=== PATIENT | male | born 1960 ===

== ENCOUNTER 2018-02-24 02:50 | Inpatient (IN) | payer MEDICAID, OTHER ==
[2018-02-24 02:56] VITALS: BMI 22.4
[2018-02-24] MEDS ORDERED: Labetalol 25mg/5ml Syringe IVP STA (02:59)
--- NOTE | 2018-02-24 03:00 | C.PDOC ---
History Of Present Illness 57 y/o male with PMHx of diabetes brought in by ambulance due to altered mental status. Patient reportedly had not been seen by family members for several days. According to relatives, they came to visit him today and heard thrashing about on the floor prior to entering apartment. When they walked in they found patient unconscious with seizure-like activity and called EMS. EMS then intubated patient in route and gave rocuronium, ativan, and ketamine in the field. On arrival to the ED, patient is being called a Code Stroke. He was not exhibiting any motor activity due to his state of paralysis. Time Seen by Provider: 02/24/18 02:59 Chief Complaint (Nursing): Altered Mental Status History Per: Patient History/Exam Limitations: Clinical Condition Onset Of Symptoms: Cannot Confirm Onset Current Symptoms Are (Timing): Still Present Exacerbating Factor(s): Unknown Additional History Per: Family Past Medical History Reviewed: Historical Data, Nursing Documentation, Vital Signs Vital Signs: Last Vital Signs Temp 97.5 F L 02/24/18 03:21 Pulse 88 02/24/18 05:03 Resp 20 02/24/18 05:03 BP 162/103 H 02/24/18 05:03 Pulse Ox 100 02/24/18 05:03 - Medical History PMH: Diabetes, HTN Family History: States: Unknown Family Hx - Social History Hx Tobacco Use: No Hx Alcohol Use: No Hx Substance Use: No - Immunization History Hx Tetanus Toxoid Vaccination: No Hx Influenza Vaccination: Yes Hx Pneumococcal Vaccination: No Review Of Systems Review Of Systems: ROS cannot be obtained secondary to pt's inabilty to answer questions. Physical Exam - Physical Exam Skin: Warm, Dry Head: Atraumatic, Normacephalic Eye(s): bilateral: Other (Pupils are mid size and midline) Neck: Trachea Midline, Supple, Other (ET tube in place) Chest: Symmetrical Cardiovascular: Rhythm Regular Respiratory: Other (Breath sounds equal bilaterally; No spontaneous respirations ) Gastrointestinal/Abdominal: Soft, No Distention Extremity: Bilateral: Atraumatic, Other (Not able to elicit babinskis) Pulses: Left Dorsalis Pedis: Normal, Right Dorsalis Pedis: Normal Neurological/Psych: Other (No motor activity exhibited; patient appears awake, not responding to verbal stimuli) ED Course And Treatment - Laboratory Results Result Diagrams: 02/24/18 03:10 02/24/18 03:10 ECG: Interpreted By Me, Viewed By Me ECG Rhythm: Sinus Rhythm (at 97 bpm, (+) voltage criteria for LVH, peaked T waves across the precordial leads v3-v6) ECG Interpretation: Normal Interpretation Of ECG: nsr,LVH,peaked t waves Rate From EC - Radiology CXR: Interpreted by Me CXR Interpretation: Yes: No Acute Disease - CT Scan/US CT Head Other Rad Studies (CT/US): Read By Radiologist, Radiology Report Reviewed CT/US Interpretation: FINDINGS: Brain: There are bilateral posterior periventricular hyperdensity seen on image 18 series 2 bilateral. frontal hyperdense areas suspicious for multifocal hemorrhage possible right temporal subarachnoid. hemorrhage. Brainstem: There are bilateral scattered hyperdense areas in the right yogesh seen on image 21 series. 4 right temporal lobe seen on image 25 series 4 left deep white matter seen on image 14 series 4. Ventricles : Unremarkable. No ventriculomegaly. Bones/joints: Unremarkable. No acute fracture. Soft tissues: Unremarkable. Sinuses: Unremarkable. No acute sinusitis. Mastoid air cells: Unremarkable. No mastoid effusion. Orbits: The globes and lens are intact. IMPRESSION: 1. Multifocal hyperdense areas scattered throughout the brain as described suspicious for. hemorrhagic metastasis/hyperdense metastatic lymphoma. These findings could represent multifocal. hemorrhage versus combination of hemorrhage and hemorrhagic / calcified lesions secondary to. infection or metastasis. Correlation with patient's neurologic history is recommended. CRITICAL RESULT: The study was personally discussed on the telephone with [Eugenia Beltrán]. on 02/24/2018 3:32 AM EDT. The results were understood and acknowledged. Thank you for allowing us to participate in the care of your patient. Dictated and Authenticated by: Baudilio Acuna MD. 02/24/2018 3:37 AM Eastern Time ([place] & [place]) Progress Note: Spoke with Dr Sandhu of neurosurgery and Dr Yi manager wealth management for admission.Dr Sandhu suggests having neurology see pt,there is nothing to offer neurosurgically at this time Medical Decision Making Medical Decision Making: Blood pressure on arrival is 207/120. Given 20 mg IV Labetalol. Accucheck in the ED is 341. Patient sent immediately to CT scan to r/o intracranial abnormality. Impression: Altered mental status, Acute CVA vs hypertensive encephalopathy vs intracranial hemorrhage vs drug overdose vs new onset seizures Time: 2:55 Initial Plan: * Routine blood work * Drug screen * CT Head w/o contrast Spoke with niece, who states she was sleeping in the next room over with her child when she heard a loud thump and then found the patient seizing. As per niece, patient has no history of drug use or alcohol use. Spoke with Dr. Del Castillo, who recommends neurosurgery consult due to possibility of aneurismal bleed. 4:[address] Sandhu, neurosurgery on-call. CT findings discussed. 4:[address] Romero, manager wealth management on-call. 4:52 Received call back from Dr. Sandhu, who viewed the scan and states no neurosurgical intervention is indicated. Disposition Discussed With : chad Doctor Will See Patient In The: Hospital - Disposition Disposition: HOSPITALIZED Disposition Time: 05:16 Condition: CRITICAL Forms: [facility] (Singaporean) - Clinical Impression Clinical Impression: Intracranial bleed - Scribe Statement The provider has reviewed the documentation as recorded by the Scribe (Vibha Ellington) Provider Attestation: All medical record entries made by the Scribe were at my direction and personally dictated by me. I have reviewed the chart and agree that the record accurately reflects my personal performance of the history, physical exam, medical decision making, and the department course for this patient. I have also personally directed, reviewed, and agree with the discharge instructions and disposition.
[2018-02-24 03:13] LABS: BASO # 0.2 K/uL (0.0-0.2); MONO # 2.7 K/uL (0.0-0.8); PLATELET COUNT 410 K/uL (130-400); RED CELL DISTRIBUTION WIDTH 16.1 % (11.5-14.5)
[2018-02-24 03:30] LABS: ABG ALLEN TEST POS; ARTERIAL BLOOD GAS HCO3 8.3 mmol/L (21-28); ARTERIAL BLOOD GAS O2 SAT 99.7 % (95-98); ARTERIAL BLOOD GAS PCO2 50 mm/Hg (35-45); ARTERIAL BLOOD GAS PH 6.94 (7.35-7.45); ARTERIAL BLOOD GAS PO2 493 mm/Hg (80-100); ARTERIAL BLOOD GAS TCO2 12.2 mmol/L (22-28)
[2018-02-24 03:42] LABS: BASO % 0.4 % (0.0-2.0); EOS # 0.7 K/uL (0.0-0.7); HEMOGLOBIN 12.8 g/dL (12.0-18.0); LYMPH # 6.9 K/uL (1.0-4.3); LYMPH % 19.8 % (20.0-40.0); MEAN CELL VOLUME 78.5 fL (80.0-94.0); MEAN CORPUSCULAR HEMOGLOBIN 23.9 pg (27.0-31.0); MEAN CORPUSCULAR HGB CONC 30.5 g/dL (33.0-37.0); MEAN PLATELET VOLUME 8.7 fL (7.2-11.7); MONO % 7.7 % (0.0-10.0); NEUT # 24.4 K/uL (1.8-7.0); NEUT % 70.1 % (50.0-75.0); RBC 5.37 Mil/uL (4.40-5.90); WHITE BLOOD COUNT 34.8 K/uL (4.8-10.8)
[2018-02-24] MEDS ORDERED: Propofol 10 mg/ml Inj (100 ml) IV SCH (03:45)
[2018-02-24 03:49] LABS: SQUAMOUS EPITHIAL 1 /hpf (0-5); URINE BACTERIA OCC (<OCC); URINE BILIRUBIN NEGATIVE (NEGATIVE); URINE CLARITY Hazy (Clear); URINE COLOR Yellow (YELLOW); URINE GLUCOSE (UA) 3+ mg/dL (Normal); URINE LEUKOCYTE ESTERASE NEG Leu/uL (Negative); URINE PROTEIN 2+ mg/dL (NEGATIVE); URINE UROBILINOGEN NORMAL mg/dL (0.2-1.0)
[2018-02-24 03:56] LABS: BARBITURATES, UR NEGATIVE (NEGATIVE); BENZODIAZEPINES, UR NEGATIVE (NEGATIVE); OPIATES, UR NEGATIVE (NEGATIVE); PHENCYCLIDINE, UR NEGATIVE (NEGATIVE)
[2018-02-24 03:56] LABS: ALB/GLOB RATIO 0.9 (1.0-2.1); ALBUMIN 4.5 g/dL (3.5-5.0); ALT/SGPT 33 U/L (21-72); AST/SGOT 53 U/L (17-59); BLOOD UREA NITROGEN 14 mg/dL (9-20); CALCIUM 9.5 mg/dl (8.6-10.4); GFR AFRICAN-AMERICAN 51; GFR NON-AFRICAN AMERICAN 42
[2018-02-24 04:00] LABS: URINE BLOOD TRACE (NEGATIVE)
[2018-02-24] MEDS: Propofol 10 mg/ml 1,000 MG/100 ML VIAL IV PRN ×3 (04:01→12:30)
[2018-02-24 04:07] LABS: BANDS 5 % (0-2); LYMPHOCYTE 24 % (20-40); MONOCYTE 9 % (0-10); NEUTROPHIL 62 % (50-75); PLATELET ESTIMATE NORMAL (NORMAL); TOTAL CELLS COUNTED 100
[2018-02-24 05:15] LABS: PROTHROMBIN TIME 11.3 SECONDS (9.7-12.2)
[2018-02-24 05:16] LABS: ABG ALLEN TEST POS; ARTERIAL BLOOD GAS HCO3 18.5 mmol/L (21-28); ARTERIAL BLOOD GAS HEMOGLOBIN 13.4 g/dL (11.7-17.4); ARTERIAL BLOOD GAS O2 SAT 99.1 % (95-98); ARTERIAL BLOOD GAS PCO2 38 mm/Hg (35-45); ARTERIAL BLOOD GAS PH 7.28 (7.35-7.45); ARTERIAL BLOOD GAS PO2 227 mm/Hg (80-100); ARTERIAL BLOOD GAS TCO2 19.1 mmol/L (22-28)
[2018-02-24] MEDS ORDERED: Insulin Human Regular 100 UNIT in Sodium Chloride 0.9% 99 ML IV SCH (05:30)
[2018-02-24] MEDS ORDERED: Iodixanol 320 mg/ml 150 ml Bottle IV ONE (05:35)
--- NOTE | 2018-02-24 05:40 | CP.PCM.CON ---
History of Present Illness - History of Present Illness History of Present Illness: 57 y/o male with PMHx of diabetes ,HTN brought in by ambulance due to altered mental status. . EMS then intubated patient in route and gave rocuronium, ativan , and ketamine in the field. patients jimenez who lives in the lower level of the same building as patient heard sound early childhood assistant and went to check on him.Patient was found with saliva from the mouth,difficulty breathing and with shaking movements no further history available CT head report: Brain: There are bilateral posterior periventricular hyperdensity seen on image 18 series 2 bilateral. frontal hyperdense areas suspicious for multifocal hemorrhage possible right temporal subarachnoid. hemorrhage. Brainstem: There are bilateral scattered hyperdense areas in the right yogesh seen on image 21 series. 4 right temporal lobe seen on image 25 series 4 left deep white matter seen on image 14 series 4. Ventricles: Unremarkable. No ventriculomegaly. Bones/joints: Unremarkable. No acute fracture. Soft tissues: Unremarkable. Sinuses: Unremarkable. No acute sinusitis. Mastoid air cells: Unremarkable. No mastoid effusion. Orbits: The globes and lens are intact. IMPRESSION: 1. Multifocal hyperdense areas scattered throughout the brain as described suspicious for. hemorrhagic metastasis/hyperdense metastatic lymphoma. These findings could represent multifocal. hemorrhage versus combination of hemorrhage and hemorrhagic / calcified lesions secondary to. infection or metastasis. Past Patient History - Past Social History Smoking Status: Light Smoker < 10 Cigarettes Daily - CARDIAC Hx Hypertension: Yes - ENDOCRINE/METABOLIC Hx Diabetes Mellitus Type 2: Yes Other/Comment: metformin found at home - PSYCHIATRIC Hx Substance Use: No - ANESTHESIA Hx Anesthesia: No Meds Allergies/Adverse Reactions: Allergies Allergy/AdvReac Type Severity Reaction Status Date / Time No Known Allergies Allergy Verified 02/24/18 02:59 - Medications Medications: Current Medications Levetiracetam 1,000 mg/ (Dextrose) 110 mls @ 420 mls/hr IVPB Q12H LEILA Last Admin: 02/24/18 04:03 Dose: 420 mls/hr Propofol (Diprivan) 1,000 mg in 100 mls @ 2.19 mls/hr IV .Q24H PRN; Protocol; 5 MCG/KG/MIN PRN Reason: TITRATE PER MD ORDER Last Admin: 02/24/18 04:35 Dose: 4.4 mls/hr Physical Exam - Constitutional Additional comments: orally intubated - Head Exam Head Exam: ATRAUMATIC, NORMAL INSPECTION, NORMOCEPHALIC - Eye Exam Eye Exam: PERRL. absent: Periorbital swelling, Scleral icterus - ENT Exam ENT Exam: Mucous Membranes Moist - Neck Exam Neck exam: Positive for: Normal Inspection - Respiratory Exam Respiratory Exam: Clear to Auscultation Bilateral. absent: Rales, Rhonchi - Cardiovascular Exam Cardiovascular Exam: REGULAR RHYTHM. absent: JVD - GI/Abdominal Exam GI & Abdominal Exam: Normal Bowel Sounds, Soft - Extremities Exam Extremities exam: Positive for: normal inspection, pedal pulses present. Negative for: pedal edema - Neurological Exam Additional comments: no response to verbal or painful stimuli,occassional minimal spontaneous movement of right hand - Skin Skin Exam: Normal Color, Warm Results - Vital Signs Recent Vital Signs: Last Vital Signs Temp 97.5 F L 02/24/18 03:21 Pulse 88 02/24/18 05:03 Resp 20 02/24/18 05:03 BP 162/103 H 02/24/18 05:03 Pulse Ox 100 02/24/18 05:03 - Labs Result Diagrams: 02/24/18 03:10 02/24/18 03:10 Labs: Laboratory Results - last 24 hr 02/24/18 02/24/18 02/24/18 02:53 03:10 03:10 WBC 34.8 H RBC 5.37 Hgb 12.8 Hct 42.1 MCV 78.5 L MCH 23.9 L MCHC 30.5 L RDW 16.1 H Plt Count 410 H MPV 8.7 Neut % (Auto) 70.1 Lymph % (Auto) 19.8 L [place] % (Auto) 7.7 Eos % (Auto) 2.0 Baso % (Auto) 0.4 Neut # (Auto) 24.4 H Lymph # (Auto) 6.9 H [place] # (Auto) 2.7 H Eos # (Auto) 0.7 Baso # (Auto) 0.2 Neutrophils % (Manual) 62 Band Neutrophils % 5 H Lymphocytes % (Manual) 24 Monocytes % (Manual) 9 Platelet Estimate Normal PT INR APTT Puncture Site pCO2 pO2 HCO3 ABG pH ABG Total CO2 ABG O2 Saturation ABG Base Excess ABG Hemoglobin ABG Carboxyhemoglobin POC ABG HHb (Measured) ABG Methemoglobin Tanner Test A-a O2 Difference Respiratory Index Hgb O2 Saturation Vent Mode Mechanical Rate FiO2 Tidal Volume PEEP Crit Value Called To Crit Value Called By Crit Value Read Back Blood Gas Notified Time Sodium 145 Potassium 6.1 H Chloride 103 Carbon Dioxide 8 L* Anion Gap 40 H BUN 14 Creatinine 1.7 H Est GFR ( Amer) 51 Est GFR (Non-Af Amer) 42 POC Glucose (mg/dL) 341 H Random Glucose 449 H* Lactic Acid Calcium 9.5 Total Bilirubin 0.5 AST 53 ALT 33 Alkaline Phosphatase 84 Troponin I 0.0170 Total Protein 9.3 H Albumin 4.5 Globulin 4.8 H Albumin/Globulin Ratio 0.9 L Urine Color Urine Clarity Urine pH Ur Specific [place] Urine Protein Urine Glucose (UA) Urine Ketones Urine Blood Urine Nitrate Urine Bilirubin Urine Urobilinogen Ur Leukocyte Esterase Urine WBC (Auto) Urine RBC (Auto) Ur Squamous Epith Cells Urine Bacteria Hyaline Casts Urine Opiates Screen Urine Methadone Screen Ur Barbiturates Screen Ur Phencyclidine Scrn Ur Amphetamines Screen U Benzodiazepines Scrn U Oth Cocaine Metabols U Cannabinoids Screen Alcohol, Quantitative < 10 Serum Ketones 02/24/18 02/24/18 02/24/18 03:20 03:36 03:36 WBC RBC Hgb Hct MCV MCH MCHC RDW Plt Count MPV Neut % (Auto) Lymph % (Auto) [place] % (Auto) Eos % (Auto) Baso % (Auto) Neut # (Auto) Lymph # (Auto) [place] # (Auto) Eos # (Auto) Baso # (Auto) Neutrophils % (Manual) Band Neutrophils % Lymphocytes % (Manual) Monocytes % (Manual) Platelet Estimate PT INR APTT Puncture Site Rr pCO2 50 H pO2 493 H HCO3 8.3 L* ABG pH 6.94 L* ABG Total CO2 12.2 L ABG O2 Saturation 99.7 H ABG Base Excess -21.4 L ABG Hemoglobin 13.0 ABG Carboxyhemoglobin 1.2 POC ABG HHb (Measured) 0.3 ABG Methemoglobin 0.3 Tanner Test Pos A-a O2 Difference 158.0 Respiratory Index 0.3 Hgb O2 Saturation 98.3 H Vent Mode Prvc Mechanical Rate 12 FiO2 100.0 Tidal Volume 500 PEEP 5 Crit Value Called To Cass carr/internet designer Crit Value Called By Jose james Crit Value Read Back Y Blood Gas Notified Time 335 Sodium Potassium Chloride Carbon Dioxide Anion Gap BUN Creatinine Est GFR ( Amer) Est GFR (Non-Af Amer) POC Glucose (mg/dL) Random Glucose Lactic Acid Calcium Total Bilirubin AST ALT Alkaline Phosphatase Troponin I Total Protein Albumin Globulin Albumin/Globulin Ratio Urine Color Yellow Urine Clarity Hazy Urine pH 5.0 Ur Specific [place] 1.008 Urine Protein 2+ H Urine Glucose (UA) 3+ H Urine Ketones Negative Urine Blood Trace H Urine Nitrate Negative Urine Bilirubin Negative Urine Urobilinogen Normal Ur Leukocyte Esterase Neg Urine WBC (Auto) 6 H Urine RBC (Auto) 2 Ur Squamous Epith Cells 1 Urine Bacteria Occ H Hyaline Casts 6-10 H Urine Opiates Screen Negative Urine Methadone Screen Negative Ur Barbiturates Screen Negative Ur Phencyclidine Scrn Negative Ur Amphetamines Screen Negative U Benzodiazepines Scrn Negative U Oth Cocaine Metabols Negative U Cannabinoids Screen Positive H Alcohol, Quantitative Serum Ketones 02/24/18 02/24/18 02/24/18 03:37 03:59 05:03 WBC RBC Hgb Hct MCV MCH MCHC RDW Plt Count MPV Neut % (Auto) Lymph % (Auto) [place] % (Auto) Eos % (Auto) Baso % (Auto) Neut # (Auto) Lymph # (Auto) [place] # (Auto) Eos # (Auto) Baso # (Auto) Neutrophils % (Manual) Band Neutrophils % Lymphocytes % (Manual) Monocytes % (Manual) Platelet Estimate PT 11.3 INR 1.0 APTT 34 Puncture Site pCO2 pO2 HCO3 ABG pH ABG Total CO2 ABG O2 Saturation ABG Base Excess ABG Hemoglobin ABG Carboxyhemoglobin POC ABG HHb (Measured) ABG Methemoglobin Tanner Test A-a O2 Difference Respiratory Index Hgb O2 Saturation Vent Mode Mechanical Rate FiO2 Tidal Volume PEEP Crit Value Called To Crit Value Called By Crit Value Read Back Blood Gas Notified Time Sodium Potassium Chloride Carbon Dioxide Anion Gap BUN Creatinine Est GFR ( Amer) Est GFR (Non-Af Amer) POC Glucose (mg/dL) Random Glucose Lactic Acid 9.6 H* Calcium Total Bilirubin AST ALT Alkaline Phosphatase Troponin I Total Protein Albumin Globulin Albumin/Globulin Ratio Urine Color Urine Clarity Urine pH Ur Specific [place] Urine Protein Urine Glucose (UA) Urine Ketones Urine Blood Urine Nitrate Urine Bilirubin Urine Urobilinogen Ur Leukocyte Esterase Urine WBC (Auto) Urine RBC (Auto) Ur Squamous Epith Cells Urine Bacteria Hyaline Casts Urine Opiates Screen Urine Methadone Screen Ur Barbiturates Screen Ur Phencyclidine Scrn Ur Amphetamines Screen U Benzodiazepines Scrn U Oth Cocaine Metabols U Cannabinoids Screen Alcohol, Quantitative Serum Ketones Negative 02/24/18 05:10 WBC RBC Hgb Hct MCV MCH MCHC RDW Plt Count MPV Neut % (Auto) Lymph % (Auto) [place] % (Auto) Eos % (Auto) Baso % (Auto) Neut # (Auto) Lymph # (Auto) [place] # (Auto) Eos # (Auto) Baso # (Auto) Neutrophils % (Manual) Band Neutrophils % Lymphocytes % (Manual) Monocytes % (Manual) Platelet Estimate PT INR APTT Puncture Site Rr pCO2 38 pO2 227 H HCO3 18.5 L ABG pH 7.28 L ABG Total CO2 19.1 L ABG O2 Saturation 99.1 H ABG Base Excess -8.2 L ABG Hemoglobin 13.4 ABG Carboxyhemoglobin 1.1 POC ABG HHb (Measured) 0.9 ABG Methemoglobin 0.5 Tanner Test Pos A-a O2 Difference 82.0 Respiratory Index 0.4 Hgb O2 Saturation 97.5 Vent Mode Prvc Mechanical Rate 20 FiO2 50.0 Tidal Volume 500 PEEP 5 Crit Value Called To Crit Value Called By Crit Value Read Back Blood Gas Notified Time Sodium Potassium Chloride Carbon Dioxide Anion Gap BUN Creatinine Est GFR ( Amer) Est GFR (Non-Af Amer) POC Glucose (mg/dL) Random Glucose Lactic Acid Calcium Total Bilirubin AST ALT Alkaline Phosphatase Troponin I Total Protein Albumin Globulin Albumin/Globulin Ratio Urine Color Urine Clarity Urine pH Ur Specific [place] Urine Protein Urine Glucose (UA) Urine Ketones Urine Blood Urine Nitrate Urine Bilirubin Urine Urobilinogen Ur Leukocyte Esterase Urine WBC (Auto) Urine RBC (Auto) Ur Squamous Epith Cells Urine Bacteria Hyaline Casts Urine Opiates Screen Urine Methadone Screen Ur Barbiturates Screen Ur Phencyclidine Scrn Ur Amphetamines Screen U Benzodiazepines Scrn U Oth Cocaine Metabols U Cannabinoids Screen Alcohol, Quantitative Serum Ketones - EKG Data EKG Interpreted by: Myself EKG shows normal: Sinus rhythm (lvh) - Imaging and Cardiology Chest x-ray Status: Image reviewed by me CT scan - head Status: Report reviewed by me Assessment & Plan - Assessment and Plan (Free Text) Assessment: 1.Altered Mental Status/Respiratory failure continue ventilatory support 2.Multifocal hyperdense areas on CT for rpt CT head and CT chest abdomen to r/o possible tumor 3.DM on insulin 4.HTN-f/u Bp and meds as needed 5.Drug abuse=cannabinoids in urine 6. leucocytosis blood and Urine cultures 5.Renal insufficiency/lactic acidosis and hyperkalemia f/u with rpt labs
--- NOTE | 2018-02-24 05:58 | CP.PCM.HP ---
<Jovi Del Castillo P - Last Filed: 02/24/18 06:16> Meds Allergies/Adverse Reactions: Allergies Allergy/AdvReac Type Severity Reaction Status Date / Time No Known Allergies Allergy Verified 02/24/18 02:59 Results - Vital Signs Recent Vital Signs: Last Vital Signs Temp 97.5 F L 02/24/18 03:21 Pulse 94 H 02/24/18 05:21 Resp 24 02/24/18 05:21 BP 161/100 H 02/24/18 05:21 Pulse Ox 100 02/24/18 05:21 - Labs Result Diagrams: 02/24/18 03:10 02/24/18 03:10 Labs: Laboratory Results - last 24 hr 02/24/18 02/24/18 02/24/18 02:53 03:10 03:10 WBC 34.8 H RBC 5.37 Hgb 12.8 Hct 42.1 MCV 78.5 L MCH 23.9 L MCHC 30.5 L RDW 16.1 H Plt Count 410 H MPV 8.7 Neut % (Auto) 70.1 Lymph % (Auto) 19.8 L [place] % (Auto) 7.7 Eos % (Auto) 2.0 Baso % (Auto) 0.4 Neut # (Auto) 24.4 H Lymph # (Auto) 6.9 H [place] # (Auto) 2.7 H Eos # (Auto) 0.7 Baso # (Auto) 0.2 Neutrophils % (Manual) 62 Band Neutrophils % 5 H Lymphocytes % (Manual) 24 Monocytes % (Manual) 9 Platelet Estimate Normal PT INR APTT Puncture Site pCO2 pO2 HCO3 ABG pH ABG Total CO2 ABG O2 Saturation ABG Base Excess ABG Hemoglobin ABG Carboxyhemoglobin POC ABG HHb (Measured) ABG Methemoglobin Tanner Test A-a O2 Difference Respiratory Index Hgb O2 Saturation Vent Mode Mechanical Rate FiO2 Tidal Volume PEEP Crit Value Called To Crit Value Called By Crit Value Read Back Blood Gas Notified Time Sodium 145 Potassium 6.1 H Chloride 103 Carbon Dioxide 8 L* Anion Gap 40 H BUN 14 Creatinine 1.7 H Est GFR ( Amer) 51 Est GFR (Non-Af Amer) 42 POC Glucose (mg/dL) 341 H Random Glucose 449 H* Lactic Acid Calcium 9.5 Total Bilirubin 0.5 AST 53 ALT 33 Alkaline Phosphatase 84 Troponin I 0.0170 Total Protein 9.3 H Albumin 4.5 Globulin 4.8 H Albumin/Globulin Ratio 0.9 L Urine Color Urine Clarity Urine pH Ur Specific [place] Urine Protein Urine Glucose (UA) Urine Ketones Urine Blood Urine Nitrate Urine Bilirubin Urine Urobilinogen Ur Leukocyte Esterase Urine WBC (Auto) Urine RBC (Auto) Ur Squamous Epith Cells Urine Bacteria Hyaline Casts Urine Opiates Screen Urine Methadone Screen Ur Barbiturates Screen Ur Phencyclidine Scrn Ur Amphetamines Screen U Benzodiazepines Scrn U Oth Cocaine Metabols U Cannabinoids Screen Alcohol, Quantitative < 10 Serum Ketones 02/24/18 02/24/18 02/24/18 03:20 03:36 03:36 WBC RBC Hgb Hct MCV MCH MCHC RDW Plt Count MPV Neut % (Auto) Lymph % (Auto) [place] % (Auto) Eos % (Auto) Baso % (Auto) Neut # (Auto) Lymph # (Auto) [place] # (Auto) Eos # (Auto) Baso # (Auto) Neutrophils % (Manual) Band Neutrophils % Lymphocytes % (Manual) Monocytes % (Manual) Platelet Estimate PT INR APTT Puncture Site Rr pCO2 50 H pO2 493 H HCO3 8.3 L* ABG pH 6.94 L* ABG Total CO2 12.2 L ABG O2 Saturation 99.7 H ABG Base Excess -21.4 L ABG Hemoglobin 13.0 ABG Carboxyhemoglobin 1.2 POC ABG HHb (Measured) 0.3 ABG Methemoglobin 0.3 Tanner Test Pos A-a O2 Difference 158.0 Respiratory Index 0.3 Hgb O2 Saturation 98.3 H Vent Mode Prvc Mechanical Rate 12 FiO2 100.0 Tidal Volume 500 PEEP 5 Crit Value Called To Cass carr/coverage specialist rn Crit Value Called By Jose james Crit Value Read Back Y Blood Gas Notified Time 335 Sodium Potassium Chloride Carbon Dioxide Anion Gap BUN Creatinine Est GFR ( Amer) Est GFR (Non-Af Amer) POC Glucose (mg/dL) Random Glucose Lactic Acid Calcium Total Bilirubin AST ALT Alkaline Phosphatase Troponin I Total Protein Albumin Globulin Albumin/Globulin Ratio Urine Color Yellow Urine Clarity Hazy Urine pH 5.0 Ur Specific [place] 1.008 Urine Protein 2+ H Urine Glucose (UA) 3+ H Urine Ketones Negative Urine Blood Trace H Urine Nitrate Negative Urine Bilirubin Negative Urine Urobilinogen Normal Ur Leukocyte Esterase Neg Urine WBC (Auto) 6 H Urine RBC (Auto) 2 Ur Squamous Epith Cells 1 Urine Bacteria Occ H Hyaline Casts 6-10 H Urine Opiates Screen Negative Urine Methadone Screen Negative Ur Barbiturates Screen Negative Ur Phencyclidine Scrn Negative Ur Amphetamines Screen Negative U Benzodiazepines Scrn Negative U Oth Cocaine Metabols Negative U Cannabinoids Screen Positive H Alcohol, Quantitative Serum Ketones 02/24/18 02/24/18 02/24/18 03:37 03:59 05:03 WBC RBC Hgb Hct MCV MCH MCHC RDW Plt Count MPV Neut % (Auto) Lymph % (Auto) [place] % (Auto) Eos % (Auto) Baso % (Auto) Neut # (Auto) Lymph # (Auto) [place] # (Auto) Eos # (Auto) Baso # (Auto) Neutrophils % (Manual) Band Neutrophils % Lymphocytes % (Manual) Monocytes % (Manual) Platelet Estimate PT 11.3 INR 1.0 APTT 34 Puncture Site pCO2 pO2 HCO3 ABG pH ABG Total CO2 ABG O2 Saturation ABG Base Excess ABG Hemoglobin ABG Carboxyhemoglobin POC ABG HHb (Measured) ABG Methemoglobin Tanner Test A-a O2 Difference Respiratory Index Hgb O2 Saturation Vent Mode Mechanical Rate FiO2 Tidal Volume PEEP Crit Value Called To Crit Value Called By Crit Value Read Back Blood Gas Notified Time Sodium Potassium Chloride Carbon Dioxide Anion Gap BUN Creatinine Est GFR ( Amer) Est GFR (Non-Af Amer) POC Glucose (mg/dL) Random Glucose Lactic Acid 9.6 H* Calcium Total Bilirubin AST ALT Alkaline Phosphatase Troponin I Total Protein Albumin Globulin Albumin/Globulin Ratio Urine Color Urine Clarity Urine pH Ur Specific [place] Urine Protein Urine Glucose (UA) Urine Ketones Urine Blood Urine Nitrate Urine Bilirubin Urine Urobilinogen Ur Leukocyte Esterase Urine WBC (Auto) Urine RBC (Auto) Ur Squamous Epith Cells Urine Bacteria Hyaline Casts Urine Opiates Screen Urine Methadone Screen Ur Barbiturates Screen Ur Phencyclidine Scrn Ur Amphetamines Screen U Benzodiazepines Scrn U Oth Cocaine Metabols U Cannabinoids Screen Alcohol, Quantitative Serum Ketones Negative 02/24/18 02/24/18 05:10 05:39 WBC RBC Hgb Hct MCV MCH MCHC RDW Plt Count MPV Neut % (Auto) Lymph % (Auto) [place] % (Auto) Eos % (Auto) Baso % (Auto) Neut # (Auto) Lymph # (Auto) [place] # (Auto) Eos # (Auto) Baso # (Auto) Neutrophils % (Manual) Band Neutrophils % Lymphocytes % (Manual) Monocytes % (Manual) Platelet Estimate PT INR APTT Puncture Site Rr pCO2 38 pO2 227 H HCO3 18.5 L ABG pH 7.28 L ABG Total CO2 19.1 L ABG O2 Saturation 99.1 H ABG Base Excess -8.2 L ABG Hemoglobin 13.4 ABG Carboxyhemoglobin 1.1 POC ABG HHb (Measured) 0.9 ABG Methemoglobin 0.5 Tanner Test Pos A-a O2 Difference 82.0 Respiratory Index 0.4 Hgb O2 Saturation 97.5 Vent Mode Prvc Mechanical Rate 20 FiO2 50.0 Tidal Volume 500 PEEP 5 Crit Value Called To Crit Value Called By Crit Value Read Back Blood Gas Notified Time Sodium Potassium Chloride Carbon Dioxide Anion Gap BUN Creatinine Est GFR ( Amer) Est GFR (Non-Af Amer) POC Glucose (mg/dL) 410 H* Random Glucose Lactic Acid Calcium Total Bilirubin AST ALT Alkaline Phosphatase Troponin I Total Protein Albumin Globulin Albumin/Globulin Ratio Urine Color Urine Clarity Urine pH Ur Specific [place] Urine Protein Urine Glucose (UA) Urine Ketones Urine Blood Urine Nitrate Urine Bilirubin Urine Urobilinogen Ur Leukocyte Esterase Urine WBC (Auto) Urine RBC (Auto) Ur Squamous Epith Cells Urine Bacteria Hyaline Casts Urine Opiates Screen Urine Methadone Screen Ur Barbiturates Screen Ur Phencyclidine Scrn Ur Amphetamines Screen U Benzodiazepines Scrn U Oth Cocaine Metabols U Cannabinoids Screen Alcohol, Quantitative Serum Ketones Attending/Attestation - Attestation I have personally seen and examined this patient.: Yes I have fully participated in the care of the patient.: Yes I have reviewed all pertinent clinical information: Yes Notes (Text): 02/24/18 06:16 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 Hyperglycemia, severe metabolic acidosis, lactic acidosis, leucocytosis noticed. Patient also breathing spontaneously, opening eyes partially on command , moving right foot and left arm with stimulus, pupils b/l equal. Plan Repeat Ct head as initial event suspected subarachnoid rather hyperdense tumor CT angio after above to see if any leak in cerebral circulation CT chest/abd/pelvis with iv contrast to r/o any source of mets Aggressively control glucose with insulin drip to prevent swelling of brain, keep head end elevated, hyperventilate Gi/DVT prophylaxis Barrett culture for leucocytosis Cardene drip to control bp and vaso spasm Neurology and neuro surgery consult See orders for detail. <OnelSrinivasfelipe - Last Filed: 02/24/18 07:24> History of Present Illness - History of Present Illness History of Present Illness: 57 year old male with past medical history of hypertension and diabetes was found unconscious by his niece at home. History per patient's neice , she heard noises coming from up stair around 1am and found patient unconscious with agonal breathing, saliva from the mouth. EMS arrived and intubated patient en route to the hospital. Patient was last seem behaving normally a day prior. 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 Smokes cigarettes and does drink alcohol. Unable to obtain further ROS due to patient's condition. Present on Admission - Present on Admission Any Indicators Present on Admission: No Review of Systems - Review of Systems Systems not reviewed;Unavailable: Altered Mental Status, Intubated Past Patient History - Past Social History Smoking Status: Light Smoker < 10 Cigarettes Daily - CARDIAC Hx Hypertension: Yes - ENDOCRINE/METABOLIC Hx Diabetes Mellitus Type 2: Yes Other/Comment: metformin found at home - PSYCHIATRIC Hx Substance Use: No - ANESTHESIA Hx Anesthesia: No Physical Exam - Constitutional Appears: Non-toxic - Head Exam Head Exam: ATRAUMATIC, NORMAL INSPECTION - Eye Exam Eye Exam: PERRL Pupil Exam: PERRL - ENT Exam Additional comments: ET tube in place - Respiratory Exam Respiratory Exam: NORMAL BREATHING PATTERN Additional comments: breathing spontaneously - Cardiovascular Exam Cardiovascular Exam: +S1, +S2 - GI/Abdominal Exam GI & Abdominal Exam: Distended, Soft - Extremities Exam Extremities exam: Positive for: normal inspection Additional comments: no evidence of trauma, no laceration, no ecchymosis appreciated - Neurological Exam Additional comments: minimally responsive to verbal stimuli by opening eyes Moves bilateral upper extremities and right leg spontaneously - Skin Skin Exam: Intact, Warm Results - Vital Signs Recent Vital Signs: Last Vital Signs Temp 97.5 F L 02/24/18 03:21 Pulse 94 H 02/24/18 05:21 Resp 24 02/24/18 05:21 BP 161/100 H 02/24/18 05:21 Pulse Ox 100 02/24/18 05:21 - Labs Result Diagrams: 02/24/18 03:10 02/24/18 03:10 Labs: Laboratory Results - last 24 hr 02/24/18 02/24/18 02/24/18 02:53 03:10 03:10 WBC 34.8 H RBC 5.37 Hgb 12.8 Hct 42.1 MCV 78.5 L MCH 23.9 L MCHC 30.5 L RDW 16.1 H Plt Count 410 H MPV 8.7 Neut % (Auto) 70.1 Lymph % (Auto) 19.8 L [place] % (Auto) 7.7 Eos % (Auto) 2.0 Baso % (Auto) 0.4 Neut # (Auto) 24.4 H Lymph # (Auto) 6.9 H [place] # (Auto) 2.7 H Eos # (Auto) 0.7 Baso # (Auto) 0.2 Neutrophils % (Manual) 62 Band Neutrophils % 5 H Lymphocytes % (Manual) 24 Monocytes % (Manual) 9 Platelet Estimate Normal PT INR APTT Puncture Site pCO2 pO2 HCO3 ABG pH ABG Total CO2 ABG O2 Saturation ABG Base Excess ABG Hemoglobin ABG Carboxyhemoglobin POC ABG HHb (Measured) ABG Methemoglobin Tanner Test A-a O2 Difference Respiratory Index Hgb O2 Saturation Vent Mode Mechanical Rate FiO2 Tidal Volume PEEP Crit Value Called To Crit Value Called By Crit Value Read Back Blood Gas Notified Time Sodium 145 Potassium 6.1 H Chloride 103 Carbon Dioxide 8 L* Anion Gap 40 H BUN 14 Creatinine 1.7 H Est GFR ( Amer) 51 Est GFR (Non-Af Amer) 42 POC Glucose (mg/dL) 341 H Random Glucose 449 H* Lactic Acid Calcium 9.5 Total Bilirubin 0.5 AST 53 ALT 33 Alkaline Phosphatase 84 Troponin I 0.0170 Total Protein 9.3 H Albumin 4.5 Globulin 4.8 H Albumin/Globulin Ratio 0.9 L Urine Color Urine Clarity Urine pH Ur Specific [place] Urine Protein Urine Glucose (UA) Urine Ketones Urine Blood Urine Nitrate Urine Bilirubin Urine Urobilinogen Ur Leukocyte Esterase Urine WBC (Auto) Urine RBC (Auto) Ur Squamous Epith Cells Urine Bacteria Hyaline Casts Urine Opiates Screen Urine Methadone Screen Ur Barbiturates Screen Ur Phencyclidine Scrn Ur Amphetamines Screen U Benzodiazepines Scrn U Oth Cocaine Metabols U Cannabinoids Screen Alcohol, Quantitative < 10 Serum Ketones 02/24/18 02/24/18 02/24/18 03:20 03:36 03:36 WBC RBC Hgb Hct MCV MCH MCHC RDW Plt Count MPV Neut % (Auto) Lymph % (Auto) [place] % (Auto) Eos % (Auto) Baso % (Auto) Neut # (Auto) Lymph # (Auto) [place] # (Auto) Eos # (Auto) Baso # (Auto) Neutrophils % (Manual) Band Neutrophils % Lymphocytes % (Manual) Monocytes % (Manual) Platelet Estimate PT INR APTT Puncture Site Rr pCO2 50 H pO2 493 H HCO3 8.3 L* ABG pH 6.94 L* ABG Total CO2 12.2 L ABG O2 Saturation 99.7 H ABG Base Excess -21.4 L ABG Hemoglobin 13.0 ABG Carboxyhemoglobin 1.2 POC ABG HHb (Measured) 0.3 ABG Methemoglobin 0.3 Tanner Test Pos A-a O2 Difference 158.0 Respiratory Index 0.3 Hgb O2 Saturation 98.3 H Vent Mode Prvc Mechanical Rate 12 FiO2 100.0 Tidal Volume 500 PEEP 5 Crit Value Called To Cass carr/coverage specialist rn Crit Value Called By Jose james Crit Value Read Back Y Blood Gas Notified Time 335 Sodium Potassium Chloride Carbon Dioxide Anion Gap BUN Creatinine Est GFR ( Amer) Est GFR (Non-Af Amer) POC Glucose (mg/dL) Random Glucose Lactic Acid Calcium Total Bilirubin AST ALT Alkaline Phosphatase Troponin I Total Protein Albumin Globulin Albumin/Globulin Ratio Urine Color Yellow Urine Clarity Hazy Urine pH 5.0 Ur Specific [place] 1.008 Urine Protein 2+ H Urine Glucose (UA) 3+ H Urine Ketones Negative Urine Blood Trace H Urine Nitrate Negative Urine Bilirubin Negative Urine Urobilinogen Normal Ur Leukocyte Esterase Neg Urine WBC (Auto) 6 H Urine RBC (Auto) 2 Ur Squamous Epith Cells 1 Urine Bacteria Occ H Hyaline Casts 6-10 H Urine Opiates Screen Negative Urine Methadone Screen Negative Ur Barbiturates Screen Negative Ur Phencyclidine Scrn Negative Ur Amphetamines Screen Negative U Benzodiazepines Scrn Negative U Oth Cocaine Metabols Negative U Cannabinoids Screen Positive H Alcohol, Quantitative Serum Ketones 02/24/18 02/24/18 02/24/18 03:37 03:59 05:03 WBC RBC Hgb Hct MCV MCH MCHC RDW Plt Count MPV Neut % (Auto) Lymph % (Auto) [place] % (Auto) Eos % (Auto) Baso % (Auto) Neut # (Auto) Lymph # (Auto) [place] # (Auto) Eos # (Auto) Baso # (Auto) Neutrophils % (Manual) Band Neutrophils % Lymphocytes % (Manual) Monocytes % (Manual) Platelet Estimate PT 11.3 INR 1.0 APTT 34 Puncture Site pCO2 pO2 HCO3 ABG pH ABG Total CO2 ABG O2 Saturation ABG Base Excess ABG Hemoglobin ABG Carboxyhemoglobin POC ABG HHb (Measured) ABG Methemoglobin Tanner Test A-a O2 Difference Respiratory Index Hgb O2 Saturation Vent Mode Mechanical Rate FiO2 Tidal Volume PEEP Crit Value Called To Crit Value Called By Crit Value Read Back Blood Gas Notified Time Sodium Potassium Chloride Carbon Dioxide Anion Gap BUN Creatinine Est GFR ( Amer) Est GFR (Non-Af Amer) POC Glucose (mg/dL) Random Glucose Lactic Acid 9.6 H* Calcium Total Bilirubin AST ALT Alkaline Phosphatase Troponin I Total Protein Albumin Globulin Albumin/Globulin Ratio Urine Color Urine Clarity Urine pH Ur Specific [place] Urine Protein Urine Glucose (UA) Urine Ketones Urine Blood Urine Nitrate Urine Bilirubin Urine Urobilinogen Ur Leukocyte Esterase Urine WBC (Auto) Urine RBC (Auto) Ur Squamous Epith Cells Urine Bacteria Hyaline Casts Urine Opiates Screen Urine Methadone Screen Ur Barbiturates Screen Ur Phencyclidine Scrn Ur Amphetamines Screen U Benzodiazepines Scrn U Oth Cocaine Metabols U Cannabinoids Screen Alcohol, Quantitative Serum Ketones Negative 02/24/18 02/24/18 05:10 05:39 WBC RBC Hgb Hct MCV MCH MCHC RDW Plt Count MPV Neut % (Auto) Lymph % (Auto) [place] % (Auto) Eos % (Auto) Baso % (Auto) Neut # (Auto) Lymph # (Auto) [place] # (Auto) Eos # (Auto) Baso # (Auto) Neutrophils % (Manual) Band Neutrophils % Lymphocytes % (Manual) Monocytes % (Manual) Platelet Estimate PT INR APTT Puncture Site Rr pCO2 38 pO2 227 H HCO3 18.5 L ABG pH 7.28 L ABG Total CO2 19.1 L ABG O2 Saturation 99.1 H ABG Base Excess -8.2 L ABG Hemoglobin 13.4 ABG Carboxyhemoglobin 1.1 POC ABG HHb (Measured) 0.9 ABG Methemoglobin 0.5 Tanner Test Pos A-a O2 Difference 82.0 Respiratory Index 0.4 Hgb O2 Saturation 97.5 Vent Mode Prvc Mechanical Rate 20 FiO2 50.0 Tidal Volume 500 PEEP 5 Crit Value Called To Crit Value Called By Crit Value Read Back Blood Gas Notified Time Sodium Potassium Chloride Carbon Dioxide Anion Gap BUN Creatinine Est GFR ( Amer) Est GFR (Non-Af Amer) POC Glucose (mg/dL) 410 H* Random Glucose Lactic Acid Calcium Total Bilirubin AST ALT Alkaline Phosphatase Troponin I Total Protein Albumin Globulin Albumin/Globulin Ratio Urine Color Urine Clarity Urine pH Ur Specific [place] Urine Protein Urine Glucose (UA) Urine Ketones Urine Blood Urine Nitrate Urine Bilirubin Urine Urobilinogen Ur Leukocyte Esterase Urine WBC (Auto) Urine RBC (Auto) Ur Squamous Epith Cells Urine Bacteria Hyaline Casts Urine Opiates Screen Urine Methadone Screen Ur Barbiturates Screen Ur Phencyclidine Scrn Ur Amphetamines Screen U Benzodiazepines Scrn U Oth Cocaine Metabols U Cannabinoids Screen Alcohol, Quantitative Serum Ketones Assessment & Plan - Assessment and Plan (Free Text) Assessment: Subarachnoid hemorrhage -First head CT showed subarachnoid vs hyperdense tumor -Follow up 2nd head CT to check spread of hemorrhage -Follow up CTA head/neck for leaks, CT chest abd pelv to check for malignancy/ mets -Insulin drip to prevent brain edema -Cardene drip to vasospasm -HOB at 45 degree -Neurology consulted, Dr. Rabago help appreciated -Neuro check Q2 -Keppra 500mg Q12 -Management per ICU Leukocytosis -WBC 34.8 on admission -follow up blood, urine, sputum cultures -Procal HTN -Cardene drip DM -Insulin drip Prophylactic measures -Protonix IV -SCD Case discussed with attending physician
[2018-02-24] MEDS: niCARdipine IV 25 MG in Sodium Chloride 0.9% 240 ML IV SCH ×2 (07:04→19:57)
[2018-02-24] MEDS: levETIRAcetam 500 MG in Sodium Chloride 0.9% 100 ML IVPB SCH ×2 (08:41→20:14)
--- NOTE | 2018-02-24 09:09 | CP.PCM.PN ---
Subjective - Date & Time of Evaluation Date of Evaluation: 02/24/18 Time of Evaluation: 09:07 - Subjective Subjective: called by ER about CT multiple small hemmorhagic lesions throughout brain This is not a surgically curable problem Need to determine origin as possibility of metastatic disease is most likly diagnosis Obtaining a biopsy would be difficult and would require transfer to another facility as it would require neuronavigation which is not available at [facility] Objective - Vital Signs/Intake and Output Vital Signs (last 24 hours): Temp Pulse Resp BP Pulse Ox 98.8 F 112 H 25 H 161/103 H 100 02/24/18 07:01 02/24/18 07:30 02/24/18 07:30 02/24/18 06:53 02/24/18 07:30 Intake and Output: 02/24/18 02/24/18 06:59 18:59 Output Total 1600 Balance -1600 - Medications Medications: Current Medications Propofol (Diprivan) 1,000 mg in 100 mls @ 2.19 mls/hr IV .Q24H PRN; Protocol; 5 MCG/KG/MIN PRN Reason: TITRATE PER MD ORDER Last Admin: 02/24/18 04:35 Dose: 4.4 mls/hr Insulin Human Regular 100 unit (/ Sodium Chloride) 100 mls @ 2 mls/hr IV .Q24H LEILA PRN Reason: Protocol Nicardipine HCl 25 mg/ Sodium (Chloride) 250 mls @ 25 mls/hr IV .Q10H LEILA; 2.5 MG/HR PRN Reason: Protocol Last Admin: 02/24/18 07:04 Dose: 2.5 mg/hr, 25 mls/hr Levetiracetam 500 mg/ Sodium (Chloride) 105 mls @ 420 mls/hr IVPB Q12H LEILA Last Admin: 02/24/18 08:41 Dose: 420 mls/hr Pantoprazole Sodium (Protonix Inj) 40 mg IVP DAILY LEILA - Labs Labs: 02/24/18 03:10 02/24/18 03:10 PT 11.3 SECONDS (9.7-12.2) 02/24/18 05:03 INR 1.0 02/24/18 05:03 APTT 34 SECONDS (21-34) 02/24/18 05:03
[2018-02-24 09:14] LABS: BASO % 0.1 % (0.0-2.0); HEMOGLOBIN 12.7 g/dL (12.0-18.0); LYMPH % 4.6 % (20.0-40.0); MEAN CORPUSCULAR HEMOGLOBIN 23.9 pg (27.0-31.0); MEAN CORPUSCULAR HGB CONC 32.6 g/dL (33.0-37.0); MEAN PLATELET VOLUME 8.2 fL (7.2-11.7); MONO # 1.2 K/uL (0.0-0.8); MONO % 5.2 % (0.0-10.0); NEUT # 20.6 K/uL (1.8-7.0); NEUT % 90.1 % (50.0-75.0); PLATELET COUNT 346 K/uL (130-400); RED CELL DISTRIBUTION WIDTH 15.9 % (11.5-14.5); WHITE BLOOD COUNT 22.9 K/uL (4.8-10.8)
[2018-02-24 09:20] LABS: MEAN CELL VOLUME 73.4 fL (80.0-94.0)
[2018-02-24 09:33] LABS: BLOOD UREA NITROGEN 22 mg/dL (9-20); CALCIUM 9.2 mg/dl (8.6-10.4); GFR AFRICAN-AMERICAN > 60; GFR NON-AFRICAN AMERICAN 52
--- NOTE | 2018-02-24 09:46 | RAD ---
Chest x-ray single frontal view History: Endotracheal tube placement. Comparison: None available. Findings: Endotracheal tube extending into the mid thoracic trachea. Left costophrenic angle is partially excluded from this study. Mild venous congestion. Mild patchy increased markings in the left lung which may be related to technique. Upper lobe granulomatous changes. Heart size within normal limits. Impression: Endotracheal tube extending into the mid thoracic trachea. Left costophrenic angle is partially excluded from this study. Mild venous congestion. Mild patchy increased markings in the left lung which may be related to technique. Upper lobe granulomatous changes.
--- NOTE | 2018-02-24 11:25 | CP.PCM.CON ---
History of Present Illness - History of Present Illness History of Present Illness: 57 yr old male who has pmh of dm, htn presents after sudden loss of consciousness and multiple seizures at home, now intubated on a vent in ICU. Patient has no history of epilepsy, headaches or any other complaints, but was found to have multiple intracranial hemorrhagic lesions. PMH/PSH: DM, HTN FH/SH: has several children. No tobacco, no etoh. All: nkda. On exam: intubated, and on propofol but still moving left arm semipurposefully. PERRl. +blinks to threat left eye. right side seems weaker compared to left. toes upgoing. no clonus. +2 dtr ul and ll bl. Toes downgoing. No clonus. sensory exam not accurate. Past Patient History - Past Medical History & Family History Past Medical History?: Yes - Past Social History Smoking Status: Light Smoker < 10 Cigarettes Daily - CARDIAC Hx Hypertension: Yes - PULMONARY Hx Respiratory Disorders: No - NEUROLOGICAL Hx Neurological Disorder: No - HEENT Hx HEENT Problems: No - RENAL Hx Chronic Kidney Disease: No - ENDOCRINE/METABOLIC Hx Diabetes Mellitus Type 2: Yes Other/Comment: metformin found at home - HEMATOLOGICAL/ONCOLOGICAL Hx Blood Disorders: No - INTEGUMENTARY Hx Dermatological Problems: No - MUSCULOSKELETAL/RHEUMATOLOGICAL Hx Falls: Yes - GASTROINTESTINAL Hx Gastrointestinal Disorders: No - GENITOURINARY/GYNECOLOGICAL Hx Genitourinary Disorders: No - PSYCHIATRIC Hx Substance Use: No - SURGICAL HISTORY Hx Surgeries: No - ANESTHESIA Hx Anesthesia: No Meds Allergies/Adverse Reactions: Allergies Allergy/AdvReac Type Severity Reaction Status Date / Time No Known Allergies Allergy Verified 02/24/18 02:59 - Medications Medications: Current Medications Propofol (Diprivan) 1,000 mg in 100 mls @ 2.19 mls/hr IV .Q24H PRN; Protocol; 5 MCG/KG/MIN PRN Reason: TITRATE PER MD ORDER Last Admin: 02/24/18 04:35 Dose: 4.4 mls/hr Insulin Human Regular 100 unit (/ Sodium Chloride) 100 mls @ 2 mls/hr IV .Q24H LEILA PRN Reason: Protocol Last Admin: 02/24/18 07:30 Dose: 2 u/hr, 2 mls/hr Nicardipine HCl 25 mg/ Sodium (Chloride) 250 mls @ 25 mls/hr IV .Q10H LEILA; 2.5 MG/HR PRN Reason: Protocol Last Titration: 02/24/18 08:30 Dose: 1 mg/hr, 10 mls/hr Levetiracetam 500 mg/ Sodium (Chloride) 105 mls @ 420 mls/hr IVPB Q12H LEILA Last Admin: 02/24/18 08:41 Dose: 420 mls/hr Piperacillin Sod/Tazobactam Sod (Zosyn 3.375 Gm Iv Premix) 3.375 gm in 50 mls @ 100 mls/hr IVPB Q8H LEILA PRN Reason: Protocol Vancomycin/Sodium Chloride (Vancomycin 1 Gm/Ns 200 Ml) 1 gm in 200 mls @ 133 mls/hr IVPB Q12H LEILA PRN Reason: Protocol Stop: 03/01/18 12:01 Pantoprazole Sodium (Protonix Inj) 40 mg IVP DAILY [facility] Pneumococcal Polyvalent Vaccine (Pneumovax 23 Vaccine) 0.5 ml IM .ONCE ONE Stop: 02/26/18 10:01 Results - Vital Signs Recent Vital Signs: Last Vital Signs Temp 98.8 F 02/24/18 07:01 Pulse 112 H 02/24/18 07:30 Resp 25 H 02/24/18 07:30 BP 161/103 H 02/24/18 06:53 Pulse Ox 100 02/24/18 07:30 - Labs Result Diagrams: 02/24/18 09:09 02/24/18 09:09 Labs: Laboratory Results - last 24 hr 02/24/18 02/24/18 02/24/18 02:53 03:10 03:10 WBC 34.8 H RBC 5.37 Hgb 12.8 Hct 42.1 MCV 78.5 L MCH 23.9 L MCHC 30.5 L RDW 16.1 H Plt Count 410 H MPV 8.7 Neut % (Auto) 70.1 Lymph % (Auto) 19.8 L [place] % (Auto) 7.7 Eos % (Auto) 2.0 Baso % (Auto) 0.4 Neut # (Auto) 24.4 H Lymph # (Auto) 6.9 H [place] # (Auto) 2.7 H Eos # (Auto) 0.7 Baso # (Auto) 0.2 Neutrophils % (Manual) 62 Band Neutrophils % 5 H Lymphocytes % (Manual) 24 Monocytes % (Manual) 9 Platelet Estimate Normal PT INR APTT Puncture Site pCO2 pO2 HCO3 ABG pH ABG Total CO2 ABG O2 Saturation ABG Base Excess ABG Hemoglobin ABG Carboxyhemoglobin POC ABG HHb (Measured) ABG Methemoglobin Tanner Test A-a O2 Difference Respiratory Index Hgb O2 Saturation Vent Mode Mechanical Rate FiO2 Tidal Volume PEEP Crit Value Called To Crit Value Called By Crit Value Read Back Blood Gas Notified Time Sodium 145 Potassium 6.1 H Chloride 103 Carbon Dioxide 8 L* Anion Gap 40 H BUN 14 Creatinine 1.7 H Est GFR ( Amer) 51 Est GFR (Non-Af Amer) 42 POC Glucose (mg/dL) 341 H Random Glucose 449 H* Lactic Acid Calcium 9.5 Total Bilirubin 0.5 AST 53 ALT 33 Alkaline Phosphatase 84 Troponin I 0.0170 Total Protein 9.3 H Albumin 4.5 Globulin 4.8 H Albumin/Globulin Ratio 0.9 L Urine Color Urine Clarity Urine pH Ur Specific [place] Urine Protein Urine Glucose (UA) Urine Ketones Urine Blood Urine Nitrate Urine Bilirubin Urine Urobilinogen Ur Leukocyte Esterase Urine WBC (Auto) Urine RBC (Auto) Ur Squamous Epith Cells Urine Bacteria Hyaline Casts Urine Opiates Screen Urine Methadone Screen Ur Barbiturates Screen Ur Phencyclidine Scrn Ur Amphetamines Screen U Benzodiazepines Scrn U Oth Cocaine Metabols U Cannabinoids Screen Alcohol, Quantitative < 10 Serum Ketones 02/24/18 02/24/18 02/24/18 03:20 03:36 03:36 WBC RBC Hgb Hct MCV MCH MCHC RDW Plt Count MPV Neut % (Auto) Lymph % (Auto) [place] % (Auto) Eos % (Auto) Baso % (Auto) Neut # (Auto) Lymph # (Auto) [place] # (Auto) Eos # (Auto) Baso # (Auto) Neutrophils % (Manual) Band Neutrophils % Lymphocytes % (Manual) Monocytes % (Manual) Platelet Estimate PT INR APTT Puncture Site Rr pCO2 50 H pO2 493 H HCO3 8.3 L* ABG pH 6.94 L* ABG Total CO2 12.2 L ABG O2 Saturation 99.7 H ABG Base Excess -21.4 L ABG Hemoglobin 13.0 ABG Carboxyhemoglobin 1.2 POC ABG HHb (Measured) 0.3 ABG Methemoglobin 0.3 Tanner Test Pos A-a O2 Difference 158.0 Respiratory Index 0.3 Hgb O2 Saturation 98.3 H Vent Mode Prvc Mechanical Rate 12 FiO2 100.0 Tidal Volume 500 PEEP 5 Crit Value Called To Cass carr/internet marketing specialist Crit Value Called By Jose james Crit Value Read Back Y Blood Gas Notified Time 335 Sodium Potassium Chloride Carbon Dioxide Anion Gap BUN Creatinine Est GFR ( Amer) Est GFR (Non-Af Amer) POC Glucose (mg/dL) Random Glucose Lactic Acid Calcium Total Bilirubin AST ALT Alkaline Phosphatase Troponin I Total Protein Albumin Globulin Albumin/Globulin Ratio Urine Color Yellow Urine Clarity Hazy Urine pH 5.0 Ur Specific [place] 1.008 Urine Protein 2+ H Urine Glucose (UA) 3+ H Urine Ketones Negative Urine Blood Trace H Urine Nitrate Negative Urine Bilirubin Negative Urine Urobilinogen Normal Ur Leukocyte Esterase Neg Urine WBC (Auto) 6 H Urine RBC (Auto) 2 Ur Squamous Epith Cells 1 Urine Bacteria Occ H Hyaline Casts 6-10 H Urine Opiates Screen Negative Urine Methadone Screen Negative Ur Barbiturates Screen Negative Ur Phencyclidine Scrn Negative Ur Amphetamines Screen Negative U Benzodiazepines Scrn Negative U Oth Cocaine Metabols Negative U Cannabinoids Screen Positive H Alcohol, Quantitative Serum Ketones 02/24/18 02/24/18 02/24/18 03:37 03:59 05:03 WBC RBC Hgb Hct MCV MCH MCHC RDW Plt Count MPV Neut % (Auto) Lymph % (Auto) [place] % (Auto) Eos % (Auto) Baso % (Auto) Neut # (Auto) Lymph # (Auto) [place] # (Auto) Eos # (Auto) Baso # (Auto) Neutrophils % (Manual) Band Neutrophils % Lymphocytes % (Manual) Monocytes % (Manual) Platelet Estimate PT 11.3 INR 1.0 APTT 34 Puncture Site pCO2 pO2 HCO3 ABG pH ABG Total CO2 ABG O2 Saturation ABG Base Excess ABG Hemoglobin ABG Carboxyhemoglobin POC ABG HHb (Measured) ABG Methemoglobin Tanner Test A-a O2 Difference Respiratory Index Hgb O2 Saturation Vent Mode Mechanical Rate FiO2 Tidal Volume PEEP Crit Value Called To Crit Value Called By Crit Value Read Back Blood Gas Notified Time Sodium Potassium Chloride Carbon Dioxide Anion Gap BUN Creatinine Est GFR ( Amer) Est GFR (Non-Af Amer) POC Glucose (mg/dL) Random Glucose Lactic Acid 9.6 H* Calcium Total Bilirubin AST ALT Alkaline Phosphatase Troponin I Total Protein Albumin Globulin Albumin/Globulin Ratio Urine Color Urine Clarity Urine pH Ur Specific [place] Urine Protein Urine Glucose (UA) Urine Ketones Urine Blood Urine Nitrate Urine Bilirubin Urine Urobilinogen Ur Leukocyte Esterase Urine WBC (Auto) Urine RBC (Auto) Ur Squamous Epith Cells Urine Bacteria Hyaline Casts Urine Opiates Screen Urine Methadone Screen Ur Barbiturates Screen Ur Phencyclidine Scrn Ur Amphetamines Screen U Benzodiazepines Scrn U Oth Cocaine Metabols U Cannabinoids Screen Alcohol, Quantitative Serum Ketones Negative 02/24/18 02/24/18 02/24/18 05:10 05:39 07:06 WBC RBC Hgb Hct MCV MCH MCHC RDW Plt Count MPV Neut % (Auto) Lymph % (Auto) [place] % (Auto) Eos % (Auto) Baso % (Auto) Neut # (Auto) Lymph # (Auto) [place] # (Auto) Eos # (Auto) Baso # (Auto) Neutrophils % (Manual) Band Neutrophils % Lymphocytes % (Manual) Monocytes % (Manual) Platelet Estimate PT INR APTT Puncture Site Rr pCO2 38 pO2 227 H HCO3 18.5 L ABG pH 7.28 L ABG Total CO2 19.1 L ABG O2 Saturation 99.1 H ABG Base Excess -8.2 L ABG Hemoglobin 13.4 ABG Carboxyhemoglobin 1.1 POC ABG HHb (Measured) 0.9 ABG Methemoglobin 0.5 Tanner Test Pos A-a O2 Difference 82.0 Respiratory Index 0.4 Hgb O2 Saturation 97.5 Vent Mode Prvc Mechanical Rate 20 FiO2 50.0 Tidal Volume 500 PEEP 5 Crit Value Called To Crit Value Called By Crit Value Read Back Blood Gas Notified Time Sodium Potassium Chloride Carbon Dioxide Anion Gap BUN Creatinine Est GFR ( Amer) Est GFR (Non-Af Amer) POC Glucose (mg/dL) 410 H* 395 H Random Glucose Lactic Acid Calcium Total Bilirubin AST ALT Alkaline Phosphatase Troponin I Total Protein Albumin Globulin Albumin/Globulin Ratio Urine Color Urine Clarity Urine pH Ur Specific [place] Urine Protein Urine Glucose (UA) Urine Ketones Urine Blood Urine Nitrate Urine Bilirubin Urine Urobilinogen Ur Leukocyte Esterase Urine WBC (Auto) Urine RBC (Auto) Ur Squamous Epith Cells Urine Bacteria Hyaline Casts Urine Opiates Screen Urine Methadone Screen Ur Barbiturates Screen Ur Phencyclidine Scrn Ur Amphetamines Screen U Benzodiazepines Scrn U Oth Cocaine Metabols U Cannabinoids Screen Alcohol, Quantitative Serum Ketones 02/24/18 02/24/18 02/24/18 08:03 08:56 09:03 WBC RBC Hgb Hct MCV MCH MCHC RDW Plt Count MPV Neut % (Auto) Lymph % (Auto) [place] % (Auto) Eos % (Auto) Baso % (Auto) Neut # (Auto) Lymph # (Auto) [place] # (Auto) Eos # (Auto) Baso # (Auto) Neutrophils % (Manual) Band Neutrophils % Lymphocytes % (Manual) Monocytes % (Manual) Platelet Estimate PT INR APTT Puncture Site pCO2 pO2 HCO3 ABG pH ABG Total CO2 ABG O2 Saturation ABG Base Excess ABG Hemoglobin ABG Carboxyhemoglobin POC ABG HHb (Measured) ABG Methemoglobin Tanner Test A-a O2 Difference Respiratory Index Hgb O2 Saturation Vent Mode Mechanical Rate FiO2 Tidal Volume PEEP Crit Value Called To Crit Value Called By Crit Value Read Back Blood Gas Notified Time Sodium Potassium Chloride Carbon Dioxide Anion Gap BUN Creatinine Est GFR ( Amer) Est GFR (Non-Af Amer) POC Glucose (mg/dL) 377 H 308 H Random Glucose Lactic Acid 1.3 Calcium Total Bilirubin AST ALT Alkaline Phosphatase Troponin I Total Protein Albumin Globulin Albumin/Globulin Ratio Urine Color Urine Clarity Urine pH Ur Specific [place] Urine Protein Urine Glucose (UA) Urine Ketones Urine Blood Urine Nitrate Urine Bilirubin Urine Urobilinogen Ur Leukocyte Esterase Urine WBC (Auto) Urine RBC (Auto) Ur Squamous Epith Cells Urine Bacteria Hyaline Casts Urine Opiates Screen Urine Methadone Screen Ur Barbiturates Screen Ur Phencyclidine Scrn Ur Amphetamines Screen U Benzodiazepines Scrn U Oth Cocaine Metabols U Cannabinoids Screen Alcohol, Quantitative Serum Ketones 02/24/18 02/24/18 02/24/18 09:09 09:09 10:27 WBC 22.9 H RBC 5.30 Hgb 12.7 Hct 38.9 MCV 73.4 L D MCH 23.9 L MCHC 32.6 L RDW 15.9 H Plt Count 346 MPV 8.2 Neut % (Auto) 90.1 H Lymph % (Auto) 4.6 L [place] % (Auto) 5.2 Eos % (Auto) 0.0 Baso % (Auto) 0.1 Neut # (Auto) 20.6 H Lymph # (Auto) 1.0 [place] # (Auto) 1.2 H Eos # (Auto) 0.0 Baso # (Auto) 0.0 Neutrophils % (Manual) Band Neutrophils % Lymphocytes % (Manual) Monocytes % (Manual) Platelet Estimate PT INR APTT Puncture Site pCO2 pO2 HCO3 ABG pH ABG Total CO2 ABG O2 Saturation ABG Base Excess ABG Hemoglobin ABG Carboxyhemoglobin POC ABG HHb (Measured) ABG Methemoglobin Tanner Test A-a O2 Difference Respiratory Index Hgb O2 Saturation Vent Mode Mechanical Rate FiO2 Tidal Volume PEEP Crit Value Called To Crit Value Called By Crit Value Read Back Blood Gas Notified Time Sodium 141 Potassium 4.1 Chloride 106 Carbon Dioxide 17 L Anion Gap 23 H BUN 22 H Creatinine 1.4 Est GFR ( Amer) > 60 Est GFR (Non-Af Amer) 52 POC Glucose (mg/dL) 247 H Random Glucose 348 H Lactic Acid Calcium 9.2 Total Bilirubin AST ALT Alkaline Phosphatase Troponin I Total Protein Albumin Globulin Albumin/Globulin Ratio Urine Color Urine Clarity Urine pH Ur Specific [place] Urine Protein Urine Glucose (UA) Urine Ketones Urine Blood Urine Nitrate Urine Bilirubin Urine Urobilinogen Ur Leukocyte Esterase Urine WBC (Auto) Urine RBC (Auto) Ur Squamous Epith Cells Urine Bacteria Hyaline Casts Urine Opiates Screen Urine Methadone Screen Ur Barbiturates Screen Ur Phencyclidine Scrn Ur Amphetamines Screen U Benzodiazepines Scrn U Oth Cocaine Metabols U Cannabinoids Screen Alcohol, Quantitative Serum Ketones - Imaging and Cardiology CT scan - head Status: Image reviewed by me, Report reviewed by me (Ct head shows small hemorrhages in lateral ventricles bilaterally, not circumscribed or capsulatd. ) Assessment & Plan - Assessment and Plan (Free Text) Assessment: 57 yr old male with seizure that may have occured secondary to small hemorrhages in lateral ventricle ( possible mets ), who is now stable, intubated , on propofol and keppra. Plan: 1. Continue keppra at 750 mg bid 2. EEG today 3. MRI Brain with contrast needed. 4. Goal for extubation. Thank you, Dr. Joyce
[2018-02-24 11:38] LABS: BANDS 2 % (0-2); LYMPHOCYTE 5 % (20-40); MONOCYTE 4 % (0-10); NEUTROPHIL 89 % (50-75); TOTAL CELLS COUNTED 100
[2018-02-24 11:39] LABS: ANISOCYTOSIS SLIGHT; HYPOCHROMIC SLIGHT; PLATELET ESTIMATE NORMAL (NORMAL); TARGET CELLS SLIGHT
--- NOTE | 2018-02-24 11:49 | CP.PCM.CON ---
History of Present Illness - History of Present Illness History of Present Illness: Palliative consult requested by Doctor Deonte for goals of care discussion Patient is a 57 yo male admitted from home after seizures activity. Patient's niece who lives in the same home, heard noises during the nigh and went to check on her uncle. There she found him uncontrollably shaking, and with a lot foam coming out his mouth. The niece said, last time she saw her uncle was Friday, as they work opposite shifts. Per niece, last time she saw him. he was in good health. Patient was intubated by EMS on the field and transfered to the ED. In ED patient had no motor activities, Patient was found with WBC 34.8 and lactic acid of 9.6. BS 449. Novolin drip initiated. CT head and chest and pelvis is done, results are pending. Patient is on full life support . PMH: DM, HTN Soc, Hx: single, shares home with his niece, has son 18 yo who lives with his mother and visits on weekends fam. Hx: has brother in [place] who had similar symptoms last year and underwent " brain Sx". Family has no more information Review of Systems - Review of Systems All systems: reviewed and no additional remarkable complaints except Review of Systems: ROS obtained from nursing due to current condition. Per nursing, patient remained afebrile Past Patient History - Past Medical History & Family History Past Medical History?: Yes - Past Social History Smoking Status: Light Smoker < 10 Cigarettes Daily - CARDIAC Hx Hypertension: Yes - PULMONARY Hx Respiratory Disorders: No - NEUROLOGICAL Hx Neurological Disorder: No - HEENT Hx HEENT Problems: No - RENAL Hx Chronic Kidney Disease: No - ENDOCRINE/METABOLIC Hx Diabetes Mellitus Type 2: Yes Other/Comment: metformin found at home - HEMATOLOGICAL/ONCOLOGICAL Hx Blood Disorders: No - INTEGUMENTARY Hx Dermatological Problems: No - MUSCULOSKELETAL/RHEUMATOLOGICAL Hx Falls: Yes - GASTROINTESTINAL Hx Gastrointestinal Disorders: No - GENITOURINARY/GYNECOLOGICAL Hx Genitourinary Disorders: No - PSYCHIATRIC Hx Substance Use: No - SURGICAL HISTORY Hx Surgeries: No - ANESTHESIA Hx Anesthesia: No Meds Allergies/Adverse Reactions: Allergies Allergy/AdvReac Type Severity Reaction Status Date / Time No Known Allergies Allergy Verified 02/24/18 02:59 - Medications Medications: Current Medications Propofol (Diprivan) 1,000 mg in 100 mls @ 2.19 mls/hr IV .Q24H PRN; Protocol; 5 MCG/KG/MIN PRN Reason: TITRATE PER MD ORDER Last Admin: 02/24/18 04:35 Dose: 4.4 mls/hr Insulin Human Regular 100 unit (/ Sodium Chloride) 100 mls @ 2 mls/hr IV .Q24H LEILA PRN Reason: Protocol Last Admin: 02/24/18 07:30 Dose: 2 u/hr, 2 mls/hr Nicardipine HCl 25 mg/ Sodium (Chloride) 250 mls @ 25 mls/hr IV .Q10H LEILA; 2.5 MG/HR PRN Reason: Protocol Last Titration: 02/24/18 08:30 Dose: 1 mg/hr, 10 mls/hr Levetiracetam 500 mg/ Sodium (Chloride) 105 mls @ 420 mls/hr IVPB Q12H LEILA Last Admin: 02/24/18 08:41 Dose: 420 mls/hr Piperacillin Sod/Tazobactam Sod (Zosyn 3.375 Gm Iv Premix) 3.375 gm in 50 mls @ 100 mls/hr IVPB Q8H LEILA PRN Reason: Protocol Vancomycin/Sodium Chloride (Vancomycin 1 Gm/Ns 200 Ml) 1 gm in 200 mls @ 133 mls/hr IVPB Q12H LEILA PRN Reason: Protocol Stop: 03/01/18 12:01 Pantoprazole Sodium (Protonix Inj) 40 mg IVP DAILY [facility] Pneumococcal Polyvalent Vaccine (Pneumovax 23 Vaccine) 0.5 ml IM .ONCE ONE Stop: 02/26/18 10:01 Physical Exam - Constitutional Appears: In Acute Distress - Head Exam Head Exam: ATRAUMATIC, NORMAL INSPECTION, NORMOCEPHALIC - Eye Exam Eye Exam: Normal appearance - ENT Exam ENT Exam: Mucous Membranes Dry Additional comments: ETT tube - Neck Exam Neck exam: Positive for: Normal Inspection - Respiratory Exam Additional comments: 100 % FiO2 - Cardiovascular Exam Cardiovascular Exam: Tachycardia, REGULAR RHYTHM - GI/Abdominal Exam GI & Abdominal Exam: Normal Bowel Sounds, Soft - Rectal Exam Rectal Exam: Deferred - Exam Exam: NORMAL INSPECTION - Extremities Exam Extremities exam: Positive for: normal inspection - Back Exam Back exam: NORMAL INSPECTION - Neurological Exam Neurological exam: Motor Sensory Deficit - Psychiatric Exam Psychiatric exam: Flat Affect - Skin Skin Exam: Normal Color, Warm Results - Vital Signs Recent Vital Signs: Last Vital Signs Temp 98.8 F 02/24/18 07:01 Pulse 112 H 02/24/18 07:30 Resp 25 H 02/24/18 07:30 BP 161/103 H 02/24/18 06:53 Pulse Ox 100 02/24/18 07:30 - Labs Result Diagrams: 02/24/18 09:09 02/24/18 09:09 Labs: Laboratory Results - last 24 hr 02/24/18 02/24/18 02/24/18 02:53 03:10 03:10 WBC 34.8 H RBC 5.37 Hgb 12.8 Hct 42.1 MCV 78.5 L MCH 23.9 L MCHC 30.5 L RDW 16.1 H Plt Count 410 H MPV 8.7 Neut % (Auto) 70.1 Lymph % (Auto) 19.8 L Major % (Auto) 7.7 Eos % (Auto) 2.0 Baso % (Auto) 0.4 Neut # (Auto) 24.4 H Lymph # (Auto) 6.9 H Major # (Auto) 2.7 H Eos # (Auto) 0.7 Baso # (Auto) 0.2 Neutrophils % (Manual) 62 Band Neutrophils % 5 H Lymphocytes % (Manual) 24 Monocytes % (Manual) 9 Platelet Estimate Normal PT INR APTT Puncture Site pCO2 pO2 HCO3 ABG pH ABG Total CO2 ABG O2 Saturation ABG Base Excess ABG Hemoglobin ABG Carboxyhemoglobin POC ABG HHb (Measured) ABG Methemoglobin Tanner Test A-a O2 Difference Respiratory Index Hgb O2 Saturation Vent Mode Mechanical Rate FiO2 Tidal Volume PEEP Crit Value Called To Crit Value Called By Crit Value Read Back Blood Gas Notified Time Sodium 145 Potassium 6.1 H Chloride 103 Carbon Dioxide 8 L* Anion Gap 40 H BUN 14 Creatinine 1.7 H Est GFR ( Amer) 51 Est GFR (Non-Af Amer) 42 POC Glucose (mg/dL) 341 H Random Glucose 449 H* Lactic Acid Calcium 9.5 Total Bilirubin 0.5 AST 53 ALT 33 Alkaline Phosphatase 84 Troponin I 0.0170 Total Protein 9.3 H Albumin 4.5 Globulin 4.8 H Albumin/Globulin Ratio 0.9 L Urine Color Urine Clarity Urine pH Ur Specific [place] Urine Protein Urine Glucose (UA) Urine Ketones Urine Blood Urine Nitrate Urine Bilirubin Urine Urobilinogen Ur Leukocyte Esterase Urine WBC (Auto) Urine RBC (Auto) Ur Squamous Epith Cells Urine Bacteria Hyaline Casts Urine Opiates Screen Urine Methadone Screen Ur Barbiturates Screen Ur Phencyclidine Scrn Ur Amphetamines Screen U Benzodiazepines Scrn U Oth Cocaine Metabols U Cannabinoids Screen Alcohol, Quantitative < 10 Serum Ketones 02/24/18 02/24/18 02/24/18 03:20 03:36 03:36 WBC RBC Hgb Hct MCV MCH MCHC RDW Plt Count MPV Neut % (Auto) Lymph % (Auto) Major % (Auto) Eos % (Auto) Baso % (Auto) Neut # (Auto) Lymph # (Auto) Major # (Auto) Eos # (Auto) Baso # (Auto) Neutrophils % (Manual) Band Neutrophils % Lymphocytes % (Manual) Monocytes % (Manual) Platelet Estimate PT INR APTT Puncture Site Rr pCO2 50 H pO2 493 H HCO3 8.3 L* ABG pH 6.94 L* ABG Total CO2 12.2 L ABG O2 Saturation 99.7 H ABG Base Excess -21.4 L ABG Hemoglobin 13.0 ABG Carboxyhemoglobin 1.2 POC ABG HHb (Measured) 0.3 ABG Methemoglobin 0.3 Tanner Test Pos A-a O2 Difference 158.0 Respiratory Index 0.3 Hgb O2 Saturation 98.3 H Vent Mode Prvc Mechanical Rate 12 FiO2 100.0 Tidal Volume 500 PEEP 5 Crit Value Called To Cass carr/psychiatric rn Crit Value Called By Jose james Crit Value Read Back Y Blood Gas Notified Time 335 Sodium Potassium Chloride Carbon Dioxide Anion Gap BUN Creatinine Est GFR ( Amer) Est GFR (Non-Af Amer) POC Glucose (mg/dL) Random Glucose Lactic Acid Calcium Total Bilirubin AST ALT Alkaline Phosphatase Troponin I Total Protein Albumin Globulin Albumin/Globulin Ratio Urine Color Yellow Urine Clarity Hazy Urine pH 5.0 Ur Specific [place] 1.008 Urine Protein 2+ H Urine Glucose (UA) 3+ H Urine Ketones Negative Urine Blood Trace H Urine Nitrate Negative Urine Bilirubin Negative Urine Urobilinogen Normal Ur Leukocyte Esterase Neg Urine WBC (Auto) 6 H Urine RBC (Auto) 2 Ur Squamous Epith Cells 1 Urine Bacteria Occ H Hyaline Casts 6-10 H Urine Opiates Screen Negative Urine Methadone Screen Negative Ur Barbiturates Screen Negative Ur Phencyclidine Scrn Negative Ur Amphetamines Screen Negative U Benzodiazepines Scrn Negative U Oth Cocaine Metabols Negative U Cannabinoids Screen Positive H Alcohol, Quantitative Serum Ketones 02/24/18 02/24/18 02/24/18 03:37 03:59 05:03 WBC RBC Hgb Hct MCV MCH MCHC RDW Plt Count MPV Neut % (Auto) Lymph % (Auto) Major % (Auto) Eos % (Auto) Baso % (Auto) Neut # (Auto) Lymph # (Auto) Major # (Auto) Eos # (Auto) Baso # (Auto) Neutrophils % (Manual) Band Neutrophils % Lymphocytes % (Manual) Monocytes % (Manual) Platelet Estimate PT 11.3 INR 1.0 APTT 34 Puncture Site pCO2 pO2 HCO3 ABG pH ABG Total CO2 ABG O2 Saturation ABG Base Excess ABG Hemoglobin ABG Carboxyhemoglobin POC ABG HHb (Measured) ABG Methemoglobin Tanner Test A-a O2 Difference Respiratory Index Hgb O2 Saturation Vent Mode Mechanical Rate FiO2 Tidal Volume PEEP Crit Value Called To Crit Value Called By Crit Value Read Back Blood Gas Notified Time Sodium Potassium Chloride Carbon Dioxide Anion Gap BUN Creatinine Est GFR ( Amer) Est GFR (Non-Af Amer) POC Glucose (mg/dL) Random Glucose Lactic Acid 9.6 H* Calcium Total Bilirubin AST ALT Alkaline Phosphatase Troponin I Total Protein Albumin Globulin Albumin/Globulin Ratio Urine Color Urine Clarity Urine pH Ur Specific [place] Urine Protein Urine Glucose (UA) Urine Ketones Urine Blood Urine Nitrate Urine Bilirubin Urine Urobilinogen Ur Leukocyte Esterase Urine WBC (Auto) Urine RBC (Auto) Ur Squamous Epith Cells Urine Bacteria Hyaline Casts Urine Opiates Screen Urine Methadone Screen Ur Barbiturates Screen Ur Phencyclidine Scrn Ur Amphetamines Screen U Benzodiazepines Scrn U Oth Cocaine Metabols U Cannabinoids Screen Alcohol, Quantitative Serum Ketones Negative 02/24/18 02/24/18 02/24/18 05:10 05:39 07:06 WBC RBC Hgb Hct MCV MCH MCHC RDW Plt Count MPV Neut % (Auto) Lymph % (Auto) Major % (Auto) Eos % (Auto) Baso % (Auto) Neut # (Auto) Lymph # (Auto) Major # (Auto) Eos # (Auto) Baso # (Auto) Neutrophils % (Manual) Band Neutrophils % Lymphocytes % (Manual) Monocytes % (Manual) Platelet Estimate PT INR APTT Puncture Site Rr pCO2 38 pO2 227 H HCO3 18.5 L ABG pH 7.28 L ABG Total CO2 19.1 L ABG O2 Saturation 99.1 H ABG Base Excess -8.2 L ABG Hemoglobin 13.4 ABG Carboxyhemoglobin 1.1 POC ABG HHb (Measured) 0.9 ABG Methemoglobin 0.5 Tanner Test Pos A-a O2 Difference 82.0 Respiratory Index 0.4 Hgb O2 Saturation 97.5 Vent Mode Prvc Mechanical Rate 20 FiO2 50.0 Tidal Volume 500 PEEP 5 Crit Value Called To Crit Value Called By Crit Value Read Back Blood Gas Notified Time Sodium Potassium Chloride Carbon Dioxide Anion Gap BUN Creatinine Est GFR ( Amer) Est GFR (Non-Af Amer) POC Glucose (mg/dL) 410 H* 395 H Random Glucose Lactic Acid Calcium Total Bilirubin AST ALT Alkaline Phosphatase Troponin I Total Protein Albumin Globulin Albumin/Globulin Ratio Urine Color Urine Clarity Urine pH Ur Specific [place] Urine Protein Urine Glucose (UA) Urine Ketones Urine Blood Urine Nitrate Urine Bilirubin Urine Urobilinogen Ur Leukocyte Esterase Urine WBC (Auto) Urine RBC (Auto) Ur Squamous Epith Cells Urine Bacteria Hyaline Casts Urine Opiates Screen Urine Methadone Screen Ur Barbiturates Screen Ur Phencyclidine Scrn Ur Amphetamines Screen U Benzodiazepines Scrn U Oth Cocaine Metabols U Cannabinoids Screen Alcohol, Quantitative Serum Ketones 02/24/18 02/24/18 02/24/18 08:03 08:56 09:03 WBC RBC Hgb Hct MCV MCH MCHC RDW Plt Count MPV Neut % (Auto) Lymph % (Auto) Major % (Auto) Eos % (Auto) Baso % (Auto) Neut # (Auto) Lymph # (Auto) Major # (Auto) Eos # (Auto) Baso # (Auto) Neutrophils % (Manual) Band Neutrophils % Lymphocytes % (Manual) Monocytes % (Manual) Platelet Estimate PT INR APTT Puncture Site pCO2 pO2 HCO3 ABG pH ABG Total CO2 ABG O2 Saturation ABG Base Excess ABG Hemoglobin ABG Carboxyhemoglobin POC ABG HHb (Measured) ABG Methemoglobin Tanner Test A-a O2 Difference Respiratory Index Hgb O2 Saturation Vent Mode Mechanical Rate FiO2 Tidal Volume PEEP Crit Value Called To Crit Value Called By Crit Value Read Back Blood Gas Notified Time Sodium Potassium Chloride Carbon Dioxide Anion Gap BUN Creatinine Est GFR ( Amer) Est GFR (Non-Af Amer) POC Glucose (mg/dL) 377 H 308 H Random Glucose Lactic Acid 1.3 Calcium Total Bilirubin AST ALT Alkaline Phosphatase Troponin I Total Protein Albumin Globulin Albumin/Globulin Ratio Urine Color Urine Clarity Urine pH Ur Specific [place] Urine Protein Urine Glucose (UA) Urine Ketones Urine Blood Urine Nitrate Urine Bilirubin Urine Urobilinogen Ur Leukocyte Esterase Urine WBC (Auto) Urine RBC (Auto) Ur Squamous Epith Cells Urine Bacteria Hyaline Casts Urine Opiates Screen Urine Methadone Screen Ur Barbiturates Screen Ur Phencyclidine Scrn Ur Amphetamines Screen U Benzodiazepines Scrn U Oth Cocaine Metabols U Cannabinoids Screen Alcohol, Quantitative Serum Ketones 02/24/18 02/24/18 02/24/18 09:09 09:09 10:27 WBC 22.9 H RBC 5.30 Hgb 12.7 Hct 38.9 MCV 73.4 L D MCH 23.9 L MCHC 32.6 L RDW 15.9 H Plt Count 346 MPV 8.2 Neut % (Auto) 90.1 H Lymph % (Auto) 4.6 L Major % (Auto) 5.2 Eos % (Auto) 0.0 Baso % (Auto) 0.1 Neut # (Auto) 20.6 H Lymph # (Auto) 1.0 Major # (Auto) 1.2 H Eos # (Auto) 0.0 Baso # (Auto) 0.0 Neutrophils % (Manual) Band Neutrophils % Lymphocytes % (Manual) Monocytes % (Manual) Platelet Estimate PT INR APTT Puncture Site pCO2 pO2 HCO3 ABG pH ABG Total CO2 ABG O2 Saturation ABG Base Excess ABG Hemoglobin ABG Carboxyhemoglobin POC ABG HHb (Measured) ABG Methemoglobin Tanner Test A-a O2 Difference Respiratory Index Hgb O2 Saturation Vent Mode Mechanical Rate FiO2 Tidal Volume PEEP Crit Value Called To Crit Value Called By Crit Value Read Back Blood Gas Notified Time Sodium 141 Potassium 4.1 Chloride 106 Carbon Dioxide 17 L Anion Gap 23 H BUN 22 H Creatinine 1.4 Est GFR ( Amer) > 60 Est GFR (Non-Af Amer) 52 POC Glucose (mg/dL) 247 H Random Glucose 348 H Lactic Acid Calcium 9.2 Total Bilirubin AST ALT Alkaline Phosphatase Troponin I Total Protein Albumin Globulin Albumin/Globulin Ratio Urine Color Urine Clarity Urine pH Ur Specific [place] Urine Protein Urine Glucose (UA) Urine Ketones Urine Blood Urine Nitrate Urine Bilirubin Urine Urobilinogen Ur Leukocyte Esterase Urine WBC (Auto) Urine RBC (Auto) Ur Squamous Epith Cells Urine Bacteria Hyaline Casts Urine Opiates Screen Urine Methadone Screen Ur Barbiturates Screen Ur Phencyclidine Scrn Ur Amphetamines Screen U Benzodiazepines Scrn U Oth Cocaine Metabols U Cannabinoids Screen Alcohol, Quantitative Serum Ketones Assessment & Plan - Assessment and Plan (Free Text) Assessment: Palliative consult Full Code, there is no Advance directive on chart, PPS 10% I reviewed medical records, all diagnostic studies, examined patient in the bed and discussed his condition with family. Patient is intubated, sedated, on MV support. Patient moves left upper arm without purpose, unresponsive to verbal stimuli. Corneal reflex stronger to left ee than to right. Kepra Iv on board. FiO2 100 %, RR 25, Good air entry. ST , HR 112 Abdomen soft, active bowel sounds. Tena at BS, urine clear, good urine output. Pedal pulses present, skin intact, warm to touch. Repeat blood work; WBC 22.9. Zosyn IV and Vanco IV on board. Per Doctor Joyce report,CT head showed multiple intracranial, hemorhagic lesions. The final readings on CTs are still pending. Goals of care discussed with patient's brother, niece and son. I elicited their perception of situation. They all admitted being in shock as patient never had similar problems in the past and seemed to be healthy. Family reports that patient was regular with his meds. I reviewed patient's clinical presentation and care provided , related to acute status. Family stated appreciation and hope in recovery. Patient's brother, Mr. Robert stated having similar experience with his other brother back home, who recovered well. I offered support. Family understands that is still very early in the process and patient will have more exams until final diagnosis is made. Family is looking forward some recovery regardless of how aggressive treatment would be. 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 Robert ( will update on phone number) * Pastoral care for spiritual support Palliative care will continue to fallow up and offer support for the family. Advance care planing, 30 min
--- NOTE | 2018-02-24 12:17 | CT ---
PROCEDURE: CT HEAD WITHOUT CONTRAST. HISTORY: AMS COMPARISON: Unenhanced head CT 02/23/2018. TECHNIQUE: Axial computed tomography images were obtained through the head/brain without intravenous contrast. Radiation dose: Total exam DLP = 1102.41 mGy-cm. This CT exam was performed using one or more of the following dose reduction techniques: Automated exposure control, adjustment of the mA and/or kV according to patient size, and/or use of iterative reconstruction technique. FINDINGS: HEMORRHAGE: There multifocal, predominately small hyperdensities scattered at the bilateral frontal, parietal and temporal lobes including the temporooccipital junctions in the right side of the yogesh they vary in size from several mm up to the largest lesion at the left frontal lobe which measures 1.5 x 1.9 cm. Borderline edema is related to this left frontal focus with no additional edema appreciated otherwise associated with the remaining foci. The cerebellum appears unaffected. Consider multifocal hemorrhagic metastases, posttraumatic hemorrhage with rare possibility of metastatic lymphoma. Postinfectious calcifications are possibility and further clinical correlation is advised as well as cross-sectional brain imaging follow-up. Otherwise, there is no suspicious extra-axial fluid collection identified or mass-effect. Midline brain anatomy is unremarkable and sulci and cisterns appear unremarkable as well. Posterior fossa contents appear intact exclusive of the brainstem. BRAIN: As above. VENTRICLES: Unremarkable. No hydrocephalus. CALVARIUM: Unremarkable. PARANASAL SINUSES: Unremarkable as visualized. No significant inflammatory changes. MASTOID AIR CELLS: Unremarkable as visualized. No inflammatory changes. OTHER FINDINGS: None. IMPRESSION: Multifocal hyperdense foci are scattered throughout the cerebrum as well as right side of the yogesh. The majority is foci are small with the largest measuring 1.9 cm at the left frontal lobe which trace edema questioned related. Consider hemorrhagic metastases though multifocal hemorrhage is a possibility, particularly if there is prior history of trauma. Postinfectious calcification as well as metastatic lymphoma are included in the differential diagnosis. Follow-up cross-sectional brain imaging is advised. The findings were discussed with Dr. Eugenia Arzola at 4:17 3:32 a.m. with written down and read back verification by Dr. Acuna of [facility] teleradiology. The V rad radiologist interpretation is concordant with my interpretation of this exam as well.
[2018-02-24] MEDS: Piperacill/Tazo 3.375gm in Dex 3.375 GM/50 ML BAG IVPB SCH ×2 (12:19→18:55)
--- NOTE | 2018-02-24 12:24 | CT ---
PROCEDURE: CT HEAD WITHOUT CONTRAST. HISTORY: follow up brain bleed COMPARISON: Unenhanced head CT 02/24/2018 3:08 a.m.. TECHNIQUE: Axial computed tomography images were obtained through the head/brain without intravenous contrast. Radiation dose: Total exam DLP = 1336.73 mGy-cm. This CT exam was performed using one or more of the following dose reduction techniques: Automated exposure control, adjustment of the mA and/or kV according to patient size, and/or use of iterative reconstruction technique. FINDINGS: HEMORRHAGE: Multifocal primarily cerebral parenchymal hyperdensities are scattered bilaterally once again with no new hyperdense focus identified. Dominant lesion remains at the left frontal lobe anteromedially measuring 2.0 cm greatest dimension which trace edema related anteroinferiorly. Small 9 mm hyperdensity remains at the right yogesh with the cerebellum remaining unremarkable grossly. BRAIN: No interval mass effect or suspicious extra-axial collection appreciated. Cerebellum remains grossly unremarkable. VENTRICLES: Unremarkable. No hydrocephalus. CALVARIUM: Unremarkable. PARANASAL SINUSES: Unremarkable as visualized. No significant inflammatory changes. MASTOID AIR CELLS: Unremarkable as visualized. No inflammatory changes. OTHER FINDINGS: None. IMPRESSION: Stable multifocal hyperdensities are again seen scattered in the bilateral cerebral hemispheres in the right side of the yogesh without significant interval change. Trace edema is again seen related to the left frontal dominant lesion. Continued clinical and CT vigilance is advised. Follow-up MRI with and without contrast is also advised when feasible. Kalpana [facility] lab preliminary report 02/24/2018.
--- NOTE | 2018-02-24 12:33 | CT ---
PROCEDURE: CT Angiography of the Brain. HISTORY: follow up subarachnoid brain bleed COMPARISON: None available. TECHNIQUE: CT angiography of the intracranial arteries was performed. Coronal and sagittal maximum intensity projection reformated images were generated. This CT exam was performed using one or more of the following dose reduction techniques: Automated exposure control, adjustment of the mA and/or kV according to patient size, and/or use of iterative reconstruction technique. FINDINGS: INTERNAL CEREBRAL ARTERIES: Unremarkable. The skull base, petrous, cavernous and supraclinoid segments are bilaterally widely patent. ANTERIOR CEREBRAL ARTERIES: Unremarkable. A1 and A2 segments are widely patent. Smaller distal branches unremarkable, as visualized. MIDDLE CEREBRAL ARTERIES: Unremarkable. M1 and M2 segments are widely patent. Perisylvian branches grossly symmetric. POSTERIOR CIRCULATION: Basilar Artery: Unremarkable. Distal Vertebral Arteries: Mild hypo plaque Tasha of the right distal right vertebral artery identified with the distal left vertebral artery unremarkable. Both appear patent. Posterior Cerebral Arteries: Unremarkable. Posterior Inferior Cerebellar Arteries: Unremarkable. NECK CTA: Common Carotid arteries: The bilateral common carotid appear widely patent from their origins to their bifurcations with no significant stenosis appreciated. No evidence to suggest common carotid artery dissection. Internal Carotid arteries: No significant stenosis is appreciated throughout the cervical internal carotid artery segments bilaterally and there is no evidence of dissection either. External Carotid arteries: Appear unremarkable bilaterally. Vertebral arteries: The bilateral vertebral arteries appear normal in caliber from throughout the neck. No significant stenosis or definite pattern of dissection. ANEURYSM/ VASCULAR MALFORMATIONS: None. OTHER FINDINGS: None. IMPRESSION: Unremarkable CT Angiography of the Brain and Neck.
--- NOTE | 2018-02-24 13:25 | CT ---
PROCEDURE: CT Chest, Abdomen and Pelvis with intravenous contrast HISTORY: suspected mets in the brain COMPARISON: Chest radiograph 02/24/2018. TECHNIQUE: Following the intravenous administration of iodinated contrast material, a CT examination of the abdomen and pelvis performed from the domes of the diaphragms to the symphysis pubis with reformatted datasets provided not only axial but also sagittal and coronal planes. Oral contrast was not administered as per referring physician request. IV dose administered: Omnipaque 320, 90 cc Radiation dose: Total exam DLP = 925.63 mGy-cm. This CT exam was performed using one or more of the following dose reduction techniques: Automated exposure control, adjustment of the mA and/or kV according to patient size, and/or use of iterative reconstruction technique. FINDINGS: CT CHEST WITH CONTRAST: LUNGS: Limited ground-glass opacity seen in the bilateral upper lobes in the periphery with subtle reticular changes associated as well. Limited linear fibrosis in the right apex with likely fibrosis or linear atelectasis favored over small linear subpleural nodular foci at the right middle lobe image 82 series 3 with 2 4 mm structures only approximately 2 cm apart. A dominant pulmonary mass is not appreciated in the central airways appear clear exclusive of endotracheal intubation terminating approximate 2.8 cm above the uri. MEDIASTINUM: Exclusive of endotracheal intubation, the thoracic inlet is otherwise unremarkable with the thoracic aorta and main pulmonary artery normal in caliber. Cardiac size normal. No significant lymphadenopathy in the mediastinum including the bilateral hilar regions. Shotty axillary lymph nodes are identified. LYMPH NODES: As per above. PLEURA: No pneumothorax or pleural effusions bilaterally. No pericardial effusion. BONES: Unremarkable. OTHER FINDINGS: None. CT ABDOMEN AND PELVIS: LIVER: Diminished attenuation is seen throughout the liver compatible with hepatic steatosis. No intrahepatic biliary dilatation or hepatic mass appreciable. GALLBLADDER AND BILE DUCTS: Unremarkable. PANCREAS: There is a large cyst related to the tail of the pancreas measuring 12.6 x 9.0 x 9.9 cm (traverse x anteroposterior x superoinferior dimensions). No septation is appreciated and although the internal borders are only minimally irregular, a cystic neoplasm the pancreas is the primary differential diagnosis though a pseudocyst is possible. A gastric duplication cyst is felt to be unlikely as well as peritoneal cyst. SPLEEN: Unremarkable. ADRENALS: Unremarkable. No mass. KIDNEYS AND URETERS: Unremarkable. No hydronephrosis. No solid mass. VASCULATURE: Unremarkable. No aortic aneurysm. BOWEL: The stomach is mildly distend with retained fluid. No bowel obstruction. Limited sigmoid diverticulosis without diverticulitis. Lack of oral contrast limits evaluation the gastrointestinal tract. APPENDIX: Normal appendix. PERITONEUM: Unremarkable. No free fluid. No free air. LYMPH NODES: Unremarkable. No enlarged lymph nodes. BLADDER: A Tena catheter partially decompresses the urinary bladder with trace gas in the nondependent portion evaluation the wall is difficult to evaluate due to partial decompression. No mural nodularity is identified grossly. REPRODUCTIVE: Enlarged prostate gland BONES: Potential minimal anterior wedge compression fracture of T11-T12 indeterminate age. No definitive destructive bony lesion appreciated. OTHER FINDINGS: None. IMPRESSION: 1. Limited nonspecific ground-glass opacity seen in the pre for the bilateral apices with associated limited reticular changes but no definite alveolitis. Is difficult to differentiate between limited fibrosis or tiny subpleural nodules at the right middle lobe laterally but there is no dominant mass appreciated throughout the bilateral lung david including central airways. No significant lymphadenopathy in the chest. 2. Limited bilateral basilar dependent atelectasis. 3. A large cystic lesion measuring 12.6 cm greatest dimension occupies the midbody through tail the pancreas and is suspicious for a potential pancreatic neoplasm though a pseudocyst and other etiologies are possible as discussed above. Further clinical correlation is advised. 4. Hepatic steatosis. 5. No significant chest, abdomen or pelvis lymphadenopathy. 6. Enlarged prostate gland. Tena catheter decompresses the urinary bladder somewhat, limiting evaluation of the urinary bladder wall. Concordant preliminary report from [facility], 02/24/2018.
[2018-02-24] MEDS: Vancomycin 1 gm/NS 200 ml 1 GM/200 ML BAG IVPB SCH (13:34)
--- NOTE | 2018-02-24 15:12 | CP.PCM.PN ---
Subjective - Date & Time of Evaluation Date of Evaluation: 02/24/18 Time of Evaluation: 15:11 - Subjective Subjective: intubated non verbal Objective - Vital Signs/Intake and Output Vital Signs (last 24 hours): Temp Pulse Resp BP Pulse Ox 98.8 F 112 H 25 H 161/103 H 99 02/24/18 07:01 02/24/18 07:30 02/24/18 07:30 02/24/18 06:53 02/24/18 08:00 Intake and Output: 02/24/18 02/24/18 06:59 18:59 Intake Total 50 Output Total 1600 Balance -1550 - Medications Medications: Current Medications Propofol (Diprivan) 1,000 mg in 100 mls @ 2.19 mls/hr IV .Q24H PRN; Protocol; 5 MCG/KG/MIN PRN Reason: TITRATE PER MD ORDER Last Admin: 02/24/18 12:30 Dose: 40 mcg/kg/min, 17.52 mls/hr Nicardipine HCl 25 mg/ Sodium (Chloride) 250 mls @ 25 mls/hr IV .Q10H LEILA; 2.5 MG/HR PRN Reason: Protocol Last Titration: 02/24/18 08:30 Dose: 1 mg/hr, 10 mls/hr Levetiracetam 500 mg/ Sodium (Chloride) 105 mls @ 420 mls/hr IVPB Q12H [facility] Last Admin: 02/24/18 08:41 Dose: 420 mls/hr Piperacillin Sod/Tazobactam Sod (Zosyn 3.375 Gm Iv Premix) 3.375 gm in 50 mls @ 100 mls/hr IVPB Q8H [facility] PRN Reason: Protocol Last Admin: 02/24/18 12:19 Dose: 100 mls/hr Vancomycin/Sodium Chloride (Vancomycin 1 Gm/Ns 200 Ml) 1 gm in 200 mls @ 133 mls/hr IVPB Q12H [facility] PRN Reason: Protocol Stop: 03/01/18 12:01 Last Admin: 02/24/18 13:34 Dose: 133 mls/hr Insulin Human Regular (Novolin R) 0 unit SC Q6 [facility] PRN Reason: Protocol Pantoprazole Sodium (Protonix Inj) 40 mg IVP DAILY [facility] Pneumococcal Polyvalent Vaccine (Pneumovax 23 Vaccine) 0.5 ml IM .ONCE ONE Stop: 02/26/18 10:01 - Labs Labs: 02/24/18 09:09 02/24/18 09:09 PT 11.3 SECONDS (9.7-12.2) 02/24/18 05:03 INR 1.0 02/24/18 05:03 APTT 34 SECONDS (21-34) 02/24/18 05:03 - Constitutional Appears: Non-toxic - ENT Exam Additional comments: intubated on vent - Respiratory Exam Respiratory Exam: Decreased Breath Sounds. absent: Clear to Ausculation Bilateral Additional comments: vented - Cardiovascular Exam Cardiovascular Exam: REGULAR RHYTHM, +S1, +S2 - GI/Abdominal Exam GI & Abdominal Exam: Soft, Normal Bowel Sounds. absent: Tenderness - Neurological Exam Neurological Exam: absent: Alert, Awake, Oriented x3 Additional comments: sedated Assessment and Plan - Assessment and Plan (Free Text) Assessment: Hemorrhagic CVA multiple areas - Acute Seizures due to CVA Planned MRI tomorrow History of Pancreatitis several >5-7 yrs ago per family Hypertension history DM-2 history (unkown if uncontrolled by family)
[2018-02-24] MEDS: (Novolin R) Insulin Human Regular 100 units/ml vial SC SCH ×2 (15:57→18:47)
[2018-02-25] MEDS: Vancomycin 1 gm/NS 200 ml 1 GM/200 ML BAG IVPB SCH (00:12)
[2018-02-25] MEDS: (Novolin R) Insulin Human Regular 100 units/ml vial SC SCH ×5 (00:12→21:27)
[2018-02-25] MEDS: Propofol 10 mg/ml 1,000 MG/100 ML VIAL IV PRN ×2 (01:15→05:57)
[2018-02-25] MEDS: Piperacill/Tazo 3.375gm in Dex 3.375 GM/50 ML BAG IVPB SCH (02:31)
[2018-02-25 05:37] LABS: ARTERIAL BLOOD GAS HCO3 17.3 mmol/L (21-28); ARTERIAL BLOOD GAS HEMOGLOBIN 12.6 g/dL (11.7-17.4); ARTERIAL BLOOD GAS O2 SAT 98.8 % (95-98); ARTERIAL BLOOD GAS PCO2 34 mm/Hg (35-45); ARTERIAL BLOOD GAS PH 7.28 (7.35-7.45); ARTERIAL BLOOD GAS PO2 275 mm/Hg (80-100)
[2018-02-25 06:18] LABS: BASO % 0.2 % (0.0-2.0); EOS % 0.1 % (0.0-4.0); HEMOGLOBIN 12.3 g/dL (12.0-18.0); LYMPH # 2.2 K/uL (1.0-4.3); LYMPH % 10.6 % (20.0-40.0); MEAN CORPUSCULAR HEMOGLOBIN 24.3 pg (27.0-31.0); MEAN CORPUSCULAR HGB CONC 32.8 g/dL (33.0-37.0); MEAN PLATELET VOLUME 8.4 fL (7.2-11.7); MONO # 1.9 K/uL (0.0-0.8); MONO % 9.5 % (0.0-10.0); NEUT # 16.2 K/uL (1.8-7.0); NEUT % 79.6 % (50.0-75.0); RBC 5.08 Mil/uL (4.40-5.90); WHITE BLOOD COUNT 20.4 K/uL (4.8-10.8)
[2018-02-25 06:56] LABS: ALB/GLOB RATIO 0.9 (1.0-2.1); ALBUMIN 3.7 g/dL (3.5-5.0); CALCIUM 8.7 mg/dl (8.6-10.4)
--- NOTE | 2018-02-25 06:58 | CP.PCM.PN ---
Subjective - Date & Time of Evaluation Date of Evaluation: 02/25/18 Time of Evaluation: 06:57 - Subjective Subjective: Mr. Robert was seen and examined at the bedside in ICU. He is on mechanical ventilator on AC mode.He is currently receiving propofol for sedation. With no sedation the patient spontanesouly open his eyes, follows commands, but with episode of restlessness. He remains responsive to pain stimuli. He has bilateral hand mittens. EEG was done yesterday.There was no seizure activity last night and no other untoward events overnight. Objective - Vital Signs/Intake and Output Vital Signs (last 24 hours): Temp Pulse Resp BP Pulse Ox 98.8 F 94 H 21 105/66 100 02/25/18 04:00 02/25/18 06:01 02/25/18 06:01 02/25/18 06:01 02/25/18 06:01 Intake and Output: 02/24/18 02/25/18 18:59 06:59 Intake Total 655.2 717.1 Output Total 2560 440 Balance -1904.8 277.1 - Medications Medications: Current Medications Propofol (Diprivan) 1,000 mg in 100 mls @ 2.19 mls/hr IV .Q24H PRN; Protocol; 5 MCG/KG/MIN PRN Reason: TITRATE PER MD ORDER Last Admin: 02/25/18 05:57 Dose: 45 mcg/kg/min, 19.71 mls/hr Levetiracetam 500 mg/ Sodium (Chloride) 105 mls @ 420 mls/hr IVPB Q12H [facility] Last Admin: 02/24/18 20:14 Dose: 420 mls/hr Piperacillin Sod/Tazobactam Sod (Zosyn 3.375 Gm Iv Premix) 3.375 gm in 50 mls @ 100 mls/hr IVPB Q8H [facility] PRN Reason: Protocol Last Admin: 02/25/18 02:31 Dose: 100 mls/hr Vancomycin/Sodium Chloride (Vancomycin 1 Gm/Ns 200 Ml) 1 gm in 200 mls @ 133 mls/hr IVPB Q12H [facility] PRN Reason: Protocol Stop: 03/01/18 12:01 Last Admin: 02/25/18 00:12 Dose: 133 mls/hr Dextrose (Dextrose 5% In Water 1000 Ml) 1,000 mls @ 75 mls/hr IV .[id number] [facility] Last Admin: 02/25/18 05:55 Dose: Not Given Insulin Human Regular (Novolin R) 0 unit SC Q6 [facility] PRN Reason: Protocol Last Admin: 02/25/18 05:41 Dose: 2 unit Pantoprazole Sodium (Protonix Inj) 40 mg IVP DAILY [facility] Last Admin: 02/24/18 18:48 Dose: 40 mg Pneumococcal Polyvalent Vaccine (Pneumovax 23 Vaccine) 0.5 ml IM .ONCE ONE Stop: 02/26/18 10:01 - Labs Labs: 02/25/18 06:04 02/25/18 06:04 PT 11.3 SECONDS (9.7-12.2) 02/24/18 05:03 INR 1.0 02/24/18 05:03 APTT 34 SECONDS (21-34) 02/24/18 05:03 - Head Exam Head Exam: NORMAL INSPECTION - Neurological Exam Neurological Exam: Awake Neuro motor strength exam: Left Upper Extremity: 4, Right Upper Extremity: 4, Left Lower Extremity: 4, Right Lower Extremity: 4 Additional comments: He is able to move all extremities spontaneously without sedation. Sensation is intact. Assessment and Plan (1) Seizure Assessment & Plan: Case discussed with Dr. Joyce, continue all current medical regimen. Pending EEG and MRI of the brain ( the patient is schedule for MRI in the brain in [facility]). Status: Acute
[2018-02-25] MEDS: levETIRAcetam 500 MG in Sodium Chloride 0.9% 100 ML IVPB SCH ×2 (07:31→19:52)
--- NOTE | 2018-02-25 08:02 | RAD ---
HISTORY: intubated/ff-up COMPARISON: Chest x-ray 02/24/2018 TECHNIQUE: Single AP portable view of the chest FINDINGS: LUNGS: No focal consolidation is seen. Endotracheal tube tip is above the uri. PLEURA: No pleural effusion is identified. CARDIOVASCULAR: Heart size is within normal limits. OSSEOUS STRUCTURES: No acute fracture identified. VISUALIZED UPPER ABDOMEN: Unremarkable. OTHER FINDINGS: None. IMPRESSION: No acute cardiopulmonary process seen.
[2018-02-25] MEDS: Piperacill/Tazo 2.25gm in Dex 2.25 GM/50 ML BAG IVPB SCH ×3 (08:45→19:59)
[2018-02-25] MEDS ORDERED: Sodium Chloride 0.9% 1,000 ML IV SCH (09:45)
--- NOTE | 2018-02-25 10:07 | PCM.IRP ---
History of Present Illness - History of Present Illness History of Present Illness: IR requested for pancreatic pseudocyst drainage. Plan on performing CT guided drainage once Pt acute events are resolved. Will continue to follow. Objective - Vital Signs/Intake and Output Vital Signs (last 24 hours): Vital Signs - 24 hr 02/24/18 02/24/18 02/24/18 10:54 11:53 12:00 Temperature 100.6 F H Pulse Rate 123 H 122 H Respiratory 29 H 29 H Rate Blood Pressure 136/86 147/87 O2 Sat by Pulse 100 98 100 Oximetry 02/24/18 02/24/18 02/24/18 12:53 13:53 14:53 Temperature Pulse Rate 115 H 110 H 116 H Respiratory 25 H 25 H 30 H Rate Blood Pressure 141/76 127/85 140/92 H O2 Sat by Pulse 100 100 97 Oximetry 02/24/18 02/24/18 02/24/18 15:53 16:00 16:53 Temperature 99.6 F Pulse Rate 112 H 104 H Respiratory 29 H 21 Rate Blood Pressure 131/83 127/76 O2 Sat by Pulse 99 99 Oximetry 02/24/18 02/24/18 02/24/18 17:53 18:53 20:00 Temperature 100.1 F H Pulse Rate 107 H 109 H 113 H Respiratory 24 25 H 29 H Rate Blood Pressure 139/75 135/72 O2 Sat by Pulse 100 100 Oximetry 02/24/18 02/24/18 02/24/18 20:01 21:01 22:01 Temperature Pulse Rate 101 H 109 H Respiratory 23 27 H Rate Blood Pressure 128/69 132/70 119/64 O2 Sat by Pulse 100 100 Oximetry 02/24/18 02/25/18 02/25/18 23:00 00:00 00:01 Temperature 98.3 F Pulse Rate 108 H 101 H Respiratory 28 H 22 Rate Blood Pressure 111/63 130/78 O2 Sat by Pulse 100 Oximetry 02/25/18 02/25/18 02/25/18 01:01 02:01 03:00 Temperature Pulse Rate 108 H 111 H 97 H Respiratory 27 H 32 H 23 Rate Blood Pressure 117/69 127/74 111/72 O2 Sat by Pulse 100 100 100 Oximetry 02/25/18 02/25/18 02/25/18 04:00 04:01 04:44 Temperature 98.8 F Pulse Rate 102 H 101 H Respiratory 28 H 20 Rate Blood Pressure 131/84 114/74 O2 Sat by Pulse 100 Oximetry 02/25/18 02/25/18 02/25/18 05:00 05:21 06:01 Temperature Pulse Rate 98 H 96 H 94 H Respiratory 22 21 21 Rate Blood Pressure 105/67 103/64 105/66 O2 Sat by Pulse 100 100 100 Oximetry 02/25/18 07:00 Temperature Pulse Rate 94 H Respiratory 20 Rate Blood Pressure 119/74 O2 Sat by Pulse 100 Oximetry Intake and Output (last 12 hours): Intake & Output 02/24/18 02/25/18 02/25/18 18:59 06:59 18:59 Intake Total 655.2 717.1 94.7 Output Total 2560 440 30 Balance -1904.8 277.1 64.7 Intake: IV 50 200 Intake, IV Amount 605.2 517.1 94.7 Left Distal Port Forearm 16 Left Forearm 10.0 Right Forearm 179.2 167.1 19.7 Right Upper arm 400 350 75 Output: Urine 2560 440 30 Urethral (Tena) 2560 440 30 Other: Voiding Method Indwelling Catheter # Bowel Movements 1 - Medications Medications: Current Medications Propofol (Diprivan) 1,000 mg in 100 mls @ 2.19 mls/hr IV .Q24H PRN; Protocol; 5 MCG/KG/MIN PRN Reason: TITRATE PER MD ORDER Last Admin: 02/25/18 05:57 Dose: 45 mcg/kg/min, 19.71 mls/hr Levetiracetam 500 mg/ Sodium (Chloride) 105 mls @ 420 mls/hr IVPB Q12H [facility] Last Admin: 02/25/18 07:31 Dose: 420 mls/hr Piperacillin Sod/Tazobactam Sod (Zosyn 2.25 Gm Iv Premix) 2.25 gm in 50 mls @ 100 mls/hr IVPB Q6H [facility]IL[facility] PRN Reason: Protocol Last Admin: 02/25/18 08:45 Dose: 100 mls/hr Sodium Chloride (Sodium Chloride 0.9%) 1,000 mls @ 100 mls/hr IV .Q10H [facility] Insulin Human Regular (Novolin R) 0 unit SC Q6 [facility] PRN Reason: Protocol Last Admin: 02/25/18 05:41 Dose: 2 unit Pantoprazole Sodium (Protonix Inj) 40 mg IVP DAILY [facility] Last Admin: 02/24/18 18:48 Dose: 40 mg Pneumococcal Polyvalent Vaccine (Pneumovax 23 Vaccine) 0.5 ml IM .ONCE ONE Stop: 02/26/18 10:01 - Labs Labs (last 24 hours): Laboratory Results - last 24 hr 02/24/18 02/24/18 02/24/18 09:09 09:09 10:27 WBC RBC Hgb Hct MCV MCH MCHC RDW Plt Count MPV Neut % (Auto) Lymph % (Auto) Boyd % (Auto) Eos % (Auto) Baso % (Auto) Neut # (Auto) Lymph # (Auto) Boyd # (Auto) Eos # (Auto) Baso # (Auto) Neutrophils % (Manual) 89 H Band Neutrophils % 2 Lymphocytes % (Manual) 5 L Monocytes % (Manual) 4 Platelet Estimate Normal Hypochromasia (manual) Slight Anisocytosis (manual) Slight Target Cells Slight Puncture Site pCO2 pO2 HCO3 ABG pH ABG Total CO2 ABG O2 Saturation ABG Base Excess ABG Hemoglobin ABG Carboxyhemoglobin POC ABG HHb (Measured) ABG Methemoglobin Tanner Test A-a O2 Difference Respiratory Index Hgb O2 Saturation Vent Mode Mechanical Rate FiO2 Tidal Volume PEEP Sodium Potassium Chloride Carbon Dioxide Anion Gap BUN Creatinine Est GFR ( Amer) Est GFR (Non-Af Amer) POC Glucose (mg/dL) 247 H Random Glucose Hemoglobin A1c Calcium Phosphorus Magnesium Total Bilirubin AST ALT Alkaline Phosphatase Total Protein Albumin Globulin Albumin/Globulin Ratio Triglycerides Cholesterol LDL Cholesterol Direct HDL Cholesterol Procalcitonin 10.61 H Free T4 TSH 3rd Generation 02/24/18 02/24/18 02/24/18 11:29 12:12 13:05 WBC RBC Hgb Hct MCV MCH MCHC RDW Plt Count MPV Neut % (Auto) Lymph % (Auto) Boyd % (Auto) Eos % (Auto) Baso % (Auto) Neut # (Auto) Lymph # (Auto) Boyd # (Auto) Eos # (Auto) Baso # (Auto) Neutrophils % (Manual) Band Neutrophils % Lymphocytes % (Manual) Monocytes % (Manual) Platelet Estimate Hypochromasia (manual) Anisocytosis (manual) Target Cells Puncture Site pCO2 pO2 HCO3 ABG pH ABG Total CO2 ABG O2 Saturation ABG Base Excess ABG Hemoglobin ABG Carboxyhemoglobin POC ABG HHb (Measured) ABG Methemoglobin Tanner Test A-a O2 Difference Respiratory Index Hgb O2 Saturation Vent Mode Mechanical Rate FiO2 Tidal Volume PEEP Sodium Potassium Chloride Carbon Dioxide Anion Gap BUN Creatinine Est GFR ( Amer) Est GFR (Non-Af Amer) POC Glucose (mg/dL) 211 H 207 H 200 H Random Glucose Hemoglobin A1c Calcium Phosphorus Magnesium Total Bilirubin AST ALT Alkaline Phosphatase Total Protein Albumin Globulin Albumin/Globulin Ratio Triglycerides Cholesterol LDL Cholesterol Direct HDL Cholesterol Procalcitonin Free T4 TSH 3rd Generation 02/24/18 02/24/18 02/24/18 14:06 14:52 17:38 WBC RBC Hgb Hct MCV MCH MCHC RDW Plt Count MPV Neut % (Auto) Lymph % (Auto) Boyd % (Auto) Eos % (Auto) Baso % (Auto) Neut # (Auto) Lymph # (Auto) Boyd # (Auto) Eos # (Auto) Baso # (Auto) Neutrophils % (Manual) Band Neutrophils % Lymphocytes % (Manual) Monocytes % (Manual) Platelet Estimate Hypochromasia (manual) Anisocytosis (manual) Target Cells Puncture Site pCO2 pO2 HCO3 ABG pH ABG Total CO2 ABG O2 Saturation ABG Base Excess ABG Hemoglobin ABG Carboxyhemoglobin POC ABG HHb (Measured) ABG Methemoglobin Tanner Test A-a O2 Difference Respiratory Index Hgb O2 Saturation Vent Mode Mechanical Rate FiO2 Tidal Volume PEEP Sodium Potassium Chloride Carbon Dioxide Anion Gap BUN Creatinine Est GFR ( Amer) Est GFR (Non-Af Amer) POC Glucose (mg/dL) 192 H 178 H 202 H Random Glucose Hemoglobin A1c Calcium Phosphorus Magnesium Total Bilirubin AST ALT Alkaline Phosphatase Total Protein Albumin Globulin Albumin/Globulin Ratio Triglycerides Cholesterol LDL Cholesterol Direct HDL Cholesterol Procalcitonin Free T4 TSH 3rd Generation 02/25/18 02/25/18 02/25/18 00:04 05:19 05:33 WBC RBC Hgb Hct MCV MCH MCHC RDW Plt Count MPV Neut % (Auto) Lymph % (Auto) Boyd % (Auto) Eos % (Auto) Baso % (Auto) Neut # (Auto) Lymph # (Auto) Boyd # (Auto) Eos # (Auto) Baso # (Auto) Neutrophils % (Manual) Band Neutrophils % Lymphocytes % (Manual) Monocytes % (Manual) Platelet Estimate Hypochromasia (manual) Anisocytosis (manual) Target Cells Puncture Site R brac pCO2 34 L pO2 275 H HCO3 17.3 L ABG pH 7.28 L ABG Total CO2 17.0 L ABG O2 Saturation 98.8 H ABG Base Excess -9.8 L ABG Hemoglobin 12.6 ABG Carboxyhemoglobin 0.6 POC ABG HHb (Measured) 1.2 ABG Methemoglobin 0.5 Tanner Test Na A-a O2 Difference 39.0 Respiratory Index 0.1 Hgb O2 Saturation 97.7 Vent Mode Prvc Mechanical Rate 20 FiO2 50.0 Tidal Volume 500 PEEP 5 Sodium Potassium Chloride Carbon Dioxide Anion Gap BUN Creatinine Est GFR ( Amer) Est GFR (Non-Af Amer) POC Glucose (mg/dL) 270 H 215 H Random Glucose Hemoglobin A1c Calcium Phosphorus Magnesium Total Bilirubin AST ALT Alkaline Phosphatase Total Protein Albumin Globulin Albumin/Globulin Ratio Triglycerides Cholesterol LDL Cholesterol Direct HDL Cholesterol Procalcitonin Free T4 TSH 3rd Generation 02/25/18 02/25/18 02/25/18 06:04 06:04 06:04 WBC 20.4 H RBC 5.08 Hgb 12.3 Hct 37.6 MCV 74.0 L MCH 24.3 L MCHC 32.8 L RDW 16.0 H Plt Count 331 MPV 8.4 Neut % (Auto) 79.6 H Lymph % (Auto) 10.6 L Boyd % (Auto) 9.5 Eos % (Auto) 0.1 Baso % (Auto) 0.2 Neut # (Auto) 16.2 H Lymph # (Auto) 2.2 Boyd # (Auto) 1.9 H Eos # (Auto) 0.0 Baso # (Auto) 0.0 Neutrophils % (Manual) Band Neutrophils % Lymphocytes % (Manual) Monocytes % (Manual) Platelet Estimate Hypochromasia (manual) Anisocytosis (manual) Target Cells Puncture Site pCO2 pO2 HCO3 ABG pH ABG Total CO2 ABG O2 Saturation ABG Base Excess ABG Hemoglobin ABG Carboxyhemoglobin POC ABG HHb (Measured) ABG Methemoglobin Tanner Test A-a O2 Difference Respiratory Index Hgb O2 Saturation Vent Mode Mechanical Rate FiO2 Tidal Volume PEEP Sodium 146 Potassium 4.1 Chloride 110 H Carbon Dioxide 17 L Anion Gap 22 H BUN 41 H Creatinine 3.6 H Est GFR ( Amer) 21 Est GFR (Non-Af Amer) 18 POC Glucose (mg/dL) Random Glucose 246 H Hemoglobin A1c 9.3 H Calcium 8.7 Phosphorus 7.5 H Magnesium 2.8 H Total Bilirubin 0.6 AST 188 H D ALT 59 Alkaline Phosphatase 80 Total Protein 8.0 Albumin 3.7 Globulin 4.3 H Albumin/Globulin Ratio 0.9 L Triglycerides 272 H Cholesterol 183 LDL Cholesterol Direct 91 HDL Cholesterol 30 Procalcitonin Free T4 TSH 3rd Generation 0.64 02/25/18 06:04 WBC RBC Hgb Hct MCV MCH MCHC RDW Plt Count MPV Neut % (Auto) Lymph % (Auto) Boyd % (Auto) Eos % (Auto) Baso % (Auto) Neut # (Auto) Lymph # (Auto) Boyd # (Auto) Eos # (Auto) Baso # (Auto) Neutrophils % (Manual) Band Neutrophils % Lymphocytes % (Manual) Monocytes % (Manual) Platelet Estimate Hypochromasia (manual) Anisocytosis (manual) Target Cells Puncture Site pCO2 pO2 HCO3 ABG pH ABG Total CO2 ABG O2 Saturation ABG Base Excess ABG Hemoglobin ABG Carboxyhemoglobin POC ABG HHb (Measured) ABG Methemoglobin Tanner Test A-a O2 Difference Respiratory Index Hgb O2 Saturation Vent Mode Mechanical Rate FiO2 Tidal Volume PEEP Sodium Potassium Chloride Carbon Dioxide Anion Gap BUN Creatinine Est GFR ( Amer) Est GFR (Non-Af Amer) POC Glucose (mg/dL) Random Glucose Hemoglobin A1c Calcium Phosphorus Magnesium Total Bilirubin AST ALT Alkaline Phosphatase Total Protein Albumin Globulin Albumin/Globulin Ratio Triglycerides Cholesterol LDL Cholesterol Direct HDL Cholesterol Procalcitonin Free T4 1.44 TSH 3rd Generation
--- NOTE | 2018-02-25 11:10 | CP.CCUPN ---
<Jatinder Clay - Last Filed: 02/25/18 11:18> CCU Subjective - Physician Review Subjective (Free Text): 02/25/18 11:07 Patient seen and examined. He is currently intubated and sedated. No acute events overnight noted. CCU Objective - Vital Signs / Intake & Output Vital Signs (Last 4 hours): Vital Signs Temp Pulse Resp BP Pulse Ox 02/25/18 10:01 99 H 22 121/70 100 02/25/18 09:01 100 H 21 109/76 100 02/25/18 08:00 97.9 F 93 H 20 115/73 100 Intake and Output (Last 8hrs): Intake & Output 02/24/18 02/25/18 02/25/18 22:59 06:59 14:59 Intake Total 251.5 577.8 134.7 Output Total 330 250 30 Balance -78.5 327.8 104.7 Intake: IV 200 40 Intake, IV Amount 251.5 377.8 94.7 Left Distal Port Forearm 2 Right Forearm 99.5 127.8 19.7 Right Upper arm 150 250 75 Output: Urine 330 250 30 Urethral (Tena) 330 250 30 - Physical Exam Physical Exam Limitations: Positive for: Altered Mental Status (intubated/ sedated) Head: Positive for: Atraumatic, Normocephalic Pupils: Positive for: Sluggish, Other (arcus senilus) Conjunctiva: Positive for: Normal Mouth: Positive for: Dry Respiratory/Chest: Positive for: Clear to Auscultation, Other (on ventilator). Negative for: Wheezes, Rales, Rhonchi Cardiovascular: Positive for: Regular Rate and Rhythm, Normal S1, S2 Abdomen: Positive for: Normal Bowel Sounds. Negative for: Tenderness Upper Extremity: Positive for: Normal Inspection Lower Extremity: Positive for: Normal Inspection Skin: Positive for: Warm, Dry Psychiatric: Positive for: Other (intubated/sedated) - Medications Active Medications: Active Medications Generic Name Dose Route Start Last Admin Trade Name Freq PRN Reason Stop Dose Admin Propofol 1,000 mg in 100 mls @ 2.19 mls/hr 02/24/18 03:41 02/25/18 09:00 Diprivan IV 35 mcg/kg/min .Q24H PRN 15.33 mls/hr TITRATE PER MD ORDER Titration Protocol 5 MCG/KG/MIN Levetiracetam 500 mg/ Sodium 105 mls @ 420 mls/hr 02/24/18 08:15 02/25/18 07: 31 Chloride IVPB 420 mls/hr Q12H LEILA Administration Piperacillin Sod/Tazobactam Sod 2.25 gm in 50 mls @ 100 mls/hr 02/25/18 08:30 02/25/18 08:45 Zosyn 2.25 Gm Iv Premix IVPB 100 mls/hr Q6H LEILA Administration Protocol Sodium Chloride 1,000 mls @ 100 mls/hr 02/25/18 09:45 02/25/18 10:29 Sodium Chloride 0.9% IV 100 mls/hr .Q10H LEILA Administration Insulin Human Regular 0 unit 02/24/18 15:00 02/25/18 05:41 Novolin R SC 2 unit Q6 LEILA Administration Protocol Pantoprazole Sodium 40 mg 02/24/18 10:00 02/24/18 18:48 Protonix Inj IVP 40 mg DAILY LEILA Administration Pneumococcal Polyvalent Vaccine 0.5 ml 02/26/18 10:00 Pneumovax 23 Vaccine IM 02/26/18 10:01 .ONCE ONE - Patient Studies Lab Studies: Microbiology Studies 02/24/18 08:30 Blood Culture - Preliminary Blood NO GROWTH AFTER 24 HOURS 02/24/18 09:00 Blood Culture - Preliminary Blood NO GROWTH AFTER 24 HOURS 02/24/18 05:35 Urine Culture - Final Urine,Clean Catch No Growth (<1,000 CFU/ML) 02/24/18 20:22 Gram Stain - Final Sputum Induced Lab Studies 02/25/18 02/25/18 02/25/18 Range/Units 06:04 06:04 06:04 WBC (4.8-10.8) K/uL RBC (4.40-5.90) Mil/uL Hgb (12.0-18.0) g/dL Hct (35.0-51.0) % MCV (80.0-94.0) fL MCH (27.0-31.0) pg MCHC (33.0-37.0) g/dL RDW (11.5-14.5) % Plt Count (130-400) K/uL MPV (7.2-11.7) fL Neut % (Auto) (50.0-75.0) % Lymph % (Auto) (20.0-40.0) % [place] % (Auto) (0.0-10.0) % Eos % (Auto) (0.0-4.0) % Baso % (Auto) (0.0-2.0) % Neut # (Auto) (1.8-7.0) K/uL Lymph # (Auto) (1.0-4.3) K/uL [place] # (Auto) (0.0-0.8) K/uL Eos # (Auto) (0.0-0.7) K/uL Baso # (Auto) (0.0-0.2) K/uL Neutrophils % (Manual) (50-75) % Band Neutrophils % (0-2) % Lymphocytes % (Manual) (20-40) % Monocytes % (Manual) (0-10) % Platelet Estimate (NORMAL) Hypochromasia (manual) Anisocytosis (manual) Target Cells Puncture Site pCO2 (35-45) mm/Hg pO2 (80-100) mm/Hg HCO3 (21-28) mmol/L ABG pH (7.35-7.45) ABG Total CO2 (22-28) mmol/L ABG O2 Saturation (95-98) % ABG Base Excess (-2.0-3.0) mmol/L ABG Hemoglobin (11.7-17.4) g/dL ABG Carboxyhemoglobin (0.5-1.5) % POC ABG HHb (Measured) (0.0-5.0) % ABG Methemoglobin (0.0-3.0) % Tanner Test A-a O2 Difference mm/Hg Respiratory Index Hgb O2 Saturation (95.0-98.0) % Vent Mode Mechanical Rate FiO2 % Tidal Volume PEEP Sodium 146 (132-148) mmol/L Potassium 4.1 (3.6-5.2) mmol/L Chloride 110 H (98-107) mmol/L Carbon Dioxide 17 L (22-30) mmol/L Anion Gap 22 H (10-20) BUN 41 H (9-20) mg/dL Creatinine 3.6 H (0.8-1.5) mg/dL Est GFR ( Amer) 21 Est GFR (Non-Af Amer) 18 POC Glucose (mg/dL) (65-110) mg/dL Random Glucose 246 H (75-110) mg/dL Hemoglobin A1c 9.3 H (4.2-6.5) % Calcium 8.7 (8.6-10.4) mg/dl Phosphorus 7.5 H (2.5-4.5) mg/dL Magnesium 2.8 H (1.6-2.3) mg/dL Total Bilirubin 0.6 (0.2-1.3) mg/dL AST 188 H D (17-59) U/L ALT 59 (21-72) U/L Alkaline Phosphatase 80 (38-126) U/L Total Protein 8.0 (6.3-8.3) g/dL Albumin 3.7 (3.5-5.0) g/dL Globulin 4.3 H (2.2-3.9) gm/dL Albumin/Globulin Ratio 0.9 L (1.0-2.1) Triglycerides 272 H (0-149) mg/dL Cholesterol 183 (0-199) mg/dL LDL Cholesterol Direct 91 (0-129) mg/dL HDL Cholesterol 30 (30-70) mg/dL Procalcitonin (0.19-0.49) NG/ML Free T4 1.44 (0.78-2.19) ng/dL TSH 3rd Generation 0.64 (0.46-4.68) mIU/L 02/25/18 02/25/18 02/25/18 Range/Units 06:04 05:33 05:19 WBC 20.4 H (4.8-10.8) K/uL RBC 5.08 (4.40-5.90) Mil/uL Hgb 12.3 (12.0-18.0) g/dL Hct 37.6 (35.0-51.0) % MCV 74.0 L (80.0-94.0) fL MCH 24.3 L (27.0-31.0) pg MCHC 32.8 L (33.0-37.0) g/dL RDW 16.0 H (11.5-14.5) % Plt Count 331 (130-400) K/uL MPV 8.4 (7.2-11.7) fL Neut % (Auto) 79.6 H (50.0-75.0) % Lymph % (Auto) 10.6 L (20.0-40.0) % [place] % (Auto) 9.5 (0.0-10.0) % Eos % (Auto) 0.1 (0.0-4.0) % Baso % (Auto) 0.2 (0.0-2.0) % Neut # (Auto) 16.2 H (1.8-7.0) K/uL Lymph # (Auto) 2.2 (1.0-4.3) K/uL [place] # (Auto) 1.9 H (0.0-0.8) K/uL Eos # (Auto) 0.0 (0.0-0.7) K/uL Baso # (Auto) 0.0 (0.0-0.2) K/uL Neutrophils % (Manual) (50-75) % Band Neutrophils % (0-2) % Lymphocytes % (Manual) (20-40) % Monocytes % (Manual) (0-10) % Platelet Estimate (NORMAL) Hypochromasia (manual) Anisocytosis (manual) Target Cells Puncture Site R brac pCO2 34 L (35-45) mm/Hg pO2 275 H (80-100) mm/Hg HCO3 17.3 L (21-28) mmol/L ABG pH 7.28 L (7.35-7.45) ABG Total CO2 17.0 L (22-28) mmol/L ABG O2 Saturation 98.8 H (95-98) % ABG Base Excess -9.8 L (-2.0-3.0) mmol/L ABG Hemoglobin 12.6 (11.7-17.4) g/dL ABG Carboxyhemoglobin 0.6 (0.5-1.5) % POC ABG HHb (Measured) 1.2 (0.0-5.0) % ABG Methemoglobin 0.5 (0.0-3.0) % Tanner Test Na A-a O2 Difference 39.0 mm/Hg Respiratory Index 0.1 Hgb O2 Saturation 97.7 (95.0-98.0) % Vent Mode Prvc Mechanical Rate 20 FiO2 50.0 % Tidal Volume 500 PEEP 5 Sodium (132-148) mmol/L Potassium (3.6-5.2) mmol/L Chloride (98-107) mmol/L Carbon Dioxide (22-30) mmol/L Anion Gap (10-20) BUN (9-20) mg/dL Creatinine (0.8-1.5) mg/dL Est GFR ( Amer) Est GFR (Non-Af Amer) POC Glucose (mg/dL) 215 H (65-110) mg/dL Random Glucose (75-110) mg/dL Hemoglobin A1c (4.2-6.5) % Calcium (8.6-10.4) mg/dl Phosphorus (2.5-4.5) mg/dL Magnesium (1.6-2.3) mg/dL Total Bilirubin (0.2-1.3) mg/dL AST (17-59) U/L ALT (21-72) U/L Alkaline Phosphatase (38-126) U/L Total Protein (6.3-8.3) g/dL Albumin (3.5-5.0) g/dL Globulin (2.2-3.9) gm/dL Albumin/Globulin Ratio (1.0-2.1) Triglycerides (0-149) mg/dL Cholesterol (0-199) mg/dL LDL Cholesterol Direct (0-129) mg/dL HDL Cholesterol (30-70) mg/dL Procalcitonin (0.19-0.49) NG/ML Free T4 (0.78-2.19) ng/dL TSH 3rd Generation (0.46-4.68) mIU/L 02/25/18 02/24/18 02/24/18 Range/Units 00:04 17:38 14:52 WBC (4.8-10.8) K/uL RBC (4.40-5.90) Mil/uL Hgb (12.0-18.0) g/dL Hct (35.0-51.0) % MCV (80.0-94.0) fL MCH (27.0-31.0) pg MCHC (33.0-37.0) g/dL RDW (11.5-14.5) % Plt Count (130-400) K/uL MPV (7.2-11.7) fL Neut % (Auto) (50.0-75.0) % Lymph % (Auto) (20.0-40.0) % [place] % (Auto) (0.0-10.0) % Eos % (Auto) (0.0-4.0) % Baso % (Auto) (0.0-2.0) % Neut # (Auto) (1.8-7.0) K/uL Lymph # (Auto) (1.0-4.3) K/uL [place] # (Auto) (0.0-0.8) K/uL Eos # (Auto) (0.0-0.7) K/uL Baso # (Auto) (0.0-0.2) K/uL Neutrophils % (Manual) (50-75) % Band Neutrophils % (0-2) % Lymphocytes % (Manual) (20-40) % Monocytes % (Manual) (0-10) % Platelet Estimate (NORMAL) Hypochromasia (manual) Anisocytosis (manual) Target Cells Puncture Site pCO2 (35-45) mm/Hg pO2 (80-100) mm/Hg HCO3 (21-28) mmol/L ABG pH (7.35-7.45) ABG Total CO2 (22-28) mmol/L ABG O2 Saturation (95-98) % ABG Base Excess (-2.0-3.0) mmol/L ABG Hemoglobin (11.7-17.4) g/dL ABG Carboxyhemoglobin (0.5-1.5) % POC ABG HHb (Measured) (0.0-5.0) % ABG Methemoglobin (0.0-3.0) % Tanner Test A-a O2 Difference mm/Hg Respiratory Index Hgb O2 Saturation (95.0-98.0) % Vent Mode Mechanical Rate FiO2 % Tidal Volume PEEP Sodium (132-148) mmol/L Potassium (3.6-5.2) mmol/L Chloride (98-107) mmol/L Carbon Dioxide (22-30) mmol/L Anion Gap (10-20) BUN (9-20) mg/dL Creatinine (0.8-1.5) mg/dL Est GFR ( Amer) Est GFR (Non-Af Amer) POC Glucose (mg/dL) 270 H 202 H 178 H (65-110) mg/dL Random Glucose (75-110) mg/dL Hemoglobin A1c (4.2-6.5) % Calcium (8.6-10.4) mg/dl Phosphorus (2.5-4.5) mg/dL Magnesium (1.6-2.3) mg/dL Total Bilirubin (0.2-1.3) mg/dL AST (17-59) U/L ALT (21-72) U/L Alkaline Phosphatase (38-126) U/L Total Protein (6.3-8.3) g/dL Albumin (3.5-5.0) g/dL Globulin (2.2-3.9) gm/dL Albumin/Globulin Ratio (1.0-2.1) Triglycerides (0-149) mg/dL Cholesterol (0-199) mg/dL LDL Cholesterol Direct (0-129) mg/dL HDL Cholesterol (30-70) mg/dL Procalcitonin (0.19-0.49) NG/ML Free T4 (0.78-2.19) ng/dL TSH 3rd Generation (0.46-4.68) mIU/L 02/24/18 02/24/18 02/24/18 Range/Units 14:06 13:05 12:12 WBC (4.8-10.8) K/uL RBC (4.40-5.90) Mil/uL Hgb (12.0-18.0) g/dL Hct (35.0-51.0) % MCV (80.0-94.0) fL MCH (27.0-31.0) pg MCHC (33.0-37.0) g/dL RDW (11.5-14.5) % Plt Count (130-400) K/uL MPV (7.2-11.7) fL Neut % (Auto) (50.0-75.0) % Lymph % (Auto) (20.0-40.0) % [place] % (Auto) (0.0-10.0) % Eos % (Auto) (0.0-4.0) % Baso % (Auto) (0.0-2.0) % Neut # (Auto) (1.8-7.0) K/uL Lymph # (Auto) (1.0-4.3) K/uL [place] # (Auto) (0.0-0.8) K/uL Eos # (Auto) (0.0-0.7) K/uL Baso # (Auto) (0.0-0.2) K/uL Neutrophils % (Manual) (50-75) % Band Neutrophils % (0-2) % Lymphocytes % (Manual) (20-40) % Monocytes % (Manual) (0-10) % Platelet Estimate (NORMAL) Hypochromasia (manual) Anisocytosis (manual) Target Cells Puncture Site pCO2 (35-45) mm/Hg pO2 (80-100) mm/Hg HCO3 (21-28) mmol/L ABG pH (7.35-7.45) ABG Total CO2 (22-28) mmol/L ABG O2 Saturation (95-98) % ABG Base Excess (-2.0-3.0) mmol/L ABG Hemoglobin (11.7-17.4) g/dL ABG Carboxyhemoglobin (0.5-1.5) % POC ABG HHb (Measured) (0.0-5.0) % ABG Methemoglobin (0.0-3.0) % Tanner Test A-a O2 Difference mm/Hg Respiratory Index Hgb O2 Saturation (95.0-98.0) % Vent Mode Mechanical Rate FiO2 % Tidal Volume PEEP Sodium (132-148) mmol/L Potassium (3.6-5.2) mmol/L Chloride (98-107) mmol/L Carbon Dioxide (22-30) mmol/L Anion Gap (10-20) BUN (9-20) mg/dL Creatinine (0.8-1.5) mg/dL Est GFR ( Amer) Est GFR (Non-Af Amer) POC Glucose (mg/dL) 192 H 200 H 207 H (65-110) mg/dL Random Glucose (75-110) mg/dL Hemoglobin A1c (4.2-6.5) % Calcium (8.6-10.4) mg/dl Phosphorus (2.5-4.5) mg/dL Magnesium (1.6-2.3) mg/dL Total Bilirubin (0.2-1.3) mg/dL AST (17-59) U/L ALT (21-72) U/L Alkaline Phosphatase (38-126) U/L Total Protein (6.3-8.3) g/dL Albumin (3.5-5.0) g/dL Globulin (2.2-3.9) gm/dL Albumin/Globulin Ratio (1.0-2.1) Triglycerides (0-149) mg/dL Cholesterol (0-199) mg/dL LDL Cholesterol Direct (0-129) mg/dL HDL Cholesterol (30-70) mg/dL Procalcitonin (0.19-0.49) NG/ML Free T4 (0.78-2.19) ng/dL TSH 3rd Generation (0.46-4.68) mIU/L 02/24/18 02/24/18 02/24/18 Range/Units 11:29 09:09 09:09 WBC (4.8-10.8) K/uL RBC (4.40-5.90) Mil/uL Hgb (12.0-18.0) g/dL Hct (35.0-51.0) % MCV (80.0-94.0) fL MCH (27.0-31.0) pg MCHC (33.0-37.0) g/dL RDW (11.5-14.5) % Plt Count (130-400) K/uL MPV (7.2-11.7) fL Neut % (Auto) (50.0-75.0) % Lymph % (Auto) (20.0-40.0) % [place] % (Auto) (0.0-10.0) % Eos % (Auto) (0.0-4.0) % Baso % (Auto) (0.0-2.0) % Neut # (Auto) (1.8-7.0) K/uL Lymph # (Auto) (1.0-4.3) K/uL [place] # (Auto) (0.0-0.8) K/uL Eos # (Auto) (0.0-0.7) K/uL Baso # (Auto) (0.0-0.2) K/uL Neutrophils % (Manual) 89 H (50-75) % Band Neutrophils % 2 (0-2) % Lymphocytes % (Manual) 5 L (20-40) % Monocytes % (Manual) 4 (0-10) % Platelet Estimate Normal (NORMAL) Hypochromasia (manual) Slight Anisocytosis (manual) Slight Target Cells Slight Puncture Site pCO2 (35-45) mm/Hg pO2 (80-100) mm/Hg HCO3 (21-28) mmol/L ABG pH (7.35-7.45) ABG Total CO2 (22-28) mmol/L ABG O2 Saturation (95-98) % ABG Base Excess (-2.0-3.0) mmol/L ABG Hemoglobin (11.7-17.4) g/dL ABG Carboxyhemoglobin (0.5-1.5) % POC ABG HHb (Measured) (0.0-5.0) % ABG Methemoglobin (0.0-3.0) % Tanner Test A-a O2 Difference mm/Hg Respiratory Index Hgb O2 Saturation (95.0-98.0) % Vent Mode Mechanical Rate FiO2 % Tidal Volume PEEP Sodium (132-148) mmol/L Potassium (3.6-5.2) mmol/L Chloride (98-107) mmol/L Carbon Dioxide (22-30) mmol/L Anion Gap (10-20) BUN (9-20) mg/dL Creatinine (0.8-1.5) mg/dL Est GFR ( Amer) Est GFR (Non-Af Amer) POC Glucose (mg/dL) 211 H (65-110) mg/dL Random Glucose (75-110) mg/dL Hemoglobin A1c (4.2-6.5) % Calcium (8.6-10.4) mg/dl Phosphorus (2.5-4.5) mg/dL Magnesium (1.6-2.3) mg/dL Total Bilirubin (0.2-1.3) mg/dL AST (17-59) U/L ALT (21-72) U/L Alkaline Phosphatase (38-126) U/L Total Protein (6.3-8.3) g/dL Albumin (3.5-5.0) g/dL Globulin (2.2-3.9) gm/dL Albumin/Globulin Ratio (1.0-2.1) Triglycerides (0-149) mg/dL Cholesterol (0-199) mg/dL LDL Cholesterol Direct (0-129) mg/dL HDL Cholesterol (30-70) mg/dL Procalcitonin 10.61 H (0.19-0.49) NG/ML Free T4 (0.78-2.19) ng/dL TSH 3rd Generation (0.46-4.68) mIU/L Laboratory Results - last 24 hr 02/24/18 02/24/18 02/24/18 09:09 09:09 11:29 WBC RBC Hgb Hct MCV MCH MCHC RDW Plt Count MPV Neut % (Auto) Lymph % (Auto) [place] % (Auto) Eos % (Auto) Baso % (Auto) Neut # (Auto) Lymph # (Auto) [place] # (Auto) Eos # (Auto) Baso # (Auto) Neutrophils % (Manual) 89 H Band Neutrophils % 2 Lymphocytes % (Manual) 5 L Monocytes % (Manual) 4 Platelet Estimate Normal Hypochromasia (manual) Slight Anisocytosis (manual) Slight Target Cells Slight Puncture Site pCO2 pO2 HCO3 ABG pH ABG Total CO2 ABG O2 Saturation ABG Base Excess ABG Hemoglobin ABG Carboxyhemoglobin POC ABG HHb (Measured) ABG Methemoglobin Tanner Test A-a O2 Difference Respiratory Index Hgb O2 Saturation Vent Mode Mechanical Rate FiO2 Tidal Volume PEEP Sodium Potassium Chloride Carbon Dioxide Anion Gap BUN Creatinine Est GFR ( Amer) Est GFR (Non-Af Amer) POC Glucose (mg/dL) 211 H Random Glucose Hemoglobin A1c Calcium Phosphorus Magnesium Total Bilirubin AST ALT Alkaline Phosphatase Total Protein Albumin Globulin Albumin/Globulin Ratio Triglycerides Cholesterol LDL Cholesterol Direct HDL Cholesterol Procalcitonin 10.61 H Free T4 TSH 3rd Generation 02/24/18 02/24/18 02/24/18 12:12 13:05 14:06 WBC RBC Hgb Hct MCV MCH MCHC RDW Plt Count MPV Neut % (Auto) Lymph % (Auto) [place] % (Auto) Eos % (Auto) Baso % (Auto) Neut # (Auto) Lymph # (Auto) [place] # (Auto) Eos # (Auto) Baso # (Auto) Neutrophils % (Manual) Band Neutrophils % Lymphocytes % (Manual) Monocytes % (Manual) Platelet Estimate Hypochromasia (manual) Anisocytosis (manual) Target Cells Puncture Site pCO2 pO2 HCO3 ABG pH ABG Total CO2 ABG O2 Saturation ABG Base Excess ABG Hemoglobin ABG Carboxyhemoglobin POC ABG HHb (Measured) ABG Methemoglobin Tanner Test A-a O2 Difference Respiratory Index Hgb O2 Saturation Vent Mode Mechanical Rate FiO2 Tidal Volume PEEP Sodium Potassium Chloride Carbon Dioxide Anion Gap BUN Creatinine Est GFR ( Amer) Est GFR (Non-Af Amer) POC Glucose (mg/dL) 207 H 200 H 192 H Random Glucose Hemoglobin A1c Calcium Phosphorus Magnesium Total Bilirubin AST ALT Alkaline Phosphatase Total Protein Albumin Globulin Albumin/Globulin Ratio Triglycerides Cholesterol LDL Cholesterol Direct HDL Cholesterol Procalcitonin Free T4 TSH 3rd Generation 02/24/18 02/24/18 02/25/18 14:52 17:38 00:04 WBC RBC Hgb Hct MCV MCH MCHC RDW Plt Count MPV Neut % (Auto) Lymph % (Auto) [place] % (Auto) Eos % (Auto) Baso % (Auto) Neut # (Auto) Lymph # (Auto) [place] # (Auto) Eos # (Auto) Baso # (Auto) Neutrophils % (Manual) Band Neutrophils % Lymphocytes % (Manual) Monocytes % (Manual) Platelet Estimate Hypochromasia (manual) Anisocytosis (manual) Target Cells Puncture Site pCO2 pO2 HCO3 ABG pH ABG Total CO2 ABG O2 Saturation ABG Base Excess ABG Hemoglobin ABG Carboxyhemoglobin POC ABG HHb (Measured) ABG Methemoglobin Tanner Test A-a O2 Difference Respiratory Index Hgb O2 Saturation Vent Mode Mechanical Rate FiO2 Tidal Volume PEEP Sodium Potassium Chloride Carbon Dioxide Anion Gap BUN Creatinine Est GFR ( Amer) Est GFR (Non-Af Amer) POC Glucose (mg/dL) 178 H 202 H 270 H Random Glucose Hemoglobin A1c Calcium Phosphorus Magnesium Total Bilirubin AST ALT Alkaline Phosphatase Total Protein Albumin Globulin Albumin/Globulin Ratio Triglycerides Cholesterol LDL Cholesterol Direct HDL Cholesterol Procalcitonin Free T4 TSH 3rd Generation 02/25/18 02/25/18 02/25/18 05:19 05:33 06:04 WBC 20.4 H RBC 5.08 Hgb 12.3 Hct 37.6 MCV 74.0 L MCH 24.3 L MCHC 32.8 L RDW 16.0 H Plt Count 331 MPV 8.4 Neut % (Auto) 79.6 H Lymph % (Auto) 10.6 L [place] % (Auto) 9.5 Eos % (Auto) 0.1 Baso % (Auto) 0.2 Neut # (Auto) 16.2 H Lymph # (Auto) 2.2 [place] # (Auto) 1.9 H Eos # (Auto) 0.0 Baso # (Auto) 0.0 Neutrophils % (Manual) Band Neutrophils % Lymphocytes % (Manual) Monocytes % (Manual) Platelet Estimate Hypochromasia (manual) Anisocytosis (manual) Target Cells Puncture Site R brac pCO2 34 L pO2 275 H HCO3 17.3 L ABG pH 7.28 L ABG Total CO2 17.0 L ABG O2 Saturation 98.8 H ABG Base Excess -9.8 L ABG Hemoglobin 12.6 ABG Carboxyhemoglobin 0.6 POC ABG HHb (Measured) 1.2 ABG Methemoglobin 0.5 Tanner Test Na A-a O2 Difference 39.0 Respiratory Index 0.1 Hgb O2 Saturation 97.7 Vent Mode Prvc Mechanical Rate 20 FiO2 50.0 Tidal Volume 500 PEEP 5 Sodium Potassium Chloride Carbon Dioxide Anion Gap BUN Creatinine Est GFR ( Amer) Est GFR (Non-Af Amer) POC Glucose (mg/dL) 215 H Random Glucose Hemoglobin A1c Calcium Phosphorus Magnesium Total Bilirubin AST ALT Alkaline Phosphatase Total Protein Albumin Globulin Albumin/Globulin Ratio Triglycerides Cholesterol LDL Cholesterol Direct HDL Cholesterol Procalcitonin Free T4 TSH 3rd Generation 02/25/18 02/25/18 02/25/18 06:04 06:04 06:04 WBC RBC Hgb Hct MCV MCH MCHC RDW Plt Count MPV Neut % (Auto) Lymph % (Auto) [place] % (Auto) Eos % (Auto) Baso % (Auto) Neut # (Auto) Lymph # (Auto) [place] # (Auto) Eos # (Auto) Baso # (Auto) Neutrophils % (Manual) Band Neutrophils % Lymphocytes % (Manual) Monocytes % (Manual) Platelet Estimate Hypochromasia (manual) Anisocytosis (manual) Target Cells Puncture Site pCO2 pO2 HCO3 ABG pH ABG Total CO2 ABG O2 Saturation ABG Base Excess ABG Hemoglobin ABG Carboxyhemoglobin POC ABG HHb (Measured) ABG Methemoglobin Tanner Test A-a O2 Difference Respiratory Index Hgb O2 Saturation Vent Mode Mechanical Rate FiO2 Tidal Volume PEEP Sodium 146 Potassium 4.1 Chloride 110 H Carbon Dioxide 17 L Anion Gap 22 H BUN 41 H Creatinine 3.6 H Est GFR ( Amer) 21 Est GFR (Non-Af Amer) 18 POC Glucose (mg/dL) Random Glucose 246 H Hemoglobin A1c 9.3 H Calcium 8.7 Phosphorus 7.5 H Magnesium 2.8 H Total Bilirubin 0.6 AST 188 H D ALT 59 Alkaline Phosphatase 80 Total Protein 8.0 Albumin 3.7 Globulin 4.3 H Albumin/Globulin Ratio 0.9 L Triglycerides 272 H Cholesterol 183 LDL Cholesterol Direct 91 HDL Cholesterol 30 Procalcitonin Free T4 1.44 TSH 3rd Generation 0.64 Fingerstick Blood Sugar Results: 215 Assessment/Plan - Assessment and Plan (Free Text) Assessment: This is a 57 year old male with PMHx HTN and DM who presented with altered mental status. There were some hemorrhages in the brain that were suspicious of metastatic hemorrhages. Neuro Intubated and sedated on Diprivan Unable to get Constant MRI at this time due to acute renal failure Cardio Echo ordered Off of cardine drip Pulm On ventilator For extubation later GI NPO diet for now Protonix 40 mg IV daily Speech swallow eval pending Pancreatic mass seen on CT imaging--possible pseudocyst vs abscess vs malignancy IR on consult for drainage of mass Endocrine Regular ISS Q6H until he starts on diet, then switch to ACHS Accuchecks Q6H until he starts on diet, then switch to [facility] Renal Acute renal failure on 02/25/18 Antibiotics reduced Nephrology consulted Infectious Disease On renally dosed Zosyn Elevated procalcitonin--possibility of pancreatic ID consulted Prophylaxis VTE contraindicated Protonix 40 mg IV daily 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 Clemons <Efrain Clemons S - Last Filed: 02/25/18 17:15> CCU Objective - Vital Signs / Intake & Output Intake and Output (Last 8hrs): Intake & Output 02/25/18 02/25/18 02/25/18 06:59 14:59 22:59 Intake Total 577.8 767.5 Output Total 250 465 Balance 327.8 302.5 Intake: IV 200 40 Intake, IV Amount 377.8 727.5 Right Forearm 127.8 619.7 Right Upper arm 250 107.8 Output: Urine 250 465 Urethral (Tena) 250 465 - Medications Active Medications: Active Medications Generic Name Dose Route Start Last Admin Trade Name Freq PRN Reason Stop Dose Admin Propofol 1,000 mg in 100 mls @ 2.19 mls/hr 02/24/18 03:41 02/25/18 09:00 Diprivan IV 35 mcg/kg/min .Q24H PRN 15.33 mls/hr TITRATE PER MD ORDER Titration Protocol 5 MCG/KG/MIN Levetiracetam 500 mg/ Sodium 105 mls @ 420 mls/hr 02/24/18 08:15 02/25/18 07: 31 Chloride IVPB 420 mls/hr Q12H LEILA Administration Piperacillin Sod/Tazobactam Sod 2.25 gm in 50 mls @ 100 mls/hr 02/25/18 08:30 02/25/18 15:32 Zosyn 2.25 Gm Iv Premix IVPB 100 mls/hr Q6H LEILA Administration Protocol Sodium Bicarbonate 75 meq/ 1,000 mls @ 100 mls/hr 02/25/18 14:45 02/25/18 16: 04 Sodium Chloride IV 100 mls/hr .Q10H LEILA Administration Insulin Human Regular 0 unit 02/24/18 15:00 02/25/18 12:13 Novolin R SC 2 unit Q6 LEILA Administration Protocol Pantoprazole Sodium 40 mg 02/24/18 10:00 02/25/18 12:13 Protonix Inj IVP 40 mg DAILY LEILA Administration Pneumococcal Polyvalent Vaccine 0.5 ml 02/26/18 10:00 Pneumovax 23 Vaccine IM 02/26/18 10:01 .ONCE ONE - Patient Studies Lab Studies: Microbiology Studies 02/24/18 07:01 MRSA Culture (Admit) - Final Nose MRSA NOT DETECTED 02/24/18 20:22 Gram Stain - Final Sputum Induced Sputum Culture - Preliminary Gram Positive Cocci 02/24/18 08:30 Blood Culture - Preliminary Blood NO GROWTH AFTER 24 HOURS 02/24/18 09:00 Blood Culture - Preliminary Blood NO GROWTH AFTER 24 HOURS 02/24/18 05:35 Urine Culture - Final Urine,Clean Catch No Growth (<1,000 CFU/ML) Lab Studies 02/25/18 02/25/18 02/25/18 Range/Units 16:27 11:22 06:04 WBC (4.8-10.8) K/uL RBC (4.40-5.90) Mil/uL Hgb (12.0-18.0) g/dL Hct (35.0-51.0) % MCV (80.0-94.0) fL MCH (27.0-31.0) pg MCHC (33.0-37.0) g/dL RDW (11.5-14.5) % Plt Count (130-400) K/uL MPV (7.2-11.7) fL Neut % (Auto) (50.0-75.0) % Lymph % (Auto) (20.0-40.0) % [place] % (Auto) (0.0-10.0) % Eos % (Auto) (0.0-4.0) % Baso % (Auto) (0.0-2.0) % Neut # (Auto) (1.8-7.0) K/uL Lymph # (Auto) (1.0-4.3) K/uL [place] # (Auto) (0.0-0.8) K/uL Eos # (Auto) (0.0-0.7) K/uL Baso # (Auto) (0.0-0.2) K/uL Puncture Site pCO2 (35-45) mm/Hg pO2 (80-100) mm/Hg HCO3 (21-28) mmol/L ABG pH (7.35-7.45) ABG Total CO2 (22-28) mmol/L ABG O2 Saturation (95-98) % ABG Base Excess (-2.0-3.0) mmol/L ABG Hemoglobin (11.7-17.4) g/dL ABG Carboxyhemoglobin (0.5-1.5) % POC ABG HHb (Measured) (0.0-5.0) % ABG Methemoglobin (0.0-3.0) % Tanner Test A-a O2 Difference mm/Hg Respiratory Index Hgb O2 Saturation (95.0-98.0) % Vent Mode Mechanical Rate FiO2 % Tidal Volume PEEP Sodium (132-148) mmol/L Potassium (3.6-5.2) mmol/L Chloride (98-107) mmol/L Carbon Dioxide (22-30) mmol/L Anion Gap (10-20) BUN (9-20) mg/dL Creatinine (0.8-1.5) mg/dL Est GFR ( Amer) Est GFR (Non-Af Amer) POC Glucose (mg/dL) 203 H (65-110) mg/dL Random Glucose (75-110) mg/dL Hemoglobin A1c (4.2-6.5) % Calcium (8.6-10.4) mg/dl Phosphorus (2.5-4.5) mg/dL Magnesium (1.6-2.3) mg/dL Total Bilirubin (0.2-1.3) mg/dL AST (17-59) U/L ALT (21-72) U/L Alkaline Phosphatase (38-126) U/L Total Protein (6.3-8.3) g/dL Albumin (3.5-5.0) g/dL Globulin (2.2-3.9) gm/dL Albumin/Globulin Ratio (1.0-2.1) Triglycerides (0-149) mg/dL Cholesterol (0-199) mg/dL LDL Cholesterol Direct (0-129) mg/dL HDL Cholesterol (30-70) mg/dL Procalcitonin (0.19-0.49) NG/ML Free T4 1.44 (0.78-2.19) ng/dL TSH 3rd Generation (0.46-4.68) mIU/L Ur Random Sodium 32 mmol/L 02/25/18 02/25/18 02/25/18 Range/Units 06:04 06:04 06:04 WBC 20.4 H (4.8-10.8) K/uL RBC 5.08 (4.40-5.90) Mil/uL Hgb 12.3 (12.0-18.0) g/dL Hct 37.6 (35.0-51.0) % MCV 74.0 L (80.0-94.0) fL MCH 24.3 L (27.0-31.0) pg MCHC 32.8 L (33.0-37.0) g/dL RDW 16.0 H (11.5-14.5) % Plt Count 331 (130-400) K/uL MPV 8.4 (7.2-11.7) fL Neut % (Auto) 79.6 H (50.0-75.0) % Lymph % (Auto) 10.6 L (20.0-40.0) % [place] % (Auto) 9.5 (0.0-10.0) % Eos % (Auto) 0.1 (0.0-4.0) % Baso % (Auto) 0.2 (0.0-2.0) % Neut # (Auto) 16.2 H (1.8-7.0) K/uL Lymph # (Auto) 2.2 (1.0-4.3) K/uL [place] # (Auto) 1.9 H (0.0-0.8) K/uL Eos # (Auto) 0.0 (0.0-0.7) K/uL Baso # (Auto) 0.0 (0.0-0.2) K/uL Puncture Site pCO2 (35-45) mm/Hg pO2 (80-100) mm/Hg HCO3 (21-28) mmol/L ABG pH (7.35-7.45) ABG Total CO2 (22-28) mmol/L ABG O2 Saturation (95-98) % ABG Base Excess (-2.0-3.0) mmol/L ABG Hemoglobin (11.7-17.4) g/dL ABG Carboxyhemoglobin (0.5-1.5) % POC ABG HHb (Measured) (0.0-5.0) % ABG Methemoglobin (0.0-3.0) % Tanner Test A-a O2 Difference mm/Hg Respiratory Index Hgb O2 Saturation (95.0-98.0) % Vent Mode Mechanical Rate FiO2 % Tidal Volume PEEP Sodium 146 (132-148) mmol/L Potassium 4.1 (3.6-5.2) mmol/L Chloride 110 H (98-107) mmol/L Carbon Dioxide 17 L (22-30) mmol/L Anion Gap 22 H (10-20) BUN 41 H (9-20) mg/dL Creatinine 3.6 H (0.8-1.5) mg/dL Est GFR ( Amer) 21 Est GFR (Non-Af Amer) 18 POC Glucose (mg/dL) (65-110) mg/dL Random Glucose 246 H (75-110) mg/dL Hemoglobin A1c 9.3 H (4.2-6.5) % Calcium 8.7 (8.6-10.4) mg/dl Phosphorus 7.5 H (2.5-4.5) mg/dL Magnesium 2.8 H (1.6-2.3) mg/dL Total Bilirubin 0.6 (0.2-1.3) mg/dL AST 188 H D (17-59) U/L ALT 59 (21-72) U/L Alkaline Phosphatase 80 (38-126) U/L Total Protein 8.0 (6.3-8.3) g/dL Albumin 3.7 (3.5-5.0) g/dL Globulin 4.3 H (2.2-3.9) gm/dL Albumin/Globulin Ratio 0.9 L (1.0-2.1) Triglycerides 272 H (0-149) mg/dL Cholesterol 183 (0-199) mg/dL LDL Cholesterol Direct 91 (0-129) mg/dL HDL Cholesterol 30 (30-70) mg/dL Procalcitonin (0.19-0.49) NG/ML Free T4 (0.78-2.19) ng/dL TSH 3rd Generation 0.64 (0.46-4.68) mIU/L Ur Random Sodium mmol/L 02/25/18 02/25/18 02/25/18 Range/Units 05:33 05:19 00:04 WBC (4.8-10.8) K/uL RBC (4.40-5.90) Mil/uL Hgb (12.0-18.0) g/dL Hct (35.0-51.0) % MCV (80.0-94.0) fL MCH (27.0-31.0) pg MCHC (33.0-37.0) g/dL RDW (11.5-14.5) % Plt Count (130-400) K/uL MPV (7.2-11.7) fL Neut % (Auto) (50.0-75.0) % Lymph % (Auto) (20.0-40.0) % [place] % (Auto) (0.0-10.0) % Eos % (Auto) (0.0-4.0) % Baso % (Auto) (0.0-2.0) % Neut # (Auto) (1.8-7.0) K/uL Lymph # (Auto) (1.0-4.3) K/uL [place] # (Auto) (0.0-0.8) K/uL Eos # (Auto) (0.0-0.7) K/uL Baso # (Auto) (0.0-0.2) K/uL Puncture Site R brac pCO2 34 L (35-45) mm/Hg pO2 275 H (80-100) mm/Hg HCO3 17.3 L (21-28) mmol/L ABG pH 7.28 L (7.35-7.45) ABG Total CO2 17.0 L (22-28) mmol/L ABG O2 Saturation 98.8 H (95-98) % ABG Base Excess -9.8 L (-2.0-3.0) mmol/L ABG Hemoglobin 12.6 (11.7-17.4) g/dL ABG Carboxyhemoglobin 0.6 (0.5-1.5) % POC ABG HHb (Measured) 1.2 (0.0-5.0) % ABG Methemoglobin 0.5 (0.0-3.0) % Tanner Test Na A-a O2 Difference 39.0 mm/Hg Respiratory Index 0.1 Hgb O2 Saturation 97.7 (95.0-98.0) % Vent Mode Prvc Mechanical Rate 20 FiO2 50.0 % Tidal Volume 500 PEEP 5 Sodium (132-148) mmol/L Potassium (3.6-5.2) mmol/L Chloride (98-107) mmol/L Carbon Dioxide (22-30) mmol/L Anion Gap (10-20) BUN (9-20) mg/dL Creatinine (0.8-1.5) mg/dL Est GFR ( Amer) Est GFR (Non-Af Amer) POC Glucose (mg/dL) 215 H 270 H (65-110) mg/dL Random Glucose (75-110) mg/dL Hemoglobin A1c (4.2-6.5) % Calcium (8.6-10.4) mg/dl Phosphorus (2.5-4.5) mg/dL Magnesium (1.6-2.3) mg/dL Total Bilirubin (0.2-1.3) mg/dL AST (17-59) U/L ALT (21-72) U/L Alkaline Phosphatase (38-126) U/L Total Protein (6.3-8.3) g/dL Albumin (3.5-5.0) g/dL Globulin (2.2-3.9) gm/dL Albumin/Globulin Ratio (1.0-2.1) Triglycerides (0-149) mg/dL Cholesterol (0-199) mg/dL LDL Cholesterol Direct (0-129) mg/dL HDL Cholesterol (30-70) mg/dL Procalcitonin (0.19-0.49) NG/ML Free T4 (0.78-2.19) ng/dL TSH 3rd Generation (0.46-4.68) mIU/L Ur Random Sodium mmol/L 02/24/18 02/24/18 Range/Units 17:38 09:09 WBC (4.8-10.8) K/uL RBC (4.40-5.90) Mil/uL Hgb (12.0-18.0) g/dL Hct (35.0-51.0) % MCV (80.0-94.0) fL MCH (27.0-31.0) pg MCHC (33.0-37.0) g/dL RDW (11.5-14.5) % Plt Count (130-400) K/uL MPV (7.2-11.7) fL Neut % (Auto) (50.0-75.0) % Lymph % (Auto) (20.0-40.0) % [place] % (Auto) (0.0-10.0) % Eos % (Auto) (0.0-4.0) % Baso % (Auto) (0.0-2.0) % Neut # (Auto) (1.8-7.0) K/uL Lymph # (Auto) (1.0-4.3) K/uL [place] # (Auto) (0.0-0.8) K/uL Eos # (Auto) (0.0-0.7) K/uL Baso # (Auto) (0.0-0.2) K/uL Puncture Site pCO2 (35-45) mm/Hg pO2 (80-100) mm/Hg HCO3 (21-28) mmol/L ABG pH (7.35-7.45) ABG Total CO2 (22-28) mmol/L ABG O2 Saturation (95-98) % ABG Base Excess (-2.0-3.0) mmol/L ABG Hemoglobin (11.7-17.4) g/dL ABG Carboxyhemoglobin (0.5-1.5) % POC ABG HHb (Measured) (0.0-5.0) % ABG Methemoglobin (0.0-3.0) % Tanner Test A-a O2 Difference mm/Hg Respiratory Index Hgb O2 Saturation (95.0-98.0) % Vent Mode Mechanical Rate FiO2 % Tidal Volume PEEP Sodium (132-148) mmol/L Potassium (3.6-5.2) mmol/L Chloride (98-107) mmol/L Carbon Dioxide (22-30) mmol/L Anion Gap (10-20) BUN (9-20) mg/dL Creatinine (0.8-1.5) mg/dL Est GFR ( Amer) Est GFR (Non-Af Amer) POC Glucose (mg/dL) 202 H (65-110) mg/dL Random Glucose (75-110) mg/dL Hemoglobin A1c (4.2-6.5) % Calcium (8.6-10.4) mg/dl Phosphorus (2.5-4.5) mg/dL Magnesium (1.6-2.3) mg/dL Total Bilirubin (0.2-1.3) mg/dL AST (17-59) U/L ALT (21-72) U/L Alkaline Phosphatase (38-126) U/L Total Protein (6.3-8.3) g/dL Albumin (3.5-5.0) g/dL Globulin (2.2-3.9) gm/dL Albumin/Globulin Ratio (1.0-2.1) Triglycerides (0-149) mg/dL Cholesterol (0-199) mg/dL LDL Cholesterol Direct (0-129) mg/dL HDL Cholesterol (30-70) mg/dL Procalcitonin 10.61 H (0.19-0.49) NG/ML Free T4 (0.78-2.19) ng/dL TSH 3rd Generation (0.46-4.68) mIU/L Ur Random Sodium mmol/L Laboratory Results - last 24 hr 02/24/18 02/24/18 02/25/18 09:09 17:38 00:04 WBC RBC Hgb Hct MCV MCH MCHC RDW Plt Count MPV Neut % (Auto) Lymph % (Auto) [place] % (Auto) Eos % (Auto) Baso % (Auto) Neut # (Auto) Lymph # (Auto) [place] # (Auto) Eos # (Auto) Baso # (Auto) Puncture Site pCO2 pO2 HCO3 ABG pH ABG Total CO2 ABG O2 Saturation ABG Base Excess ABG Hemoglobin ABG Carboxyhemoglobin POC ABG HHb (Measured) ABG Methemoglobin Tanner Test A-a O2 Difference Respiratory Index Hgb O2 Saturation Vent Mode Mechanical Rate FiO2 Tidal Volume PEEP Sodium Potassium Chloride Carbon Dioxide Anion Gap BUN Creatinine Est GFR ( Amer) Est GFR (Non-Af Amer) POC Glucose (mg/dL) 202 H 270 H Random Glucose Hemoglobin A1c Calcium Phosphorus Magnesium Total Bilirubin AST ALT Alkaline Phosphatase Total Protein Albumin Globulin Albumin/Globulin Ratio Triglycerides Cholesterol LDL Cholesterol Direct HDL Cholesterol Procalcitonin 10.61 H Free T4 TSH 3rd Generation Ur Random Sodium 02/25/18 02/25/18 02/25/18 05:19 05:33 06:04 WBC 20.4 H RBC 5.08 Hgb 12.3 Hct 37.6 MCV 74.0 L MCH 24.3 L MCHC 32.8 L RDW 16.0 H Plt Count 331 MPV 8.4 Neut % (Auto) 79.6 H Lymph % (Auto) 10.6 L [place] % (Auto) 9.5 Eos % (Auto) 0.1 Baso % (Auto) 0.2 Neut # (Auto) 16.2 H Lymph # (Auto) 2.2 [place] # (Auto) 1.9 H Eos # (Auto) 0.0 Baso # (Auto) 0.0 Puncture Site R brac pCO2 34 L pO2 275 H HCO3 17.3 L ABG pH 7.28 L ABG Total CO2 17.0 L ABG O2 Saturation 98.8 H ABG Base Excess -9.8 L ABG Hemoglobin 12.6 ABG Carboxyhemoglobin 0.6 POC ABG HHb (Measured) 1.2 ABG Methemoglobin 0.5 Tanner Test Na A-a O2 Difference 39.0 Respiratory Index 0.1 Hgb O2 Saturation 97.7 Vent Mode Prvc Mechanical Rate 20 FiO2 50.0 Tidal Volume 500 PEEP 5 Sodium Potassium Chloride Carbon Dioxide Anion Gap BUN Creatinine Est GFR ( Amer) Est GFR (Non-Af Amer) POC Glucose (mg/dL) 215 H Random Glucose Hemoglobin A1c Calcium Phosphorus Magnesium Total Bilirubin AST ALT Alkaline Phosphatase Total Protein Albumin Globulin Albumin/Globulin Ratio Triglycerides Cholesterol LDL Cholesterol Direct HDL Cholesterol Procalcitonin Free T4 TSH 3rd Generation Ur Random Sodium 02/25/18 02/25/18 02/25/18 06:04 06:04 06:04 WBC RBC Hgb Hct MCV MCH MCHC RDW Plt Count MPV Neut % (Auto) Lymph % (Auto) [place] % (Auto) Eos % (Auto) Baso % (Auto) Neut # (Auto) Lymph # (Auto) [place] # (Auto) Eos # (Auto) Baso # (Auto) Puncture Site pCO2 pO2 HCO3 ABG pH ABG Total CO2 ABG O2 Saturation ABG Base Excess ABG Hemoglobin ABG Carboxyhemoglobin POC ABG HHb (Measured) ABG Methemoglobin Tanner Test A-a O2 Difference Respiratory Index Hgb O2 Saturation Vent Mode Mechanical Rate FiO2 Tidal Volume PEEP Sodium 146 Potassium 4.1 Chloride 110 H Carbon Dioxide 17 L Anion Gap 22 H BUN 41 H Creatinine 3.6 H Est GFR ( Amer) 21 Est GFR (Non-Af Amer) 18 POC Glucose (mg/dL) Random Glucose 246 H Hemoglobin A1c 9.3 H Calcium 8.7 Phosphorus 7.5 H Magnesium 2.8 H Total Bilirubin 0.6 AST 188 H D ALT 59 Alkaline Phosphatase 80 Total Protein 8.0 Albumin 3.7 Globulin 4.3 H Albumin/Globulin Ratio 0.9 L Triglycerides 272 H Cholesterol 183 LDL Cholesterol Direct 91 HDL Cholesterol 30 Procalcitonin Free T4 1.44 TSH 3rd Generation 0.64 Ur Random Sodium 02/25/18 02/25/18 11:22 16:27 WBC RBC Hgb Hct MCV MCH MCHC RDW Plt Count MPV Neut % (Auto) Lymph % (Auto) [place] % (Auto) Eos % (Auto) Baso % (Auto) Neut # (Auto) Lymph # (Auto) [place] # (Auto) Eos # (Auto) Baso # (Auto) Puncture Site pCO2 pO2 HCO3 ABG pH ABG Total CO2 ABG O2 Saturation ABG Base Excess ABG Hemoglobin ABG Carboxyhemoglobin POC ABG HHb (Measured) ABG Methemoglobin Tanner Test A-a O2 Difference Respiratory Index Hgb O2 Saturation Vent Mode Mechanical Rate FiO2 Tidal Volume PEEP Sodium Potassium Chloride Carbon Dioxide Anion Gap BUN Creatinine Est GFR ( Amer) Est GFR (Non-Af Amer) POC Glucose (mg/dL) 203 H Random Glucose Hemoglobin A1c Calcium Phosphorus Magnesium Total Bilirubin AST ALT Alkaline Phosphatase Total Protein Albumin Globulin Albumin/Globulin Ratio Triglycerides Cholesterol LDL Cholesterol Direct HDL Cholesterol Procalcitonin Free T4 TSH 3rd Generation Ur Random Sodium 32 Critical Care Progress Note - Nutrition Nutrition: Nutrition Category Date Time Status Liquid Diet [DIET] Diets 02/25/18 Lunch Active Attending/Attestation - Attestation I have personally seen and examined this patient.: Yes I have fully participated in the care of the patient.: Yes I have reviewed all pertinent clinical information: Yes Notes (Text): 02/25/18 17:13 patient seen and examined in the intensive care unit. MRI was canceled today for elevated creatinine Renal insufficiency most likely secondary to contrast versus antibiotics Vancomycin was discontinued Seen by infectious disease and nephrology Continue IV fluids Monitor renal function Patient extubated after weaning trial able to swallow without difficulty Follow-up culture and sensitivity Case discussed with family at length multiple times
--- NOTE | 2018-02-25 12:59 | CARD ---
APPROVED REPORT EXAM: Two-dimensional and M-mode echocardiogram with Doppler and color Doppler. Other Information Technically limited study due to body habitus.,ON VENT,SUPINE INDICATION Infection:Rule out subacute bacterial endocarditis M-Mode DIMENSIONS Left Atrium (MM)3.50 (2.5-4.0cm)Aortic Root4.53 (2.2-3.7cm) Aortic Cusp Exc.2.18 (1.5-2.0cm) Mitral Valve MV E [id number]/sMV A Ygaaomfg88.3cm/sE/A ratio0.9 TDI E/Lateral E'0.0E/Medial E'0.0 Tricuspid Valve TR Peak [id number] Peak [id number] LEFT VENTRICLE The left ventricle is normal size. There is borderline to mild concentric left ventricular hypertrophy. The left ventricular function is normal. The left ventricular ejection fraction is within the normal range. There is normal LV segmental wall motion. The left ventricular diastolic function is normal. No left ventricle thrombus noted on this study. RIGHT VENTRICLE The right ventricle is normal size. There is normal right ventricular wall thickness. The right ventricular systolic function is normal. ATRIA The left atrium size is normal. The right atrium size is normal. AORTIC VALVE The aortic valve is normal in structure. No aortic regurgitation is present. There is no aortic valvular stenosis. There is no aortic valvular vegetation. MITRAL VALVE The mitral valve is normal in structure. There is no mitral valve stenosis. There is no mitral valve regurgitation noted. TRICUSPID VALVE The tricuspid valve is normal in structure. There is no tricuspid valve regurgitation noted. GREAT VESSELS The aortic root is normal in size. The ascending aorta is normal in size. The IVC is normal in size and collapses >50% with inspiration. PERICARDIAL EFFUSION There is no pericardial effusion. <Conclusion> There is borderline to mild concentric left ventricular hypertrophy. There is no aortic valvular vegetation. The mitral valve is normal in structure. The tricuspid valve is normal in structure. TECHNICALLY DIFFICULT STUDY. ROBER IS ADVISED IF VEGITATIONS ARE SUSPECTED.
[2018-02-25] MEDS: Sodium Bicarbonate 8.4% 75 MEQ in Sodium Chloride 0.45% 925 ML IV SCH (16:04)
--- NOTE | 2018-02-25 16:13 | CP.PCM.CON ---
History of Present Illness - History of Present Illness History of Present Illness: 57 yr old male who has pmh of dm, htn presents after sudden loss of consciousness and multiple seizures at home s/p intubation / extubation He was found to have multiple intracranial hemorrhagic lesions of uncertain etiology Possibility of pancreatic malignancy is entertained was referred for ID eval for hi procalcitonin level Awake alert denies cough or headache No abd pain PMH/PSH: DM, HTN FH/SH: has several children. 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 All: nkda. Review of Systems - Review of Systems All systems: reviewed and no additional remarkable complaints except - Constitutional Constitutional: As Per HPI - EENT Eyes: absent: As Per HPI, Blind Spots, Blurred Vision, Change in Vision, Decreased Night Vision, Diplopia, Discharge, Dry Eye, Exophthalmos, Floaters, Irritation, Itchy Eyes, Loss of Peripheral Vision, Pain, Photophobia, Requires Corrective Lenses, Sees Flashes, Spots in Vision, Tunnel Vision, Other Visual Disturbances, Loss of Vision, Other Ears: absent: As Per HPI, Decreased Hearing, Ear Discharge, Ear Pain, Tinnitus, Abnormal Hearing, Disequilibrium, Dizziness, Other Nose/Mouth/Throat: absent: As Per HPI, Epistaxis, Nasal Congestion, Nasal Discharge, Nasal Obstruction, Nasal Trauma, Nose Pain, Post Nasal Drip, Sinus Pain, Sinus Pressure, Bleeding Gums, Change in Voice, Dental Pain, Dry Mouth, Dysphagia, Halitosis, Hoarsness, Lip Swelling, Mouth Lesions, Mouth Pain, Odynophagia, Sore Throat, Throat Swelling, Tongue Swelling, Facial Pain, Neck Pain, Neck Mass, Other - Cardiovascular Cardiovascular: absent: As Per HPI, Acrocyanosis, Chest Pain, Chest Pain at Rest , Chest Pain with Activity, Claudication, Diaphoresis, Dyspnea, Dyspnea on Exertion, Edema, Irregular Heart Rhythm, Pain Radiating to Arm/Neck/Jaw, Leg Edema, Leg Ulcers, Lightheadedness, Orthopnea, Palpitations, Paroxysmal Nocturnal Dyspnea, Pedal Edema, Radiating Pain, Rapid Heart Rate, Slow Heart Rate, Syncope, Other - Respiratory Respiratory: As Per HPI - Gastrointestinal Gastrointestinal: As Per HPI - Genitourinary Genitourinary: absent: As Per HPI, Change in Urinary Stream, Difficulty Urinating, Dysuria, Flank Pain, Hematuria, Pyuria, Nocturia, Urinary Incontinence, Urinary Frequency, Urinary Hesitance, Urinary Urgency, Voiding Freq/Small Amts, Freq UTI, Hx Renal/Bladder Calculi, Hx /Renal Surgery, Bladder Distension, Other - Musculoskeletal Musculoskeletal: absent: As Per HPI, Abnormal Gait, Arthralgias, Atrophy, Back Pain, Deformity, Joint Swelling, Limited Range of Motion, Loss of Height, Muscle Cramps, Muscle Weakness, Myalgias, Neck Pain, Numbness, Radiating Pain into Limb, Stiffness, Tingling, Other - Integumentary Integumentary: absent: As Per HPI, Acne, Alopecia, Bleeding Lesions, Change in Hair, Change in Nails, Change in Pigmentation, Changing Lesions, Dry Skin, Erythema, Furuncle, Hirsutism, Lesions, New Lesions, Non-Healing Lesions, Photosensitivity, Pruritus, Rash, Skin Pain, Skin Ulcer, Sores, Striae, Swelling , Unusual Bruising, Wounds, Jaundice, Other - Neurological Neurological: As Per HPI - Psychiatric Psychiatric: absent: As Per HPI, Abnormal Sleep Pattern, Anhedonia, Anxiety, Auditory Hallucinations, Behavioral Changes, Change in Appetite, Change in Libido, Confusion, Depression, Difficulty Concentrating, Hallucinations, Homicidal Ideation, Hopelessness, Irritability, Memory Loss, Mood Swings, Panic Attacks, Paranoia, Suicidal Ideation, Visual Hallucinations, Tactile Hallucinations, Other - Endocrine Endocrine: absent: As Per HPI, Change in Body Appearance, Change in Libido, Cold Intolorance, Deepening of Voice, Excessive Sweating, Fatigue, Flushing, Heat Intolorance, Increase in Ring/Shoe/Hat Size, Palpitations, Polydipsia, Polyphagia, Polyuria, Other - Hematologic/Lymphatic Hematologic: As Per HPI Past Patient History - Past Medical History & Family History Past Medical History?: Yes - Past Social History Smoking Status: Light Smoker < 10 Cigarettes Daily - CARDIAC Hx Hypertension: Yes - PULMONARY Hx Respiratory Disorders: No - NEUROLOGICAL Hx Neurological Disorder: No - HEENT Hx HEENT Problems: No - RENAL Hx Chronic Kidney Disease: No - ENDOCRINE/METABOLIC Hx Diabetes Mellitus Type 2: Yes Other/Comment: metformin found at home - HEMATOLOGICAL/ONCOLOGICAL Hx Blood Disorders: No - INTEGUMENTARY Hx Dermatological Problems: No - MUSCULOSKELETAL/RHEUMATOLOGICAL Hx Falls: Yes - GASTROINTESTINAL Hx Gastrointestinal Disorders: No - GENITOURINARY/GYNECOLOGICAL Hx Genitourinary Disorders: No - PSYCHIATRIC Hx Substance Use: No - SURGICAL HISTORY Hx Surgeries: No - ANESTHESIA Hx Anesthesia: No Meds Allergies/Adverse Reactions: Allergies Allergy/AdvReac Type Severity Reaction Status Date / Time No Known Allergies Allergy Verified 02/24/18 02:59 - Medications Medications: Current Medications Propofol (Diprivan) 1,000 mg in 100 mls @ 2.19 mls/hr IV .Q24H PRN; Protocol; 5 MCG/KG/MIN PRN Reason: TITRATE PER MD ORDER Last Titration: 02/25/18 09:00 Dose: 35 mcg/kg/min, 15.33 mls/hr Levetiracetam 500 mg/ Sodium (Chloride) 105 mls @ 420 mls/hr IVPB Q12H [facility] Last Admin: 02/25/18 07:31 Dose: 420 mls/hr Piperacillin Sod/Tazobactam Sod (Zosyn 2.25 Gm Iv Premix) 2.25 gm in 50 mls @ 100 mls/hr IVPB Q6H [facility] PRN Reason: Protocol Last Admin: 02/25/18 15:32 Dose: 100 mls/hr Sodium Bicarbonate 75 meq/ (Sodium Chloride) 1,000 mls @ 100 mls/hr IV .Q10H [facility] Last Admin: 02/25/18 16:04 Dose: 100 mls/hr Insulin Human Regular (Novolin R) 0 unit SC Q6 [facility] PRN Reason: Protocol Last Admin: 02/25/18 12:13 Dose: 2 unit Pantoprazole Sodium (Protonix Inj) 40 mg IVP DAILY [facility] Last Admin: 02/25/18 12:13 Dose: 40 mg Pneumococcal Polyvalent Vaccine (Pneumovax 23 Vaccine) 0.5 ml IM .ONCE ONE Stop: 02/26/18 10:01 Physical Exam - Constitutional Appears: Non-toxic, Chronically Ill - Head Exam Head Exam: ATRAUMATIC, NORMAL INSPECTION, NORMOCEPHALIC - Eye Exam Eye Exam: PERRL. absent: Scleral icterus - ENT Exam ENT Exam: Mucous Membranes Dry, Normal External Ear Exam, Normal Oropharynx - Neck Exam Neck exam: Negative for: Lymphadenopathy - Respiratory Exam Respiratory Exam: Decreased Breath Sounds, Clear to Auscultation Bilateral - Cardiovascular Exam Cardiovascular Exam: REGULAR RHYTHM, +S1, +S2 - GI/Abdominal Exam GI & Abdominal Exam: Diminished Bowel Sounds, Soft. absent: Tenderness - Rectal Exam Rectal Exam: Deferred - Exam Exam: NORMAL INSPECTION - Extremities Exam Extremities exam: Positive for: pedal pulses present. Negative for: calf tenderness, pedal edema, tenderness - Back Exam Back exam: absent: CVA tenderness (L), CVA tenderness (R), paraspinal tenderness - Neurological Exam Neurological exam: Alert, CN II-XII Intact, Oriented x3, Reflexes Normal - Psychiatric Exam Psychiatric exam: Normal Mood - Skin Skin Exam: Dry Results - Vital Signs Recent Vital Signs: Last Vital Signs Temp 98.9 F 02/25/18 12:00 Pulse 102 H 02/25/18 13:01 Resp 26 H 02/25/18 13:01 BP 135/80 02/25/18 13:01 Pulse Ox 100 02/25/18 13:01 - Labs Result Diagrams: 02/25/18 06:04 02/25/18 06:04 Labs: Laboratory Results - last 24 hr 02/24/18 02/24/18 02/25/18 09:09 17:38 00:04 WBC RBC Hgb Hct MCV MCH MCHC RDW Plt Count MPV Neut % (Auto) Lymph % (Auto) [place] % (Auto) Eos % (Auto) Baso % (Auto) Neut # (Auto) Lymph # (Auto) [place] # (Auto) Eos # (Auto) Baso # (Auto) Puncture Site pCO2 pO2 HCO3 ABG pH ABG Total CO2 ABG O2 Saturation ABG Base Excess ABG Hemoglobin ABG Carboxyhemoglobin POC ABG HHb (Measured) ABG Methemoglobin Tanner Test A-a O2 Difference Respiratory Index Hgb O2 Saturation Vent Mode Mechanical Rate FiO2 Tidal Volume PEEP Sodium Potassium Chloride Carbon Dioxide Anion Gap BUN Creatinine Est GFR ( Amer) Est GFR (Non-Af Amer) POC Glucose (mg/dL) 202 H 270 H Random Glucose Hemoglobin A1c Calcium Phosphorus Magnesium Total Bilirubin AST ALT Alkaline Phosphatase Total Protein Albumin Globulin Albumin/Globulin Ratio Triglycerides Cholesterol LDL Cholesterol Direct HDL Cholesterol Procalcitonin 10.61 H Free T4 TSH 3rd Generation 02/25/18 02/25/18 02/25/18 05:19 05:33 06:04 WBC 20.4 H RBC 5.08 Hgb 12.3 Hct 37.6 MCV 74.0 L MCH 24.3 L MCHC 32.8 L RDW 16.0 H Plt Count 331 MPV 8.4 Neut % (Auto) 79.6 H Lymph % (Auto) 10.6 L [place] % (Auto) 9.5 Eos % (Auto) 0.1 Baso % (Auto) 0.2 Neut # (Auto) 16.2 H Lymph # (Auto) 2.2 [place] # (Auto) 1.9 H Eos # (Auto) 0.0 Baso # (Auto) 0.0 Puncture Site R brac pCO2 34 L pO2 275 H HCO3 17.3 L ABG pH 7.28 L ABG Total CO2 17.0 L ABG O2 Saturation 98.8 H ABG Base Excess -9.8 L ABG Hemoglobin 12.6 ABG Carboxyhemoglobin 0.6 POC ABG HHb (Measured) 1.2 ABG Methemoglobin 0.5 Tanner Test Na A-a O2 Difference 39.0 Respiratory Index 0.1 Hgb O2 Saturation 97.7 Vent Mode Prvc Mechanical Rate 20 FiO2 50.0 Tidal Volume 500 PEEP 5 Sodium Potassium Chloride Carbon Dioxide Anion Gap BUN Creatinine Est GFR ( Amer) Est GFR (Non-Af Amer) POC Glucose (mg/dL) 215 H Random Glucose Hemoglobin A1c Calcium Phosphorus Magnesium Total Bilirubin AST ALT Alkaline Phosphatase Total Protein Albumin Globulin Albumin/Globulin Ratio Triglycerides Cholesterol LDL Cholesterol Direct HDL Cholesterol Procalcitonin Free T4 TSH 3rd Generation 02/25/18 02/25/18 02/25/18 06:04 06:04 06:04 WBC RBC Hgb Hct MCV MCH MCHC RDW Plt Count MPV Neut % (Auto) Lymph % (Auto) [place] % (Auto) Eos % (Auto) Baso % (Auto) Neut # (Auto) Lymph # (Auto) [place] # (Auto) Eos # (Auto) Baso # (Auto) Puncture Site pCO2 pO2 HCO3 ABG pH ABG Total CO2 ABG O2 Saturation ABG Base Excess ABG Hemoglobin ABG Carboxyhemoglobin POC ABG HHb (Measured) ABG Methemoglobin Tanner Test A-a O2 Difference Respiratory Index Hgb O2 Saturation Vent Mode Mechanical Rate FiO2 Tidal Volume PEEP Sodium 146 Potassium 4.1 Chloride 110 H Carbon Dioxide 17 L Anion Gap 22 H BUN 41 H Creatinine 3.6 H Est GFR ( Amer) 21 Est GFR (Non-Af Amer) 18 POC Glucose (mg/dL) Random Glucose 246 H Hemoglobin A1c 9.3 H Calcium 8.7 Phosphorus 7.5 H Magnesium 2.8 H Total Bilirubin 0.6 AST 188 H D ALT 59 Alkaline Phosphatase 80 Total Protein 8.0 Albumin 3.7 Globulin 4.3 H Albumin/Globulin Ratio 0.9 L Triglycerides 272 H Cholesterol 183 LDL Cholesterol Direct 91 HDL Cholesterol 30 Procalcitonin Free T4 1.44 TSH 3rd Generation 0.64 02/25/18 11:22 WBC RBC Hgb Hct MCV MCH MCHC RDW Plt Count MPV Neut % (Auto) Lymph % (Auto) [place] % (Auto) Eos % (Auto) Baso % (Auto) Neut # (Auto) Lymph # (Auto) [place] # (Auto) Eos # (Auto) Baso # (Auto) Puncture Site pCO2 pO2 HCO3 ABG pH ABG Total CO2 ABG O2 Saturation ABG Base Excess ABG Hemoglobin ABG Carboxyhemoglobin POC ABG HHb (Measured) ABG Methemoglobin Tanner Test A-a O2 Difference Respiratory Index Hgb O2 Saturation Vent Mode Mechanical Rate FiO2 Tidal Volume PEEP Sodium Potassium Chloride Carbon Dioxide Anion Gap BUN Creatinine Est GFR ( Amer) Est GFR (Non-Af Amer) POC Glucose (mg/dL) 203 H Random Glucose Hemoglobin A1c Calcium Phosphorus Magnesium Total Bilirubin AST ALT Alkaline Phosphatase Total Protein Albumin Globulin Albumin/Globulin Ratio Triglycerides Cholesterol LDL Cholesterol Direct HDL Cholesterol Procalcitonin Free T4 TSH 3rd Generation Assessment & Plan (1) Elevated procalcitonin Status: Acute (2) Leukocytosis Status: Acute (3) Diabetes Status: Acute (4) Intracranial bleed Status: Acute (5) Seizure Status: Acute (6) Pancreatic mass Status: Acute (7) Renal failure (ARF), acute on chronic Status: Acute (8) Renal failure (ARF), acute on chronic Status: Acute - Assessment and Plan (Free Text) Assessment: 57 yo male with recent onset of seizures and multiple hemorrhagic infarcts is improving s/p extubation Elevated Procalcitonin is nonspecific however agree with antibiotic coverage for now pending exclusion of infectious etiologies including infected pancreatic cyst
--- NOTE | 2018-02-25 16:42 | CP.PCM.CON ---
History of Present Illness - History of Present Illness History of Present Illness: renal consult for nonoliguric roby 57 yo male with DM, HTN, found by family unresponsive with seizures. Head CT with intracerebral bleeding. Pt intubated, now extubated. Pt with rising creatinine over last 24 hours, although good u/o. Pt with elevated blood sugar and metabolic acidosis, now correcting. Pt s/p CTA of head, neck, chest, abdomen, pelvis yesterday. No known history of renal disease. No family available at bedside. Review of Systems - Review of Systems Systems not reviewed;Unavailable: Altered Mental Status Past Patient History - Past Medical History & Family History Past Medical History?: Yes - Past Social History Smoking Status: Light Smoker < 10 Cigarettes Daily - CARDIAC Hx Hypertension: Yes - PULMONARY Hx Respiratory Disorders: No - NEUROLOGICAL Hx Neurological Disorder: No - HEENT Hx HEENT Problems: No - RENAL Hx Chronic Kidney Disease: No - ENDOCRINE/METABOLIC Hx Diabetes Mellitus Type 2: Yes Other/Comment: metformin found at home - HEMATOLOGICAL/ONCOLOGICAL Hx Blood Disorders: No - INTEGUMENTARY Hx Dermatological Problems: No - MUSCULOSKELETAL/RHEUMATOLOGICAL Hx Falls: Yes - GASTROINTESTINAL Hx Gastrointestinal Disorders: No - GENITOURINARY/GYNECOLOGICAL Hx Genitourinary Disorders: No - PSYCHIATRIC Hx Substance Use: No - SURGICAL HISTORY Hx Surgeries: No - ANESTHESIA Hx Anesthesia: No Meds Allergies/Adverse Reactions: Allergies Allergy/AdvReac Type Severity Reaction Status Date / Time No Known Allergies Allergy Verified 02/24/18 02:59 - Medications Medications: Current Medications Propofol (Diprivan) 1,000 mg in 100 mls @ 2.19 mls/hr IV .Q24H PRN; Protocol; 5 MCG/KG/MIN PRN Reason: TITRATE PER MD ORDER Last Titration: 02/25/18 09:00 Dose: 35 mcg/kg/min, 15.33 mls/hr Levetiracetam 500 mg/ Sodium (Chloride) 105 mls @ 420 mls/hr IVPB Q12H [facility] Last Admin: 02/25/18 07:31 Dose: 420 mls/hr Piperacillin Sod/Tazobactam Sod (Zosyn 2.25 Gm Iv Premix) 2.25 gm in 50 mls @ 100 mls/hr IVPB Q6H [facility] PRN Reason: Protocol Last Admin: 02/25/18 15:32 Dose: 100 mls/hr Sodium Bicarbonate 75 meq/ (Sodium Chloride) 1,000 mls @ 100 mls/hr IV .Q10H [facility] Last Admin: 02/25/18 16:04 Dose: 100 mls/hr Insulin Human Regular (Novolin R) 0 unit SC Q6 [facility] PRN Reason: Protocol Last Admin: 02/25/18 12:13 Dose: 2 unit Pantoprazole Sodium (Protonix Inj) 40 mg IVP DAILY [facility] Last Admin: 02/25/18 12:13 Dose: 40 mg Pneumococcal Polyvalent Vaccine (Pneumovax 23 Vaccine) 0.5 ml IM .ONCE ONE Stop: 02/26/18 10:01 Physical Exam - Constitutional Appears: Confused - Head Exam Head Exam: ATRAUMATIC, NORMAL INSPECTION - Eye Exam Eye Exam: EOMI, Normal appearance - ENT Exam ENT Exam: Mucous Membranes Moist - Neck Exam Neck exam: Positive for: Full Rom. Negative for: Lymphadenopathy - Respiratory Exam Respiratory Exam: Clear to Auscultation Bilateral. absent: Accessory Muscle Use - Cardiovascular Exam Cardiovascular Exam: REGULAR RHYTHM. absent: Rubs - GI/Abdominal Exam GI & Abdominal Exam: Normal Bowel Sounds. absent: Distended, Guarding - Extremities Exam Extremities exam: Negative for: pedal edema - Neurological Exam Additional comments: not alert or oriented moving all extremities Results - Vital Signs Recent Vital Signs: Last Vital Signs Temp 98.9 F 02/25/18 12:00 Pulse 102 H 02/25/18 13:01 Resp 26 H 02/25/18 13:01 BP 135/80 02/25/18 13:01 Pulse Ox 100 02/25/18 13:01 - Labs Result Diagrams: 02/25/18 06:04 02/25/18 06:04 Labs: Laboratory Results - last 24 hr 02/24/18 02/24/18 02/25/18 09:09 17:38 00:04 WBC RBC Hgb Hct MCV MCH MCHC RDW Plt Count MPV Neut % (Auto) Lymph % (Auto) [place] % (Auto) Eos % (Auto) Baso % (Auto) Neut # (Auto) Lymph # (Auto) [place] # (Auto) Eos # (Auto) Baso # (Auto) Puncture Site pCO2 pO2 HCO3 ABG pH ABG Total CO2 ABG O2 Saturation ABG Base Excess ABG Hemoglobin ABG Carboxyhemoglobin POC ABG HHb (Measured) ABG Methemoglobin Tanner Test A-a O2 Difference Respiratory Index Hgb O2 Saturation Vent Mode Mechanical Rate FiO2 Tidal Volume PEEP Sodium Potassium Chloride Carbon Dioxide Anion Gap BUN Creatinine Est GFR ( Amer) Est GFR (Non-Af Amer) POC Glucose (mg/dL) 202 H 270 H Random Glucose Hemoglobin A1c Calcium Phosphorus Magnesium Total Bilirubin AST ALT Alkaline Phosphatase Total Protein Albumin Globulin Albumin/Globulin Ratio Triglycerides Cholesterol LDL Cholesterol Direct HDL Cholesterol Procalcitonin 10.61 H Free T4 TSH 3rd Generation 02/25/18 02/25/18 02/25/18 05:19 05:33 06:04 WBC 20.4 H RBC 5.08 Hgb 12.3 Hct 37.6 MCV 74.0 L MCH 24.3 L MCHC 32.8 L RDW 16.0 H Plt Count 331 MPV 8.4 Neut % (Auto) 79.6 H Lymph % (Auto) 10.6 L [place] % (Auto) 9.5 Eos % (Auto) 0.1 Baso % (Auto) 0.2 Neut # (Auto) 16.2 H Lymph # (Auto) 2.2 [place] # (Auto) 1.9 H Eos # (Auto) 0.0 Baso # (Auto) 0.0 Puncture Site R brac pCO2 34 L pO2 275 H HCO3 17.3 L ABG pH 7.28 L ABG Total CO2 17.0 L ABG O2 Saturation 98.8 H ABG Base Excess -9.8 L ABG Hemoglobin 12.6 ABG Carboxyhemoglobin 0.6 POC ABG HHb (Measured) 1.2 ABG Methemoglobin 0.5 Tanner Test Na A-a O2 Difference 39.0 Respiratory Index 0.1 Hgb O2 Saturation 97.7 Vent Mode Prvc Mechanical Rate 20 FiO2 50.0 Tidal Volume 500 PEEP 5 Sodium Potassium Chloride Carbon Dioxide Anion Gap BUN Creatinine Est GFR ( Amer) Est GFR (Non-Af Amer) POC Glucose (mg/dL) 215 H Random Glucose Hemoglobin A1c Calcium Phosphorus Magnesium Total Bilirubin AST ALT Alkaline Phosphatase Total Protein Albumin Globulin Albumin/Globulin Ratio Triglycerides Cholesterol LDL Cholesterol Direct HDL Cholesterol Procalcitonin Free T4 TSH 3rd Generation 02/25/18 02/25/18 02/25/18 06:04 06:04 06:04 WBC RBC Hgb Hct MCV MCH MCHC RDW Plt Count MPV Neut % (Auto) Lymph % (Auto) [place] % (Auto) Eos % (Auto) Baso % (Auto) Neut # (Auto) Lymph # (Auto) [place] # (Auto) Eos # (Auto) Baso # (Auto) Puncture Site pCO2 pO2 HCO3 ABG pH ABG Total CO2 ABG O2 Saturation ABG Base Excess ABG Hemoglobin ABG Carboxyhemoglobin POC ABG HHb (Measured) ABG Methemoglobin Tanner Test A-a O2 Difference Respiratory Index Hgb O2 Saturation Vent Mode Mechanical Rate FiO2 Tidal Volume PEEP Sodium 146 Potassium 4.1 Chloride 110 H Carbon Dioxide 17 L Anion Gap 22 H BUN 41 H Creatinine 3.6 H Est GFR ( Amer) 21 Est GFR (Non-Af Amer) 18 POC Glucose (mg/dL) Random Glucose 246 H Hemoglobin A1c 9.3 H Calcium 8.7 Phosphorus 7.5 H Magnesium 2.8 H Total Bilirubin 0.6 AST 188 H D ALT 59 Alkaline Phosphatase 80 Total Protein 8.0 Albumin 3.7 Globulin 4.3 H Albumin/Globulin Ratio 0.9 L Triglycerides 272 H Cholesterol 183 LDL Cholesterol Direct 91 HDL Cholesterol 30 Procalcitonin Free T4 1.44 TSH 3rd Generation 0.64 02/25/18 11:22 WBC RBC Hgb Hct MCV MCH MCHC RDW Plt Count MPV Neut % (Auto) Lymph % (Auto) [place] % (Auto) Eos % (Auto) Baso % (Auto) Neut # (Auto) Lymph # (Auto) [place] # (Auto) Eos # (Auto) Baso # (Auto) Puncture Site pCO2 pO2 HCO3 ABG pH ABG Total CO2 ABG O2 Saturation ABG Base Excess ABG Hemoglobin ABG Carboxyhemoglobin POC ABG HHb (Measured) ABG Methemoglobin Tanner Test A-a O2 Difference Respiratory Index Hgb O2 Saturation Vent Mode Mechanical Rate FiO2 Tidal Volume PEEP Sodium Potassium Chloride Carbon Dioxide Anion Gap BUN Creatinine Est GFR ( Amer) Est GFR (Non-Af Amer) POC Glucose (mg/dL) 203 H Random Glucose Hemoglobin A1c Calcium Phosphorus Magnesium Total Bilirubin AST ALT Alkaline Phosphatase Total Protein Albumin Globulin Albumin/Globulin Ratio Triglycerides Cholesterol LDL Cholesterol Direct HDL Cholesterol Procalcitonin Free T4 TSH 3rd Generation Assessment & Plan - Assessment and Plan (Free Text) Assessment: nonoliguric roby, due to contrast administration, seizure, hyperglycemia for ivf with hco3 check cpk labs q12 will follow
--- NOTE | 2018-02-25 17:07 | US ---
PROCEDURE: Ultrasound of the Kidneys HISTORY: roby COMPARISON: None available. TECHNIQUE: Sonogram of the kidneys. FINDINGS: RIGHT KIDNEY: Measures: 11.2 cm. Diffusely increased cortical echogenicity. No mass, calculus or hydronephrosis. LEFT KIDNEY: Measures: 11.7 cm. Diffusely increased cortical echogenicity. No mass, calculus or hydronephrosis. OTHER FINDINGS: Large heterogeneous complex mass medial to the left kidney, approximately 811.2 x 13.0 x 13.6 cm. This corresponds to a complex cystic mass identified in the pancreatic tail region on CT examination of the previous day. IMPRESSION: Diffusely increased renal cortical echogenicity bilaterally consistent with medical renal disease. Complex mass medial to left kidney consistent with complex cystic mass identified on CT examination in the pancreatic tail region.
[2018-02-25 17:43] LABS: ALB/GLOB RATIO 0.8 (1.0-2.1); ALBUMIN 3.4 g/dL (3.5-5.0); CALCIUM 7.8 mg/dl (8.6-10.4)
[2018-02-25 19:43] LABS: SQUAMOUS EPITHIAL < 1 /hpf (0-5); URINE BILIRUBIN NEGATIVE (NEGATIVE); URINE BLOOD 3+ (NEGATIVE); URINE CLARITY Turbid (Clear); URINE COLOR LIGHT RED (YELLOW); URINE GLUCOSE (UA) 2+ mg/dL (Normal); URINE LEUKOCYTE ESTERASE NEG Leu/uL (Negative); URINE PROTEIN 2+ mg/dL (NEGATIVE); URINE URIC ACID CRYSTALS MANY /hpf (<OCC); URINE UROBILINOGEN NORMAL mg/dL (0.2-1.0)
[2018-02-25] MEDS: Insulin Detemir 100 units/ml Vial (Levemir) SC SCH (21:25)
[2018-02-25] MEDS ORDERED: Vancomycin 1 gm/NS 200 ml 1 GM/200 ML BAG IVPB SCH (23:00)
[2018-02-26] MEDS: Sodium Bicarbonate 8.4% 75 MEQ in Sodium Chloride 0.45% 925 ML IV SCH ×4 (00:56→21:50)
[2018-02-26] MEDS: Piperacill/Tazo 2.25gm in Dex 2.25 GM/50 ML BAG IVPB SCH ×4 (02:28→20:30)
[2018-02-26 06:06] LABS: BASO # 0.1 K/uL (0.0-0.2); BASO % 0.4 % (0.0-2.0); EOS # 0.2 K/uL (0.0-0.7); EOS % 1.1 % (0.0-4.0); HEMOGLOBIN 12.4 g/dL (12.0-18.0); LYMPH # 1.3 K/uL (1.0-4.3); LYMPH % 7.2 % (20.0-40.0); MEAN CELL VOLUME 72.4 fL (80.0-94.0); MEAN CORPUSCULAR HEMOGLOBIN 24.3 pg (27.0-31.0); MEAN CORPUSCULAR HGB CONC 33.6 g/dL (33.0-37.0); MEAN PLATELET VOLUME 7.8 fL (7.2-11.7); MONO % 5.6 % (0.0-10.0); NEUT # 15.5 K/uL (1.8-7.0); NEUT % 85.7 % (50.0-75.0); NRBC % 0.1 % (0.0-2.0); PLATELET COUNT 304 K/uL (130-400); RBC 5.11 Mil/uL (4.40-5.90)
[2018-02-26 06:21] LABS: ALB/GLOB RATIO 0.8 (1.0-2.1); ALBUMIN 3.4 g/dL (3.5-5.0); CALCIUM 7.9 mg/dl (8.6-10.4)
--- NOTE | 2018-02-26 06:52 | CP.PCM.PN ---
Subjective - Date & Time of Evaluation Date of Evaluation: 02/26/18 Time of Evaluation: 06:47 - Subjective Subjective: Mr. Robert was seen and examined at the bedside in the ICU. He is awake, oriented with slow comprehension. He was extubated yesterday. He is unable to remember any previous incident since this admission, but able to remember his past medical history. He denies any headache, dizziness, lightheadedness, nausea , or vomiting. He is able to follow simple commands, but complains of mild to moderate pain with raising his bilateral upper and lower extremities. He is able to extend and flex his hand and toes. He is currently receiving intravenous sodium bicarbonate due to elevated creatinine. He has bilateral lower SCD. There was no untoward events overnight. Objective - Vital Signs/Intake and Output Vital Signs (last 24 hours): Temp Pulse Resp BP Pulse Ox 98.5 F 88 23 155/101 H 100 02/26/18 04:00 02/26/18 06:01 02/26/18 06:01 02/26/18 06:01 02/26/18 04:00 Intake and Output: 02/25/18 02/26/18 18:59 06:59 Intake Total 1507.5 1000 Output Total 935 750 Balance 572.5 250 - Medications Medications: Current Medications Levetiracetam 500 mg/ Sodium (Chloride) 105 mls @ 420 mls/hr IVPB Q12H [facility] Last Admin: 02/25/18 19:52 Dose: 420 mls/hr Piperacillin Sod/Tazobactam Sod (Zosyn 2.25 Gm Iv Premix) 2.25 gm in 50 mls @ 100 mls/hr IVPB Q6H [facility] PRN Reason: Protocol Last Admin: 02/26/18 02:28 Dose: 100 mls/hr Sodium Bicarbonate 75 meq/ (Sodium Chloride) 1,000 mls @ 100 mls/hr IV .Q10H [facility] Last Admin: 02/26/18 03:29 Dose: 100 mls/hr Insulin Detemir (Levemir) 40 unit SC HS [facility] Last Admin: 02/25/18 21:25 Dose: 40 unit Insulin Human Regular (Novolin R) 0 unit SC ACHS [facility] PRN Reason: Protocol Last Admin: 02/25/18 21:27 Dose: Not Given Pantoprazole Sodium (Protonix Inj) 40 mg IVP DAILY [facility] Last Admin: 02/25/18 12:13 Dose: 40 mg Pneumococcal Polyvalent Vaccine (Pneumovax 23 Vaccine) 0.5 ml IM .ONCE ONE Stop: 02/26/18 10:01 - Labs Labs: 02/26/18 05:53 02/26/18 05:53 PT 11.3 SECONDS (9.7-12.2) 02/24/18 05:03 INR 1.0 02/24/18 05:03 APTT 34 SECONDS (21-34) 02/24/18 05:03 - Constitutional Appears: No Acute Distress - Head Exam Head Exam: NORMAL INSPECTION - Eye Exam Pupil Exam: PERRL - Neurological Exam Neurological Exam: Alert, Awake, Oriented x3 Neuro motor strength exam: Left Upper Extremity: 3, Right Upper Extremity: 3, Left Lower Extremity: 3, Right Lower Extremity: 3 Additional comments: He is alert, oriented, able to follow commands, and sensation is intact. Assessment and Plan (1) Seizure Assessment & Plan: Case discussed with Dr. Joyce, continue all current medical regimen. Pending EEG results. MRI of the brain unable to do due to elevated creatinine. Recommend to treat any electrolyte abnormalities. Status: Acute
[2018-02-26] MEDS: (Novolin R) Insulin Human Regular 100 units/ml vial SC SCH ×4 (07:30→22:00)
[2018-02-26] MEDS: levETIRAcetam 500 MG in Sodium Chloride 0.9% 100 ML IVPB SCH ×2 (08:30→20:00)
[2018-02-26 09:32] LABS: EOSINOPHIL 2 % (0-4); LYMPHOCYTE 10 % (20-40); MONOCYTE 1 % (0-10); NEUTROPHIL 87 % (50-75); PLATELET ESTIMATE NORMAL (NORMAL); TOTAL CELLS COUNTED 100
[2018-02-26] MEDS ORDERED: Pneumococcal 23-Valent Vaccine IM ONE (10:00)
--- NOTE | 2018-02-26 10:02 | CP.PCM.PN ---
Subjective - Date & Time of Evaluation Date of Evaluation: 02/26/18 Time of Evaluation: 10:00 - Subjective Subjective: pt seen and examined chart reviewed pt up in chair awake alert. c/o shoulder pain , left 10 point ROS obtained and negative except above working w/ PT renal us noted Objective - Vital Signs/Intake and Output Vital Signs (last 24 hours): Temp Pulse Resp BP Pulse Ox 98.5 F 88 23 155/101 H 100 02/26/18 04:00 02/26/18 06:01 02/26/18 06:01 02/26/18 06:01 02/26/18 04:00 Intake and Output: 02/26/18 02/26/18 06:59 18:59 Intake Total 1000 100 Output Total 750 Balance 250 100 - Medications Medications: Current Medications Levetiracetam 500 mg/ Sodium (Chloride) 105 mls @ 420 mls/hr IVPB Q12H [facility] Last Admin: 02/26/18 08:30 Dose: 420 mls/hr Piperacillin Sod/Tazobactam Sod (Zosyn 2.25 Gm Iv Premix) 2.25 gm in 50 mls @ 100 mls/hr IVPB Q6H [facility] PRN Reason: Protocol Last Admin: 02/26/18 08:47 Dose: 100 mls/hr Sodium Bicarbonate 75 meq/ (Sodium Chloride) 1,000 mls @ 100 mls/hr IV .Q10H [facility] Last Admin: 02/26/18 03:29 Dose: 100 mls/hr Insulin Detemir (Levemir) 40 unit SC HS [facility] Last Admin: 02/25/18 21:25 Dose: 40 unit Insulin Human Regular (Novolin R) 0 unit SC ACHS [facility] PRN Reason: Protocol Last Admin: 02/26/18 07:30 Dose: Not Given Pantoprazole Sodium (Protonix Inj) 40 mg IVP DAILY [facility] Last Admin: 02/26/18 09:41 Dose: 40 mg Pneumococcal Polyvalent Vaccine (Pneumovax 23 Vaccine) 0.5 ml IM .ONCE ONE Stop: 02/26/18 10:01 - Labs Labs: 02/26/18 05:53 02/26/18 05:53 PT 11.3 SECONDS (9.7-12.2) 02/24/18 05:03 INR 1.0 02/24/18 05:03 APTT 34 SECONDS (21-34) 02/24/18 05:03 - Constitutional Appears: No Acute Distress, Chronically Ill - Head Exam Head Exam: NORMAL INSPECTION, NORMOCEPHALIC - Eye Exam Eye Exam: Normal appearance, PERRL - ENT Exam ENT Exam: Mucous Membranes Moist, Normal Exam - Neck Exam Neck Exam: Full ROM, Normal Inspection - Respiratory Exam Respiratory Exam: Clear to Ausculation Bilateral, NORMAL BREATHING PATTERN - Cardiovascular Exam Cardiovascular Exam: Tachycardia, REGULAR RHYTHM - GI/Abdominal Exam GI & Abdominal Exam: Soft, Normal Bowel Sounds - Extremities Exam Extremities Exam: Full ROM, Normal Inspection - Neurological Exam Neurological Exam: Alert, Awake, Oriented x3 - Psychiatric Exam Psychiatric exam: Normal Affect, Normal Mood - Skin Skin Exam: Dry, Normal Color, Warm Assessment and Plan (1) Rhabdomyolysis Status: Acute (2) Intracranial bleed Status: Acute (3) Pancreatic mass Status: Acute (4) Renal failure (ARF), acute on chronic Status: Acute (5) Seizure Status: Acute - Assessment and Plan (Free Text) Assessment: roby non oliguric multifactorial - contrast and rhabdomyolysis pt likely has underlying ckd based on ua w/ proteinuria and renal US recommend aggressive ivf, increase rate to 150 cc/hr, repeat cpk Q 12 hours blood sugar control work up of pancreatic mass per primary team seizure management
[2018-02-26] MEDS ORDERED: Potassium Chloride 20 mEq/15 ml LIQ UD PO ONE (11:42)
--- NOTE | 2018-02-26 11:54 | CARD ---
APPROVED REPORT EKG Measurement Heart [id number] <Conclusion> Normal sinus rhythm Voltage criteria for left ventricular hypertrophy Abnormal ECG
--- NOTE | 2018-02-26 12:38 | CP.CCUPN ---
<Jatinder Clay S - Last Filed: 02/26/18 12:26> CCU Subjective - Physician Review Subjective (Free Text): 02/25/18 11:07 Patient seen and examined. He is currently intubated and sedated. No acute events overnight noted. 02/26/18 12:26 Patient seen and examined. He is s/p extubation yesterday. Patient reports doing well with no acute complaints at this time. However, he does note that he has right shoulder pain. Per patient, this actually started before he was hospitalized. CCU Objective - Vital Signs / Intake & Output Vital Signs (Last 4 hours): Vital Signs Pulse Resp BP Pulse Ox 02/26/18 10:17 92 H 15 156/94 H 100 02/26/18 10:00 93 H 19 125/89 100 02/26/18 09:01 91 H 18 133/103 H 02/26/18 09:00 93 H 18 Intake and Output (Last 8hrs): Intake & Output 02/25/18 02/26/18 02/26/18 22:59 06:59 14:59 Intake Total 840 800 950 Output Total 470 750 Balance 370 50 950 Weight 160 lb Intake: Intake, IV Amount 600 800 950 Left Forearm 450 Right Forearm 600 800 500 Oral 240 Output: Urine 470 750 Urethral (Tena) 470 Urine, Voided 750 Other: # Bowel Movements 1 1 - Physical Exam Head: Positive for: Atraumatic, Normocephalic Pupils: Positive for: PERRL, Other (arcus senilus) Extroacular Muscles: Positive for: EOMI Conjunctiva: Positive for: Normal Mouth: Positive for: Moist Mucous Membranes Respiratory/Chest: Positive for: Clear to Auscultation. Negative for: Wheezes, Rales, Rhonchi Cardiovascular: Positive for: Regular Rate and Rhythm, Normal S1, S2 Abdomen: Positive for: Normal Bowel Sounds. Negative for: Tenderness Upper Extremity: Positive for: Normal Inspection Lower Extremity: Positive for: Normal Inspection Neurological: Positive for: GCS=15, Speech Normal, Motor Func Grossly Intact ( Pain limited) Skin: Positive for: Warm, Dry Psychiatric: Positive for: Alert, Oriented x 3 - Medications Active Medications: Active Medications Generic Name Dose Route Start Last Admin Trade Name Freq PRN Reason Stop Dose Admin Levetiracetam 500 mg/ Sodium 105 mls @ 420 mls/hr 02/24/18 08:15 02/26/18 08: 30 Chloride IVPB 420 mls/hr Q12H LEILA Administration Piperacillin Sod/Tazobactam Sod 2.25 gm in 50 mls @ 100 mls/hr 02/25/18 08:30 02/26/18 08:47 Zosyn 2.25 Gm Iv Premix IVPB 100 mls/hr Q6H LEILA Administration Protocol Sodium Bicarbonate 75 meq/ 1,000 mls @ 150 mls/hr 02/26/18 12:30 Sodium Chloride IV .Q6H40M LEILA Insulin Detemir 40 unit 02/25/18 22:00 02/25/18 21:25 Levemir SC 40 unit HS LEILA Administration Insulin Human Regular 0 unit 02/25/18 22:00 02/26/18 07:30 Novolin R SC Not Given ACHS LEILA Protocol Pantoprazole Sodium 40 mg 02/24/18 10:00 02/26/18 09:41 Protonix Inj IVP 40 mg DAILY LEILA Administration - Patient Studies Lab Studies: Microbiology Studies 02/24/18 20:22 Gram Stain - Final Sputum Induced Sputum Culture - Final Staphylococcus Aureus 02/24/18 08:30 Blood Culture - Preliminary Blood NO GROWTH AFTER 48 HOURS 02/24/18 09:00 Blood Culture - Preliminary Blood NO GROWTH AFTER 48 HOURS 02/24/18 07:01 MRSA Culture (Admit) - Final Nose MRSA NOT DETECTED 02/24/18 05:35 Urine Culture - Final Urine,Clean Catch No Growth (<1,000 CFU/ML) Lab Studies 02/26/18 02/26/18 02/26/18 Range/Units 10:59 08:45 07:26 WBC (4.8-10.8) K/uL RBC (4.40-5.90) Mil/uL Hgb (12.0-18.0) g/dL Hct (35.0-51.0) % MCV (80.0-94.0) fL MCH (27.0-31.0) pg MCHC (33.0-37.0) g/dL RDW (11.5-14.5) % Plt Count (130-400) K/uL MPV (7.2-11.7) fL Neut % (Auto) (50.0-75.0) % Lymph % (Auto) (20.0-40.0) % Walton % (Auto) (0.0-10.0) % Eos % (Auto) (0.0-4.0) % Baso % (Auto) (0.0-2.0) % Neut # (Auto) (1.8-7.0) K/uL Lymph # (Auto) (1.0-4.3) K/uL Walton # (Auto) (0.0-0.8) K/uL Eos # (Auto) (0.0-0.7) K/uL Baso # (Auto) (0.0-0.2) K/uL Neutrophils % (Manual) (50-75) % Lymphocytes % (Manual) (20-40) % Monocytes % (Manual) (0-10) % Eosinophils % (Manual) (0-4) % Platelet Estimate (NORMAL) Sodium (132-148) mmol/L Potassium (3.6-5.2) mmol/L Chloride (98-107) mmol/L Carbon Dioxide (22-30) mmol/L Anion Gap (10-20) BUN (9-20) mg/dL Creatinine (0.8-1.5) mg/dL Est GFR ( Amer) Est GFR (Non-Af Amer) POC Glucose (mg/dL) 71 98 (65-110) mg/dL Random Glucose (75-110) mg/dL Calcium (8.6-10.4) mg/dl Phosphorus (2.5-4.5) mg/dL Magnesium (1.6-2.3) mg/dL Total Bilirubin (0.2-1.3) mg/dL AST (17-59) U/L ALT (21-72) U/L Alkaline Phosphatase (38-126) U/L Total Creatine Kinase (55-170) U/L Total Protein (6.3-8.3) g/dL Albumin (3.5-5.0) g/dL Globulin (2.2-3.9) gm/dL Albumin/Globulin Ratio (1.0-2.1) CA 19-9 Antigen (0-37) U/mL Urine Color (YELLOW) Urine Clarity (Clear) Urine pH (5.0-8.0) Ur Specific Errol (1.003-1.030) Urine Protein (NEGATIVE) mg/dL Urine Glucose (UA) (Normal) mg/dL Urine Ketones (NEGATIVE) mg/dL Urine Blood (NEGATIVE) Urine Nitrate (NEGATIVE) Urine Bilirubin (NEGATIVE) Urine Urobilinogen (0.2-1.0) mg/dL Ur Leukocyte Esterase (Negative) Corinne/uL Urine WBC (Auto) (0-5) /hpf Urine RBC (Auto) (0-3) /hpf Ur Squamous Epith Cells (0-5) /hpf Uric Acid Crystals (<OCC) /hpf Ur Random Sodium mmol/L Stool Occult Blood Negative (NEGATIVE) 02/26/18 02/26/18 02/25/18 Range/Units 05:53 05:53 17:39 WBC 18.0 H (4.8-10.8) K/uL RBC 5.11 (4.40-5.90) Mil/uL Hgb 12.4 (12.0-18.0) g/dL Hct 36.9 (35.0-51.0) % MCV 72.4 L (80.0-94.0) fL MCH 24.3 L (27.0-31.0) pg MCHC 33.6 (33.0-37.0) g/dL RDW 16.0 H (11.5-14.5) % Plt Count 304 (130-400) K/uL MPV 7.8 (7.2-11.7) fL Neut % (Auto) 85.7 H (50.0-75.0) % Lymph % (Auto) 7.2 L (20.0-40.0) % Walton % (Auto) 5.6 (0.0-10.0) % Eos % (Auto) 1.1 (0.0-4.0) % Baso % (Auto) 0.4 (0.0-2.0) % Neut # (Auto) 15.5 H (1.8-7.0) K/uL Lymph # (Auto) 1.3 (1.0-4.3) K/uL Walton # (Auto) 1.0 H (0.0-0.8) K/uL Eos # (Auto) 0.2 (0.0-0.7) K/uL Baso # (Auto) 0.1 (0.0-0.2) K/uL Neutrophils % (Manual) 87 H (50-75) % Lymphocytes % (Manual) 10 L (20-40) % Monocytes % (Manual) 1 (0-10) % Eosinophils % (Manual) 2 (0-4) % Platelet Estimate Normal (NORMAL) Sodium 140 (132-148) mmol/L Potassium 3.5 L (3.6-5.2) mmol/L Chloride 105 (98-107) mmol/L Carbon Dioxide 22 (22-30) mmol/L Anion Gap 17 (10-20) BUN 43 H (9-20) mg/dL Creatinine 3.5 H (0.8-1.5) mg/dL Est GFR ( Amer) 22 Est GFR (Non-Af Amer) 18 POC Glucose (mg/dL) 334 H (65-110) mg/dL Random Glucose 118 H (75-110) mg/dL Calcium 7.9 L (8.6-10.4) mg/dl Phosphorus 5.6 H (2.5-4.5) mg/dL Magnesium 2.5 H (1.6-2.3) mg/dL Total Bilirubin 1.1 (0.2-1.3) mg/dL AST 610 H D (17-59) U/L ALT 202 H D (21-72) U/L Alkaline Phosphatase 67 (38-126) U/L Total Creatine Kinase (55-170) U/L Total Protein 7.5 (6.3-8.3) g/dL Albumin 3.4 L (3.5-5.0) g/dL Globulin 4.1 H (2.2-3.9) gm/dL Albumin/Globulin Ratio 0.8 L (1.0-2.1) CA 19-9 Antigen (0-37) U/mL Urine Color (YELLOW) Urine Clarity (Clear) Urine pH (5.0-8.0) Ur Specific Errol (1.003-1.030) Urine Protein (NEGATIVE) mg/dL Urine Glucose (UA) (Normal) mg/dL Urine Ketones (NEGATIVE) mg/dL Urine Blood (NEGATIVE) Urine Nitrate (NEGATIVE) Urine Bilirubin (NEGATIVE) Urine Urobilinogen (0.2-1.0) mg/dL Ur Leukocyte Esterase (Negative) Corinne/uL Urine WBC (Auto) (0-5) /hpf Urine RBC (Auto) (0-3) /hpf Ur Squamous Epith Cells (0-5) /hpf Uric Acid Crystals (<OCC) /hpf Ur Random Sodium mmol/L Stool Occult Blood (NEGATIVE) 02/25/18 02/25/18 02/25/18 Range/Units 17:19 17:19 16:27 WBC (4.8-10.8) K/uL RBC (4.40-5.90) Mil/uL Hgb (12.0-18.0) g/dL Hct (35.0-51.0) % MCV (80.0-94.0) fL MCH (27.0-31.0) pg MCHC (33.0-37.0) g/dL RDW (11.5-14.5) % Plt Count (130-400) K/uL MPV (7.2-11.7) fL Neut % (Auto) (50.0-75.0) % Lymph % (Auto) (20.0-40.0) % Walton % (Auto) (0.0-10.0) % Eos % (Auto) (0.0-4.0) % Baso % (Auto) (0.0-2.0) % Neut # (Auto) (1.8-7.0) K/uL Lymph # (Auto) (1.0-4.3) K/uL Walton # (Auto) (0.0-0.8) K/uL Eos # (Auto) (0.0-0.7) K/uL Baso # (Auto) (0.0-0.2) K/uL Neutrophils % (Manual) (50-75) % Lymphocytes % (Manual) (20-40) % Monocytes % (Manual) (0-10) % Eosinophils % (Manual) (0-4) % Platelet Estimate (NORMAL) Sodium 141 (132-148) mmol/L Potassium 4.1 (3.6-5.2) mmol/L Chloride 105 (98-107) mmol/L Carbon Dioxide 18 L (22-30) mmol/L Anion Gap 21 H (10-20) BUN 43 H (9-20) mg/dL Creatinine 3.9 H (0.8-1.5) mg/dL Est GFR ( Amer) 19 Est GFR (Non-Af Amer) 16 POC Glucose (mg/dL) (65-110) mg/dL Random Glucose 374 H (75-110) mg/dL Calcium 7.8 L (8.6-10.4) mg/dl Phosphorus (2.5-4.5) mg/dL Magnesium (1.6-2.3) mg/dL Total Bilirubin 0.7 (0.2-1.3) mg/dL AST 351 H D (17-59) U/L ALT 120 H D (21-72) U/L Alkaline Phosphatase 68 (38-126) U/L Total Creatine Kinase 63665 H (55-170) U/L Total Protein 7.4 (6.3-8.3) g/dL Albumin 3.4 L (3.5-5.0) g/dL Globulin 4.0 H (2.2-3.9) gm/dL Albumin/Globulin Ratio 0.8 L (1.0-2.1) CA 19-9 Antigen 4.8 (0-37) U/mL Urine Color (YELLOW) Urine Clarity (Clear) Urine pH (5.0-8.0) Ur Specific Errol (1.003-1.030) Urine Protein (NEGATIVE) mg/dL Urine Glucose (UA) (Normal) mg/dL Urine Ketones (NEGATIVE) mg/dL Urine Blood (NEGATIVE) Urine Nitrate (NEGATIVE) Urine Bilirubin (NEGATIVE) Urine Urobilinogen (0.2-1.0) mg/dL Ur Leukocyte Esterase (Negative) Corinne/uL Urine WBC (Auto) (0-5) /hpf Urine RBC (Auto) (0-3) /hpf Ur Squamous Epith Cells (0-5) /hpf Uric Acid Crystals (<OCC) /hpf Ur Random Sodium 32 mmol/L Stool Occult Blood (NEGATIVE) 02/25/18 Range/Units 16:27 WBC (4.8-10.8) K/uL RBC (4.40-5.90) Mil/uL Hgb (12.0-18.0) g/dL Hct (35.0-51.0) % MCV (80.0-94.0) fL MCH (27.0-31.0) pg MCHC (33.0-37.0) g/dL RDW (11.5-14.5) % Plt Count (130-400) K/uL MPV (7.2-11.7) fL Neut % (Auto) (50.0-75.0) % Lymph % (Auto) (20.0-40.0) % Walton % (Auto) (0.0-10.0) % Eos % (Auto) (0.0-4.0) % Baso % (Auto) (0.0-2.0) % Neut # (Auto) (1.8-7.0) K/uL Lymph # (Auto) (1.0-4.3) K/uL Walton # (Auto) (0.0-0.8) K/uL Eos # (Auto) (0.0-0.7) K/uL Baso # (Auto) (0.0-0.2) K/uL Neutrophils % (Manual) (50-75) % Lymphocytes % (Manual) (20-40) % Monocytes % (Manual) (0-10) % Eosinophils % (Manual) (0-4) % Platelet Estimate (NORMAL) Sodium (132-148) mmol/L Potassium (3.6-5.2) mmol/L Chloride (98-107) mmol/L Carbon Dioxide (22-30) mmol/L Anion Gap (10-20) BUN (9-20) mg/dL Creatinine (0.8-1.5) mg/dL Est GFR ( Amer) Est GFR (Non-Af Amer) POC Glucose (mg/dL) (65-110) mg/dL Random Glucose (75-110) mg/dL Calcium (8.6-10.4) mg/dl Phosphorus (2.5-4.5) mg/dL Magnesium (1.6-2.3) mg/dL Total Bilirubin (0.2-1.3) mg/dL AST (17-59) U/L ALT (21-72) U/L Alkaline Phosphatase (38-126) U/L Total Creatine Kinase (55-170) U/L Total Protein (6.3-8.3) g/dL Albumin (3.5-5.0) g/dL Globulin (2.2-3.9) gm/dL Albumin/Globulin Ratio (1.0-2.1) CA 19-9 Antigen (0-37) U/mL Urine Color Light red (YELLOW) Urine Clarity Turbid (Clear) Urine pH 5.0 (5.0-8.0) Ur Specific Errol 1.011 (1.003-1.030) Urine Protein 2+ H (NEGATIVE) mg/dL Urine Glucose (UA) 2+ H (Normal) mg/dL Urine Ketones Negative (NEGATIVE) mg/dL Urine Blood 3+ H (NEGATIVE) Urine Nitrate Negative (NEGATIVE) Urine Bilirubin Negative (NEGATIVE) Urine Urobilinogen Normal (0.2-1.0) mg/dL Ur Leukocyte Esterase Neg (Negative) Corinne/uL Urine WBC (Auto) 3 (0-5) /hpf Urine RBC (Auto) 37 H (0-3) /hpf Ur Squamous Epith Cells < 1 (0-5) /hpf Uric Acid Crystals Many H (<OCC) /hpf Ur Random Sodium mmol/L Stool Occult Blood (NEGATIVE) Laboratory Results - last 24 hr 02/25/18 02/25/18 02/25/18 16:27 16:27 17:19 WBC RBC Hgb Hct MCV MCH MCHC RDW Plt Count MPV Neut % (Auto) Lymph % (Auto) Walton % (Auto) Eos % (Auto) Baso % (Auto) Neut # (Auto) Lymph # (Auto) Walton # (Auto) Eos # (Auto) Baso # (Auto) Neutrophils % (Manual) Lymphocytes % (Manual) Monocytes % (Manual) Eosinophils % (Manual) Platelet Estimate Sodium Potassium Chloride Carbon Dioxide Anion Gap BUN Creatinine Est GFR ( Amer) Est GFR (Non-Af Amer) POC Glucose (mg/dL) Random Glucose Calcium Phosphorus Magnesium Total Bilirubin AST ALT Alkaline Phosphatase Total Creatine Kinase 55638 H Total Protein Albumin Globulin Albumin/Globulin Ratio CA 19-9 Antigen 4.8 Urine Color Light red Urine Clarity Turbid Urine pH 5.0 Ur Specific Errol 1.011 Urine Protein 2+ H Urine Glucose (UA) 2+ H Urine Ketones Negative Urine Blood 3+ H Urine Nitrate Negative Urine Bilirubin Negative Urine Urobilinogen Normal Ur Leukocyte Esterase Neg Urine WBC (Auto) 3 Urine RBC (Auto) 37 H Ur Squamous Epith Cells < 1 Uric Acid Crystals Many H Ur Random Sodium 32 Stool Occult Blood 02/25/18 02/25/18 02/26/18 17:19 17:39 05:53 WBC 18.0 H RBC 5.11 Hgb 12.4 Hct 36.9 MCV 72.4 L MCH 24.3 L MCHC 33.6 RDW 16.0 H Plt Count 304 MPV 7.8 Neut % (Auto) 85.7 H Lymph % (Auto) 7.2 L Walton % (Auto) 5.6 Eos % (Auto) 1.1 Baso % (Auto) 0.4 Neut # (Auto) 15.5 H Lymph # (Auto) 1.3 Walton # (Auto) 1.0 H Eos # (Auto) 0.2 Baso # (Auto) 0.1 Neutrophils % (Manual) 87 H Lymphocytes % (Manual) 10 L Monocytes % (Manual) 1 Eosinophils % (Manual) 2 Platelet Estimate Normal Sodium 141 Potassium 4.1 Chloride 105 Carbon Dioxide 18 L Anion Gap 21 H BUN 43 H Creatinine 3.9 H Est GFR ( Amer) 19 Est GFR (Non-Af Amer) 16 POC Glucose (mg/dL) 334 H Random Glucose 374 H Calcium 7.8 L Phosphorus Magnesium Total Bilirubin 0.7 AST 351 H D ALT 120 H D Alkaline Phosphatase 68 Total Creatine Kinase Total Protein 7.4 Albumin 3.4 L Globulin 4.0 H Albumin/Globulin Ratio 0.8 L CA 19-9 Antigen Urine Color Urine Clarity Urine pH Ur Specific Errol Urine Protein Urine Glucose (UA) Urine Ketones Urine Blood Urine Nitrate Urine Bilirubin Urine Urobilinogen Ur Leukocyte Esterase Urine WBC (Auto) Urine RBC (Auto) Ur Squamous Epith Cells Uric Acid Crystals Ur Random Sodium Stool Occult Blood 02/26/18 02/26/18 02/26/18 05:53 07:26 08:45 WBC RBC Hgb Hct MCV MCH MCHC RDW Plt Count MPV Neut % (Auto) Lymph % (Auto) Walton % (Auto) Eos % (Auto) Baso % (Auto) Neut # (Auto) Lymph # (Auto) Walton # (Auto) Eos # (Auto) Baso # (Auto) Neutrophils % (Manual) Lymphocytes % (Manual) Monocytes % (Manual) Eosinophils % (Manual) Platelet Estimate Sodium 140 Potassium 3.5 L Chloride 105 Carbon Dioxide 22 Anion Gap 17 BUN 43 H Creatinine 3.5 H Est GFR ( Amer) 22 Est GFR (Non-Af Amer) 18 POC Glucose (mg/dL) 98 Random Glucose 118 H Calcium 7.9 L Phosphorus 5.6 H Magnesium 2.5 H Total Bilirubin 1.1 AST 610 H D ALT 202 H D Alkaline Phosphatase 67 Total Creatine Kinase Total Protein 7.5 Albumin 3.4 L Globulin 4.1 H Albumin/Globulin Ratio 0.8 L CA 19-9 Antigen Urine Color Urine Clarity Urine pH Ur Specific Errol Urine Protein Urine Glucose (UA) Urine Ketones Urine Blood Urine Nitrate Urine Bilirubin Urine Urobilinogen Ur Leukocyte Esterase Urine WBC (Auto) Urine RBC (Auto) Ur Squamous Epith Cells Uric Acid Crystals Ur Random Sodium Stool Occult Blood Negative 02/26/18 10:59 WBC RBC Hgb Hct MCV MCH MCHC RDW Plt Count MPV Neut % (Auto) Lymph % (Auto) Walton % (Auto) Eos % (Auto) Baso % (Auto) Neut # (Auto) Lymph # (Auto) Walton # (Auto) Eos # (Auto) Baso # (Auto) Neutrophils % (Manual) Lymphocytes % (Manual) Monocytes % (Manual) Eosinophils % (Manual) Platelet Estimate Sodium Potassium Chloride Carbon Dioxide Anion Gap BUN Creatinine Est GFR ( Amer) Est GFR (Non-Af Amer) POC Glucose (mg/dL) 71 Random Glucose Calcium Phosphorus Magnesium Total Bilirubin AST ALT Alkaline Phosphatase Total Creatine Kinase Total Protein Albumin Globulin Albumin/Globulin Ratio CA 19-9 Antigen Urine Color Urine Clarity Urine pH Ur Specific Errol Urine Protein Urine Glucose (UA) Urine Ketones Urine Blood Urine Nitrate Urine Bilirubin Urine Urobilinogen Ur Leukocyte Esterase Urine WBC (Auto) Urine RBC (Auto) Ur Squamous Epith Cells Uric Acid Crystals Ur Random Sodium Stool Occult Blood Fingerstick Blood Sugar Results: 334 Critical Care Progress Note - Nutrition Nutrition: Nutrition Category Date Time Status Consistent Carbohydrate [DIET] Diets 02/26/18 Lunch Active Assessment/Plan - Assessment and Plan (Free Text) Assessment: This is a 57 year old male with PMHx HTN and DM who presented with altered mental status. There were some hemorrhages in the brain that were suspicious of metastatic hemorrhages. As such, the patient was starr scanned to search for malignancy. Massively enlarged pancreas was found. Neuro Awake, alert, verbal Unable to get Contrast MRI at this time due to acute renal failure (rhabdo and contrast induced nephropathy from the starr scan of the body) Cardio Echo ordered due to unknown source of infection with question of possible endocarditis. Technically limited study; however, we have possible sources of infection including the sputum and potentially the pancreas. Pulm Saturating well on room air GI Carb consistent diet Protonix 40 mg IV daily Pancreatic mass seen on CT imaging--possible pseudocyst vs abscess vs malignancy IR on consult for drainage of mass--will perform once patient is more medically stable Endocrine Regular ISS ACHS Accuchecks ACHS Home Levemir 40 units SC HS Renal Acute renal failure secondary to rhabdo and contrast induced nephropathy Antibiotics renally dosed Nephrology consulted Half NS with sodium bicarb at rate 150 cc/hr Infectious Disease On renally dosed Zosyn Elevated procalcitonin--possibility of pancreatic origin; however the sputum has come back positive with MSSA ID on consult Prophylaxis VTE contraindicated due to intracerebral hemorrhage Protonix 40 mg IV daily PT/OT/ANALYST on order Disposition: Downgrade to telemetry Discussed with Dr. Wiley <Michael Wiley - Last Filed: 02/26/18 16:10> CCU Objective - Vital Signs / Intake & Output Vital Signs (Last 4 hours): Vital Signs Temp Pulse Resp BP Pulse Ox 02/26/18 15:00 94 H 19 02/26/18 14:52 95 H 12 02/26/18 13:01 75 17 161/105 H 100 02/26/18 13:00 79 21 100 02/26/18 12:01 84 18 153/99 H 100 02/26/18 12:00 98.4 F 82 18 100 Intake and Output (Last 8hrs): Intake & Output 02/26/18 02/26/18 02/26/18 06:59 14:59 22:59 Intake Total 800 1150 100 Output Total 750 Balance 50 1150 100 Weight 160 lb Intake: Intake, IV Amount 800 1150 100 Left Forearm 450 Right Forearm 800 700 100 Output: Urine 750 Urine, Voided 750 Other: # Bowel Movements 1 1 - Medications Active Medications: Active Medications Generic Name Dose Route Start Last Admin Trade Name Freq PRN Reason Stop Dose Admin Levetiracetam 500 mg/ Sodium 105 mls @ 420 mls/hr 02/24/18 08:15 02/26/18 08: 30 Chloride IVPB 420 mls/hr Q12H LEILA Administration Piperacillin Sod/Tazobactam Sod 2.25 gm in 50 mls @ 100 mls/hr 02/25/18 08:30 02/26/18 14:50 Zosyn 2.25 Gm Iv Premix IVPB 100 mls/hr Q6H LEILA Administration Protocol Sodium Bicarbonate 75 meq/ 1,000 mls @ 150 mls/hr 02/26/18 12:30 02/26/18 13: 00 Sodium Chloride IV 150 mls/hr .Q6H40M LEILA Administration Insulin Detemir 40 unit 02/25/18 22:00 02/25/18 21:25 Levemir SC 40 unit HS LEILA Administration Insulin Human Regular 0 unit 02/25/18 22:00 02/26/18 11:30 Novolin R SC Not Given ACHS [facility] Protocol Pantoprazole Sodium 40 mg 02/24/18 10:00 02/26/18 09:41 Protonix Inj IVP 40 mg DAILY LEILA Administration - Patient Studies Lab Studies: Microbiology Studies 02/24/18 20:22 Gram Stain - Final Sputum Induced Sputum Culture - Final Staphylococcus Aureus 02/24/18 08:30 Blood Culture - Preliminary Blood NO GROWTH AFTER 48 HOURS 02/24/18 09:00 Blood Culture - Preliminary Blood NO GROWTH AFTER 48 HOURS 02/24/18 07:01 MRSA Culture (Admit) - Final Nose MRSA NOT DETECTED Lab Studies 02/26/18 02/26/18 02/26/18 Range/Units 10:59 08:45 07:26 WBC (4.8-10.8) K/uL RBC (4.40-5.90) Mil/uL Hgb (12.0-18.0) g/dL Hct (35.0-51.0) % MCV (80.0-94.0) fL MCH (27.0-31.0) pg MCHC (33.0-37.0) g/dL RDW (11.5-14.5) % Plt Count (130-400) K/uL MPV (7.2-11.7) fL Neut % (Auto) (50.0-75.0) % Lymph % (Auto) (20.0-40.0) % Walton % (Auto) (0.0-10.0) % Eos % (Auto) (0.0-4.0) % Baso % (Auto) (0.0-2.0) % Neut # (Auto) (1.8-7.0) K/uL Lymph # (Auto) (1.0-4.3) K/uL Walton # (Auto) (0.0-0.8) K/uL Eos # (Auto) (0.0-0.7) K/uL Baso # (Auto) (0.0-0.2) K/uL Neutrophils % (Manual) (50-75) % Lymphocytes % (Manual) (20-40) % Monocytes % (Manual) (0-10) % Eosinophils % (Manual) (0-4) % Platelet Estimate (NORMAL) Sodium (132-148) mmol/L Potassium (3.6-5.2) mmol/L Chloride (98-107) mmol/L Carbon Dioxide (22-30) mmol/L Anion Gap (10-20) BUN (9-20) mg/dL Creatinine (0.8-1.5) mg/dL Est GFR ( Amer) Est GFR (Non-Af Amer) POC Glucose (mg/dL) 71 98 (65-110) mg/dL Random Glucose (75-110) mg/dL Calcium (8.6-10.4) mg/dl Phosphorus (2.5-4.5) mg/dL Magnesium (1.6-2.3) mg/dL Total Bilirubin (0.2-1.3) mg/dL AST (17-59) U/L ALT (21-72) U/L Alkaline Phosphatase (38-126) U/L Total Creatine Kinase (55-170) U/L Total Protein (6.3-8.3) g/dL Albumin (3.5-5.0) g/dL Globulin (2.2-3.9) gm/dL Albumin/Globulin Ratio (1.0-2.1) CA 19-9 Antigen (0-37) U/mL Urine Color (YELLOW) Urine Clarity (Clear) Urine pH (5.0-8.0) Ur Specific Errol (1.003-1.030) Urine Protein (NEGATIVE) mg/dL Urine Glucose (UA) (Normal) mg/dL Urine Ketones (NEGATIVE) mg/dL Urine Blood (NEGATIVE) Urine Nitrate (NEGATIVE) Urine Bilirubin (NEGATIVE) Urine Urobilinogen (0.2-1.0) mg/dL Ur Leukocyte Esterase (Negative) Corinne/uL Urine WBC (Auto) (0-5) /hpf Urine RBC (Auto) (0-3) /hpf Ur Squamous Epith Cells (0-5) /hpf Uric Acid Crystals (<OCC) /hpf Ur Random Sodium mmol/L Stool Occult Blood Negative (NEGATIVE) 02/26/18 02/26/18 02/25/18 Range/Units 05:53 05:53 17:39 WBC 18.0 H (4.8-10.8) K/uL RBC 5.11 (4.40-5.90) Mil/uL Hgb 12.4 (12.0-18.0) g/dL Hct 36.9 (35.0-51.0) % MCV 72.4 L (80.0-94.0) fL MCH 24.3 L (27.0-31.0) pg MCHC 33.6 (33.0-37.0) g/dL RDW 16.0 H (11.5-14.5) % Plt Count 304 (130-400) K/uL MPV 7.8 (7.2-11.7) fL Neut % (Auto) 85.7 H (50.0-75.0) % Lymph % (Auto) 7.2 L (20.0-40.0) % Walton % (Auto) 5.6 (0.0-10.0) % Eos % (Auto) 1.1 (0.0-4.0) % Baso % (Auto) 0.4 (0.0-2.0) % Neut # (Auto) 15.5 H (1.8-7.0) K/uL Lymph # (Auto) 1.3 (1.0-4.3) K/uL Walton # (Auto) 1.0 H (0.0-0.8) K/uL Eos # (Auto) 0.2 (0.0-0.7) K/uL Baso # (Auto) 0.1 (0.0-0.2) K/uL Neutrophils % (Manual) 87 H (50-75) % Lymphocytes % (Manual) 10 L (20-40) % Monocytes % (Manual) 1 (0-10) % Eosinophils % (Manual) 2 (0-4) % Platelet Estimate Normal (NORMAL) Sodium 140 (132-148) mmol/L Potassium 3.5 L (3.6-5.2) mmol/L Chloride 105 (98-107) mmol/L Carbon Dioxide 22 (22-30) mmol/L Anion Gap 17 (10-20) BUN 43 H (9-20) mg/dL Creatinine 3.5 H (0.8-1.5) mg/dL Est GFR ( Amer) 22 Est GFR (Non-Af Amer) 18 POC Glucose (mg/dL) 334 H (65-110) mg/dL Random Glucose 118 H (75-110) mg/dL Calcium 7.9 L (8.6-10.4) mg/dl Phosphorus 5.6 H (2.5-4.5) mg/dL Magnesium 2.5 H (1.6-2.3) mg/dL Total Bilirubin 1.1 (0.2-1.3) mg/dL AST 610 H D (17-59) U/L ALT 202 H D (21-72) U/L Alkaline Phosphatase 67 (38-126) U/L Total Creatine Kinase (55-170) U/L Total Protein 7.5 (6.3-8.3) g/dL Albumin 3.4 L (3.5-5.0) g/dL Globulin 4.1 H (2.2-3.9) gm/dL Albumin/Globulin Ratio 0.8 L (1.0-2.1) CA 19-9 Antigen (0-37) U/mL Urine Color (YELLOW) Urine Clarity (Clear) Urine pH (5.0-8.0) Ur Specific Errol (1.003-1.030) Urine Protein (NEGATIVE) mg/dL Urine Glucose (UA) (Normal) mg/dL Urine Ketones (NEGATIVE) mg/dL Urine Blood (NEGATIVE) Urine Nitrate (NEGATIVE) Urine Bilirubin (NEGATIVE) Urine Urobilinogen (0.2-1.0) mg/dL Ur Leukocyte Esterase (Negative) Corinne/uL Urine WBC (Auto) (0-5) /hpf Urine RBC (Auto) (0-3) /hpf Ur Squamous Epith Cells (0-5) /hpf Uric Acid Crystals (<OCC) /hpf Ur Random Sodium mmol/L Stool Occult Blood (NEGATIVE) 02/25/18 02/25/18 02/25/18 Range/Units 17:19 17:19 16:27 WBC (4.8-10.8) K/uL RBC (4.40-5.90) Mil/uL Hgb (12.0-18.0) g/dL Hct (35.0-51.0) % MCV (80.0-94.0) fL MCH (27.0-31.0) pg MCHC (33.0-37.0) g/dL RDW (11.5-14.5) % Plt Count (130-400) K/uL MPV (7.2-11.7) fL Neut % (Auto) (50.0-75.0) % Lymph % (Auto) (20.0-40.0) % Walton % (Auto) (0.0-10.0) % Eos % (Auto) (0.0-4.0) % Baso % (Auto) (0.0-2.0) % Neut # (Auto) (1.8-7.0) K/uL Lymph # (Auto) (1.0-4.3) K/uL Walton # (Auto) (0.0-0.8) K/uL Eos # (Auto) (0.0-0.7) K/uL Baso # (Auto) (0.0-0.2) K/uL Neutrophils % (Manual) (50-75) % Lymphocytes % (Manual) (20-40) % Monocytes % (Manual) (0-10) % Eosinophils % (Manual) (0-4) % Platelet Estimate (NORMAL) Sodium 141 (132-148) mmol/L Potassium 4.1 (3.6-5.2) mmol/L Chloride 105 (98-107) mmol/L Carbon Dioxide 18 L (22-30) mmol/L Anion Gap 21 H (10-20) BUN 43 H (9-20) mg/dL Creatinine 3.9 H (0.8-1.5) mg/dL Est GFR ( Amer) 19 Est GFR (Non-Af Amer) 16 POC Glucose (mg/dL) (65-110) mg/dL Random Glucose 374 H (75-110) mg/dL Calcium 7.8 L (8.6-10.4) mg/dl Phosphorus (2.5-4.5) mg/dL Magnesium (1.6-2.3) mg/dL Total Bilirubin 0.7 (0.2-1.3) mg/dL AST 351 H D (17-59) U/L ALT 120 H D (21-72) U/L Alkaline Phosphatase 68 (38-126) U/L Total Creatine Kinase 29086 H (55-170) U/L Total Protein 7.4 (6.3-8.3) g/dL Albumin 3.4 L (3.5-5.0) g/dL Globulin 4.0 H (2.2-3.9) gm/dL Albumin/Globulin Ratio 0.8 L (1.0-2.1) CA 19-9 Antigen 4.8 (0-37) U/mL Urine Color (YELLOW) Urine Clarity (Clear) Urine pH (5.0-8.0) Ur Specific Errol (1.003-1.030) Urine Protein (NEGATIVE) mg/dL Urine Glucose (UA) (Normal) mg/dL Urine Ketones (NEGATIVE) mg/dL Urine Blood (NEGATIVE) Urine Nitrate (NEGATIVE) Urine Bilirubin (NEGATIVE) Urine Urobilinogen (0.2-1.0) mg/dL Ur Leukocyte Esterase (Negative) Corinne/uL Urine WBC (Auto) (0-5) /hpf Urine RBC (Auto) (0-3) /hpf Ur Squamous Epith Cells (0-5) /hpf Uric Acid Crystals (<OCC) /hpf Ur Random Sodium 32 mmol/L Stool Occult Blood (NEGATIVE) 02/25/18 Range/Units 16:27 WBC (4.8-10.8) K/uL RBC (4.40-5.90) Mil/uL Hgb (12.0-18.0) g/dL Hct (35.0-51.0) % MCV (80.0-94.0) fL MCH (27.0-31.0) pg MCHC (33.0-37.0) g/dL RDW (11.5-14.5) % Plt Count (130-400) K/uL MPV (7.2-11.7) fL Neut % (Auto) (50.0-75.0) % Lymph % (Auto) (20.0-40.0) % Walton % (Auto) (0.0-10.0) % Eos % (Auto) (0.0-4.0) % Baso % (Auto) (0.0-2.0) % Neut # (Auto) (1.8-7.0) K/uL Lymph # (Auto) (1.0-4.3) K/uL Walton # (Auto) (0.0-0.8) K/uL Eos # (Auto) (0.0-0.7) K/uL Baso # (Auto) (0.0-0.2) K/uL Neutrophils % (Manual) (50-75) % Lymphocytes % (Manual) (20-40) % Monocytes % (Manual) (0-10) % Eosinophils % (Manual) (0-4) % Platelet Estimate (NORMAL) Sodium (132-148) mmol/L Potassium (3.6-5.2) mmol/L Chloride (98-107) mmol/L Carbon Dioxide (22-30) mmol/L Anion Gap (10-20) BUN (9-20) mg/dL Creatinine (0.8-1.5) mg/dL Est GFR ( Amer) Est GFR (Non-Af Amer) POC Glucose (mg/dL) (65-110) mg/dL Random Glucose (75-110) mg/dL Calcium (8.6-10.4) mg/dl Phosphorus (2.5-4.5) mg/dL Magnesium (1.6-2.3) mg/dL Total Bilirubin (0.2-1.3) mg/dL AST (17-59) U/L ALT (21-72) U/L Alkaline Phosphatase (38-126) U/L Total Creatine Kinase (55-170) U/L Total Protein (6.3-8.3) g/dL Albumin (3.5-5.0) g/dL Globulin (2.2-3.9) gm/dL Albumin/Globulin Ratio (1.0-2.1) CA 19-9 Antigen (0-37) U/mL Urine Color Light red (YELLOW) Urine Clarity Turbid (Clear) Urine pH 5.0 (5.0-8.0) Ur Specific Errol 1.011 (1.003-1.030) Urine Protein 2+ H (NEGATIVE) mg/dL Urine Glucose (UA) 2+ H (Normal) mg/dL Urine Ketones Negative (NEGATIVE) mg/dL Urine Blood 3+ H (NEGATIVE) Urine Nitrate Negative (NEGATIVE) Urine Bilirubin Negative (NEGATIVE) Urine Urobilinogen Normal (0.2-1.0) mg/dL Ur Leukocyte Esterase Neg (Negative) Corinne/uL Urine WBC (Auto) 3 (0-5) /hpf Urine RBC (Auto) 37 H (0-3) /hpf Ur Squamous Epith Cells < 1 (0-5) /hpf Uric Acid Crystals Many H (<OCC) /hpf Ur Random Sodium mmol/L Stool Occult Blood (NEGATIVE) Laboratory Results - last 24 hr 02/25/18 02/25/18 02/25/18 16:27 16:27 17:19 WBC RBC Hgb Hct MCV MCH MCHC RDW Plt Count MPV Neut % (Auto) Lymph % (Auto) Walton % (Auto) Eos % (Auto) Baso % (Auto) Neut # (Auto) Lymph # (Auto) Walton # (Auto) Eos # (Auto) Baso # (Auto) Neutrophils % (Manual) Lymphocytes % (Manual) Monocytes % (Manual) Eosinophils % (Manual) Platelet Estimate Sodium Potassium Chloride Carbon Dioxide Anion Gap BUN Creatinine Est GFR ( Amer) Est GFR (Non-Af Amer) POC Glucose (mg/dL) Random Glucose Calcium Phosphorus Magnesium Total Bilirubin AST ALT Alkaline Phosphatase Total Creatine Kinase 47813 H Total Protein Albumin Globulin Albumin/Globulin Ratio CA 19-9 Antigen 4.8 Urine Color Light red Urine Clarity Turbid Urine pH 5.0 Ur Specific Errol 1.011 Urine Protein 2+ H Urine Glucose (UA) 2+ H Urine Ketones Negative Urine Blood 3+ H Urine Nitrate Negative Urine Bilirubin Negative Urine Urobilinogen Normal Ur Leukocyte Esterase Neg Urine WBC (Auto) 3 Urine RBC (Auto) 37 H Ur Squamous Epith Cells < 1 Uric Acid Crystals Many H Ur Random Sodium 32 Stool Occult Blood 02/25/18 02/25/18 02/26/18 17:19 17:39 05:53 WBC 18.0 H RBC 5.11 Hgb 12.4 Hct 36.9 MCV 72.4 L MCH 24.3 L MCHC 33.6 RDW 16.0 H Plt Count 304 MPV 7.8 Neut % (Auto) 85.7 H Lymph % (Auto) 7.2 L Walton % (Auto) 5.6 Eos % (Auto) 1.1 Baso % (Auto) 0.4 Neut # (Auto) 15.5 H Lymph # (Auto) 1.3 Walton # (Auto) 1.0 H Eos # (Auto) 0.2 Baso # (Auto) 0.1 Neutrophils % (Manual) 87 H Lymphocytes % (Manual) 10 L Monocytes % (Manual) 1 Eosinophils % (Manual) 2 Platelet Estimate Normal Sodium 141 Potassium 4.1 Chloride 105 Carbon Dioxide 18 L Anion Gap 21 H BUN 43 H Creatinine 3.9 H Est GFR ( Amer) 19 Est GFR (Non-Af Amer) 16 POC Glucose (mg/dL) 334 H Random Glucose 374 H Calcium 7.8 L Phosphorus Magnesium Total Bilirubin 0.7 AST 351 H D ALT 120 H D Alkaline Phosphatase 68 Total Creatine Kinase Total Protein 7.4 Albumin 3.4 L Globulin 4.0 H Albumin/Globulin Ratio 0.8 L CA 19-9 Antigen Urine Color Urine Clarity Urine pH Ur Specific Errol Urine Protein Urine Glucose (UA) Urine Ketones Urine Blood Urine Nitrate Urine Bilirubin Urine Urobilinogen Ur Leukocyte Esterase Urine WBC (Auto) Urine RBC (Auto) Ur Squamous Epith Cells Uric Acid Crystals Ur Random Sodium Stool Occult Blood 02/26/18 02/26/18 02/26/18 05:53 07:26 08:45 WBC RBC Hgb Hct MCV MCH MCHC RDW Plt Count MPV Neut % (Auto) Lymph % (Auto) Walton % (Auto) Eos % (Auto) Baso % (Auto) Neut # (Auto) Lymph # (Auto) Walton # (Auto) Eos # (Auto) Baso # (Auto) Neutrophils % (Manual) Lymphocytes % (Manual) Monocytes % (Manual) Eosinophils % (Manual) Platelet Estimate Sodium 140 Potassium 3.5 L Chloride 105 Carbon Dioxide 22 Anion Gap 17 BUN 43 H Creatinine 3.5 H Est GFR ( Amer) 22 Est GFR (Non-Af Amer) 18 POC Glucose (mg/dL) 98 Random Glucose 118 H Calcium 7.9 L Phosphorus 5.6 H Magnesium 2.5 H Total Bilirubin 1.1 AST 610 H D ALT 202 H D Alkaline Phosphatase 67 Total Creatine Kinase Total Protein 7.5 Albumin 3.4 L Globulin 4.1 H Albumin/Globulin Ratio 0.8 L CA 19-9 Antigen Urine Color Urine Clarity Urine pH Ur Specific Errol Urine Protein Urine Glucose (UA) Urine Ketones Urine Blood Urine Nitrate Urine Bilirubin Urine Urobilinogen Ur Leukocyte Esterase Urine WBC (Auto) Urine RBC (Auto) Ur Squamous Epith Cells Uric Acid Crystals Ur Random Sodium Stool Occult Blood Negative 02/26/18 10:59 WBC RBC Hgb Hct MCV MCH MCHC RDW Plt Count MPV Neut % (Auto) Lymph % (Auto) Walton % (Auto) Eos % (Auto) Baso % (Auto) Neut # (Auto) Lymph # (Auto) Walton # (Auto) Eos # (Auto) Baso # (Auto) Neutrophils % (Manual) Lymphocytes % (Manual) Monocytes % (Manual) Eosinophils % (Manual) Platelet Estimate Sodium Potassium Chloride Carbon Dioxide Anion Gap BUN Creatinine Est GFR ( Amer) Est GFR (Non-Af Amer) POC Glucose (mg/dL) 71 Random Glucose Calcium Phosphorus Magnesium Total Bilirubin AST ALT Alkaline Phosphatase Total Creatine Kinase Total Protein Albumin Globulin Albumin/Globulin Ratio CA 19-9 Antigen Urine Color Urine Clarity Urine pH Ur Specific Errol Urine Protein Urine Glucose (UA) Urine Ketones Urine Blood Urine Nitrate Urine Bilirubin Urine Urobilinogen Ur Leukocyte Esterase Urine WBC (Auto) Urine RBC (Auto) Ur Squamous Epith Cells Uric Acid Crystals Ur Random Sodium Stool Occult Blood Critical Care Progress Note - Nutrition Nutrition: Nutrition Category Date Time Status Consistent Carbohydrate [DIET] Diets 02/26/18 Lunch Active Attending/Attestation - Attestation I have personally seen and examined this patient.: Yes I have fully participated in the care of the patient.: Yes I have reviewed all pertinent clinical information: Yes Notes (Text): 02/26/18 15:48 I have seen and examined the patient. Medical records, lab studies, and imaging were reviewed by me and a management plan was formulated on multidisciplinary rounds with resident Dr. Clay. I agree with their documented assessment and plan. Patient is clinically improved. Continue aggressive fluid treatment for rhabdomyolysis. Seizures are controlled with Keppra. Patient still needs MRI to assess hemorrhagic lesions vs metastatic lesions. Patient also still needs intra-abdominal biopsy of cystic pancreatic mass. Patient is clinically stable for downgrade to the floors, despite needing extensive medical workup. Critical Care Time 35 minutes. Multi-disciplinary rounds were performed with house staff, nursing, speech therapy, respiratory therapy, pharmacy and nutrition with integrated input from the primary team/attending and other consulting services. The documented time is cumulative and includes review of patient data/exams/labs/chart review and examination of the patient on rounds and throughout the day; time is exclusive of any procedures or teaching time. 02/26/18 16:08 02/26/18 16:10
[2018-02-26] MEDS ORDERED: Aluminum Hydroxide/Magnesium Hydroxide Susp (30 mL) PO ONE (17:06)
[2018-02-26] MEDS: Simethicone 80 mg Chewtab PO SCH ×2 (18:03→21:45)
--- NOTE | 2018-02-26 18:24 | CP.PCM.PN ---
Subjective - Date & Time of Evaluation Date of Evaluation: 02/26/18 Time of Evaluation: 18:21 - Subjective Subjective: now awake alert oriented to year, president, mal does not have memory of event that brought him to hospital complains of abd pain "gas' not at rest only when he moves around and upon exam Objective - Vital Signs/Intake and Output Vital Signs (last 24 hours): Temp Pulse Resp BP Pulse Ox 98.2 F 95 H 12 161/105 H 98 02/26/18 16:00 02/26/18 17:00 02/26/18 17:00 02/26/18 13:01 02/26/18 16:00 Intake and Output: 02/26/18 02/26/18 06:59 18:59 Intake Total 1000 1250 Output Total 750 Balance 250 1250 - Medications Medications: Current Medications Levetiracetam 500 mg/ Sodium (Chloride) 105 mls @ 420 mls/hr IVPB Q12H [facility] Last Admin: 02/26/18 08:30 Dose: 420 mls/hr Piperacillin Sod/Tazobactam Sod (Zosyn 2.25 Gm Iv Premix) 2.25 gm in 50 mls @ 100 mls/hr IVPB Q6H [facility] PRN Reason: Protocol Last Admin: 02/26/18 14:50 Dose: 100 mls/hr Sodium Bicarbonate 75 meq/ (Sodium Chloride) 1,000 mls @ 150 mls/hr IV .Q6H40M [facility] Last Admin: 02/26/18 13:00 Dose: 150 mls/hr Insulin Detemir (Levemir) 40 unit SC HS [facility] Last Admin: 02/25/18 21:25 Dose: 40 unit Insulin Human Regular (Novolin R) 0 unit SC ACHS [facility] PRN Reason: Protocol Last Admin: 02/26/18 16:16 Dose: Not Given Pantoprazole Sodium (Protonix Inj) 40 mg IVP DAILY [facility] Last Admin: 02/26/18 09:41 Dose: 40 mg Simethicone (Mylicon Chew Tab) 80 mg PO QID [facility] Last Admin: 02/26/18 18:03 Dose: 80 mg - Labs Labs: 02/26/18 05:53 02/26/18 05:53 PT 11.3 SECONDS (9.7-12.2) 02/24/18 05:03 INR 1.0 04/17/18 05:03 APTT 34 SECONDS (21-34) 02/24/18 05:03 - Constitutional Appears: Well, No Acute Distress - Head Exam Head Exam: ATRAUMATIC - ENT Exam ENT Exam: Mucous Membranes Dry - Neck Exam Neck Exam: Full ROM - Respiratory Exam Respiratory Exam: Clear to Ausculation Bilateral - Cardiovascular Exam Cardiovascular Exam: REGULAR RHYTHM, +S1, +S2 - GI/Abdominal Exam GI & Abdominal Exam: Soft, Tenderness, Normal Bowel Sounds. absent: Organomegaly - Neurological Exam Neurological Exam: Alert, Awake, Oriented x3 Neuro motor strength exam: Left Upper Extremity: 5, Right Upper Extremity: 5, Left Lower Extremity: 5, Right Lower Extremity: 5 - Psychiatric Exam Psychiatric exam: Depressed - Skin Skin Exam: Normal Color Assessment and Plan - Assessment and Plan (Free Text) Assessment: hemorrhagic cva multiple sites acute renal failure multifactorial contrast induced acute renal failure, vancomycain associated acute renal failure , rhabdomyolysis associated acute renal failure large pancreatic cystic mass - consult gi history of pancreatitis 6 yrs ago dm-2 hypertension
--- NOTE | 2018-02-26 18:26 | CP.PCM.PN ---
Subjective - Date & Time of Evaluation Date of Evaluation: 02/25/18 Time of Evaluation: 18:24 - Subjective Subjective: late entry into record examined yesterday morning intubated in am echo in progress non verbal Objective - Vital Signs/Intake and Output Vital Signs (last 24 hours): Temp Pulse Resp BP Pulse Ox 98.2 F 95 H 12 161/105 H 98 02/26/18 16:00 02/26/18 17:00 02/26/18 17:00 02/26/18 13:01 02/26/18 16:00 Intake and Output: 02/26/18 02/26/18 06:59 18:59 Intake Total 1000 1250 Output Total 750 Balance 250 1250 - Medications Medications: Current Medications Levetiracetam 500 mg/ Sodium (Chloride) 105 mls @ 420 mls/hr IVPB Q12H [facility] Last Admin: 02/26/18 08:30 Dose: 420 mls/hr Piperacillin Sod/Tazobactam Sod (Zosyn 2.25 Gm Iv Premix) 2.25 gm in 50 mls @ 100 mls/hr IVPB Q6H [facility] PRN Reason: Protocol Last Admin: 02/26/18 14:50 Dose: 100 mls/hr Sodium Bicarbonate 75 meq/ (Sodium Chloride) 1,000 mls @ 150 mls/hr IV .Q6H40M [facility] Last Admin: 02/26/18 13:00 Dose: 150 mls/hr Insulin Detemir (Levemir) 40 unit SC HS [facility] Last Admin: 02/25/18 21:25 Dose: 40 unit Insulin Human Regular (Novolin R) 0 unit SC ACHS [facility] PRN Reason: Protocol Last Admin: 02/26/18 16:16 Dose: Not Given Pantoprazole Sodium (Protonix Inj) 40 mg IVP DAILY [facility] Last Admin: 02/26/18 09:41 Dose: 40 mg Simethicone (Mylicon Chew Tab) 80 mg PO QID [facility] Last Admin: 02/26/18 18:03 Dose: 80 mg - Labs Labs: 02/26/18 05:53 02/26/18 05:53 PT 11.3 SECONDS (9.7-12.2) 02/24/18 05:03 INR 1.0 02/24/18 05:03 APTT 34 SECONDS (21-34) 02/24/18 05:03 - Constitutional Appears: Well - Head Exam Head Exam: ATRAUMATIC - Eye Exam Additional comments: et tube - Respiratory Exam Respiratory Exam: absent: Clear to Ausculation Bilateral, NORMAL BREATHING PATTERN Additional comments: coarse bs - Cardiovascular Exam Cardiovascular Exam: REGULAR RHYTHM, +S1, +S2 - GI/Abdominal Exam GI & Abdominal Exam: Soft, Normal Bowel Sounds - Neurological Exam Neurological Exam: absent: Alert, Awake, Oriented x3 Additional comments: spont movement of all ext Assessment and Plan - Assessment and Plan (Free Text) Assessment: hemorrhagic cva multiple sites acute renal failure multifactorial large pancreatic cystic mass - history of pancreatitis 6 yrs ago dm-2 hypertension
--- NOTE | 2018-02-26 18:27 | CP.PCM.PN ---
Subjective - Date & Time of Evaluation Date of Evaluation: 02/26/18 Time of Evaluation: 09:00 - Subjective Subjective: 57 yo male with recent onset of seizures and multiple hemorrhagic infarcts is improving s/p extubation Elevated Procalcitonin is nonspecific however agree with antibiotic coverage for now pending exclusion of infectious etiologies including infected pancreatic cyst Objective - Vital Signs/Intake and Output Vital Signs (last 24 hours): Temp Pulse Resp BP Pulse Ox 98.2 F 95 H 12 161/105 H 98 02/26/18 16:00 02/26/18 17:00 02/26/18 17:00 02/26/18 13:01 02/26/18 16:00 Intake and Output: 02/26/18 02/26/18 06:59 18:59 Intake Total 1000 1250 Output Total 750 Balance 250 1250 - Medications Medications: Current Medications Levetiracetam 500 mg/ Sodium (Chloride) 105 mls @ 420 mls/hr IVPB Q12H [facility] Last Admin: 02/26/18 08:30 Dose: 420 mls/hr Piperacillin Sod/Tazobactam Sod (Zosyn 2.25 Gm Iv Premix) 2.25 gm in 50 mls @ 100 mls/hr IVPB Q6H [facility] PRN Reason: Protocol Last Admin: 02/26/18 14:50 Dose: 100 mls/hr Sodium Bicarbonate 75 meq/ (Sodium Chloride) 1,000 mls @ 150 mls/hr IV .Q6H40M [facility] Last Admin: 02/26/18 13:00 Dose: 150 mls/hr Insulin Detemir (Levemir) 40 unit SC HS [facility] Last Admin: 02/25/18 21:25 Dose: 40 unit Insulin Human Regular (Novolin R) 0 unit SC ACHS [facility] PRN Reason: Protocol Last Admin: 02/26/18 16:16 Dose: Not Given Pantoprazole Sodium (Protonix Inj) 40 mg IVP DAILY [facility] Last Admin: 02/26/18 09:41 Dose: 40 mg Simethicone (Mylicon Chew Tab) 80 mg PO QID [facility] Last Admin: 02/26/18 18:03 Dose: 80 mg - Labs Labs: 02/26/18 05:53 02/26/18 05:53 PT 11.3 SECONDS (9.7-12.2) 02/24/18 05:03 INR 1.0 04/17/18 05:03 APTT 34 SECONDS (21-34) 02/24/18 05:03 - Constitutional Appears: Non-toxic, Chronically Ill - Head Exam Head Exam: NORMOCEPHALIC - Eye Exam Eye Exam: PERRL - ENT Exam ENT Exam: Mucous Membranes Dry - Neck Exam Neck Exam: absent: Lymphadenopathy - Respiratory Exam Respiratory Exam: Decreased Breath Sounds - Cardiovascular Exam Cardiovascular Exam: REGULAR RHYTHM - GI/Abdominal Exam GI & Abdominal Exam: Distended - Rectal Exam Rectal Exam: Deferred - Exam Exam: NORMAL INSPECTION - Extremities Exam Extremities Exam: absent: Pedal Edema - Back Exam Back Exam: absent: CVA tenderness (L), CVA tenderness (R) - Neurological Exam Neurological Exam: Alert, Awake - Psychiatric Exam Psychiatric exam: Depressed - Skin Skin Exam: Dry Assessment and Plan (1) Elevated procalcitonin Status: Acute (2) Leukocytosis Status: Acute (3) Diabetes Status: Acute (4) Intracranial bleed Status: Acute (5) Seizure Status: Acute (6) Pancreatic mass Status: Acute (7) Renal failure (ARF), acute on chronic Status: Acute (8) Renal failure (ARF), acute on chronic Status: Acute - Assessment and Plan (Free Text) Assessment: 57 yo male with recent onset of seizures and multiple hemorrhagic infarcts is improving s/p extubation Elevated Procalcitonin is nonspecific however agree with antibiotic coverage for now pending exclusion of infectious etiologies including infected pancreatic cyst
[2018-02-26] MEDS: Insulin Detemir 100 units/ml Vial (Levemir) SC SCH (22:05)
[2018-02-26] MEDS: Tramadol 25 mg PO ONE (23:21)
[2018-02-27] MEDS ORDERED: HYDROmorphone 1 mg/ml ISec IVP STA (01:09)
[2018-02-27] MEDS: Sodium Bicarbonate 8.4% 75 MEQ in Sodium Chloride 0.45% 925 ML IV SCH ×5 (01:50→23:20)
[2018-02-27] MEDS: Piperacill/Tazo 2.25gm in Dex 2.25 GM/50 ML BAG IVPB SCH ×4 (02:30→20:34)
[2018-02-27 06:37] LABS: BASO # 0.1 K/uL (0.0-0.2); BASO % 0.3 % (0.0-2.0); EOS % 0.1 % (0.0-4.0); LYMPH # 1.6 K/uL (1.0-4.3); LYMPH % 9.8 % (20.0-40.0); MEAN CELL VOLUME 72.9 fL (80.0-94.0); MEAN CORPUSCULAR HEMOGLOBIN 24.2 pg (27.0-31.0); MEAN CORPUSCULAR HGB CONC 33.2 g/dL (33.0-37.0); MEAN PLATELET VOLUME 8.4 fL (7.2-11.7); MONO # 0.7 K/uL (0.0-0.8); MONO % 4.2 % (0.0-10.0); NEUT # 13.6 K/uL (1.8-7.0); NEUT % 85.6 % (50.0-75.0); NRBC % 0.1 % (0.0-2.0); PLATELET COUNT 321 K/uL (130-400); RBC 5.39 Mil/uL (4.40-5.90); RED CELL DISTRIBUTION WIDTH 15.9 % (11.5-14.5); WHITE BLOOD COUNT 15.9 K/uL (4.8-10.8)
[2018-02-27 06:38] LABS: ALB/GLOB RATIO 0.9 (1.0-2.1); ALBUMIN 3.4 g/dL (3.5-5.0); CALCIUM 7.7 mg/dl (8.6-10.4)
--- NOTE | 2018-02-27 07:02 | CP.PCM.PN ---
Subjective - Date & Time of Evaluation Date of Evaluation: 02/27/18 Time of Evaluation: 06:59 - Subjective Subjective: Mr. aquino was seen and examined at the bedside in ICU. He remains alert, oriented in all spheres. He denies any headache, dizziness, lightheadedness. He claims of experiencing severe abdominal pain last night which he received medication. He is able to follow simple commands. He still receiving intravenous sodium bicarbonate. There was no untoward events overnight. Objective - Vital Signs/Intake and Output Vital Signs (last 24 hours): Temp Pulse Resp BP Pulse Ox 98.5 F 89 17 165/104 H 98 02/27/18 04:00 02/27/18 03:00 02/27/18 03:00 02/27/18 01:52 02/27/18 00:00 Intake and Output: 02/26/18 02/27/18 18:59 06:59 Intake Total 1250 Balance 1250 - Medications Medications: Current Medications Levetiracetam 500 mg/ Sodium (Chloride) 105 mls @ 420 mls/hr IVPB Q12H [facility] Last Admin: 02/26/18 20:00 Dose: 420 mls/hr Piperacillin Sod/Tazobactam Sod (Zosyn 2.25 Gm Iv Premix) 2.25 gm in 50 mls @ 100 mls/hr IVPB Q6H [facility] PRN Reason: Protocol Last Admin: 02/27/18 02:30 Dose: 100 mls/hr Sodium Bicarbonate 75 meq/ (Sodium Chloride) 1,000 mls @ 150 mls/hr IV .Q6H40M [facility] Last Admin: 02/27/18 05:00 Dose: 150 mls/hr Insulin Detemir (Levemir) 40 unit SC HS [facility] Last Admin: 02/26/18 22:05 Dose: Not Given Insulin Human Regular (Novolin R) 0 unit SC ACHS [facility] PRN Reason: Protocol Last Admin: 02/26/18 22:00 Dose: Not Given Pantoprazole Sodium (Protonix Inj) 40 mg IVP DAILY [facility] Last Admin: 02/26/18 09:41 Dose: 40 mg Simethicone (Mylicon Chew Tab) 80 mg PO QID [facility] Last Admin: 02/26/18 21:45 Dose: 80 mg Tramadol HCl (Ultram) 25 mg PO ONCE ONE Stop: 02/27/18 22:54 Last Admin: 02/26/18 23:21 Dose: 25 mg - Labs Labs: 02/27/18 06:15 02/27/18 06:15 PT 11.3 SECONDS (9.7-12.2) 02/24/18 05:03 INR 1.0 02/24/18 05:03 APTT 34 SECONDS (21-34) 02/24/18 05:03 - Constitutional Appears: No Acute Distress - Head Exam Head Exam: NORMAL INSPECTION - Neurological Exam Neurological Exam: Alert, Awake Neuro motor strength exam: Left Upper Extremity: 4, Right Upper Extremity: 4, Left Lower Extremity: 4, Right Lower Extremity: 4 Additional comments: Neurological unchanged from previous examination. Assessment and Plan (1) Seizure Assessment & Plan: Case discussed with Dr. Joyce, continue all current medical and physical therapies. Since his creatinine remains elevated, will repeat CT scan of the head without contrast to evaluate or follow up intracranial hemorrhage. Status: Acute
[2018-02-27] MEDS: levETIRAcetam 500 MG in Sodium Chloride 0.9% 100 ML IVPB SCH ×2 (07:57→20:34)
[2018-02-27] MEDS: (Novolin R) Insulin Human Regular 100 units/ml vial SC SCH ×4 (07:58→21:36)
[2018-02-27 08:15] LABS: LYMPHOCYTE 11 % (20-40); MONOCYTE 2 % (0-10); NEUTROPHIL 87 % (50-75); PLATELET ESTIMATE NORMAL (NORMAL); TOTAL CELLS COUNTED 100
[2018-02-27 08:16] LABS: ANISOCYTOSIS SLIGHT; BURR CELLS SLIGHT; POIKILOCYTOSIS SLIGHT
--- NOTE | 2018-02-27 08:46 | CT ---
PROCEDURE: CT HEAD WITHOUT CONTRAST. HISTORY: follow of ich COMPARISON: 02/24/[address] scans of the head TECHNIQUE: Axial computed tomography images were obtained through the head/brain without intravenous contrast. Radiation dose: Total exam DLP = 1044.01 mGy-cm. This CT exam was performed using one or more of the following dose reduction techniques: Automated exposure control, adjustment of the mA and/or kV according to patient size, and/or use of iterative reconstruction technique. FINDINGS: HEMORRHAGE: Stable multifocal hemorrhagic findings bilaterally the largest in the left frontal lobe. Similar less pronounced changes high right frontal region, periventricular locations bilaterally as well as pontine hemorrhage on the right. BRAIN: No mass effect or edema. No atrophy or chronic microvascular ischemic changes. VENTRICLES: Unremarkable. No hydrocephalus. CALVARIUM: Unremarkable. PARANASAL SINUSES: Unremarkable as visualized. No significant inflammatory changes. MASTOID AIR CELLS: Unremarkable as visualized. No inflammatory changes. OTHER FINDINGS: None. IMPRESSION: Stable multi focal hemorrhages/hemorrhagic masses. .
--- NOTE | 2018-02-27 09:19 | RAD ---
HISTORY: r/o obstruction COMPARISON: No prior. FINDINGS: BOWEL: Disproportionate dilatation of mid small bowel suggestive of either early or incomplete small bowel obstruction. No free air identified. BONES: Normal. OTHER FINDINGS: None. IMPRESSION: Early/incomplete small bowel obstruction.
[2018-02-27] MEDS: Simethicone 80 mg Chewtab PO SCH ×4 (09:40→21:55)
--- NOTE | 2018-02-27 10:04 | EEG ---
DATE: 02/24/2018 GENERAL DESCRIPTION: This is a 16-channel electrode acquired using 10-20 electrode system. Continuous seizure monitoring was done using spike detection services. All electrodes were referenced to A1/A2, P1/P2 respectively. Background rhythm: There is a well-formed 9 to 10 Hz posterior dominant rhythm that is reactive, symmetric, and attenuates with eye opening on the right side. On the left hemisphere, there is decreased amplitude of the posterior dominant rhythm, admixed with theta and beta activity. There are no interictal epileptiform discharges. There are no subclinical or clinical seizures. IMPRESSION: This is an abnormal awake and sleep EEG. The presence of severe indicates the presence of a mass lesion and/or hemorrhage or postictal slowing. Clinical correlation is required. Gabriel Joyce MD
--- NOTE | 2018-02-27 10:12 | CP.PCM.PN ---
Subjective - Date & Time of Evaluation Date of Evaluation: 02/27/18 Time of Evaluation: 10:11 - Subjective Subjective: seen and examined stable, no events good uop labs noted no n/v/d/sob/cp/dizziness/seizures/headache/dysuria/hematuria/rash severe watery green diarrhea per RN Objective - Vital Signs/Intake and Output Vital Signs (last 24 hours): Temp Pulse Resp BP Pulse Ox 97.9 F 88 9 L 160/108 H 100 02/27/18 08:00 02/27/18 09:00 02/27/18 08:21 02/27/18 05:52 02/27/18 09:00 Intake and Output: 02/27/18 02/27/18 06:59 18:59 Intake Total 2150 755 Output Total 900 Balance 1250 755 - Medications Medications: Current Medications Levetiracetam 500 mg/ Sodium (Chloride) 105 mls @ 420 mls/hr IVPB Q12H [facility] Last Admin: 02/27/18 07:57 Dose: 420 mls/hr Piperacillin Sod/Tazobactam Sod (Zosyn 2.25 Gm Iv Premix) 2.25 gm in 50 mls @ 100 mls/hr IVPB Q6H [facility] PRN Reason: Protocol Last Admin: 02/27/18 07:57 Dose: 100 mls/hr Sodium Bicarbonate 75 meq/ (Sodium Chloride) 1,000 mls @ 150 mls/hr IV .Q6H40M [facility] Last Admin: 02/27/18 05:00 Dose: 150 mls/hr Insulin Detemir (Levemir) 40 unit SC HS [facility] Last Admin: 02/26/18 22:05 Dose: Not Given Insulin Human Regular (Novolin R) 0 unit SC ACHS [facility] PRN Reason: Protocol Last Admin: 02/27/18 07:58 Dose: 4 unit Pantoprazole Sodium (Protonix Inj) 40 mg IVP DAILY [facility] Last Admin: 02/27/18 09:40 Dose: 40 mg Simethicone (Mylicon Chew Tab) 80 mg PO QID [facility] Last Admin: 02/27/18 09:40 Dose: 80 mg Tramadol HCl (Ultram) 25 mg PO ONCE ONE Stop: 02/27/18 22:54 Last Admin: 02/26/18 23:21 Dose: 25 mg - Labs Labs: 02/27/18 06:15 02/27/18 06:15 PT 11.3 SECONDS (9.7-12.2) 02/24/18 05:03 INR 1.0 02/24/18 05:03 APTT 34 SECONDS (21-34) 02/24/18 05:03 - Constitutional Appears: Non-toxic, No Acute Distress, Chronically Ill - Head Exam Head Exam: NORMAL INSPECTION, NORMOCEPHALIC - Eye Exam Eye Exam: Normal appearance, PERRL Pupil Exam: PERRL - ENT Exam ENT Exam: Mucous Membranes Moist, Normal Exam - Neck Exam Neck Exam: Normal Inspection - Respiratory Exam Respiratory Exam: Clear to Ausculation Bilateral, NORMAL BREATHING PATTERN - Cardiovascular Exam Cardiovascular Exam: REGULAR RHYTHM, RRR - GI/Abdominal Exam GI & Abdominal Exam: Distended, Soft - Extremities Exam Extremities Exam: Full ROM, Normal Inspection Assessment and Plan (1) Rhabdomyolysis Status: Acute (2) Intracranial bleed Status: Acute (3) Pancreatic mass Status: Acute (4) Renal failure (ARF), acute on chronic Status: Acute (5) Seizure Status: Acute - Assessment and Plan (Free Text) Assessment: roby non oliguric multifactorial - contrast and rhabdomyolysis pt likely has underlying ckd based on ua w/ proteinuria and renal US recommend aggressive ivf, maintain 150 cc/hr, repeat cpk daily blood sugar control work up of pancreatic mass per primary team seizure management lila hope
--- NOTE | 2018-02-27 10:41 | CP.PCM.PN ---
Subjective - Date & Time of Evaluation Date of Evaluation: 02/27/18 Time of Evaluation: 07:45 - Subjective Subjective: Patient seen and examined at bedside. Patient resting comfortably in bedside chair. Patient says he is having a lot of abdominal pain and points all over his abdomen when describing the location. He says he has very little appetite and is having difficulty eating because of this. Patient also complains of nausea and a lot of watery, non-bloody diarrhea. He denies fever, chills, headache, dizziness, chest pain, SOB, palpitations, cough, vomiting, and lower extremity pain/swelling. Objective - Vital Signs/Intake and Output Vital Signs (last 24 hours): Temp Pulse Resp BP Pulse Ox 97.9 F 88 9 L 160/108 H 100 02/27/18 08:00 02/27/18 09:00 02/27/18 08:21 02/27/18 05:52 02/27/18 09:00 Intake and Output: 02/27/18 02/27/18 06:59 18:59 Intake Total 2150 755 Output Total 900 Balance 1250 755 - Medications Medications: Current Medications Levetiracetam 500 mg/ Sodium (Chloride) 105 mls @ 420 mls/hr IVPB Q12H [facility] Last Admin: 02/27/18 07:57 Dose: 420 mls/hr Piperacillin Sod/Tazobactam Sod (Zosyn 2.25 Gm Iv Premix) 2.25 gm in 50 mls @ 100 mls/hr IVPB Q6H [facility] PRN Reason: Protocol Last Admin: 02/27/18 07:57 Dose: 100 mls/hr Sodium Bicarbonate 75 meq/ (Sodium Chloride) 1,000 mls @ 150 mls/hr IV .Q6H40M [facility] Last Admin: 02/27/18 05:00 Dose: 150 mls/hr Insulin Detemir (Levemir) 40 unit SC HS [facility] Last Admin: 02/26/18 22:05 Dose: Not Given Insulin Human Regular (Novolin R) 0 unit SC ACHS [facility] PRN Reason: Protocol Last Admin: 02/27/18 07:58 Dose: 4 unit Pantoprazole Sodium (Protonix Inj) 40 mg IVP DAILY [facility] Last Admin: 02/27/18 09:40 Dose: 40 mg Simethicone (Mylicon Chew Tab) 80 mg PO QID [facility] Last Admin: 02/27/18 09:40 Dose: 80 mg Tramadol HCl (Ultram) 25 mg PO ONCE ONE Stop: 02/27/18 22:54 Last Admin: 02/26/18 23:21 Dose: 25 mg - Labs Labs: 02/27/18 06:15 02/27/18 06:15 PT 11.3 SECONDS (9.7-12.2) 02/24/18 05:03 INR 1.0 02/24/18 05:03 APTT 34 SECONDS (21-34) 02/24/18 05:03 - Constitutional Appears: Non-toxic, No Acute Distress - Head Exam Head Exam: ATRAUMATIC, NORMAL INSPECTION, NORMOCEPHALIC - Eye Exam Eye Exam: EOMI, Normal appearance, PERRL - ENT Exam ENT Exam: Mucous Membranes Moist - Cardiovascular Exam Cardiovascular Exam: RRR, +S1, +S2 - GI/Abdominal Exam GI & Abdominal Exam: Soft, Tenderness (RLQ), Hypoactive Bowel Sounds. absent: Distended - Extremities Exam Extremities Exam: Normal Capillary Refill, Normal Inspection. 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 Rabago (neuro) consulted, help appreciated (being seen by Dr. Joyce as well) * PT eval and treat * PT/PTT/INR: 11.3/34/1.0 * Lipid Panel: Trig 272, Chol 183, LDL 91, HDL 30 * TSH/Free T4: 0.64/1.44 Imaging: * 02/24 02:55 CT head w/o contrast: Multifocal hyperdense foci are scattered throughout the cerebrum as well as right side of the yogesh. The majority is foci are small with the largest measuring 1.9 cm at the left frontal lobe which trace edema questioned related. Consider hemorrhagic metastases though multifocal hemorrhage is a possibility, particularly if there is prior history of trauma. Postinfectious calcification as well as metastatic lymphoma are included in the differential diagnosis. Follow-up cross-sectional brain imaging is advised. * 02/24 05:25 CT head w/o contrast: Stable multifocal hyperdensities are again seen scattered in the bilateral cerebral hemispheres in the right side of the yogesh without significant interval change. Trace edema is again seen related to the left frontal dominant lesion. Continued clinical and CT vigilance is advised. Follow-up MRI with and without contrast is also advised when feasible. * 02/24 CXR: Endotracheal tube extending into the mid thoracic trachea. Left costophrenic angle is partially excluded from this study. Mild venous congestion. Mild patchy increased markings in the left lung which may be related to technique. Upper lobe granulomatous changes. * 02/24 Head/Neck CTA: Unremarkable CT Angiography of the Brain and Neck. * 02/24: CT chest/abdomen/pelvis with IV contrast: 1. Limited nonspecific ground- glass opacity seen in the pre for the bilateral apices with associated limited reticular changes but no definite alveolitis. Is difficult to differentiate between limited fibrosis or tiny subpleural nodules at the right middle lobe laterally but there is no dominant mass appreciated throughout the bilateral lung david including central airways. No significant lymphadenopathy in the chest. 2. Limited bilateral basilar dependent atelectasis. 3. A large cystic lesion measuring 12.6 cm greatest dimension occupies the midbody through tail the pancreas and is suspicious for a potential pancreatic neoplasm though a pseudocyst and other etiologies are possible as discussed above. Further clinical correlation is advised. 4. Hepatic steatosis. 5. No significant chest, abdomen or pelvis lymphadenopathy. 6. Enlarged prostate gland. Tena catheter decompresses the urinary bladder somewhat, limiting evaluation of the urinary bladder wall. * 02/25 CXR: No acute cardiopulmonary process seen. * 02/27 CT head: Stable multi focal hemorrhages/hemorrhagic masses. * 02/27 Brain MRI: Re- demonstrated is a small hemorrhagic focus in the left superior frontal lobe which appears to be surrounded by some mild edema. There are multiple additional varying sized predominately rounded foci of very dark T2 signal scattered about both cerebral hemispheres, cerebellum and brainstem consistent with hemosiderin deposits. 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 Multiple small hemorrhagic metastases less likely due to the lack of significant mass-effect or surrounding edema though not completely excluded. Recommend follow-up studies study to exclude primary carcinoma (with propensity to present with hemorrhagic metastases such as renal cell, melanoma or thyroid carcinoma). Acute Renal Failure with Metabolic Acidosis * Likely contrast induced nephropathy * Dr. Dotson (nephro) consulted, help appreciated * ABG 02/25: pH 7.28, HCO3 17.3, pCO2 34 * BUN/Cr: 43/2.3 * UA (02/24 & ): +Protein, glucose, and blood, many uric acid crystals, and hyaline casts Imaging * 02/25 Renal US: Diffusely increased renal cortical echogenicity bilaterally consistent with medical renal disease. Complex mass medial to left kidney consistent with complex cystic mass identified on CT examination in the pancreatic tail region. Meds: * 1/2 NS with Sodium bicarb 75 meq @150 cc/h Rhabdomyolysis * Total CK: 15348 * f/u repeat * Continue with aggressive hydration Leukocytosis * Dr. Webster (ID) consulted, help appreciated * Afebrile since 02/24 (101.6) * f/u HIV * 02/24 Sputum culture positive for S. aureus * 02/24 Blood cultures negative x2 for 48H * 02/24 Nares negative for MRSA * 02/24 Urine culture negative * 02/24 lactate 9.6, then down to 1.3 * 02/24 Procal 10.61 Imaging: * 02/25 echo: There is borderline to mild concentric left ventricular hypertrophy. There is no aortic valvular vegetation. The mitral valve is normal in structure. The tricuspid valve is normal in structure. TECHNICALLY DIFFICULT STUDY. ROBER IS ADVISED IF VEGITATIONS ARE SUSPECTED. Meds: * Zosyn 2.25 g IV Q6 Abdominal pain * Possibly secondary to pancreatic cystic mass vs incomplete SBO * Dr. Marquez (GI) consulted, help appreciated * Dr. Carrero (IR) consulted, help appreciated * Dr. Echeverria (general surgery) consulted, help appreciated * CA 19-9: 4.8 Imaging: * 02/24: CT chest/abdomen/pelvis with IV contrast: 1. Limited nonspecific ground- glass opacity seen in the pre for the bilateral apices with associated limited reticular changes but no definite alveolitis. Is difficult to differentiate between limited fibrosis or tiny subpleural nodules at the right middle lobe laterally but there is no dominant mass appreciated throughout the bilateral lung david including central airways. No significant lymphadenopathy in the chest. 2. Limited bilateral basilar dependent atelectasis. 3. A large cystic lesion measuring 12.6 cm greatest dimension occupies the midbody through tail the pancreas and is suspicious for a potential pancreatic neoplasm though a pseudocyst and other etiologies are possible as discussed above. Further clinical correlation is advised. 4. Hepatic steatosis. 5. No significant chest, abdomen or pelvis lymphadenopathy. 6. Enlarged prostate gland. Tena catheter decompresses the urinary bladder somewhat, limiting evaluation of the urinary bladder wall. * 02/26 abdominal XR: Early/incomplete small bowel obstruction. Meds/Fluids: * Simethicone * Protonix 40 mg IV daily * Mineral oil enema once 02/27 Transaminitis * AST/ALT: 592/287 * Continue to monitor History of seizures * Dr. Rabago (neuro) consulted, help appreciated (being seen by Dr. Joyce as well) Meds: * Keppra 500 mg IV Q12H History of DM * Monitor with accuchecks * HbA1c 9.3 Meds: * Levemir 40 units SC HS * Insulin sliding scale Marijuana use disorder * UDS +Cannabinoids * Alcohol level <10 * Cournseled on cessation Prophylaxis * Protonix 40 mg IV * DVT prophylaxis contraindicated due to brain hemorrhages
--- NOTE | 2018-02-27 13:47 | MRI ---
PROCEDURE: MRI of the brain dated 02/27/2018 HISTORY: Seizure. Rule out bleed COMPARISON: Comparison made with prior CT scan of the brain obtained earlier same day as well as CT scan and CTA of the brain and neck 02/25/20 18. TECHNIQUE: Multiplanar, multisequence MR images of the brain were obtained without intravenous contrast enhancement. FINDINGS: HEMORRHAGE: Re- demonstrated is a small elliptical shaped hemorrhage in the left superior frontal lobe in various stages of evolution. There appears to be some minimal surrounding edema about this focus. In addition, there are numerous varying sized predominately rounded focal areas of very dark T2 signal scattered throughout both cerebral hemispheres, cerebellum and brainstem consistent with hemosiderin deposits. Findings most likely represent multiple cavernomas given the popcorn like appearance. 2 prominent lesions in the periatrial white matter bilaterally demonstrate minimal of rim of prolonged T2 signal likely representing gliosis rather than edema. The remaining lesions demonstrate no significant surrounding gliosis or edema the nor mass effect. Differential diagnosis would includes Familial Multiple Cavernous Malformation Syndrome. Multiple small hemorrhagic metastases less likely due to the lack of surrounding edema and mass-effect though not completely excluded. Recommend follow-up studies to exclude primary carcinoma (with propensity to present with hemorrhagic metastases such as renal cell, melanoma or thyroid carcinoma) DWI: No evidence of an acute or early subacute infarction seen on diffusion imaging. . BRAIN PARENCHYMA: As above. Mild generalized volume loss. VENTRICLES: No obstructive hydrocephalus. Flow CRANIUM: No acute calvarial abnormalities are identified. ORBITS: Orbits and contents unremarkable PARANASAL SINUSES/MASTOIDS: Clear VASCULAR SYSTEM: Visualized major vascular flow voids at skull base patent. OTHER FINDINGS: None. IMPRESSION: Re- demonstrated is a small hemorrhagic focus in the left superior frontal lobe which appears to be surrounded by some mild edema. There are multiple additional varying sized predominately rounded foci of very dark T2 signal scattered about both cerebral hemispheres, cerebellum and brainstem consistent with hemosiderin deposits. 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 Multiple small hemorrhagic metastases less likely due to the lack of significant mass-effect or surrounding edema though not completely excluded. Recommend follow-up studies study to exclude primary carcinoma (with propensity to present with hemorrhagic metastases such as renal cell, melanoma or thyroid carcinoma) .
[2018-02-27] MEDS: Mineral Oil Enema 135 ml RC ONE ×2 (15:38→15:44)
--- NOTE | 2018-02-27 15:45 | CP.PCM.CON ---
History of Present Illness - History of Present Illness History of Present Illness: General surgery consult note for Dr. Echeverria Consulted for: SBO Patient is a 57M with PMH of DM who was admitted to the ICU 4 days ago for intra -cerebral hemorrhage. Patient has been complaining of abdominal pain and had watery diarrhea for the past 2 days. Last night patient had some nausea, no vomiting, but now states that he only has mild abdominal pain and decreased appetite. States he did have a regular bowel movement 4 days ago with no blood, normal color. Denies constipation. Abdominal XR shows diffuse dilation of the small bowel with small amount of air in the distal colon. PMH: pancreatitis, DM, HTN PSH: none ALL NKDA Social: denies any substance use Review of Systems - Review of Systems All systems: reviewed and no additional remarkable complaints except (as per HPI ) Past Patient History - Past Medical History & Family History Past Medical History?: Yes - Past Social History Smoking Status: Light Smoker < 10 Cigarettes Daily - CARDIAC Hx Hypertension: Yes - PULMONARY Hx Respiratory Disorders: No - NEUROLOGICAL Hx Neurological Disorder: No - HEENT Hx HEENT Problems: No - RENAL Hx Chronic Kidney Disease: No - ENDOCRINE/METABOLIC Hx Diabetes Mellitus Type 2: Yes Other/Comment: metformin found at home - HEMATOLOGICAL/ONCOLOGICAL Hx Blood Disorders: No - INTEGUMENTARY Hx Dermatological Problems: No - MUSCULOSKELETAL/RHEUMATOLOGICAL Hx Falls: Yes - GASTROINTESTINAL Hx Gastrointestinal Disorders: No - GENITOURINARY/GYNECOLOGICAL Hx Genitourinary Disorders: No - PSYCHIATRIC Hx Substance Use: No - SURGICAL HISTORY Hx Surgeries: No - ANESTHESIA Hx Anesthesia: No Meds Allergies/Adverse Reactions: Allergies Allergy/AdvReac Type Severity Reaction Status Date / Time No Known Allergies Allergy Verified 02/24/18 02:59 - Medications Medications: Current Medications Levetiracetam 500 mg/ Sodium (Chloride) 105 mls @ 420 mls/hr IVPB Q12H [facility] Last Admin: 02/27/18 07:57 Dose: 420 mls/hr Piperacillin Sod/Tazobactam Sod (Zosyn 2.25 Gm Iv Premix) 2.25 gm in 50 mls @ 100 mls/hr IVPB Q6H [facility] PRN Reason: Protocol Last Admin: 02/27/18 13:35 Dose: 100 mls/hr Sodium Bicarbonate 75 meq/ (Sodium Chloride) 1,000 mls @ 150 mls/hr IV .Q6H40M [facility] Last Admin: 02/27/18 15:37 Dose: Not Given Insulin Detemir (Levemir) 40 unit SC HS [facility] Last Admin: 02/26/18 22:05 Dose: Not Given Insulin Human Regular (Novolin R) 0 unit SC ACHS [facility] PRN Reason: Protocol Last Admin: 02/27/18 11:50 Dose: 4 unit Pantoprazole Sodium (Protonix Inj) 40 mg IVP DAILY [facility] Last Admin: 02/27/18 09:40 Dose: 40 mg Simethicone (Mylicon Chew Tab) 80 mg PO QID [facility] Last Admin: 02/27/18 13:35 Dose: 80 mg Tramadol HCl (Ultram) 25 mg PO ONCE ONE Stop: 02/27/18 22:54 Last Admin: 02/26/18 23:21 Dose: 25 mg Physical Exam - Constitutional Appears: Well, Non-toxic, No Acute Distress - Head Exam Head Exam: ATRAUMATIC, NORMOCEPHALIC - Eye Exam Eye Exam: Normal appearance. absent: Conjunctival injection, Scleral icterus - ENT Exam ENT Exam: Mucous Membranes Moist, Normal Oropharynx - Respiratory Exam Respiratory Exam: NORMAL BREATHING PATTERN. absent: Accessory Muscle Use, Respiratory Distress - Cardiovascular Exam Cardiovascular Exam: RRR - GI/Abdominal Exam GI & Abdominal Exam: Distended (mild), Soft, Tenderness (mild diffuse tenderness ). absent: Rebound Additional comments: non-tympanic - Extremities Exam Extremities exam: Positive for: pedal pulses present. Negative for: calf tenderness, pedal edema - Neurological Exam Neurological exam: Alert, Oriented x3 - Psychiatric Exam Psychiatric exam: Normal Affect, Normal Mood - Skin Skin Exam: Dry, Intact, Normal Color, Warm Results - Vital Signs Recent Vital Signs: Last Vital Signs Temp 97.9 F 02/27/18 08:00 Pulse 81 02/27/18 15:00 Resp 13 02/27/18 15:00 BP 153/103 H 02/27/18 09:52 Pulse Ox 100 02/27/18 15:00 - Labs Result Diagrams: 02/27/18 06:15 02/27/18 06:15 Labs: Laboratory Results - last 24 hr 02/26/18 02/26/18 02/27/18 16:08 21:14 06:15 WBC 15.9 H RBC 5.39 Hgb 13.0 Hct 39.3 MCV 72.9 L MCH 24.2 L MCHC 33.2 RDW 15.9 H Plt Count 321 MPV 8.4 Neut % (Auto) 85.6 H Lymph % (Auto) 9.8 L [place] % (Auto) 4.2 Eos % (Auto) 0.1 Baso % (Auto) 0.3 Neut # (Auto) 13.6 H Lymph # (Auto) 1.6 [place] # (Auto) 0.7 Eos # (Auto) 0.0 Baso # (Auto) 0.1 Neutrophils % (Manual) 87 H Lymphocytes % (Manual) 11 L Monocytes % (Manual) 2 Platelet Estimate Normal Poikilocytosis (manual Slight Anisocytosis (manual) Slight [place] Cells Slight Sodium Potassium Chloride Carbon Dioxide Anion Gap BUN Creatinine Est GFR ( Amer) Est GFR (Non-Af Amer) POC Glucose (mg/dL) 124 H 160 H Random Glucose Calcium Phosphorus Magnesium Total Bilirubin AST ALT Alkaline Phosphatase Total Protein Albumin Globulin Albumin/Globulin Ratio 02/27/18 02/27/18 02/27/18 06:15 07:28 11:30 WBC RBC Hgb Hct MCV MCH MCHC RDW Plt Count MPV Neut % (Auto) Lymph % (Auto) [place] % (Auto) Eos % (Auto) Baso % (Auto) Neut # (Auto) Lymph # (Auto) [place] # (Auto) Eos # (Auto) Baso # (Auto) Neutrophils % (Manual) Lymphocytes % (Manual) Monocytes % (Manual) Platelet Estimate Poikilocytosis (manual Anisocytosis (manual) [place] Cells Sodium 139 Potassium 4.0 Chloride 102 Carbon Dioxide 21 L Anion Gap 21 H BUN 43 H Creatinine 2.3 H Est GFR ( Amer) 36 Est GFR (Non-Af Amer) 30 POC Glucose (mg/dL) 310 H 313 H Random Glucose 304 H Calcium 7.7 L Phosphorus 5.5 H Magnesium 2.4 H Total Bilirubin 0.9 AST 592 H ALT 287 H D Alkaline Phosphatase 63 Total Protein 7.3 Albumin 3.4 L Globulin 3.9 Albumin/Globulin Ratio 0.9 L Assessment & Plan - Assessment and Plan (Free Text) Assessment: 57M with gastroenteritis vs ileus Plan: -no indication for surgical intervention, patient likely has gastroenteritis, is still having bowel movements and no nausea or vomiting -continue with diet and encourage PO liquid intake -Continue management per primary -If patient has nausea and vomiting and worsening exam, will consider NGT insertion -Encourage ambulation Discussed with Dr. Juwan Ferrera, [email or web address]
--- NOTE | 2018-02-27 17:26 | CP.PCM.PN ---
Subjective - Date & Time of Evaluation Date of Evaluation: 02/27/18 Time of Evaluation: 07:00 - Subjective Subjective: had watery diarrhea no fever iv rx in progress sputum + MSSA Objective - Vital Signs/Intake and Output Vital Signs (last 24 hours): Temp Pulse Resp BP Pulse Ox 98.1 F 97 H 10 L 151/97 H 99 02/27/18 16:00 02/27/18 17:05 02/27/18 17:00 02/27/18 15:46 02/27/18 17:00 Intake and Output: 02/27/18 02/27/18 06:59 18:59 Intake Total 2150 3135 Output Total 900 1900 Balance 1250 1235 - Medications Medications: Current Medications Levetiracetam 500 mg/ Sodium (Chloride) 105 mls @ 420 mls/hr IVPB Q12H [facility] Last Admin: 02/27/18 07:57 Dose: 420 mls/hr Piperacillin Sod/Tazobactam Sod (Zosyn 2.25 Gm Iv Premix) 2.25 gm in 50 mls @ 100 mls/hr IVPB Q6H [facility] PRN Reason: Protocol Last Admin: 02/27/18 13:35 Dose: 100 mls/hr Sodium Bicarbonate 75 meq/ (Sodium Chloride) 1,000 mls @ 150 mls/hr IV .Q6H40M [facility] Last Admin: 02/27/18 15:37 Dose: 150 mls/hr Insulin Detemir (Levemir) 40 unit SC HS [facility] Last Admin: 02/26/18 22:05 Dose: Not Given Insulin Human Regular (Novolin R) 0 unit SC ACHS [facility] PRN Reason: Protocol Last Admin: 02/27/18 16:26 Dose: 3 unit Pantoprazole Sodium (Protonix Inj) 40 mg IVP DAILY [facility] Last Admin: 02/27/18 09:40 Dose: 40 mg Simethicone (Mylicon Chew Tab) 80 mg PO QID [facility] Last Admin: 02/27/18 13:35 Dose: 80 mg Tramadol HCl (Ultram) 25 mg PO ONCE ONE Stop: 02/27/18 22:54 Last Admin: 02/26/18 23:21 Dose: 25 mg - Labs Labs: 02/27/18 06:15 02/27/18 06:15 PT 11.3 SECONDS (9.7-12.2) 02/24/18 05:03 INR 1.0 02/24/18 05:03 APTT 34 SECONDS (21-34) 02/24/18 05:03 - Constitutional Appears: Non-toxic, Chronically Ill - Head Exam Head Exam: NORMOCEPHALIC - Eye Exam Eye Exam: PERRL - ENT Exam ENT Exam: Mucous Membranes Dry - Neck Exam Neck Exam: absent: Lymphadenopathy - Cardiovascular Exam Cardiovascular Exam: REGULAR RHYTHM - GI/Abdominal Exam GI & Abdominal Exam: Distended - Rectal Exam Rectal Exam: Deferred - Exam Exam: NORMAL INSPECTION Assessment and Plan (1) Elevated procalcitonin Status: Acute (2) Leukocytosis Status: Acute (3) Diabetes Status: Acute (4) Intracranial bleed Status: Acute (5) Seizure Status: Acute (6) Pancreatic mass Status: Acute (7) Renal failure (ARF), acute on chronic Status: Acute (8) Renal failure (ARF), acute on chronic Status: Acute
[2018-02-27] MEDS: Insulin Detemir 100 units/ml Vial (Levemir) SC SCH (21:55)
[2018-02-27] MEDS: Tramadol 25 mg PO ONE (23:21)
[2018-02-28] MEDS: Piperacill/Tazo 2.25gm in Dex 2.25 GM/50 ML BAG IVPB SCH ×4 (02:38→21:18)
[2018-02-28] MEDS: Sodium Bicarbonate 8.4% 75 MEQ in Sodium Chloride 0.45% 925 ML IV SCH (04:30)
[2018-02-28 06:26] LABS: BASO % 0.4 % (0.0-2.0); EOS # 0.3 K/uL (0.0-0.7); EOS % 2.3 % (0.0-4.0); HEMOGLOBIN 11.4 g/dL (12.0-18.0); LYMPH # 1.8 K/uL (1.0-4.3); LYMPH % 15.5 % (20.0-40.0); MEAN CELL VOLUME 72.9 fL (80.0-94.0); MEAN CORPUSCULAR HEMOGLOBIN 23.7 pg (27.0-31.0); MEAN CORPUSCULAR HGB CONC 32.5 g/dL (33.0-37.0); MEAN PLATELET VOLUME 7.7 fL (7.2-11.7); MONO # 0.8 K/uL (0.0-0.8); MONO % 6.6 % (0.0-10.0); NEUT # 8.9 K/uL (1.8-7.0); NEUT % 75.2 % (50.0-75.0); NRBC % 0.1 % (0.0-2.0); RBC 4.81 Mil/uL (4.40-5.90); RED CELL DISTRIBUTION WIDTH 15.4 % (11.5-14.5); WHITE BLOOD COUNT 11.8 K/uL (4.8-10.8)
[2018-02-28 06:53] LABS: ALB/GLOB RATIO 0.8 (1.0-2.1); ALBUMIN 2.9 g/dL (3.5-5.0); CALCIUM 8.2 mg/dl (8.6-10.4)
[2018-02-28] MEDS: (Novolin R) Insulin Human Regular 100 units/ml vial SC SCH ×4 (07:59→22:33)
[2018-02-28] MEDS: levETIRAcetam 500 MG in Sodium Chloride 0.9% 100 ML IVPB SCH ×2 (08:30→21:16)
--- NOTE | 2018-02-28 08:38 | CP.PCM.PN ---
Subjective - Date & Time of Evaluation Date of Evaluation: 02/28/18 Time of Evaluation: 08:30 - Subjective Subjective: output 1900 [place] [address] cratinine down to 1.5 hypokalemic comfortable in bed complaining of diarrhea and lower abd pain ROS No chest pain cough hemoptysis nausea no vomiting.see hpi no dysuria hematuria no headache Objective - Vital Signs/Intake and Output Vital Signs (last 24 hours): Temp Pulse Resp BP Pulse Ox 98.2 F 79 17 150/84 97 02/28/18 04:00 02/28/18 06:00 02/28/18 06:00 02/28/18 05:52 02/28/18 06:00 Intake and Output: 02/28/18 02/28/18 06:59 18:59 Intake Total 300 450 Output Total 703 Balance 300 -253 - Medications Medications: Current Medications Levetiracetam 500 mg/ Sodium (Chloride) 105 mls @ 420 mls/hr IVPB Q12H [facility] Last Admin: 02/27/18 20:34 Dose: 420 mls/hr Piperacillin Sod/Tazobactam Sod (Zosyn 2.25 Gm Iv Premix) 2.25 gm in 50 mls @ 100 mls/hr IVPB Q6H [facility] PRN Reason: Protocol Last Admin: 02/28/18 02:38 Dose: 100 mls/hr Sodium Bicarbonate 75 meq/ (Sodium Chloride) 1,000 mls @ 150 mls/hr IV .Q6H40M [facility] Last Admin: 02/28/18 04:30 Dose: Not Given Insulin Detemir (Levemir) 40 unit SC HS [facility] Last Admin: 02/27/18 21:55 Dose: 40 unit Insulin Human Regular (Novolin R) 0 unit SC ACHS [facility] PRN Reason: Protocol Last Admin: 02/28/18 07:59 Dose: Not Given Pantoprazole Sodium (Protonix Inj) 40 mg IVP DAILY [facility] Last Admin: 02/27/18 09:40 Dose: 40 mg Simethicone (Mylicon Chew Tab) 80 mg PO QID [facility] Last Admin: 02/27/18 21:55 Dose: 80 mg - Labs Labs: 02/28/18 06:18 02/28/18 06:18 PT 11.3 SECONDS (9.7-12.2) 02/24/18 05:03 INR 1.0 02/24/18 05:03 APTT 34 SECONDS (21-34) 02/24/18 05:03 - Constitutional Appears: Well, No Acute Distress - Eye Exam Eye Exam: absent: Conjunctival injection - ENT Exam ENT Exam: Mucous Membranes Moist - Respiratory Exam Respiratory Exam: Clear to Ausculation Bilateral, NORMAL BREATHING PATTERN - Cardiovascular Exam Cardiovascular Exam: REGULAR RHYTHM - GI/Abdominal Exam GI & Abdominal Exam: Soft. absent: Distended Additional comments: tender rlq? no rebound - Extremities Exam Extremities Exam: absent: Calf Tenderness - Back Exam Back Exam: absent: CVA tenderness (L), CVA tenderness (R) Assessment and Plan (1) Diabetes Status: Acute (2) Renal failure (ARF), acute on chronic Status: Acute (3) Rhabdomyolysis Status: Acute - Assessment and Plan (Free Text) Plan: case discussed with hospitalist obtain stool difficile change iv to ns supplement k
[2018-02-28] MEDS: Dextrose 5%/0.9% NS 1,000 ML IV SCH ×3 (09:18→22:00)
[2018-02-28] MEDS: Simethicone 80 mg Chewtab PO SCH ×4 (09:23→22:43)
--- NOTE | 2018-02-28 10:47 | CP.PCM.PN ---
<Vish Gaytan S - Last Filed: 02/28/18 13:47> Subjective - Date & Time of Evaluation Date of Evaluation: 02/28/18 Time of Evaluation: 10:44 - Subjective Subjective: Progress Note for Dr. Jiménez's Service Patient seen and examined at bedside today. He continues to have abdominal pain and states that he is having watery diarrhea. He does not have any blood in the stool. He denies fevers and chills. Objective - Vital Signs/Intake and Output Vital Signs (last 24 hours): Temp Pulse Resp BP Pulse Ox 98.2 F 79 17 150/84 97 02/28/18 04:00 02/28/18 06:00 02/28/18 06:00 02/28/18 05:52 02/28/18 06:00 Intake and Output: 02/28/18 02/28/18 06:59 18:59 Intake Total 300 450 Output Total 703 Balance 300 -253 - Medications Medications: Current Medications Levetiracetam 500 mg/ Sodium (Chloride) 105 mls @ 420 mls/hr IVPB Q12H [facility] Last Admin: 02/28/18 08:30 Dose: 420 mls/hr Piperacillin Sod/Tazobactam Sod (Zosyn 2.25 Gm Iv Premix) 2.25 gm in 50 mls @ 100 mls/hr IVPB Q6H [facility] PRN Reason: Protocol Last Admin: 02/28/18 09:00 Dose: 100 mls/hr Dextrose/Sodium Chloride (Dextrose 5%/0.9% Ns 1000 Ml) 1,000 mls @ 150 mls/hr IV .Q6H40M [facility] Last Admin: 02/28/18 09:18 Dose: 150 mls/hr Potassium Chloride (Potassium Chloride 20 Meq/100 Ml) 20 meq in 100 mls @ 50 mls/hr IVPB ONCE ONE Stop: 02/28/18 10:44 Last Admin: 02/28/18 09:13 Dose: 50 mls/hr Insulin Detemir (Levemir) 40 unit SC HS [facility] Last Admin: 02/27/18 21:55 Dose: 40 unit Insulin Human Regular (Novolin R) 0 unit SC ACHS [facility] PRN Reason: Protocol Last Admin: 02/28/18 07:59 Dose: Not Given Pantoprazole Sodium (Protonix Inj) 40 mg IVP DAILY [facility] Last Admin: 02/28/18 09:13 Dose: 40 mg Simethicone (Mylicon Chew Tab) 80 mg PO QID [facility] Last Admin: 02/28/18 09:23 Dose: 80 mg - Labs Labs: 02/28/18 06:18 02/28/18 06:18 PT 11.3 SECONDS (9.7-12.2) 02/24/18 05:03 INR 1.0 02/24/18 05:03 APTT 34 SECONDS (21-34) 02/24/18 05:03 - Constitutional Appears: No Acute Distress - Head Exam Head Exam: ATRAUMATIC, NORMOCEPHALIC - Eye Exam Eye Exam: EOMI, Normal appearance - ENT Exam ENT Exam: Mucous Membranes Moist - Respiratory Exam Respiratory Exam: Clear to Ausculation Bilateral, NORMAL BREATHING PATTERN - Cardiovascular Exam Cardiovascular Exam: REGULAR RHYTHM, +S1, +S2 - GI/Abdominal Exam GI & Abdominal Exam: Soft. 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 Rabago/Isiah (neuro) consulted, recs appreciated * repeat CT scan of the head without contrast to evaluate or follow up intracranial hemorrhage. * CT Head w/o contrast 02/27/18 and MRI Brain 02/27/18- imaging detailed below * PT eval and treat * PT/PTT/INR: 11.3/34/1.0 * Lipid Panel: Trig 272, Chol 183, LDL 91, HDL 30 * TSH/Free T4: 0.64/1.44 Imaging: * 02/24 02:55 CT head w/o contrast: Multifocal hyperdense foci are scattered throughout the cerebrum as well as right side of the yogesh. The majority is foci are small with the largest measuring 1.9 cm at the left frontal lobe which trace edema questioned related. Consider hemorrhagic metastases though multifocal hemorrhage is a possibility, particularly if there is prior history of trauma. Postinfectious calcification as well as metastatic lymphoma are included in the differential diagnosis. Follow-up cross-sectional brain imaging is advised. * 02/24 05:25 CT head w/o contrast: Stable multifocal hyperdensities are again seen scattered in the bilateral cerebral hemispheres in the right side of the yogesh without significant interval change. Trace edema is again seen related to the left frontal dominant lesion. Continued clinical and CT vigilance is advised. Follow-up MRI with and without contrast is also advised when feasible. * 02/24 CXR: Endotracheal tube extending into the mid thoracic trachea. Left costophrenic angle is partially excluded from this study. Mild venous congestion. Mild patchy increased markings in the left lung which may be related to technique. Upper lobe granulomatous changes. * 02/24 Head/Neck CTA: Unremarkable CT Angiography of the Brain and Neck. * 02/24: CT chest/abdomen/pelvis with IV contrast: 1. Limited nonspecific ground- glass opacity seen in the pre for the bilateral apices with associated limited reticular changes but no definite alveolitis. Is difficult to differentiate between limited fibrosis or tiny subpleural nodules at the right middle lobe laterally but there is no dominant mass appreciated throughout the bilateral lung david including central airways. No significant lymphadenopathy in the chest. 2. Limited bilateral basilar dependent atelectasis. 3. A large cystic lesion measuring 12.6 cm greatest dimension occupies the midbody through tail the pancreas and is suspicious for a potential pancreatic neoplasm though a pseudocyst and other etiologies are possible as discussed above. Further clinical correlation is advised. 4. Hepatic steatosis. 5. No significant chest, abdomen or pelvis lymphadenopathy. 6. Enlarged prostate gland. Tena catheter decompresses the urinary bladder somewhat, limiting evaluation of the urinary bladder wall. * 02/25 CXR: No acute cardiopulmonary process seen. * 02/27 CT head: Stable multi focal hemorrhages/hemorrhagic masses. * 02/27 Brain MRI: Re- demonstrated is a small hemorrhagic focus in the left superior frontal lobe which appears to be surrounded by some mild edema. There are multiple additional varying sized predominately rounded foci of very dark T2 signal scattered about both cerebral hemispheres, cerebellum and brainstem consistent with hemosiderin deposits. 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 Multiple small hemorrhagic metastases less likely due to the lack of significant mass-effect or surrounding edema though not completely excluded. Recommend follow-up studies study to exclude primary carcinoma (with propensity to present with hemorrhagic metastases such as renal cell, melanoma or thyroid carcinoma). Acute Renal Failure with Metabolic Acidosis * Likely contrast induced nephropathy * Dr. Lund (nephro) consulted, help appreciated * roby non oliguric multifactorial - contrast and rhabdomyolysis * pt likely has underlying ckd based on ua w/ proteinuria and renal US * recommend aggressive ivf, maintain 150 cc/hr, repeat cpk daily * ABG 02/25: pH 7.28, HCO3 17.3, pCO2 34 * BUN/Cr: 43/2.3 * UA (02/24 & ): +Protein, glucose, and blood, many uric acid crystals, and hyaline casts * CK from 68k to 44k today, 02/28/18 * continue to trend CK Imaging * 02/25 Renal US: Diffusely increased renal cortical echogenicity bilaterally consistent with medical renal disease. Complex mass medial to left kidney consistent with complex cystic mass identified on CT examination in the pancreatic tail region. Meds: * D5NS @ 150ml/hr Rhabdomyolysis * Total CK: 14195 * f/u repeat- 44k 02/28/18; continue to trend * Continue with aggressive hydration Leukocytosis * Dr. Webster (ID) consulted, help appreciated * Afebrile since 02/24 (101.6) * f/u HIV * 02/24 Sputum culture positive for S. aureus- MSSA * Currently on IV abx- continue * 02/24 Blood cultures negative x2 for 48H * 02/24 Nares negative for MRSA * 02/24 Urine culture negative * 02/24 lactate 9.6, then down to 1.3 * 02/24 Procal 10.61 Imaging: * 02/25 echo: There is borderline to mild concentric left ventricular hypertrophy. There is no aortic valvular vegetation. The mitral valve is normal in structure. The tricuspid valve is normal in structure. TECHNICALLY DIFFICULT STUDY. ROBER IS ADVISED IF VEGITATIONS ARE SUSPECTED. Meds: * Zosyn 2.25 g IV Q6 Abdominal pain * Possibly secondary to pancreatic cystic mass vs incomplete SBO * Dr. Galeas (GI) consulted, help appreciated * Obtain stool C. Diff * IVF * Dr. Carrero (IR) consulted, help appreciated * Dr. Echeverria (general surgery) consulted, help appreciated * no indication for surgical intervention, patient likely has gastroenteritis, is still having bowel movements and no nausea or vomiting * continue with diet and encourage PO liquid intake * If patient has nausea and vomiting and worsening exam, will consider NGT insertion * Encourage ambulation * CA 19-9: 4.8 Imaging: * 02/24: CT chest/abdomen/pelvis with IV contrast: 1. Limited nonspecific ground- glass opacity seen in the pre for the bilateral apices with associated limited reticular changes but no definite alveolitis. Is difficult to differentiate between limited fibrosis or tiny subpleural nodules at the right middle lobe laterally but there is no dominant mass appreciated throughout the bilateral lung david including central airways. No significant lymphadenopathy in the chest. 2. Limited bilateral basilar dependent atelectasis. 3. A large cystic lesion measuring 12.6 cm greatest dimension occupies the midbody through tail the pancreas and is suspicious for a potential pancreatic neoplasm though a pseudocyst and other etiologies are possible as discussed above. Further clinical correlation is advised. 4. Hepatic steatosis. 5. No significant chest, abdomen or pelvis lymphadenopathy. 6. Enlarged prostate gland. Tena catheter decompresses the urinary bladder somewhat, limiting evaluation of the urinary bladder wall. * 02/26 abdominal XR: Early/incomplete small bowel obstruction. Meds/Fluids: * Simethicone 80mg PO QID * Protonix 40 mg IV daily * Mineral oil enema once 02/27 Transaminitis * AST/ALT: 592/287 * Continue to monitor History of seizures * Dr. Rabago (neuro) consulted, help appreciated (being seen by Dr. Joyce as well) Meds: * Keppra 500 mg IV Q12H History of DM * Monitor with accuchecks * HbA1c 9.3 Meds: * Levemir 40 units SC HS * Insulin sliding scale Marijuana use disorder * UDS +Cannabinoids * Alcohol level <10 * Counselled on cessation Prophylaxis * Protonix 40 mg IV * DVT prophylaxis contraindicated due to brain hemorrhages Case Discussed with Dr. Jessy Gaytan D.O. <Dov Jiménez - Last Filed: 02/28/18 15:30> Objective - Vital Signs/Intake and Output Vital Signs (last 24 hours): Temp Pulse Resp BP Pulse Ox 98.1 F 88 16 149/85 99 02/28/18 08:00 02/28/18 10:00 02/28/18 10:00 02/28/18 09:52 02/28/18 08:02 Intake and Output: 02/28/18 02/28/18 06:59 18:59 Intake Total 300 820 Output Total 1503 Balance 300 -683 - Medications Medications: Current Medications Levetiracetam 500 mg/ Sodium (Chloride) 105 mls @ 420 mls/hr IVPB Q12H [facility] Last Admin: 02/28/18 08:30 Dose: 420 mls/hr Piperacillin Sod/Tazobactam Sod (Zosyn 2.25 Gm Iv Premix) 2.25 gm in 50 mls @ 100 mls/hr IVPB Q6H [facility] PRN Reason: Protocol Last Admin: 02/28/18 09:00 Dose: 100 mls/hr Dextrose/Sodium Chloride (Dextrose 5%/0.9% Ns 1000 Ml) 1,000 mls @ 150 mls/hr IV .Q6H40M [facility] Last Admin: 02/28/18 09:18 Dose: 150 mls/hr Insulin Detemir (Levemir) 40 unit SC HS [facility] Last Admin: 02/27/18 21:55 Dose: 40 unit Insulin Human Regular (Novolin R) 0 unit SC ACHS [facility] PRN Reason: Protocol Last Admin: 02/28/18 11:30 Dose: Not Given Pantoprazole Sodium (Protonix Inj) 40 mg IVP DAILY [facility] Last Admin: 02/28/18 09:13 Dose: 40 mg Simethicone (Mylicon Chew Tab) 80 mg PO QID [facility] Last Admin: 02/28/18 09:23 Dose: 80 mg - Labs Labs: 02/28/18 06:18 02/28/18 06:18 PT 11.3 SECONDS (9.7-12.2) 02/24/18 05:03 INR 1.0 02/24/18 05:03 APTT 34 SECONDS (21-34) 02/24/18 05:03 Attending/Attestation - Attestation I have personally seen and examined this patient.: Yes I have fully participated in the care of the patient.: Yes I have reviewed all pertinent clinical information, including history, physical exam and plan: Yes Notes (Text): 02/28/18 15:18 Medical attending: Patient was seen and examined by me with the medical device engineer earlier in the morning. Reviewed the above note and agree with the note by the resident This is my first time meeting the patient and so I had to review the previous documentations as well as the previous imaging and events. The patient was brought in intubated on 02/25 and then extubated on 02/26. As reported above he underwent MRI which suggest a multiple cavernous malformations and probably represent Familial Multiple Cavernous Malformation Syndrome. Currently he is awake, alert, and following all commands when we examined him. He remains on IV Keppra at this time. For the previous several days he was reporting abdominal pain as well as loose watery stool and surgery was asked to evaluate. Currently the feeling is that the pain does not require surgical intervention at this moment but if needs to then NGT. Also he had C diff studies - these were negative as well. With reguards to his rhabodymylysis - the patient had a very elevated CPK - has been on IVF with bicarb. So far the CPKs have decreased and so has the creatine as well. Probably the muscle damage was from the siezures he was having while at home before he was intubated. thank you Dov Jiménez
[2018-02-28] MEDS: Insulin Detemir 100 units/ml Vial (Levemir) SC SCH (22:34)
[2018-03-01] MEDS: Piperacill/Tazo 2.25gm in Dex 2.25 GM/50 ML BAG IVPB SCH ×4 (03:00→21:01)
[2018-03-01] MEDS: Dextrose 5%/0.9% NS 1,000 ML IV SCH ×3 (03:55→18:00)
[2018-03-01 07:20] LABS: BASO % 0.4 % (0.0-2.0); EOS # 0.4 K/uL (0.0-0.7); EOS % 4.2 % (0.0-4.0); HEMOGLOBIN 11.3 g/dL (12.0-18.0); LYMPH # 1.6 K/uL (1.0-4.3); LYMPH % 16.6 % (20.0-40.0); MEAN CELL VOLUME 73.9 fL (80.0-94.0); MEAN CORPUSCULAR HEMOGLOBIN 24.2 pg (27.0-31.0); MEAN CORPUSCULAR HGB CONC 32.8 g/dL (33.0-37.0); MEAN PLATELET VOLUME 8.1 fL (7.2-11.7); MONO # 0.5 K/uL (0.0-0.8); MONO % 5.1 % (0.0-10.0); NEUT # 7.2 K/uL (1.8-7.0); NEUT % 73.7 % (50.0-75.0); NRBC % 0.1 % (0.0-2.0); RBC 4.65 Mil/uL (4.40-5.90); RED CELL DISTRIBUTION WIDTH 15.7 % (11.5-14.5); WHITE BLOOD COUNT 9.8 K/uL (4.8-10.8)
[2018-03-01 07:43] LABS: ALB/GLOB RATIO 0.9 (1.0-2.1); ALBUMIN 2.8 g/dL (3.5-5.0); ALT/SGPT 315 U/L (21-72); AST/SGOT 493 U/L (17-59); BLOOD UREA NITROGEN 16 mg/dL (9-20); CALCIUM 8.2 mg/dl (8.6-10.4); GFR AFRICAN-AMERICAN > 60; GFR NON-AFRICAN AMERICAN 57
[2018-03-01] MEDS: (Novolin R) Insulin Human Regular 100 units/ml vial SC SCH ×4 (08:28→21:35)
[2018-03-01] MEDS: levETIRAcetam 500 MG in Sodium Chloride 0.9% 100 ML IVPB SCH ×2 (08:31→21:00)
--- NOTE | 2018-03-01 08:47 | CP.PCM.PN ---
Subjective - Date & Time of Evaluation Date of Evaluation: 03/01/18 Time of Evaluation: 08:30 - Subjective Subjective: Patient was seen and examined by me He still has some watery stool - however less than before. Still on liquid diet at this moment He reports feeling much better than previous. On exam he was readily able to stand up and walk in the room He has ongoing muscle aches and pain that he reports that are less than before. His CPK has been decreasing from 68K down to 16K. He remains on the IVF I had a supervisor coin machine explain to him what has been happening so far as he was not clear why he came in. As mentioned previously he had a prolonged seizure in the field and required intubation. CT intially was concerning for multiple areas of his brain that had these possible bleeding lesions, the largest of which were 1.9 cm. Follow up with MRI is reporting these areas represent multiple cavernous malformations and probably represent Familial Multiple Cavernous Malformation Syndrome. So at this time continue with medication for seizures Objective - Vital Signs/Intake and Output Vital Signs (last 24 hours): Temp Pulse Resp BP Pulse Ox 98.1 F 90 20 162/86 H 97 03/01/18 08:39 03/01/18 08:39 03/01/18 08:39 03/01/18 08:39 03/01/18 08:39 - Medications Medications: Current Medications Levetiracetam 500 mg/ Sodium (Chloride) 105 mls @ 420 mls/hr IVPB Q12H [facility] Last Admin: 03/01/18 08:31 Dose: 420 mls/hr Piperacillin Sod/Tazobactam Sod (Zosyn 2.25 Gm Iv Premix) 2.25 gm in 50 mls @ 100 mls/hr IVPB Q6H [facility] PRN Reason: Protocol Last Admin: 03/01/18 03:00 Dose: 100 mls/hr Dextrose/Sodium Chloride (Dextrose 5%/0.9% Ns 1000 Ml) 1,000 mls @ 150 mls/hr IV .Q6H40M [facility] Last Admin: 03/01/18 03:55 Dose: 150 mls/hr Insulin Detemir (Levemir) 40 unit SC HS [facility] Last Admin: 02/28/18 22:34 Dose: Not Given Insulin Human Regular (Novolin R) 0 unit SC ACHS [facility] PRN Reason: Protocol Last Admin: 03/01/18 08:28 Dose: 3 unit Pantoprazole Sodium (Protonix Inj) 40 mg IVP DAILY [facility] Last Admin: 02/28/18 09:13 Dose: 40 mg Simethicone (Mylicon Chew Tab) 80 mg PO QID [facility] Last Admin: 02/28/18 22:43 Dose: 80 mg - Labs Labs: 03/01/18 07:11 03/01/18 07:11 PT 11.3 SECONDS (9.7-12.2) 02/24/18 05:03 INR 1.0 02/24/18 05:03 APTT 34 SECONDS (21-34) 02/24/18 05:03 Assessment and Plan - Assessment and Plan (Free Text) Assessment: 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 He has not had a siezure while here and on IV keppra. Still reporting muscle aches - probably from the very elevated CPK which has been improving. * Dr. Rabago/Isiah (neuro) consulted, recs appreciated * repeat CT scan of the head without contrast to evaluate or follow up intracranial hemorrhage. * CT Head w/o contrast 02/27/18 and MRI Brain 02/27/18- imaging detailed below * PT eval and treat * PT/PTT/INR: 11.3/34/1.0 * Lipid Panel: Trig 272, Chol 183, LDL 91, HDL 30 * TSH/Free T4: 0.64/1.44 Imaging: * 02/24 02:55 CT head w/o contrast: Multifocal hyperdense foci are scattered throughout the cerebrum as well as right side of the yogesh. The majority is foci are small with the largest measuring 1.9 cm at the left frontal lobe which trace edema questioned related. Consider hemorrhagic metastases though multifocal hemorrhage is a possibility, particularly if there is prior history of trauma. Postinfectious calcification as well as metastatic lymphoma are included in the differential diagnosis. Follow-up cross-sectional brain imaging is advised. * 02/24 05:25 CT head w/o contrast: Stable multifocal hyperdensities are again seen scattered in the bilateral cerebral hemispheres in the right side of the yogesh without significant interval change. Trace edema is again seen related to the left frontal dominant lesion. Continued clinical and CT vigilance is advised. Follow-up MRI with and without contrast is also advised when feasible. * 02/24 CXR: Endotracheal tube extending into the mid thoracic trachea. Left costophrenic angle is partially excluded from this study. Mild venous congestion. Mild patchy increased markings in the left lung which may be related to technique. Upper lobe granulomatous changes. * 02/24 Head/Neck CTA: Unremarkable CT Angiography of the Brain and Neck. * 02/24: CT chest/abdomen/pelvis with IV contrast: 1. Limited nonspecific ground- glass opacity seen in the pre for the bilateral apices with associated limited reticular changes but no definite alveolitis. Is difficult to differentiate between limited fibrosis or tiny subpleural nodules at the right middle lobe laterally but there is no dominant mass appreciated throughout the bilateral lung david including central airways. No significant lymphadenopathy in the chest. 2. Limited bilateral basilar dependent atelectasis. 3. A large cystic lesion measuring 12.6 cm greatest dimension occupies the midbody through tail the pancreas and is suspicious for a potential pancreatic neoplasm though a pseudocyst and other etiologies are possible as discussed above. Further clinical correlation is advised. 4. Hepatic steatosis. 5. No significant chest, abdomen or pelvis lymphadenopathy. 6. Enlarged prostate gland. Tena catheter decompresses the urinary bladder somewhat, limiting evaluation of the urinary bladder wall. * 02/25 CXR: No acute cardiopulmonary process seen. * 02/27 CT head: Stable multi focal hemorrhages/hemorrhagic masses. * 02/27 Brain MRI: Re- demonstrated is a small hemorrhagic focus in the left superior frontal lobe which appears to be surrounded by some mild edema. There are multiple additional varying sized predominately rounded foci of very dark T2 signal scattered about both cerebral hemispheres, cerebellum and brainstem consistent with hemosiderin deposits. 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 Multiple small hemorrhagic metastases less likely due to the lack of significant mass-effect or surrounding edema though not completely excluded. Recommend follow-up studies study to exclude primary carcinoma (with propensity to present with hemorrhagic metastases such as renal cell, melanoma or thyroid carcinoma). Acute Renal Failure with Metabolic Acidosis 03/01: Doing well, creatine down to 1.3. At this moment on D5NS@150 cc / hr Previously on IVF with bicarb in it. Less body aches and pain. CPK decreasing * Likely contrast induced nephropathy * Dr. Lund (nephro) consulted, help appreciated * roby non oliguric multifactorial - contrast and rhabdomyolysis * pt likely has underlying ckd based on ua w/ proteinuria and renal US * recommend aggressive ivf, maintain 150 cc/hr, repeat cpk daily * ABG 02/25: pH 7.28, HCO3 17.3, pCO2 34 * BUN/Cr: 43/2.3 * UA (02/24 & ): +Protein, glucose, and blood, many uric acid crystals, and hyaline casts * CK from 68k to 44k to 15.9 K on 03/01 Imaging * 02/25 Renal US: Diffusely increased renal cortical echogenicity bilaterally consistent with medical renal disease. Complex mass medial to left kidney consistent with complex cystic mass identified on CT examination in the pancreatic tail region. Rhabdomyolysis 03/01: Again the CPK is decreasing to 15.9K, and creatinine now down to 1.3 * Continue with aggressive hydration Leukocytosis * Dr. Webster (ID) consulted, help appreciated * Afebrile since 02/24 (101.6) * f/u HIV * 02/24 Sputum culture positive for S. aureus- MSSA * Currently on IV abx- continue * 02/24 Blood cultures negative x2 for 48H * 02/24 Nares negative for MRSA * 02/24 Urine culture negative * 02/24 lactate 9.6, then down to 1.3 * 02/24 Procal 10.61 Imaging: * 02/25 echo: There is borderline to mild concentric left ventricular hypertrophy. There is no aortic valvular vegetation. The mitral valve is normal in structure. The tricuspid valve is normal in structure. TECHNICALLY DIFFICULT STUDY. ROBER IS ADVISED IF VEGITATIONS ARE SUSPECTED. Meds: * Zosyn 2.25 g IV Q6 Abdominal pain 03/01: On a liquid diet at this moment. Still has some watery diarrea however much less. Abdominal pain decreased today * Possibly secondary to pancreatic cystic mass vs incomplete SBO * Dr. Galeas (GI) consulted, help appreciated * Obtain stool C. Diff * IVF * Dr. Carrero (IR) consulted, help appreciated * Dr. Echeverria (general surgery) consulted, help appreciated * no indication for surgical intervention, patient likely has gastroenteritis, is still having bowel movements and no nausea or vomiting * continue with diet and encourage PO liquid intake * If patient has nausea and vomiting and worsening exam, will consider NGT insertion * Encourage ambulation * CA 19-9: 4.8 Imaging: * 02/24: CT chest/abdomen/pelvis with IV contrast: 1. Limited nonspecific ground- glass opacity seen in the pre for the bilateral apices with associated limited reticular changes but no definite alveolitis. Is difficult to differentiate between limited fibrosis or tiny subpleural nodules at the right middle lobe laterally but there is no dominant mass appreciated throughout the bilateral lung david including central airways. No significant lymphadenopathy in the chest. 2. Limited bilateral basilar dependent atelectasis. 3. A large cystic lesion measuring 12.6 cm greatest dimension occupies the midbody through tail the pancreas and is suspicious for a potential pancreatic neoplasm though a pseudocyst and other etiologies are possible as discussed above. Further clinical correlation is advised. 4. Hepatic steatosis. 5. No significant chest, abdomen or pelvis lymphadenopathy. 6. Enlarged prostate gland. Tena catheter decompresses the urinary bladder somewhat, limiting evaluation of the urinary bladder wall. * 02/26 abdominal XR: Early/incomplete small bowel obstruction. Meds/Fluids: * Simethicone 80mg PO QID * Protonix 40 mg IV daily * Mineral oil enema once 02/27 Transaminitis * AST/ALT: 592/287 * Continue to monitor History of seizures * Dr. Rabago (neuro) consulted, help appreciated (being seen by Dr. Joyce as well) Meds: * Keppra 500 mg IV Q12H History of DM * Monitor with accuchecks * HbA1c 9.3 Meds: * Levemir 40 units SC HS * Insulin sliding scale Marijuana use disorder * UDS +Cannabinoids * Alcohol level <10 * Counselled on cessation Prophylaxis * Protonix 40 mg IV * DVT prophylaxis contraindicated due to brain hemorrhages
[2018-03-01] MEDS: Simethicone 80 mg Chewtab PO SCH ×4 (09:06→21:43)
--- NOTE | 2018-03-01 11:17 | CP.PCM.PN ---
Subjective - Date & Time of Evaluation Date of Evaluation: 03/01/18 Time of Evaluation: 11:19 - Subjective Subjective: Mr. aquino was seen and examined at the bedside. He remains alert, oriented in all spheres. He denies any headache, dizziness, lightheadedness. He claims of experiencing severe abdominal pain last night which he received medication. He is able to follow simple commands. MRI of the brain showed re-demonstration of a small hemorrhagic focus in the left superior frontal lobe which appears to be surrounded by some mild edema. There are multiple additional varying sized predominately rounded foci of very dark T2 signal scattered about both cerebral hemispheress. Cerebellum and brainstem consistent with hemosiderin deposits. Multiple small hemorrhagic metastatis less likely due to the lack of significant mass-effect or surrounding edema through not completely excluded. EEG showed abnormality. There was no untoward events overnight. Objective - Vital Signs/Intake and Output Vital Signs (last 24 hours): Temp Pulse Resp BP Pulse Ox 98.1 F 90 20 162/86 H 97 03/01/18 08:39 03/01/18 08:39 03/01/18 08:39 03/01/18 08:39 03/01/18 08:39 - Medications Medications: Current Medications Levetiracetam 500 mg/ Sodium (Chloride) 105 mls @ 420 mls/hr IVPB Q12H [facility] Last Admin: 03/01/18 08:31 Dose: 420 mls/hr Piperacillin Sod/Tazobactam Sod (Zosyn 2.25 Gm Iv Premix) 2.25 gm in 50 mls @ 100 mls/hr IVPB Q6H [facility] PRN Reason: Protocol Last Admin: 03/01/18 08:49 Dose: 100 mls/hr Dextrose/Sodium Chloride (Dextrose 5%/0.9% Ns 1000 Ml) 1,000 mls @ 150 mls/hr IV .Q6H40M [facility] Last Admin: 03/01/18 03:55 Dose: 150 mls/hr Insulin Detemir (Levemir) 40 unit SC HS [facility] Last Admin: 02/28/18 22:34 Dose: Not Given Insulin Human Regular (Novolin R) 0 unit SC ACHS [facility] PRN Reason: Protocol Last Admin: 03/01/18 08:28 Dose: 3 unit Pantoprazole Sodium (Protonix Inj) 40 mg IVP DAILY [facility] Last Admin: 03/01/18 09:06 Dose: 40 mg Simethicone (Mylicon Chew Tab) 80 mg PO QID [facility] Last Admin: 03/01/18 09:06 Dose: 80 mg - Labs Labs: 03/01/18 07:11 03/01/18 07:11 PT 11.3 SECONDS (9.7-12.2) 02/24/18 05:03 INR 1.0 02/24/18 05:03 APTT 34 SECONDS (21-34) 02/24/18 05:03 - Constitutional Appears: No Acute Distress Assessment and Plan (1) Intracranial bleed Assessment & Plan: Case discussed with Dr. Joyce, continue all current medical regimen. Recommend neurooncology to evaluate and treat any brain lesions. Status: Acute
[2018-03-01] MEDS: Insulin Detemir 100 units/ml Vial (Levemir) SC SCH (21:43)
[2018-03-02] MEDS: Dextrose 5%/0.9% NS 1,000 ML IV SCH ×3 (00:45→08:03)
[2018-03-02] MEDS: Piperacill/Tazo 2.25gm in Dex 2.25 GM/50 ML BAG IVPB SCH ×3 (02:43→13:43)
[2018-03-02 07:30] LABS: BASO % 0.5 % (0.0-2.0); EOS # 0.6 K/uL (0.0-0.7); EOS % 6.6 % (0.0-4.0); HEMOGLOBIN 10.8 g/dL (12.0-18.0); LYMPH # 1.9 K/uL (1.0-4.3); LYMPH % 20.4 % (20.0-40.0); MEAN CORPUSCULAR HEMOGLOBIN 24.5 pg (27.0-31.0); MEAN CORPUSCULAR HGB CONC 33.5 g/dL (33.0-37.0); MEAN PLATELET VOLUME 7.7 fL (7.2-11.7); MONO # 0.6 K/uL (0.0-0.8); MONO % 6.3 % (0.0-10.0); NEUT # 6.2 K/uL (1.8-7.0); NEUT % 66.2 % (50.0-75.0); RBC 4.41 Mil/uL (4.40-5.90); RED CELL DISTRIBUTION WIDTH 15.2 % (11.5-14.5); WHITE BLOOD COUNT 9.4 K/uL (4.8-10.8)
--- NOTE | 2018-03-02 07:47 | CP.PCM.PN ---
Subjective - Date & Time of Evaluation Date of Evaluation: 03/02/18 Time of Evaluation: 07:47 - Subjective Subjective: Mr. aquino was seen and examined at the bedside. He remains alert, oriented in all spheres. He denies any headache, dizziness, lightheadedness. He claims of experiencing severe abdominal pain last night which he received medication. He is able to follow simple commands. According to patient he knows he has panreatitis and would like to have discussion with primary team regarding his diagnosis and prognosis. There was no untoward events overnight. Objective - Vital Signs/Intake and Output Vital Signs (last 24 hours): Temp Pulse Resp BP Pulse Ox 98 F 83 20 155/77 H 99 03/02/18 04:15 03/02/18 04:15 03/02/18 04:15 03/02/18 04:15 03/02/18 04:15 - Medications Medications: Current Medications Levetiracetam 500 mg/ Sodium (Chloride) 105 mls @ 420 mls/hr IVPB Q12H [facility] Last Admin: 03/01/18 21:00 Dose: 420 mls/hr Piperacillin Sod/Tazobactam Sod (Zosyn 2.25 Gm Iv Premix) 2.25 gm in 50 mls @ 100 mls/hr IVPB Q6H [facility] PRN Reason: Protocol Last Admin: 03/02/18 02:43 Dose: 100 mls/hr Dextrose/Sodium Chloride (Dextrose 5%/0.9% Ns 1000 Ml) 1,000 mls @ 150 mls/hr IV .Q6H40M [facility] Last Admin: 03/02/18 02:45 Dose: 150 mls/hr Insulin Detemir (Levemir) 40 unit SC HS [facility] Last Admin: 03/01/18 21:43 Dose: 40 unit Insulin Human Regular (Novolin R) 0 unit SC ACHS [facility] PRN Reason: Protocol Last Admin: 03/01/18 21:35 Dose: Not Given Pantoprazole Sodium (Protonix Inj) 40 mg IVP DAILY [facility] Last Admin: 03/01/18 09:06 Dose: 40 mg Simethicone (Mylicon Chew Tab) 80 mg PO QID [facility] Last Admin: 03/01/18 21:43 Dose: 80 mg - Labs Labs: 03/01/18 07:11 03/01/18 07:11 PT 11.3 SECONDS (9.7-12.2) 02/24/18 05:03 INR 1.0 02/24/18 05:03 APTT 34 SECONDS (21-34) 02/24/18 05:03 - Constitutional Appears: No Acute Distress - Head Exam Head Exam: NORMAL INSPECTION - Neurological Exam Neurological Exam: Alert, Awake Neuro motor strength exam: Left Upper Extremity: 4, Right Upper Extremity: 4, Left Lower Extremity: 4, Right Lower Extremity: 4 Additional comments: Neurological uncahnged from previous examination. Assessment and Plan (1) Intracranial bleed Assessment & Plan: Case discussed with Dr. Rabago, continue all current medical regimen. Recommend to treat any underlying infection or electrolyte imbalances. Status: Acute
[2018-03-02] MEDS: (Novolin R) Insulin Human Regular 100 units/ml vial SC SCH ×4 (08:04→22:05)
[2018-03-02] MEDS: levETIRAcetam 500 MG in Sodium Chloride 0.9% 100 ML IVPB SCH (08:14)
[2018-03-02 08:15] LABS: ALB/GLOB RATIO 0.8 (1.0-2.1); ALBUMIN 2.7 g/dL (3.5-5.0); ALT/SGPT 259 U/L (21-72); AST/SGOT 246 U/L (17-59); BLOOD UREA NITROGEN 11 mg/dL (9-20); CALCIUM 8.3 mg/dl (8.6-10.4); GFR AFRICAN-AMERICAN > 60; GFR NON-AFRICAN AMERICAN > 60
[2018-03-02] MEDS ORDERED: Potassium Chloride 20 mEq ER Tab PO ONE ×2 (09:07→11:00)
[2018-03-02] MEDS: Simethicone 80 mg Chewtab PO SCH ×4 (09:25→21:39)
--- NOTE | 2018-03-02 09:31 | CP.PCM.PN ---
<Rupal Tovar - Last Filed: 03/02/18 12:56> Subjective - Date & Time of Evaluation Date of Evaluation: 03/02/18 Time of Evaluation: 09:27 - Subjective Subjective: Patient seen and examined at bedside. Patient was seen walking to and from the bathroom this morning without difficulty. He says he is feeling well, although he had 3 episodes of watery diarrhea overnight. Patient is asking for solid food saying he thinks he is having diarrhea because he has only had liquids for the past 3 days. Patient denies fever, chills, chest pain, SOB, palpitations, abdominal pain, n/v/c, calf pain, and lower extremity swelling. Objective - Vital Signs/Intake and Output Vital Signs (last 24 hours): Temp Pulse Resp BP Pulse Ox 98.1 F 80 20 153/73 H 98 03/02/18 08:38 03/02/18 08:38 03/02/18 08:38 03/02/18 08:38 03/02/18 08:38 - Medications Medications: Current Medications Levetiracetam 500 mg/ Sodium (Chloride) 105 mls @ 420 mls/hr IVPB Q12H [facility] Last Admin: 03/02/18 08:14 Dose: 420 mls/hr Piperacillin Sod/Tazobactam Sod (Zosyn 2.25 Gm Iv Premix) 2.25 gm in 50 mls @ 100 mls/hr IVPB Q6H [facility] PRN Reason: Protocol Last Admin: 03/02/18 08:15 Dose: 100 mls/hr Dextrose/Sodium Chloride (Dextrose 5%/0.9% Ns 1000 Ml) 1,000 mls @ 150 mls/hr IV .Q6H40M [facility] Last Admin: 03/02/18 08:03 Dose: Not Given Magnesium Sulfate/Dextrose (Magnesium Sulfate 1 Gm/100 Ml D5w) 1 gm in 100 mls @ 100 mls/hr IVPB ONCE ONE Stop: 03/02/18 10:59 Last Admin: 03/02/18 09:24 Dose: 100 mls/hr Insulin Detemir (Levemir) 40 unit SC HS [facility] Last Admin: 03/01/18 21:43 Dose: 40 unit Insulin Human Regular (Novolin R) 0 unit SC ACHS [facility] PRN Reason: Protocol Last Admin: 03/02/18 08:04 Dose: Not Given Pantoprazole Sodium (Protonix Inj) 40 mg IVP DAILY [facility] Last Admin: 03/02/18 09:26 Dose: 40 mg Simethicone (Mylicon Chew Tab) 80 mg PO QID [facility] Last Admin: 03/02/18 09:25 Dose: 80 mg - Labs Labs: 03/02/18 07:17 03/02/18 07:17 PT 11.3 SECONDS (9.7-12.2) 02/24/18 05:03 INR 1.0 02/24/18 05:03 APTT 34 SECONDS (21-34) 02/24/18 05:03 - Constitutional Appears: Non-toxic, No Acute Distress - Head Exam Head Exam: ATRAUMATIC, NORMAL INSPECTION, NORMOCEPHALIC - Eye Exam Eye Exam: EOMI, Normal appearance, PERRL - ENT Exam ENT Exam: Mucous Membranes Moist - Respiratory Exam Respiratory Exam: Clear to Ausculation Bilateral, NORMAL BREATHING PATTERN. absent: Accessory Muscle Use, Rales, Rhonchi, Wheezes, Respiratory Distress - Cardiovascular Exam Cardiovascular Exam: RRR, +S1, +S2 - GI/Abdominal Exam GI & Abdominal Exam: Soft, Normal Bowel Sounds. absent: Distended, Tenderness - Extremities Exam Extremities Exam: Normal Inspection. 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 Rabago (neuro) consulted, help appreciated (being seen by Dr. Joyce as well) * PT eval and treat * PT/PTT/INR: 11.3/34/1.0 * Lipid Panel: Trig 272, Chol 183, LDL 91, HDL 30 * TSH/Free T4: 0.64/1.44 Imaging: * 02/24 02:55 CT head w/o contrast: Multifocal hyperdense foci are scattered throughout the cerebrum as well as right side of the yogesh. The majority is foci are small with the largest measuring 1.9 cm at the left frontal lobe which trace edema questioned related. Consider hemorrhagic metastases though multifocal hemorrhage is a possibility, particularly if there is prior history of trauma. Postinfectious calcification as well as metastatic lymphoma are included in the differential diagnosis. Follow-up cross-sectional brain imaging is advised. * 02/24 05:25 CT head w/o contrast: Stable multifocal hyperdensities are again seen scattered in the bilateral cerebral hemispheres in the right side of the yogesh without significant interval change. Trace edema is again seen related to the left frontal dominant lesion. Continued clinical and CT vigilance is advised. Follow-up MRI with and without contrast is also advised when feasible. * 02/24 CXR: Endotracheal tube extending into the mid thoracic trachea. Left costophrenic angle is partially excluded from this study. Mild venous congestion. Mild patchy increased markings in the left lung which may be related to technique. Upper lobe granulomatous changes. * 02/24 Head/Neck CTA: Unremarkable CT Angiography of the Brain and Neck. * 02/24: CT chest/abdomen/pelvis with IV contrast: 1. Limited nonspecific ground- glass opacity seen in the pre for the bilateral apices with associated limited reticular changes but no definite alveolitis. Is difficult to differentiate between limited fibrosis or tiny subpleural nodules at the right middle lobe laterally but there is no dominant mass appreciated throughout the bilateral lung david including central airways. No significant lymphadenopathy in the chest. 2. Limited bilateral basilar dependent atelectasis. 3. A large cystic lesion measuring 12.6 cm greatest dimension occupies the midbody through tail the pancreas and is suspicious for a potential pancreatic neoplasm though a pseudocyst and other etiologies are possible as discussed above. Further clinical correlation is advised. 4. Hepatic steatosis. 5. No significant chest, abdomen or pelvis lymphadenopathy. 6. Enlarged prostate gland. Tena catheter decompresses the urinary bladder somewhat, limiting evaluation of the urinary bladder wall. * 02/25 CXR: No acute cardiopulmonary process seen. * 02/27 CT head: Stable multi focal hemorrhages/hemorrhagic masses. * 02/27 Brain MRI: Re- demonstrated is a small hemorrhagic focus in the left superior frontal lobe which appears to be surrounded by some mild edema. There are multiple additional varying sized predominately rounded foci of very dark T2 signal scattered about both cerebral hemispheres, cerebellum and brainstem consistent with hemosiderin deposits. 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 Multiple small hemorrhagic metastases less likely due to the lack of significant mass-effect or surrounding edema though not completely excluded. Recommend follow-up studies study to exclude primary carcinoma (with propensity to present with hemorrhagic metastases such as renal cell, melanoma or thyroid carcinoma). Acute Renal Failure with Metabolic Acidosis * Dr. Dotson/Kevon (nephro) consulted, help appreciated * GRAY non oliguric multifactorial - contrast and rhabdomyolysis * likely has underlying ckd based on ua w/ proteinuria and renal US * recommend aggressive ivf, maintain 150 cc/hr, repeat cpk daily * ABG 02/25: pH 7.28, HCO3 17.3, pCO2 34 * UA (02/24 & ): +Protein, glucose, and blood, many uric acid crystals, and hyaline casts Imaging * 02/25 Renal US: Diffusely increased renal cortical echogenicity bilaterally consistent with medical renal disease. Complex mass medial to left kidney consistent with complex cystic mass identified on CT examination in the pancreatic tail region. Meds/fluids: * D5NS @150 cc/h Rhabdomyolysis * [place] 11431 now 5267 * Continue with aggressive hydration Leukocytosis * Dr. Webster (ID) consulted, help appreciated * Afebrile since 02/24 (101.6) * HIV negative * 02/24 Sputum culture positive for S. aureus * 02/24 Blood cultures negative x2 for 48H * 02/24 Nares negative for MRSA * 02/24 Urine culture negative * 02/24 lactate 9.6, then down to 1.3 * 02/24 Procal 10.61 Imaging: * 02/25 echo: There is borderline to mild concentric left ventricular hypertrophy. There is no aortic valvular vegetation. The mitral valve is normal in structure. The tricuspid valve is normal in structure. TECHNICALLY DIFFICULT STUDY. ROBER IS ADVISED IF VEGITATIONS ARE SUSPECTED. Meds: * Zosyn 2.25 g IV Q6 Abdominal pain - resolving * Possibly secondary to pancreatic cystic mass vs incomplete SBO * Dr. Marquez (GI) consulted, help appreciated * Dr. Carrero (IR) consulted, help appreciated * Dr. Echeverria (general surgery) consulted, help appreciated * No surgical intervention indicated at this time * CA 19-9: 4.8 * Increased diet today to regular, will monitor to see if tolerating Imaging: * 02/24: CT chest/abdomen/pelvis with IV contrast: 1. Limited nonspecific ground- glass opacity seen in the pre for the bilateral apices with associated limited reticular changes but no definite alveolitis. Is difficult to differentiate between limited fibrosis or tiny subpleural nodules at the right middle lobe laterally but there is no dominant mass appreciated throughout the bilateral lung david including central airways. No significant lymphadenopathy in the chest. 2. Limited bilateral basilar dependent atelectasis. 3. A large cystic lesion measuring 12.6 cm greatest dimension occupies the midbody through tail the pancreas and is suspicious for a potential pancreatic neoplasm though a pseudocyst and other etiologies are possible as discussed above. Further clinical correlation is advised. 4. Hepatic steatosis. 5. No significant chest, abdomen or pelvis lymphadenopathy. 6. Enlarged prostate gland. Tena catheter decompresses the urinary bladder somewhat, limiting evaluation of the urinary bladder wall. * 02/26 abdominal XR: Early/incomplete small bowel obstruction. Meds/Fluids: * Simethicone * Protonix 40 mg IV daily * Mineral oil enema once 02/27 Transaminitis * AST/ALT trending down * Continue to monitor History of seizures * Dr. Rabago (neuro) consulted, help appreciated (being seen by Dr. Joyce as well) Meds: * Keppra 500 mg IV Q12H History of DM * Monitor with accuchecks * HbA1c 9.3 Meds: * Levemir 40 units SC HS * Insulin sliding scale Marijuana use disorder * UDS +Cannabinoids * Alcohol level <10 * Cournseled on cessation Prophylaxis * Protonix 40 mg IV * DVT prophylaxis contraindicated due to brain hemorrhages <Suzie Mason - Last Filed: 03/02/18 17:01> Objective - Vital Signs/Intake and Output Vital Signs (last 24 hours): Temp Pulse Resp BP Pulse Ox 98.1 F 66 20 153/73 H 98 03/02/18 08:38 03/02/18 12:00 03/02/18 08:38 03/02/18 08:38 03/02/18 08:38 - Medications Medications: Current Medications Levetiracetam 500 mg/ Sodium (Chloride) 105 mls @ 420 mls/hr IVPB Q12H [facility] Last Admin: 03/02/18 08:14 Dose: 420 mls/hr Piperacillin Sod/Tazobactam Sod (Zosyn 3.375 Gm Iv Premix) 3.375 gm in 50 mls @ 100 mls/hr IVPB Q6H [facility] PRN Reason: Protocol Insulin Detemir (Levemir) 40 unit SC HS [facility] Last Admin: 03/01/18 21:43 Dose: 40 unit Insulin Human Regular (Novolin R) 0 unit SC ACHS [facility] PRN Reason: Protocol Last Admin: 03/02/18 11:54 Dose: Not Given Pantoprazole Sodium (Protonix Inj) 40 mg IVP DAILY [facility] Last Admin: 03/02/18 09:26 Dose: 40 mg Simethicone (Mylicon Chew Tab) 80 mg PO QID [facility] Last Admin: 03/02/18 13:43 Dose: 80 mg - Labs Labs: 03/02/18 07:17 03/02/18 07:17 PT 11.3 SECONDS (9.7-12.2) 02/24/18 05:03 INR 1.0 02/24/18 05:03 APTT 34 SECONDS (21-34) 02/24/18 05:03 Attending/Attestation - Attestation I have personally seen and examined this patient.: Yes I have fully participated in the care of the patient.: Yes I have reviewed all pertinent clinical information, including history, physical exam and plan: Yes Notes (Text): Patient was seen and examined. Sitting on bed.denies abdominal pain.Hungry,Has diarrhea.denies nausea,no vomiting 1. 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 Diarrhea-Stool CD 3.Acute Renal Failure with Metabolic Acidosis-resolved * 3. [place] [address] now 5267-continue hydration 4. Leukocytosis-resolved s/p high procalcitonin and leukocytosis on zosyn follow Infectious disease has diarrhea-stool cd pending 5.Transaminitis-improving 6.History of seizures Keppra 500 mg IV Q12H 7.History of DM 8.Prophylaxis * Protonix 40 mg IV * DVT prophylaxis contraindicated Discussed with the resident.I agree with the assessment and the plan d/w Dr Sotelo. Agree to switch keppra oral. recommend to follow neuro oncology as an out patient at [facility] 03/02/18 16:59
[2018-03-02] MEDS ORDERED: Magnesium Sulfate 1 gm in D5W 1 GM/100 ML BAG IVPB ONE (10:00)
--- NOTE | 2018-03-02 10:37 | CP.PCM.PN ---
Subjective - Date & Time of Evaluation Date of Evaluation: 03/02/18 Time of Evaluation: 10:34 - Subjective Subjective: seen and examined notes/labs reviewed pt denies any f/c/sob/cp/n/v/d/rash/headache/numbness/weakness/dysuria / hematuria Objective - Vital Signs/Intake and Output Vital Signs (last 24 hours): Temp Pulse Resp BP Pulse Ox 98.1 F 80 20 153/73 H 98 03/02/18 08:38 03/02/18 08:38 03/02/18 08:38 03/02/18 08:38 03/02/18 08:38 - Medications Medications: Current Medications Levetiracetam 500 mg/ Sodium (Chloride) 105 mls @ 420 mls/hr IVPB Q12H [facility] Last Admin: 03/02/18 08:14 Dose: 420 mls/hr Piperacillin Sod/Tazobactam Sod (Zosyn 2.25 Gm Iv Premix) 2.25 gm in 50 mls @ 100 mls/hr IVPB Q6H [facility] PRN Reason: Protocol Last Admin: 03/02/18 08:15 Dose: 100 mls/hr Magnesium Sulfate/Dextrose (Magnesium Sulfate 1 Gm/100 Ml D5w) 1 gm in 100 mls @ 100 mls/hr IVPB ONCE ONE Stop: 03/02/18 10:59 Last Admin: 03/02/18 09:24 Dose: 100 mls/hr Insulin Detemir (Levemir) 40 unit SC HS [facility] Last Admin: 03/01/18 21:43 Dose: 40 unit Insulin Human Regular (Novolin R) 0 unit SC ACHS [facility] PRN Reason: Protocol Last Admin: 03/02/18 08:04 Dose: Not Given Pantoprazole Sodium (Protonix Inj) 40 mg IVP DAILY [facility] Last Admin: 03/02/18 09:26 Dose: 40 mg Potassium Chloride (K-Dur 20 Meq Er Tab) 40 meq PO ONCE ONE Stop: 03/02/18 11:01 Simethicone (Mylicon Chew Tab) 80 mg PO QID [facility] Last Admin: 03/02/18 09:25 Dose: 80 mg - Labs Labs: 03/02/18 07:17 03/02/18 07:17 PT 11.3 SECONDS (9.7-12.2) 02/24/18 05:03 INR 1.0 02/24/18 05:03 APTT 34 SECONDS (21-34) 02/24/18 05:03 - Constitutional Appears: Non-toxic, No Acute Distress - Head Exam Head Exam: NORMAL INSPECTION, NORMOCEPHALIC - Eye Exam Eye Exam: Normal appearance, PERRL - ENT Exam ENT Exam: Mucous Membranes Moist, Normal Exam - Neck Exam Neck Exam: Full ROM, Normal Inspection - Respiratory Exam Respiratory Exam: Clear to Ausculation Bilateral, NORMAL BREATHING PATTERN - Cardiovascular Exam Cardiovascular Exam: REGULAR RHYTHM, RRR - GI/Abdominal Exam GI & Abdominal Exam: Distended, Soft, Normal Bowel Sounds - Extremities Exam Extremities Exam: Full ROM, Normal Inspection - Back Exam Back Exam: NORMAL INSPECTION - Neurological Exam Neurological Exam: Alert, Awake, Oriented x3 - Psychiatric Exam Psychiatric exam: Normal Affect - Skin Skin Exam: Dry, Warm Assessment and Plan (1) Rhabdomyolysis Status: Acute (2) Intracranial bleed Status: Acute (3) Pancreatic mass Status: Acute (4) Renal failure (ARF), acute on chronic Status: Acute (5) Seizure Status: Acute - Assessment and Plan (Free Text) Assessment: resolved roby dc iv fluids encourage po fluids potassium supplement per primary team daily chems will sign off , please reconsult if needed. Thank you.
[2018-03-02] MEDS: Piperacill/Tazo 3.375gm in Dex 3.375 GM/50 ML BAG IVPB SCH ×2 (15:10→20:04)
[2018-03-02 15:45] VITALS: O2SAT 100
[2018-03-02] MEDS: Insulin Detemir 100 units/ml Vial (Levemir) SC SCH (21:27)
[2018-03-03] MEDS: Piperacill/Tazo 3.375gm in Dex 3.375 GM/50 ML BAG IVPB SCH ×3 (02:51→14:01)
--- NOTE | 2018-03-03 07:36 | CP.PCM.PN ---
Subjective - Date & Time of Evaluation Date of Evaluation: 03/03/18 Time of Evaluation: 07:33 - Subjective Subjective: Patient seen and examined at bedside with foreign language interpreter. Patient resting comfortably in bedside chair with no new complaints at this time. Patient says he is doing ok with the full diet but is still having diarrhea. He denies blood in the stool. Patient is requesting that everyone who come in the room to use a foreign language interpreter. He also denies fever, chills, chest pain, SOB, palpitations , abdominal pain, n/v, and lower extremity pain/swelling. Objective - Vital Signs/Intake and Output Vital Signs (last 24 hours): Temp Pulse Resp BP Pulse Ox 97.9 F 96 H 20 153/84 H 100 03/02/18 23:45 03/03/18 03:45 03/02/18 23:45 03/02/18 23:45 03/02/18 23:45 - Medications Medications: Current Medications Piperacillin Sod/Tazobactam Sod (Zosyn 3.375 Gm Iv Premix) 3.375 gm in 50 mls @ 100 mls/hr IVPB Q6H [facility] PRN Reason: Protocol Last Admin: 03/03/18 02:51 Dose: 100 mls/hr Insulin Detemir (Levemir) 40 unit SC HS [facility] Last Admin: 03/02/18 21:27 Dose: Not Given Insulin Human Regular (Novolin R) 0 unit SC ACHS [facility] PRN Reason: Protocol Last Admin: 03/02/18 22:05 Dose: Not Given Levetiracetam (Keppra) 500 mg PO BID [facility] Last Admin: 03/02/18 18:01 Dose: 500 mg Pantoprazole Sodium (Protonix Inj) 40 mg IVP DAILY [facility] Last Admin: 03/02/18 09:26 Dose: 40 mg Simethicone (Mylicon Chew Tab) 80 mg PO QID [facility] Last Admin: 03/02/18 21:39 Dose: 80 mg - Labs Labs: 03/02/18 07:17 03/02/18 07:17 PT 11.3 SECONDS (9.7-12.2) 02/24/18 05:03 INR 1.0 02/24/18 05:03 APTT 34 SECONDS (21-34) 02/24/18 05:03 - Additional Findings Additional findings: - Constitutional Appears: Non-toxic, No Acute Distress - Head Exam Head Exam: ATRAUMATIC, NORMAL INSPECTION, NORMOCEPHALIC - Eye Exam Eye Exam: EOMI, Normal appearance, PERRL - ENT Exam ENT Exam: Mucous Membranes Moist - Respiratory Exam Respiratory Exam: Clear to Ausculation Bilateral, NORMAL BREATHING PATTERN. absent: Accessory Muscle Use, Rales, Rhonchi, Wheezes, Respiratory Distress - Cardiovascular Exam Cardiovascular Exam: RRR, +S1, +S2 - GI/Abdominal Exam GI & Abdominal Exam: Soft, Normal Bowel Sounds. absent: Distended, Tenderness - Extremities Exam Extremities Exam: Normal Inspection. 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 Rabago (neuro) consulted, help appreciated (being seen by Dr. Joyce as well) * May follow as an outpatient * PT eval and treat * PT/PTT/INR: 11.3/34/1.0 * Lipid Panel: Trig 272, Chol 183, LDL 91, HDL 30 * TSH/Free T4: 0.64/1.44 Imaging: * 02/24 02:55 CT head w/o contrast: Multifocal hyperdense foci are scattered throughout the cerebrum as well as right side of the yogesh. The majority is foci are small with the largest measuring 1.9 cm at the left frontal lobe which trace edema questioned related. Consider hemorrhagic metastases though multifocal hemorrhage is a possibility, particularly if there is prior history of trauma. Postinfectious calcification as well as metastatic lymphoma are included in the differential diagnosis. Follow-up cross-sectional brain imaging is advised. * 02/24 05:25 CT head w/o contrast: Stable multifocal hyperdensities are again seen scattered in the bilateral cerebral hemispheres in the right side of the yogesh without significant interval change. Trace edema is again seen related to the left frontal dominant lesion. Continued clinical and CT vigilance is advised. Follow-up MRI with and without contrast is also advised when feasible. * 02/24 CXR: Endotracheal tube extending into the mid thoracic trachea. Left costophrenic angle is partially excluded from this study. Mild venous congestion. Mild patchy increased markings in the left lung which may be related to technique. Upper lobe granulomatous changes. * 02/24 Head/Neck CTA: Unremarkable CT Angiography of the Brain and Neck. * 02/24: CT chest/abdomen/pelvis with IV contrast: 1. Limited nonspecific ground- glass opacity seen in the pre for the bilateral apices with associated limited reticular changes but no definite alveolitis. Is difficult to differentiate between limited fibrosis or tiny subpleural nodules at the right middle lobe laterally but there is no dominant mass appreciated throughout the bilateral lung david including central airways. No significant lymphadenopathy in the chest. 2. Limited bilateral basilar dependent atelectasis. 3. A large cystic lesion measuring 12.6 cm greatest dimension occupies the midbody through tail the pancreas and is suspicious for a potential pancreatic neoplasm though a pseudocyst and other etiologies are possible as discussed above. Further clinical correlation is advised. 4. Hepatic steatosis. 5. No significant chest, abdomen or pelvis lymphadenopathy. 6. Enlarged prostate gland. Tena catheter decompresses the urinary bladder somewhat, limiting evaluation of the urinary bladder wall. * 02/25 CXR: No acute cardiopulmonary process seen. * 02/27 CT head: Stable multi focal hemorrhages/hemorrhagic masses. * 02/27 Brain MRI: Re- demonstrated is a small hemorrhagic focus in the left superior frontal lobe which appears to be surrounded by some mild edema. There are multiple additional varying sized predominately rounded foci of very dark T2 signal scattered about both cerebral hemispheres, cerebellum and brainstem consistent with hemosiderin deposits. 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 Multiple small hemorrhagic metastases less likely due to the lack of significant mass-effect or surrounding edema though not completely excluded. Recommend follow-up studies study to exclude primary carcinoma (with propensity to present with hemorrhagic metastases such as renal cell, melanoma or thyroid carcinoma). Acute Renal Failure with Metabolic Acidosis - resolved * Dr. Dotson/Kevon (nephro) consulted, help appreciated - signed off as this has resolved * GRAY non oliguric multifactorial - contrast and rhabdomyolysis * likely has underlying ckd based on ua w/ proteinuria and renal US * recommend aggressive ivf, maintain 150 cc/hr, repeat cpk daily * ABG 02/25: pH 7.28, HCO3 17.3, pCO2 34 * UA (02/24 & 18): +Protein, glucose, and blood, many uric acid crystals, and hyaline casts Imaging * 02/25 Renal US: Diffusely increased renal cortical echogenicity bilaterally consistent with medical renal disease. Complex mass medial to left kidney consistent with complex cystic mass identified on CT examination in the pancreatic tail region. Meds/fluids: * Nephro discontinued D5NS @150 cc/h and I encouraged PO fluid intake Rhabdomyolysis * Total CK trending down Leukocytosis * Dr. Webster (ID) consulted, help appreciated * Afebrile since 02/24 (101.6) * HIV negative * 02/24 Sputum culture positive for S. aureus * 02/24 Blood cultures negative x2 for 48H * 02/24 Nares negative for MRSA * 02/24 Urine culture negative * 02/24 lactate 9.6, then down to 1.3 * 02/24 Procal 10.61 * f/u C. Diff Imaging: * 02/25 echo: There is borderline to mild concentric left ventricular hypertrophy. There is no aortic valvular vegetation. The mitral valve is normal in structure. The tricuspid valve is normal in structure. TECHNICALLY DIFFICULT STUDY. ROBER IS ADVISED IF VEGITATIONS ARE SUSPECTED. Meds: * Zosyn 2.25 g IV Q6 Abdominal pain - resolved * Possibly secondary to pancreatic cystic mass vs incomplete SBO * Dr. Marquez (GI) consulted, help appreciated * Dr. Carrero (IR) consulted, help appreciated * Dr. Echeverria (general surgery) consulted, help appreciated * No surgical intervention indicated at this time * CA 19-9: 4.8 Imaging: * 02/24: CT chest/abdomen/pelvis with IV contrast: 1. Limited nonspecific ground- glass opacity seen in the pre for the bilateral apices with associated limited reticular changes but no definite alveolitis. Is difficult to differentiate between limited fibrosis or tiny subpleural nodules at the right middle lobe laterally but there is no dominant mass appreciated throughout the bilateral lung david including central airways. No significant lymphadenopathy in the chest. 2. Limited bilateral basilar dependent atelectasis. 3. A large cystic lesion measuring 12.6 cm greatest dimension occupies the midbody through tail the pancreas and is suspicious for a potential pancreatic neoplasm though a pseudocyst and other etiologies are possible as discussed above. Further clinical correlation is advised. 4. Hepatic steatosis. 5. No significant chest, abdomen or pelvis lymphadenopathy. 6. Enlarged prostate gland. Tena catheter decompresses the urinary bladder somewhat, limiting evaluation of the urinary bladder wall. * 02/26 abdominal XR: Early/incomplete small bowel obstruction. Meds/Fluids: * Simethicone * Protonix 40 mg IV daily * Mineral oil enema once 02/27 Transaminitis * AST/ALT trending down * Continue to monitor History of seizures * Dr. Rabago (neuro) consulted, help appreciated (being seen by Dr. Joyce as well) Meds: * Keppra 500 mg IV Q12H History of DM * Monitor with accuchecks * HbA1c 9.3 Meds: * Levemir 40 units SC HS * Insulin sliding scale Marijuana use disorder * UDS +Cannabinoids * Alcohol level <10 * Cournseled on cessation Prophylaxis * Protonix 40 mg IV * DVT prophylaxis contraindicated due to brain hemorrhages
[2018-03-03 08:18] LABS: BASO # 0.1 K/uL (0.0-0.2); BASO % 0.6 % (0.0-2.0); EOS # 0.6 K/uL (0.0-0.7); EOS % 5.2 % (0.0-4.0); HEMOGLOBIN 12.1 g/dL (12.0-18.0); LYMPH % 16.9 % (20.0-40.0); MEAN CORPUSCULAR HEMOGLOBIN 23.9 pg (27.0-31.0); MEAN CORPUSCULAR HGB CONC 32.4 g/dL (33.0-37.0); MEAN PLATELET VOLUME 7.8 fL (7.2-11.7); MONO # 0.9 K/uL (0.0-0.8); MONO % 7.3 % (0.0-10.0); NEUT # 8.3 K/uL (1.8-7.0); RBC 5.05 Mil/uL (4.40-5.90); RED CELL DISTRIBUTION WIDTH 15.5 % (11.5-14.5); WHITE BLOOD COUNT 11.8 K/uL (4.8-10.8)
[2018-03-03 08:20] VITALS: TEMP 97.8
[2018-03-03] MEDS: (Novolin R) Insulin Human Regular 100 units/ml vial SC SCH ×4 (08:24→17:30)
[2018-03-03 08:37] LABS: ALB/GLOB RATIO 0.9 (1.0-2.1); ALBUMIN 3.3 g/dL (3.5-5.0); ALT/SGPT 275 U/L (21-72); AST/SGOT 172 U/L (17-59); BLOOD UREA NITROGEN 10 mg/dL (9-20); CALCIUM 8.6 mg/dl (8.6-10.4); GFR AFRICAN-AMERICAN > 60; GFR NON-AFRICAN AMERICAN > 60
[2018-03-03] MEDS ORDERED: Potassium Chloride 20 mEq ER Tab PO ONE (10:30)
[2018-03-03] MEDS: Simethicone 80 mg Chewtab PO SCH ×3 (11:27→17:30)
[2018-03-03] MEDS: Magnesium Sulfate 1 gm in D5W 1 GM/100 ML BAG IVPB SCH ×2 (11:28→12:35)
[2018-03-03 14:18] LABS: HEPATITIS B SURFACE AG Negative (NEGATIVE)
[2018-03-03 14:24] LABS: HEPATITIS A IGM NEGATIVE (NEGATIVE); HEPATITIS B CORE AB NEGATIVE (NEGATIVE)
[2018-03-03 14:37] LABS: HEPATITIS C ANTIBODY NEGATIVE (NEGATIVE)
[2018-03-03 15:54] VITALS: BP 155/93; RESP 18
[2018-03-03 16:35] VITALS: PULSE 78
--- NOTE | 2018-03-03 18:19 | CP.PCM.DIS ---
Provider - Provider Date of Admission: 02/24/18 05:09 Attending physician: Jovi Del Castillo MD Consults: Dr. Juwan Carrero Time Spent in preparation of Discharge (in minutes): 45 Diagnosis - Discharge Diagnosis (1) Cerebral cavernous malformation Status: Acute (2) Pancreatic mass Status: Acute (3) Renal failure (ARF), acute on chronic Status: Acute (4) Rhabdomyolysis Status: Acute Hospital Course - Lab Results Lab Results: Micro Results 02/25/18 22:25 [id number] Ova and Parasite Concentrate Exam - Final 02/24/18 08:30 Blood Blood Culture - Final NO GROWTH AFTER 5 DAYS 02/24/18 08:30 Blood Gram Stain - Final TEST NOT PERFORMED 02/24/18 09:00 Blood Blood Culture - Final NO GROWTH AFTER 5 DAYS 02/28/18 19:30 Naris MRSA Culture - Final MRSA NOT DETECTED 02/26/18 04:00 Stool Stool Culture - Final NO SALMONELLA, SHIGELLA OR CAMPYLOBACTER ISOLATED. 02/24/18 20:22 Sputum Induced Gram Stain - Final 02/24/18 20:22 Sputum Induced Sputum Culture - Final Staphylococcus Aureus 02/24/18 07:01 Nose MRSA Culture (Admit) - Final MRSA NOT DETECTED 02/24/18 05:35 Urine,Clean Catch Urine Culture - Final No Growth (<1,000 CFU/ML) Most Recent Lab Values WBC 11.8 K/uL (4.8-10.8) H 03/03/18 08:02 RBC 5.05 Mil/uL (4.40-5.90) 03/03/18 08:02 Hgb 12.1 g/dL (12.0-18.0) 03/03/18 08:02 Hct 37.4 % (35.0-51.0) 03/03/18 08:02 MCV 74.0 fL (80.0-94.0) L 03/03/18 08:02 MCH 23.9 pg (27.0-31.0) L 03/03/18 08:02 MCHC 32.4 g/dL (33.0-37.0) L 03/03/18 08:02 RDW 15.5 % (11.5-14.5) H 03/03/18 08:02 Plt Count 381 K/uL (130-400) 03/03/18 08:02 MPV 7.8 fL (7.2-11.7) 03/03/18 08:02 Neut % (Auto) 70.0 % (50.0-75.0) 03/03/18 08:02 Lymph % (Auto) 16.9 % (20.0-40.0) L 03/03/18 08:02 [place] % (Auto) 7.3 % (0.0-10.0) 03/03/18 08:02 Eos % (Auto) 5.2 % (0.0-4.0) H 03/03/18 08:02 Baso % (Auto) 0.6 % (0.0-2.0) 03/03/18 08:02 Neut # (Auto) 8.3 K/uL (1.8-7.0) H 03/03/18 08:02 Lymph # (Auto) 2.0 K/uL (1.0-4.3) 03/03/18 08:02 [place] # (Auto) 0.9 K/uL (0.0-0.8) H 03/03/18 08:02 Eos # (Auto) 0.6 K/uL (0.0-0.7) 03/03/18 08:02 Baso # (Auto) 0.1 K/uL (0.0-0.2) 03/03/18 08:02 Neutrophils % (Manual) 87 % (50-75) H 02/27/18 06:15 Band Neutrophils % 2 % (0-2) 02/24/18 09:09 Lymphocytes % (Manual) 11 % (20-40) L 02/27/18 06:15 Monocytes % (Manual) 2 % (0-10) 02/27/18 06:15 Eosinophils % (Manual) 2 % (0-4) 02/26/18 05:53 Platelet Estimate Normal (NORMAL) 02/27/18 06:15 Hypochromasia (manual) Slight 02/24/18 09:09 Poikilocytosis (manual Slight 02/27/18 06:15 Anisocytosis (manual) Slight 02/27/18 06:15 Target Cells Slight 02/24/18 09:09 Desirae Cells Slight 02/27/18 06:15 PT 11.3 SECONDS (9.7-12.2) 02/24/18 05:03 INR 1.0 02/24/18 05:03 APTT 34 SECONDS (21-34) 02/24/18 05:03 Puncture Site R brac 02/25/18 05:19 pCO2 34 mm/Hg (35-45) L 02/25/18 05:19 pO2 275 mm/Hg (80-100) H 02/25/18 05:19 HCO3 17.3 mmol/L (21-28) L 02/25/18 05:19 ABG pH 7.28 (7.35-7.45) L 02/25/18 05:19 ABG Total CO2 17.0 mmol/L (22-28) L 02/25/18 05:19 ABG O2 Saturation 98.8 % (95-98) H 02/25/18 05:19 ABG Base Excess -9.8 mmol/L (-2.0-3.0) L 02/25/18 05:19 ABG Hemoglobin 12.6 g/dL (11.7-17.4) 02/25/18 05:19 ABG Carboxyhemoglobin 0.6 % (0.5-1.5) 02/25/18 05:19 POC ABG HHb (Measured) 1.2 % (0.0-5.0) 02/25/18 05:19 ABG Methemoglobin 0.5 % (0.0-3.0) 02/25/18 05:19 Tanner Test Na 02/25/18 05:19 A-a O2 Difference 39.0 mm/Hg 02/25/18 05:19 Respiratory Index 0.1 02/25/18 05:19 Hgb O2 Saturation 97.7 % (95.0-98.0) 02/25/18 05:19 Vent Mode Prvc 02/25/18 05:19 Mechanical Rate 20 02/25/18 05:19 FiO2 50.0 % 02/25/18 05:19 Tidal Volume 500 02/25/18 05:19 PEEP 5 02/25/18 05:19 Crit Value Called To Cass carr/psychiatric rn 02/24/18 03:20 Crit Value Called By Jose james 02/24/18 03:20 Crit Value Read Back Y 02/24/18 03:20 Blood Gas Notified Time 335 02/24/18 03:20 Sodium 138 mmol/L (132-148) 03/03/18 08:02 Potassium 3.3 mmol/L (3.6-5.2) L 03/03/18 08:02 Chloride 101 mmol/L (98-107) 03/03/18 08:02 Carbon Dioxide 21 mmol/L (22-30) L 03/03/18 08:02 Anion Gap 18 (10-20) 03/03/18 08:02 BUN 10 mg/dL (9-20) 03/03/18 08:02 Creatinine 1.1 mg/dL (0.8-1.5) 03/03/18 08:02 Est GFR ( Amer) > 60 03/03/18 08:02 Est GFR (Non-Af Amer) > 60 03/03/18 08:02 POC Glucose (mg/dL) 321 mg/dL (65-110) H 03/03/18 17:23 Random Glucose 221 mg/dL (75-110) H 03/03/18 08:02 Hemoglobin A1c 9.3 % (4.2-6.5) H 02/25/18 06:04 Lactic Acid 1.3 mmol/L (0.7-2.1) 02/24/18 08:56 Calcium 8.6 mg/dl (8.6-10.4) 03/03/18 08:02 Phosphorus 2.1 mg/dL (2.5-4.5) L 03/03/18 08:02 Magnesium 1.3 mg/dL (1.6-2.3) L 03/03/18 08:02 Total Bilirubin 0.5 mg/dL (0.2-1.3) 03/03/18 08:02 AST 172 U/L (17-59) H D 03/03/18 08:02 ALT 275 U/L (21-72) H 03/03/18 08:02 Alkaline Phosphatase 53 U/L (38-126) 03/03/18 08:02 Total Creatine Kinase 1573 U/L (55-170) H 03/03/18 08:02 Troponin I 0.0170 ng/mL (0.00-0.120) 02/24/18 03:10 Total Protein 7.0 g/dL (6.3-8.3) 03/03/18 08:02 Albumin 3.3 g/dL (3.5-5.0) L D 03/03/18 08:02 Globulin 3.7 gm/dL (2.2-3.9) 03/03/18 08:02 Albumin/Globulin Ratio 0.9 (1.0-2.1) L 03/03/18 08:02 Triglycerides 272 mg/dL (0-149) H 02/25/18 06:04 Cholesterol 183 mg/dL (0-199) 02/25/18 06:04 LDL Cholesterol Direct 91 mg/dL (0-129) 02/25/18 06:04 HDL Cholesterol 30 mg/dL (30-70) 02/25/18 06:04 CA 19-9 Antigen 4.8 U/mL (0-37) 02/25/18 17:19 Procalcitonin 10.61 NG/ML (0.19-0.49) H 02/24/18 09:09 Free T4 1.44 ng/dL (0.78-2.19) 02/25/18 06:04 TSH 3rd Generation 0.64 mIU/L (0.46-4.68) 02/25/18 06:04 Urine Color Light red (YELLOW) 02/25/18 16: Urine Clarity Turbid (Clear) 02/25/18 16:27 Urine pH 5.0 (5.0-8.0) 02/25/18 16:27 Ur Specific [place] 1.011 (1.003-1.030) 02/25/18 16:27 Urine Protein 2+ mg/dL (NEGATIVE) H 02/25/18 16:27 Urine Glucose (UA) 2+ mg/dL (Normal) H 02/25/18 16:27 Urine Ketones Negative mg/dL (NEGATIVE) 02/25/18 16: Urine Blood 3+ (NEGATIVE) H 02/25/18 16: Urine Nitrate Negative (NEGATIVE) 02/25/18 16:27 Urine Bilirubin Negative (NEGATIVE) 02/25/18 16: Urine Urobilinogen Normal mg/dL (0.2-1.0) 02/25/18 16:27 Ur Leukocyte Esterase Neg Corinne/uL (Negative) 02/25/18 16:27 Urine WBC (Auto) 3 /hpf (0-5) 02/25/18 16:27 Urine RBC (Auto) 37 /hpf (0-3) H 02/25/18 16:27 Ur Squamous Epith Cells < 1 /hpf (0-5) 02/25/18 16:27 Uric Acid Crystals Many /hpf (<OCC) H 02/25/18 16:27 Urine Bacteria Occ (<OCC) H 02/24/18 03:36 Hyaline Casts 6-10 /lpf (0-2) H 02/24/18 03:36 Ur Random Sodium 32 mmol/L 02/25/18 16:27 Stool Occult Blood Negative (NEGATIVE) 02/26/18 08:45 Urine Opiates Screen Negative (NEGATIVE) 02/24/18 03:36 Urine Methadone Screen Negative (NEGATIVE) 02/24/18 03:36 Ur Barbiturates Screen Negative (NEGATIVE) 02/24/18 03:36 Ur Phencyclidine Scrn Negative (NEGATIVE) 02/24/18 03:36 Ur Amphetamines Screen Negative (NEGATIVE) 02/24/18 03:36 U Benzodiazepines Scrn Negative (NEGATIVE) 02/24/18 03:36 U Oth Cocaine Metabols Negative (NEGATIVE) 02/24/18 03:36 U Cannabinoids Screen Positive (NEGATIVE) H 02/24/18 03:36 Alcohol, Quantitative < 10 mg/dl (0-10) 02/24/18 03:10 Serum Ketones Negative (NEGATIVE) 02/24/18 03:37 Hepatitis A IgM Ab Negative (NEGATIVE) 03/03/18 10:14 Hep Bs Antigen Negative (NEGATIVE) 03/03/18 10:14 Hep B Core IgM Ab Negative (NEGATIVE) 03/03/18 10:14 Hepatitis C Antibody Negative (NEGATIVE) 03/03/18 10:14 HIV 1&2 Antibody Screen Negative (NEGATIVE) 02/27/18 17:56 - Hospital Course Hospital Course: Upon admission: 57 year old male with past medical history of hypertension and diabetes was found unconscious by his niece at home. History per patient's neice , she heard noises coming from up stair around 1am and found patient unconscious with agonal breathing, saliva from the mouth. EMS arrived and intubated patient en route to the hospital. Patient was last seem behaving normally a day prior. 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 Smokes cigarettes and does drink alcohol. Unable to obtain further ROS due to patient's condition. Hospital course: Patient was admitted to the ICU, intubated and sedated (extubated 02/25). Dr. Rabago and Dr. Cisneros were consulted. Patient was not a candidate for surgical intervention at that time but he was started on Keppra. The following series of imaging was done during his stay to help better understand what caused his neurological state: * 02/24 02:55 CT head w/o contrast: Multifocal hyperdense foci are scattered throughout the cerebrum as well as right side of the yogesh. The majority is foci are small with the largest measuring 1.9 cm at the left frontal lobe which trace edema questioned related. Consider hemorrhagic metastases though multifocal hemorrhage is a possibility, particularly if there is prior history of trauma. Postinfectious calcification as well as metastatic lymphoma are included in the differential diagnosis. Follow-up cross-sectional brain imaging is advised. * 02/24 05:25 CT head w/o contrast: Stable multifocal hyperdensities are again seen scattered in the bilateral cerebral hemispheres in the right side of the yogesh without significant interval change. Trace edema is again seen related to the left frontal dominant lesion. Continued clinical and CT vigilance is advised. Follow-up MRI with and without contrast is also advised when feasible. * 02/24 CXR: Endotracheal tube extending into the mid thoracic trachea. Left costophrenic angle is partially excluded from this study. Mild venous congestion. Mild patchy increased markings in the left lung which may be related to technique. Upper lobe granulomatous changes. * 02/24 Head/Neck CTA: Unremarkable CT Angiography of the Brain and Neck. * 02/24: CT chest/abdomen/pelvis with IV contrast: 1. Limited nonspecific ground- glass opacity seen in the pre for the bilateral apices with associated limited reticular changes but no definite alveolitis. Is difficult to differentiate between limited fibrosis or tiny subpleural nodules at the right middle lobe laterally but there is no dominant mass appreciated throughout the bilateral lung david including central airways. No significant lymphadenopathy in the chest. 2. Limited bilateral basilar dependent atelectasis. 3. A large cystic lesion measuring 12.6 cm greatest dimension occupies the midbody through tail the pancreas and is suspicious for a potential pancreatic neoplasm though a pseudocyst and other etiologies are possible as discussed above. Further clinical correlation is advised. 4. Hepatic steatosis. 5. No significant chest, abdomen or pelvis lymphadenopathy. 6. Enlarged prostate gland. Tena catheter decompresses the urinary bladder somewhat, limiting evaluation of the urinary bladder wall. * 02/25 CXR: No acute cardiopulmonary process seen. * 02/27 CT head: Stable multi focal hemorrhages/hemorrhagic masses. * 02/27 Brain MRI: Re- demonstrated is a small hemorrhagic focus in the left superior frontal lobe which appears to be surrounded by some mild edema. There are multiple additional varying sized predominately rounded foci of very dark T2 signal scattered about both cerebral hemispheres, cerebellum and brainstem consistent with hemosiderin deposits. 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 Multiple small hemorrhagic metastases less likely due to the lack of significant mass-effect or surrounding edema though not completely excluded. Recommend follow-up studies study to exclude primary carcinoma (with propensity to present with hemorrhagic metastases such as renal cell, melanoma or thyroid carcinoma). Due to multiple factors (contrast, rhabdomyolysis, underlying CKD) patient was in acute renal failure with metabolic acidosis while in the ICU. Patient was treated with aggressive IV fluids until resolution and CK was trended to ensure improvement. 02/25 Renal US: Diffusely increased renal cortical echogenicity bilaterally consistent with medical renal disease. Complex mass medial to left kidney consistent with complex cystic mass identified on CT examination in the pancreatic tail region. Patient was also found to have leukocytosis and elevated procal. Dr. Webster was consulted. Sputum culture was found to be positive for S. aureus, but all other cultures were negative. Patient was also found to have a large cystic lesion measuring 12.6 cm greatest dimension occupying the midbody through tail the pancreas. Patient was treated with zosyn for the length of his stay. A copy of my most recent assessment and plan is copied below for more details. This is only a brief summary of events, so for more details, please see complete medical record. 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 Rabago (neuro) consulted, help appreciated (being seen by Dr. Joyce as well) * May follow as an outpatient * PT eval and treat * PT/PTT/INR: 11.3/34/1.0 * Lipid Panel: Trig 272, Chol 183, LDL 91, HDL 30 * TSH/Free T4: 0.64/1.44 Imaging: * 02/24 02:55 CT head w/o contrast: Multifocal hyperdense foci are scattered throughout the cerebrum as well as right side of the yogesh. The majority is foci are small with the largest measuring 1.9 cm at the left frontal lobe which trace edema questioned related. Consider hemorrhagic metastases though multifocal hemorrhage is a possibility, particularly if there is prior history of trauma. Postinfectious calcification as well as metastatic lymphoma are included in the differential diagnosis. Follow-up cross-sectional brain imaging is advised. * 02/24 05:25 CT head w/o contrast: Stable multifocal hyperdensities are again seen scattered in the bilateral cerebral hemispheres in the right side of the yogesh without significant interval change. Trace edema is again seen related to the left frontal dominant lesion. Continued clinical and CT vigilance is advised. Follow-up MRI with and without contrast is also advised when feasible. * 02/24 CXR: Endotracheal tube extending into the mid thoracic trachea. Left costophrenic angle is partially excluded from this study. Mild venous congestion. Mild patchy increased markings in the left lung which may be related to technique. Upper lobe granulomatous changes. * 02/24 Head/Neck CTA: Unremarkable CT Angiography of the Brain and Neck. * 02/24: CT chest/abdomen/pelvis with IV contrast: 1. Limited nonspecific ground- glass opacity seen in the pre for the bilateral apices with associated limited reticular changes but no definite alveolitis. Is difficult to differentiate between limited fibrosis or tiny subpleural nodules at the right middle lobe laterally but there is no dominant mass appreciated throughout the bilateral lung david including central airways. No significant lymphadenopathy in the chest. 2. Limited bilateral basilar dependent atelectasis. 3. A large cystic lesion measuring 12.6 cm greatest dimension occupies the midbody through tail the pancreas and is suspicious for a potential pancreatic neoplasm though a pseudocyst and other etiologies are possible as discussed above. Further clinical correlation is advised. 4. Hepatic steatosis. 5. No significant chest, abdomen or pelvis lymphadenopathy. 6. Enlarged prostate gland. Tena catheter decompresses the urinary bladder somewhat, limiting evaluation of the urinary bladder wall. * 02/25 CXR: No acute cardiopulmonary process seen. * 02/27 CT head: Stable multi focal hemorrhages/hemorrhagic masses. * 02/27 Brain MRI: Re- demonstrated is a small hemorrhagic focus in the left superior frontal lobe which appears to be surrounded by some mild edema. There are multiple additional varying sized predominately rounded foci of very dark T2 signal scattered about both cerebral hemispheres, cerebellum and brainstem consistent with hemosiderin deposits. 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 Multiple small hemorrhagic metastases less likely due to the lack of significant mass-effect or surrounding edema though not completely excluded. Recommend follow-up studies study to exclude primary carcinoma (with propensity to present with hemorrhagic metastases such as renal cell, melanoma or thyroid carcinoma). Acute Renal Failure with Metabolic Acidosis - resolved * Dr. Dotson/Kevon (nephro) consulted, help appreciated - signed off as this has resolved * GRAY non oliguric multifactorial - contrast and rhabdomyolysis * likely has underlying ckd based on ua w/ proteinuria and renal US * recommend aggressive ivf, maintain 150 cc/hr, repeat cpk daily * ABG 02/25: pH 7.28, HCO3 17.3, pCO2 34 * UA (02/24 & ): +Protein, glucose, and blood, many uric acid crystals, and hyaline casts Imaging * 02/25 Renal US: Diffusely increased renal cortical echogenicity bilaterally consistent with medical renal disease. Complex mass medial to left kidney consistent with complex cystic mass identified on CT examination in the pancreatic tail region. Meds/fluids: * Nephro discontinued D5NS @150 cc/h and I encouraged PO fluid intake Rhabdomyolysis * Total CK trending down Leukocytosis * Dr. Webster (ID) consulted, help appreciated * Afebrile since 02/24 (101.6) * HIV negative * 02/24 Sputum culture positive for S. aureus * 02/24 Blood cultures negative x2 for 48H * 02/24 Nares negative for MRSA * 02/24 Urine culture negative * 02/24 lactate 9.6, then down to 1.3 * 02/24 Procal 10.61 * f/u C. Diff Imaging: * 02/25 echo: There is borderline to mild concentric left ventricular hypertrophy. There is no aortic valvular vegetation. The mitral valve is normal in structure. The tricuspid valve is normal in structure. TECHNICALLY DIFFICULT STUDY. ROBER IS ADVISED IF VEGITATIONS ARE SUSPECTED. Meds: * Zosyn 2.25 g IV Q6 Abdominal pain - resolved * Possibly secondary to pancreatic cystic mass vs incomplete SBO * Dr. Marquez (GI) consulted, help appreciated * Dr. Carrero (IR) consulted, help appreciated * Dr. Echeverria (general surgery) consulted, help appreciated * No surgical intervention indicated at this time * CA 19-9: 4.8 Imaging: * 02/24: CT chest/abdomen/pelvis with IV contrast: 1. Limited nonspecific ground- glass opacity seen in the pre for the bilateral apices with associated limited reticular changes but no definite alveolitis. Is difficult to differentiate between limited fibrosis or tiny subpleural nodules at the right middle lobe laterally but there is no dominant mass appreciated throughout the bilateral lung david including central airways. No significant lymphadenopathy in the chest. 2. Limited bilateral basilar dependent atelectasis. 3. A large cystic lesion measuring 12.6 cm greatest dimension occupies the midbody through tail the pancreas and is suspicious for a potential pancreatic neoplasm though a pseudocyst and other etiologies are possible as discussed above. Further clinical correlation is advised. 4. Hepatic steatosis. 5. No significant chest, abdomen or pelvis lymphadenopathy. 6. Enlarged prostate gland. Tena catheter decompresses the urinary bladder somewhat, limiting evaluation of the urinary bladder wall. * 02/26 abdominal XR: Early/incomplete small bowel obstruction. Meds/Fluids: * Simethicone * Protonix 40 mg IV daily * Mineral oil enema once 02/27 Transaminitis * AST/ALT trending down * Continue to monitor History of seizures * Dr. Rabago (neuro) consulted, help appreciated (being seen by Dr. Joyce as well) Meds: * Keppra 500 mg IV Q12H History of DM * Monitor with accuchecks * HbA1c 9.3 Meds: * Levemir 40 units SC HS * Insulin sliding scale Marijuana use disorder * UDS +Cannabinoids * Alcohol level <10 * Cournseled on cessation Prophylaxis * Protonix 40 mg IV * DVT prophylaxis contraindicated due to brain hemorrhages Upon discharge: Patient stable for discharge per Dr. Mason and consults. Patient was given the following instructions in Andorran: Please Continue your home medications EXCEPT for aspirin. Please discontinue daily aspirin due to risk of intracranial bleeding. Please start new medication: Keppra 500 mg twice daily. In addition, please take Keflex 500 mg twice a day for 5 days. Please follow up with the [facility] in the [facility] within 1 week of discharge. You will also need to follow up with a neuro-oncologist at [facility] as soon as you can make an appointment. Please return to the nearest emergency department if you experience new or worsening symptoms. Discharge Exam - Head Exam Head Exam: ATRAUMATIC, NORMAL INSPECTION, NORMOCEPHALIC - Additional Findings Additional findings: please see today's progress note Discharge Plan - Discharge Medications Prescriptions: Cephalexin [Keflex] 500 mg PO BID #10 capsule Gabapentin 300 mg PO DAILY #30 capsule Insulin Detemir [Levemir] 40 unit SC DAILY #1 bottle levETIRAcetam [Keppra] 500 mg PO BID #60 tab Lisinopril 2.5 mg PO DAILY #30 tablet metFORMIN [glucOPHAGE] 500 mg PO BID #60 tab Pravastatin Sodium 40 mg PO HS #30 tablet - Follow Up Plan Condition: STABLE Disposition: HOME/ ROUTINE Instructions: Insulin Detemir, Heart Healthy Diet, Carbohydrate Counting Diet, Seizures, Adult (DC), Diabetes Diet , Cephalexin, Gabapentin, Levetiracetam, Lisinopril, Metformin, Pravastatin, Subdural Hematoma (DC) Additional Instructions: Please Continue your home medications EXCEPT for aspirin. Please discontinue daily aspirin due to risk of intracranial bleeding. Please start new medication: Keppra 500 mg twice daily. In addition, please take Keflex 500 mg twice a day for 5 days. Please follow up with the [facility] in the [facility] within 1 week of discharge. You will also need to follow up with a neuro-oncologist at [facility] as soon as you can make an appointment. Please return to the nearest emergency department if you experience new or worsening symptoms. Por favor, contine con los medicamentos de lizarraga casa, EXCEPTO por la aspirina. Por favor descontine la aspirina diaria debido al riesgo de hemorragia intracraneal. Comience a deepika nuevos medicamentos: Keppra 500 mg dos veces al da. Adems, tome Keflex 500 mg dos veces al da moe 5 li. Por favor gianni un seguimiento con [facility] en el [facility] dentro de 1 semana de liya sido dado de baylee. Tambin deber hacer un seguimiento con un neuroonclogo en el [facility] pronto canelo pueda programar jonathan landy. Regrese al servicio de urgencias ms cercano si experimenta sntomas nuevos o que empeoran. Referrals: [facility] [Outside]
[2018-03-04] MEDS ORDERED: Pantoprazole 40 mg EC Tab PO SCH (10:00)
== END 2018-03-03 19:15 | disposition home or self-care (01) | DRG 91 ==
LOC: C.ER 02:50 → C.9I 05:09 → C.6T 02-28 20:59
PROVIDERS: ADMIT Internal Medicine; ATTEND Internal Medicine
PROC: 5A1945Z Respiratory Ventilation, 24-96 Consecutive Hours (ICD-10-PCS; principal; 2018-02-24)
DX: Q28.3 Other malformations of cerebral vessels (principal); I61.5 Nontraumatic intracerebral hemorrhage, intraventricular; J96.90 Respiratory failure, unspecified, unspecified whether with hypoxia or hypercapnia; E87.2 Acidosis; J98.11 Atelectasis; K56.600 Partial intestinal obstruction, unspecified as to cause; K86.3 Pseudocyst of pancreas; M62.82 Rhabdomyolysis; N17.9 Acute kidney failure, unspecified; E11.22 Type 2 diabetes mellitus with diabetic chronic kidney disease; E11.65 Type 2 diabetes mellitus with hyperglycemia; E87.5 Hyperkalemia; E87.6 Hypokalemia; G83.9 Paralytic syndrome, unspecified; K52.9 Noninfective gastroenteritis and colitis, unspecified; I12.9 Hypertensive chronic kidney disease with stage 1 through stage 4 chronic kidney disease, or unspecified chronic kidney disease; N18.9 Chronic kidney disease, unspecified; R56.9 Unspecified convulsions; F17.210 Nicotine dependence, cigarettes, uncomplicated; N14.1 Nephropathy induced by other drugs, medicaments and biological substances; I51.7 Cardiomegaly; K76.0 Fatty (change of) liver, not elsewhere classified; T50.8X5A Adverse effect of diagnostic agents, initial encounter; R63.3 Feeding difficulties; N40.0 Benign prostatic hyperplasia without lower urinary tract symptoms; F12.90 Cannabis use, unspecified, uncomplicated; Z79.84 Long term (current) use of oral hypoglycemic drugs

== ENCOUNTER 2018-03-08 11:21 | Emergency (ER) | payer OTHER ==
[2018-03-08 11:22] VITALS: BMI 22.4
[2018-03-08] MEDS ORDERED: Sodium Chloride 0.9% 1,000 ML IV STA (12:03)
[2018-03-08] MEDS ORDERED: Sodium Chloride 0.9% 1,000 ML ONE (12:08)
[2018-03-08 12:22] LABS: BASO # 0.1 K/uL (0.0-0.2); BASO % 0.6 % (0.0-2.0); EOS # 0.1 K/uL (0.0-0.7); EOS % 1.1 % (0.0-4.0); HEMOGLOBIN 11.4 g/dL (12.0-18.0); LYMPH # 1.4 K/uL (1.0-4.3); LYMPH % 10.4 % (20.0-40.0); MEAN CELL VOLUME 73.3 fL (80.0-94.0); MEAN CORPUSCULAR HGB CONC 32.8 g/dL (33.0-37.0); MEAN PLATELET VOLUME 7.2 fL (7.2-11.7); MONO % 7.3 % (0.0-10.0); NEUT # 10.8 K/uL (1.8-7.0); NEUT % 80.6 % (50.0-75.0); RBC 4.74 Mil/uL (4.40-5.90); RED CELL DISTRIBUTION WIDTH 16.3 % (11.5-14.5); WHITE BLOOD COUNT 13.5 K/uL (4.8-10.8)
[2018-03-08 12:37] LABS: ALBUMIN 3.4 g/dL (3.5-5.0); ALT/SGPT 111 U/L (21-72); AMYLASE 66 U/L (30-110); AST/SGOT 55 U/L (17-59); BLOOD UREA NITROGEN 12 mg/dL (9-20); CALCIUM 9.2 mg/dl (8.6-10.4); GFR AFRICAN-AMERICAN > 60; GFR NON-AFRICAN AMERICAN > 60; LIPASE 56 U/L (23-300)
--- NOTE | 2018-03-08 12:45 | C.PDOC ---
History Of Present Illness 57yo male, recently discharged from this facility on 03/05 after being treated for a "brain bleed", presents today with request for a refill for his lisinopril. Contrary to triage note, patient denies generalized confusion and states yesterday while calling the pharmacy, he forgot to ask them about his Lisinopril prescription. He also states he has had diarrhea and weakness for the past 2 days. Patient denies any fever, chills, headache, weakness, numbness , altered mental status, abdominal pain, nausea or vomiting. No other complaints. Time Seen by Provider: 03/08/18 11:49 Chief Complaint (Nursing): Weakness/Neurological Deficit History Per: Patient History/Exam Limitations: no limitations Past Medical History Reviewed: Historical Data, Nursing Documentation, Vital Signs Vital Signs: Last Vital Signs Temp 98.2 F 03/08/18 16:37 Pulse 85 03/08/18 16:37 Resp 16 03/08/18 16:37 BP 135/78 03/08/18 16:37 Pulse Ox 99 03/08/18 16:37 - Medical History PMH: Diabetes, HTN Denies: Chronic Kidney Disease - [facility] Procedures RESPIRATORY VENTILATION, 24-96 CONSECUTIVE HOURS (02/24/18) Family History: States: No Known Family Hx, Unknown Family Hx - Social History Hx Tobacco Use: No Hx Alcohol Use: No Hx Substance Use: No - Immunization History Hx Tetanus Toxoid Vaccination: No Hx Influenza Vaccination: Yes Hx Pneumococcal Vaccination: No Review Of Systems Except As Marked, All Systems Reviewed And Found Negative. Constitutional: Positive for: Weakness. Negative for: Fever, Chills Cardiovascular: Negative for: Chest Pain Respiratory: Negative for: Shortness of Breath Gastrointestinal: Positive for: Diarrhea. Negative for: Nausea, Vomiting, Abdominal Pain Neurological: Negative for: Weakness, Numbness, Confusion, Headache Physical Exam - Physical Exam Appears: Non-toxic, No Acute Distress Skin: Normal Color, Warm, Dry Head: Atraumatic, Normacephalic Eye(s): bilateral: Normal Inspection, PERRL, EOMI Oral Mucosa: Moist Neck: Normal ROM, Supple Chest: Symmetrical Cardiovascular: Rhythm Regular Respiratory: Normal Breath Sounds, No Wheezing Gastrointestinal/Abdominal: Normal Exam, Soft, No Tenderness Back: Normal Inspection, No CVA Tenderness Extremity: Normal ROM Neurological/Psych: Oriented x3, Normal Speech, Normal Cognition ED Course And Treatment - Laboratory Results Result Diagrams: 03/08/18 12:17 03/08/18 12:17 O2 Sat by Pulse Oximetry: 100 (RA) Pulse Ox Interpretation: Normal Progress Note: Patient given IV fluids, Labs w/o acute changes, C.Diff cultures obtained and negative. On re-evaluation patient feelss better, tolerates po and is stable to be d/c home with PMD follow up. Disposition - Disposition Referrals: Keila Shirley MD [Staff Provider] - Disposition: HOME/ ROUTINE Disposition Time: 16:25 Condition: STABLE Additional Instructions: Follow up in Clinic within 1-2 days. Return to ED immediately if feel worse. Prescriptions: Lisinopril [Zestril] 2.5 mg PO DAILY #30 tab Instructions: Diarrhea in Adolescents and Adults, [place] Diet Forms: [facility] ([place]) - Clinical Impression Clinical Impression: Diarrhea, Medication refill - PA / HOT DOG VENDOR / Resident Statement MD/DO has reviewed & agrees with the documentation as recorded. - Scribe Statement The provider has reviewed the documentation as recorded by the Scribe (Anais Ruiz) Provider Attestation: All medical record entries made by the Scribe were at my direction and personally dictated by me. I have reviewed the chart and agree that the record accurately reflects my personal performance of the history, physical exam, medical decision making, and the department course for this patient. I have also personally directed, reviewed, and agree with the discharge instructions and disposition.
[2018-03-08 12:51] LABS: URINE BILIRUBIN NEGATIVE (NEGATIVE); URINE BLOOD 1+ (NEGATIVE); URINE CLARITY Clear (Clear); URINE COLOR Colorless (YELLOW); URINE GLUCOSE (UA) NORMAL (Normal); URINE LEUKOCYTE ESTERASE NEG Leu/uL (Negative); URINE PROTEIN NEGATIVE (NEGATIVE); URINE UROBILINOGEN NORMAL mg/dL (0.2-1.0)
[2018-03-08 16:38] VITALS: BP 135/78; PULSE 85; RESP 16; TEMP 98.2
[2018-03-08 17:19] VITALS: O2SAT 100
== END 2018-03-08 16:51 | disposition home or self-care (01) ==
LOC: C.ER 11:21
DX: R19.7 Diarrhea, unspecified (principal); Z76.0 Encounter for issue of repeat prescription
CPT/HCPCS: 80053; 81001; 82150; 82550; 83690; 85025; 87230; 96360; 99285; J7040